=== PATIENT | female | born 1970 | race Caucasian/White ===

== ENCOUNTER 2018-07-08 00:20 | Outpatient (CLI) | payer BC, SELFPAY ==
--- NOTE | 2018-07-08 09:15 | DI.REPORT_ITS ---
SYMPTOM/DIAGNOSIS: SCREENING, ANNUAL PHYSICAL, Z00.00 MAMMOGRAMS: Mammograms were interpreted according to the usual protocol including computer analysis with CAD system, tomosynthesis and C view imaging. Comparison is made with prior examinations. Breast density, Category B. No masses or microcalcifications are seen. There is nothing to suggest malignancy. IMPRESSION: Negative mammogram. Routine screening is recommended. Category 1B. MQSA ASSESSMENT OF FINDINGS: Negative. Category 1. Patient will receive a letter notifying them of these results. BI-RADS category B. There are scattered areas of fibroglandular density.
== END 2018-07-08 00:21 ==
PROVIDERS: PCP Nurse Practitioner Family; Visit Provider Nurse Practitioner Family
DX: Z00.00 Encounter for general adult medical examination without abnormal findings (principal); Z12.31 Encounter for screening mammogram for malignant neoplasm of breast
CPT/HCPCS: 77063; 77067

== ENCOUNTER 2018-09-30 08:46 | Outpatient (RCR) | payer SELFPAY ==
--- NOTE | 2018-09-30 08:50 | COCO.CNN ---
Primary Reason for Visit Mental Health (Help with getting her daughter to school) Referral to Care Coordination Referral to Care Coordination: No Referral to Services: No Care Plan - Plan of Care Assessment/Background: I did a home visit with the family to talk about ways to get Elodia's daughter to school ontime. We spent about and hour talking about ways she can get to school. She is getting there most days but is usally late. 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 I will grab her after I drop off at the school. [facility] Self Management Plan Complete?: Yes
--- NOTE | 2018-09-30 08:59 | PDOC.CNN_ITS ---
Primary Reason for Visit Mental Health (Help with getting her daughter to school) Referral to Care Coordination Referral to Care Coordination: No Referral to Services: No Care Plan - Plan of Care Assessment/Background: I did a home visit with the family to talk about ways to get Elodia's daughter to school ontime. We spent about and hour talking about ways she can get to school. She is getting there most days but is usally late. 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 I will grab her after I drop off at the school. [facility]PE Self Management Plan Complete?: Yes
== END 2018-10-28 23:59 | disposition home or self-care (01) ==
LOC: COCO 08:46
PROVIDERS: PCP Nurse Practitioner Family; Visit Provider Nurse Practitioner Family
DX: R69 Illness, unspecified (principal)

== ENCOUNTER 2019-09-20 00:26 | Outpatient (CLI) | payer BC, SELFPAY ==
--- NOTE | 2019-09-20 08:37 | DI.MAMMO_ITS ---
EXAM: MAMMO SCREENING CLINICAL HISTORY: SCREENING, Z12.39. TECHNIQUE: Mammograms were interpreted according to the usual protocol including computer analysis w Sarta CAD system, tomosynthesis and C-view imaging. FINDINGS: The breast tissue is of moderate radiodensity. There is no evidence of a mass. There are no suspicio us calcifications and there has been no significant interval change when compared with prior images. IMPRESSION: Category 1 examination, annual screening mammography is recommended. Breast density category B. BI-RADS Cat 1 - Negative. Breast Density - Category B - Scattered areas of fibroglandular density.
== END 2019-09-20 00:46 ==
PROVIDERS: PCP Nurse Practitioner Family; Visit Provider Nurse Practitioner Family
DX: Z12.31 Encounter for screening mammogram for malignant neoplasm of breast (principal)
CPT/HCPCS: 77063; 77067

== ENCOUNTER 2021-06-10 03:59 | Outpatient (CLI) | payer BC, SELFPAY ==
[2021-06-10 09:45] LABS: Abs Immature Grans 0.02 10^3/uL (0.0-0.06); Absolute Basophil Count 0.04 10^3/uL (0.0-0.2); Absolute Eosinophil Count 0.06 10^3/uL (0.0-0.7); Absolute Lymphocyte Count 1.02 10^3/uL (1.2-3.4); Absolute Monocyte Count 0.25 10^3/uL (0.1-0.8); Absolute Neutrophil Count 3.21 10^3/uL (1.2-6.7); Basophils % 0.9; Eosinophils % 1.3; HGB 12.2 g/dL (11.2-15.7); Immature Grans % 0.4; Lymphocytes % 22.2; MCV 90.9 fL (80-95); MPV 9.3 fL (8.0-11.0); Monocytes % 5.4; Neutrophils % 69.8; Nucleated RBC 0 %; Platelet Count 238 10^3/uL (130-400); RBC 4.07 10^6/uL (3.93-5.22); RDW 13.2 % (11.7-14.6); RDW-SD 43.3 fL
[2021-06-10 10:11] LABS: Ferritin 22 ng/mL (8-252)
[2021-06-11 19:53] LABS: Iron 79 ug/dL (50-170); Total Iron Binding Capacity 361 ug/dL (250-450)
== END 2021-06-10 04:00 | disposition home or self-care (01) ==
LOC: LBO 03:59
PROVIDERS: PCP Nurse Practitioner Family; Visit Provider Internal Medicine Hematology
DX: D50.9 Iron deficiency anemia, unspecified (principal)
CPT/HCPCS: 36415; 82728; 83540; 83550; 85025

== ENCOUNTER 2021-11-17 17:23 | Outpatient (REF) | payer BC, SELFPAY ==
[2021-11-17 20:14] LABS: Abs Immature Grans 0.01 10^3/uL (0.0-0.06); Absolute Basophil Count 0.05 10^3/uL (0.0-0.2); Absolute Eosinophil Count 0.13 10^3/uL (0.0-0.7); Absolute Lymphocyte Count 1.45 10^3/uL (1.2-3.4); Absolute Monocyte Count 0.46 10^3/uL (0.1-0.8); Absolute Neutrophil Count 4.72 10^3/uL (1.2-6.7); Basophils % 0.7; Eosinophils % 1.9; HCT 41.3 % (36.0-46.0); HGB 12.6 g/dL (11.2-15.7); Immature Grans % 0.1; Lymphocytes % 21.3; MCH 25.5 pg (27.0-33.0); MCHC 30.5 % (32.0-36.0); MCV 83.6 fL (80-95); MPV 10.5 fL (8.0-11.0); Monocytes % 6.7; Neutrophils % 69.3; Nucleated RBC 0 %; Platelet Count 363 10^3/uL (130-400); RBC 4.94 10^6/uL (3.93-5.22); RDW-SD 57.5 fL; WBC 6.82 10^3/uL (4.4-10.8)
[2021-11-17 20:44] LABS: Ferritin 17 ng/mL (8-252)
== END 2021-11-17 17:24 | disposition home or self-care (01) ==
LOC: LBN 17:23
PROVIDERS: PCP Nurse Practitioner Family; Visit Provider Family Medicine
DX: D64.9 Anemia, unspecified (principal)
CPT/HCPCS: 82728; 85025

== ENCOUNTER 2021-11-18 07:46 | Emergency (ER) | payer BC, SELFPAY ==
[2021-11-18 07:50] VITALS: BP 144/70; PULSE 75; RESP 18; TEMP 36.2; O2SAT 100
--- NOTE | 2021-11-18 08:00 | RT.EKG_ITS ---
APPROVED REPORT Exam: Resting ECG Reason for Exam: syncope Patient Location: E HR:69 bpm ECG Measurements Heart Rate 69 AXIS OK 131 P 9 QRSd 89 QRS -1 QT 377 T 19 QTc 405 Conclusion Sinus rhythm...normal P axis, V-rate 60- 99
--- NOTE | 2021-11-18 08:05 | ED.GENADUL_ITS ---
Discharge Plan Disposition Patient Disposition: HOME Condition: Stable Discharge Details Clinical Impression: Vaginal bleeding Primary Care Provider: None,None ED Provider: Dre Bowen Home Meds and New Rx's Prescriptions: New ondansetron HCl [Zofran] 4 mg tablet 4 mg PO Q8H PRNQty: 10 RF: 0 Continued acetaminophen [Mapap Extra Strength] 500 MG tablet 1 tab PO PRN PRNRF: 0 venlafaxine 75 mg capsule,extended release 24hr PO DAILY RF: 0 desogestrel-ethinyl estradiol [Isibloom] 0.15-0.03 mg tablet 1 tab PO PRN PRNRF: 0 ferrous sulfate [FeroSul] 325 mg (65 mg iron) tablet 325 mg PO DAILY RF: 0 Lupron Depot (3 month) 11.25 mg Syringe Kit 11.25 mg IM [id number] RF: 0 Discharge Instructions Instructions: Abnormal (Dysfunctional) Uterine Bleeding (ED) Additional Instructions: Your laboratory values here in the ER are reassuring. I personally spoke with on-call MOTION STUDY ANALYST at [facility] who is aware of your urgent care visit yesterday and your ER visit today as well as your laboratory values. They were also able to review the hematology note. At this time they have no additional recommendations today. They would like you to move forward with the plan set forth yesterday of the increased contraceptive 3 times a day until the bleeding stopped, then 2 times a day, then 1 time a day. You are currently scheduled to see them on December 08 but they should be reaching out to you to at least check in and potentially squeeze you in sooner if the schedule allows. Please watch for new or worsening symptoms and return to the ER for any concerns. Medical Decision Making 51-year-old female presents to the ER for acute on chronic intermittent, heavy vaginal bleeding. Seen at the urgent care yesterday, MOTION STUDY ANALYST consulted, and increased her oral contraceptive therapy. Patient states upon waking this morning symptoms seem to be worse, she does feel generalized weakness like she could pass out but did not pass out. Denies any chest pain or shortness of breath that sensation has resolved completely but given the instructions given to her yesterday she came to the ER for further evaluation. Clinically she appears well, nontoxic, hemodynamically stable, abdomen soft, nontender, observe ambulating steadily to the restroom. Plan is to obtain routine laboratory values to assess her H&H, give IV fluid, and obtain coags. Laboratory values are reassuring, normal H&H. No obvious emergent process. PT 9.7 INR 1.0 electrolytes unremarkable. Urine reveals moderate blood 5-10 red cells, no signs of infection. I placed a consult to MOTION STUDY ANALYST at [facility], able to speak with on-call provider, Dr. Mancilla. We discussed her presentation and work-up today as well as she was able to review the consultation yesterday. She was able to speak with the on- call physician yesterday and review the hematology recommendations. At this time she feels as though the patient can be safely discharged and does not recommend any additional change in the medications. She recommends continuing the oral contraceptive therapy changes that were recommended yesterday. She states the patient has an appointment on December 08 but will have the MOTION STUDY ANALYST office reach out to her to check in as well as see if they can make the appointment any sooner. Lastly, she did state that the increased hormonal therapy may cause nausea and recommend a prescription for Zofran. I discussed my conversation with the MOTION STUDY ANALYST oncology consultant with the patient, she is comfortable discharge and has no additional questions or concerns. Prescription for Zofran given. Strict discharge and return precautions provided This documentation was generated using [email or web address] dictation system, please disregard any oddities of phrase or misspellings. Medical Records Medical records reviewed: Yes I reviewed the patient's medical records. Lab Data Lab results reviewed: Yes I reviewed the patient's lab results. Labs: Laboratory Tests Range/Units 11/18/21 11/18/21 11/18/21 08:20 08:37 08:37 WBC (4.4-10.8) 10^3/uL 7.16 RBC (3.93-5.22) 10^6/uL 4.60 Hgb (11.2-15.7) g/dL 11.8 Hct (36.0-46.0) % 37.7 MCV (80-95) fL 82.0 MCH (27.0-33.0) pg 25.7 L MCHC (32.0-36.0) % 31.3 L RDW (11.7-14.6) % 18.3 H Plt Count (130-400) 10^3/uL 331 MPV (8.0-11.0) fL 9.6 Immature Gran % 0.1 Neutrophils % 78.1 Lymphocytes % 13.8 Monocytes % 6.0 Eosinophils % 1.0 Basophils % 1.0 Nucleated RBC % % 0 Absolute Neutrophils (1.2-6.7) 10^3/uL 5.59 Absolute Lymphocytes (1.2-3.4) 10^3/uL 0.99 L Absolute Monocytes (0.1-0.8) 10^3/uL 0.43 Absolute Eosinophils (0.0-0.7) 10^3/uL 0.07 Absolute Basophils (0.0-0.2) 10^3/uL 0.07 PT (9.3-11.0) sec INR (0.9-1.1) Sodium (136-145) mmol/L 136 Potassium (3.5-5.1) mmol/L 4.1 Chloride (98-107) mmol/L 102 Carbon Dioxide (21.0-32.0) mmol/L 27.6 Anion Gap (3-11) mmol/L 6.4 BUN (7-18) mg/dL 16 Creatinine (0.55-1.02) mg/dL 0.9 Estimated GFR/1.73 m2 (mL/min/1.73m2) >= 60.00 Glucose (74-106) mg/dL 87 Calcium (8.5-10.1) mg/dL 8.3 L Total Bilirubin (0.2-1.0) mg/dL 0.4 AST (15-37) U/L 19 ALT (14-59) U/L 22 Alkaline Phosphatase (46-116) U/L 77 Troponin I (<or=60) ng/L < 50 Total Protein (6.4-8.2) g/dL 6.7 Albumin (3.4-5.0) g/dL 3.3 L Urine Color (Yellow) Yellow Urine Clarity (Clear) Clear Urine pH (5-8) 7.0 Ur Specific [place] (1.005-1.025) 1.015 Urine Protein (Negative) mg/dL Negative Urine Ketones (Negative) mg/dL Negative Urine Blood (Negative) Moderate H Urine Nitrite (Negative) Negative Urine Bilirubin (Negative) Negative Urine Urobilinogen (Up TO 0.2) EU/dL 0.2 Ur Leukocyte Esterase (Negative) Negative Urine RBC (0-2) HPF 5-10 H Urine WBC (0-5) HPF 0-2 Ur Epithelial Cells (Negative) HPF Few Urine Crystals (Negative) HPF Negative Urine Bacteria (Negative) HPF Rare Urine Casts (Negative) LPF Negative Urine Mucus (Negative) Moderate Ur Culture Indicated? No Urine Glucose (Negative) mg/dL Negative Range/Units 11/18/21 11/18/21 08:37 11:14 WBC (4.4-10.8) 10^3/uL RBC (3.93-5.22) 10^6/uL Hgb (11.2-15.7) g/dL Hct (36.0-46.0) % MCV (80-95) fL MCH (27.0-33.0) pg MCHC (32.0-36.0) % RDW (11.7-14.6) % Plt Count (130-400) 10^3/uL MPV (8.0-11.0) fL Immature Gran % Neutrophils % Lymphocytes % Monocytes % Eosinophils % Basophils % Nucleated RBC % % Absolute Neutrophils (1.2-6.7) 10^3/uL Absolute Lymphocytes (1.2-3.4) 10^3/uL Absolute Monocytes (0.1-0.8) 10^3/uL Absolute Eosinophils (0.0-0.7) 10^3/uL Absolute Basophils (0.0-0.2) 10^3/uL PT (9.3-11.0) sec 9.7 INR (0.9-1.1) 1.0 Sodium (136-145) mmol/L Potassium (3.5-5.1) mmol/L Chloride (98-107) mmol/L Carbon Dioxide (21.0-32.0) mmol/L Anion Gap (3-11) mmol/L BUN (7-18) mg/dL Creatinine (0.55-1.02) mg/dL Estimated GFR/1.73 m2 (mL/min/1.73m2) Glucose (74-106) mg/dL Calcium (8.5-10.1) mg/dL Total Bilirubin (0.2-1.0) mg/dL AST (15-37) U/L ALT (14-59) U/L Alkaline Phosphatase (46-116) U/L Troponin I (<or=60) ng/L Cancelled Total Protein (6.4-8.2) g/dL Albumin (3.4-5.0) g/dL Urine Color (Yellow) Urine Clarity (Clear) Urine pH (5-8) Ur Specific [place] (1.005-1.025) Urine Protein (Negative) mg/dL Urine Ketones (Negative) mg/dL Urine Blood (Negative) Urine Nitrite (Negative) Urine Bilirubin (Negative) Urine Urobilinogen (Up TO 0.2) EU/dL Ur Leukocyte Esterase (Negative) Urine RBC (0-2) HPF Urine WBC (0-5) HPF Ur Epithelial Cells (Negative) HPF Urine Crystals (Negative) HPF Urine Bacteria (Negative) HPF Urine Casts (Negative) LPF Urine Mucus (Negative) Ur Culture Indicated? Urine Glucose (Negative) mg/dL ECG Data Attestation: I personally reviewed and interpreted this ECG (s) as follows: Interpretation: Please see official report by Dr. Garrido. Sinus rhythm, ventricular rate of 69. No STEMI. HPI General Mode of arrival: ambulatory . Date/Time Provider Initiated Documentation: 11/18/21 08:02 . Limitations to Documentation: no limitations . Information obtained by: patient . HPI Narrative: This is a 51-year-old female, past medical history of von Willebrand's, long history of irregular intermittent and heavy vaginal bleeding, currently going through menopause, reporting heavy vaginal bleeding this morning which seems to already be improving, at 530 this morning felt slightly sweaty like she could pass out but did not pass out. Patient states that she is following with both a director of parks and recreation and MOTION STUDY ANALYST at [facility], she is currently receiving injections and in the process of weaning down her oral hormone therapy. Patient went to the urgent care yesterday, hemoglobin was 9.9, they contacted her MOTION STUDY ANALYST team and they recommended increasing oral hormone therapy for the next several days. She was told at that time if symptoms were to change or worsen to seek additional medical care. Patient denies weakness, fever, abdominal pain, nausea vomiting, chest pain, shortness of breath, vaginal discharge, abnormal bruising. She did take the increased oral contraceptive over the past 24 hours. Patient states that upon waking this morning the vaginal bleeding was much more impressive than it is currently. Related Data Home Medications Medication Instructions Recorded Confirmed acetaminophen [Mapap Extra 1 tab PO PRN PRN 12/19/14 11/18/21 Strength] Lupron Depot (3 month) 11.25 mg IM [id number] 11/18/21 11/18/21 desogestrel-ethinyl estradiol 1 tab PO PRN PRN 11/18/21 11/18/21 [Isibloom] ferrous sulfate [FeroSul] 325 mg PO DAILY 11/18/21 11/18/21 ondansetron HCl [Zofran] 4 mg PO Q8H PRN #10 tab 11/18/21 venlafaxine mg PO DAILY 11/18/21 Previous Rx's Medication Instructions Recorded ondansetron HCl [Zofran] 4 mg PO Q8H PRN #10 tab 11/18/21 Allergies Allergy/AdvReac Type Severity Reaction Status Date / Time codeine Allergy Mild Skin Rash Unverified 11/18/21 07:57 surgical tape Allergy Mild Hives Uncoded 11/18/21 07:57 General Stated Complaint: MOTION STUDY ANALYST JESSICA: 3 Review of Systems Constitutional Constitutional: Denies fatigue, Denies fever(s) and Denies weakness Cardiovascular Cardiovascular: Denies chest pain and Denies dyspnea Respiratory Respiratory: Denies dyspnea Gastrointestinal Gastrointestinal: Denies abdominal pain, Denies nausea and Denies vomiting Genitourinary Genitourinary: Reports abnormal vaginal bleeding, Denies dysuria, Denies pelvic pain and Denies vaginal discharge Musculoskeletal Musculoskeletal: Denies back pain Integumentary/Breasts Skin/Breast: Denies rash Neurologic Neurologic: Denies weakness Endocrine Endocrine: Denies fatigue PFSH All Active Problems (Updated 11/18/21 @ 10:07 by DIVYA Marquez) Vaginal bleeding (Acute) Social History Smoking/Tobacco Use Status: Never Smoking risk assessment performed?: Yes Alcohol Intake: never Drug use: Never Do you feel safe at home: Yes Do you feel safe in your relationship?: Yes Exam Const General: cooperative, healthy appearing, comfortable and no acute distress Orientation: alert, awake and oriented x3 HENMT Head: normal to inspection, normocephalic and atraumatic Face and sinus: normal facial exam Mouth: moist mucous membranes Eyes General: appearance normal, both eyes and all related structures Conjunctivae: conjunctivae normal Neck Neck: normal visual inspection, trachea midline and supple Resp Effort & Inspection: normal respiratory effort and able to speak in complete sentences Auscultation: clear to auscultation bilaterally Cardio Rate: regular rate Rhythm: regular rhythm GI Palpation: soft, not firm, no guarding, no pulsatile masses and nontender Auscultation: normal bowel sounds General: deferred Back/Spine/Pelvis Back: No back tenderness Skin General skin exam: no rashes or lesions noted Neuro General: patient alert, patient awake, patient oriented x3, moves all extremities and no focal motor deficits Cognition: normal cognition Speech: speech normal Gait: normal gait Sensory Exam: no sensory deficits noted Extrem General: normal to inspection and full ROM Psych Appearance: grossly normal Mental Status: mental status grossly normal Course Vital Signs Vital signs: Vital Signs Temperature 36.2 C L 11/18/21 07:50 Pulse 75 11/18/21 07:50 Respiratory Rate 18 11/18/21 07:50 Blood Pressure 144/70 H 11/18/21 07:50 Pulse Oximetry 100 11/18/21 07:50 Temperature 36.2 C L 11/18/21 07:50 Temperature Source Temporal Artery Scan 11/18/21 07:50 Pulse 75 11/18/21 07:50 Respiratory Rate 18 11/18/21 07:50 Blood Pressure 144/70 H 11/18/21 07:50 Blood Pressure Position Sitting 11/18/21 07:50 Pulse Oximetry 100 11/18/21 07:50 Oxygen Delivery Method Room Air 11/18/21 07:50 Oxygen Flow Rate 0 11/18/21 07:50 Pain Level 2 11/18/21 08:03
[2021-11-18 08:32] LABS: Bilirubin Negative (Negative); Blood Moderate (Negative); Clarity Clear (Clear); Glucose Negative (Negative); Ketones Negative (Negative); Leukocyte Esterase Negative (Negative); Nitrite Negative (Negative); Specific Gravity 1.015 (1.005-1.025); Urobilinogen 0.2 EU/dL (Up TO 0.2)
[2021-11-18] MEDS: Normal Saline 1,000 ML 1000 ML IV (08:40)
[2021-11-18 08:46] LABS: Abs Immature Grans 0.01 10^3/uL (0.0-0.06); Absolute Basophil Count 0.07 10^3/uL (0.0-0.2); Absolute Eosinophil Count 0.07 10^3/uL (0.0-0.7); Absolute Lymphocyte Count 0.99 10^3/uL (1.2-3.4); Absolute Monocyte Count 0.43 10^3/uL (0.1-0.8); Absolute Neutrophil Count 5.59 10^3/uL (1.2-6.7); HCT 37.7 % (36.0-46.0); HGB 11.8 g/dL (11.2-15.7); Immature Grans % 0.1; Lymphocytes % 13.8; MCH 25.7 pg (27.0-33.0); MCHC 31.3 % (32.0-36.0); MPV 9.6 fL (8.0-11.0); Neutrophils % 78.1; Nucleated RBC 0 %; Platelet Count 331 10^3/uL (130-400); RDW 18.3 % (11.7-14.6); RDW-SD 54.6 fL; WBC 7.16 10^3/uL (4.4-10.8)
[2021-11-18 08:47] LABS: Bacteria Rare HPF (Negative); C & S Indicated? No; Casts Negative LPF (Negative); Crystals Negative HPF (Negative); Epithelial Cells Few HPF (Negative); Mucus Moderate (Negative); WBC 0-2 HPF (0-5)
[2021-11-18 09:02] LABS: ALT 22 U/L (14-59); AST 19 U/L (15-37); Albumin 3.3 g/dL (3.4-5.0); Alkaline Phosphatase 77 U/L (46-116); Anion Gap 6.4 mmol/L (3-11); BUN 16 mg/dL (7-18); Bilirubin, Total 0.4 mg/dL (0.2-1.0); CO2 27.6 mmol/L (21.0-32.0); CREATININE 0.9 mg/dL (0.55-1.02); Calcium 8.3 mg/dL (8.5-10.1); Chloride 102 mmol/L (98-107); Glucose 87 mg/dL (74-106); Potassium 4.1 mmol/L (3.5-5.1); Sodium 136 mmol/L (136-145); Total Protein 6.7 g/dL (6.4-8.2); Troponin I < 50 ng/L (<or=60)
[2021-11-18 09:11] LABS: Prothrombin Time 9.7 sec (9.3-11.0)
[2021-11-18 09:42] VITALS: BP 129/62; PULSE 69; TEMP 36.7; O2SAT 100
[2021-11-18 10:15] VITALS: BP 129/62; PULSE 69; RESP 18; TEMP 36.7; O2SAT 100
== END 2021-11-18 10:16 | disposition home or self-care (01) ==
PROVIDERS: Emergency Provider Physician Assistant
DX: N93.8 Other specified abnormal uterine and vaginal bleeding (principal); R53.1 Weakness; R11.0 Nausea
CPT/HCPCS: 36415; 80053; 81025; 93005; 96360; 99284; 81003; 81015; 84484; 85025; 85610; 93010

== ENCOUNTER → 2022-05-18 01:35 | Outpatient (CLI) | payer BC, SELFPAY ==
--- NOTE | 2022-05-18 | DI.MAMMO_ITS ---
Exam(s) MAMMO SCREENING EXAM: MAMMO SCREENING CLINICAL HISTORY: SCREENING, Z12.39 TECHNIQUE: Bilateral full field digital CC and MLO mammographic images were obtained with 3D tomosyn thesis and utilizing computer aided detection (CAD). COMPARISON: Available for comparison. FINDINGS: Masses/Architectural Distortion: There is a new well circumscribed but partially obscured nodule in t he outer retroareolar region of the left breast seen on the craniocaudad view. Microcalcifications: No suspicious pleomorphic-type are seen. Skin Thickening/Nipple Retraction: None. IMPRESSION: 1. New well-circumscribed nodule in the outer retroareolar region of the left breast on the CC view. 2. This area should be further evaluated with a spot compression view. Ultrasound may be indicated a t that time. BI-RADS Category 0 - Assessment Incomplete: Need additional imaging evaluation Breast Density - Category B - Scattered areas of fibroglandular density Breast density category C or D implies that the patient has dense breast tissue. Dense breast tissue is very common and is not abnormal but dense breast tissue can make it harder to find cancer on a ma mmogram. Also, dense breast tissue may increase their breast cancer risk. This information about the result of the mammogram report was provided to the patient to raise their awareness. Use this report when you speak with the patient about their risks for breast cancer, which includes their family hist ory. At that time, you may recommend for more screening tests (Ultrasound or MRI) as they might be us eful based on their risk. A negative radiographic report should not delay biopsy if a dominant or clinically suspicious mass is present. Up to ten percent of cancers are not identified on mammography. A negative report may reinforce clinical impression. Adenosis and dense breasts may obscure an underlying neoplasm. False positive reports average 6 to 10%. Patient will receive a letter notifying them of these results.
== END ==
PROVIDERS: PCP Nurse Practitioner Family; Visit Provider Nurse Practitioner Family
DX: Z12.31 Encounter for screening mammogram for malignant neoplasm of breast (principal); R92.8 Other abnormal and inconclusive findings on diagnostic imaging of breast
CPT/HCPCS: 77063; 77067

== ENCOUNTER → 2022-05-22 00:21 | Outpatient (CLI) | payer BC, SELFPAY ==
--- NOTE | 2022-05-22 10:49 | DI.MAMMO_ITS ---
Exam(s) MG MAMMO SCREEN CALL BACK UNI US BREAST LT LIMITED EXAM: MG MAMMO SCREEN CALL BACK UNI and U/S breast LT limited CLINICAL HISTORY: F/U ABNL MAMMO, WELL-CIRCUMSCRIBED NODULE LT BREAST RETROAREOLAR. TECHNIQUE: Craniocaudal and mediolateral oblique Full Field Digital Mammography views of the left br east with Computer Aided Diagnosis followed by Tomosynthesis and left breast ultrasound. COMPARISON: Comparison with prior examinations. FINDINGS: Mammography/Tomosynthesis: Masses/Architectural Distortion: There is a well-circumscribed 7 mm ovoid density lateral to the nipp le in the retroareolar region on the CC view. Microcalcifictions: No suspicious pleomorphic-type are seen. Skin Thickening/Nipple Retraction: None. Limited left breast US: Echotexture: Normal appearance of the glandular tissue. Shadowing: No suspicious foci. Cyst: There is a simple cyst measuring 7 x 4 x 8 mm at the 3 o'clock position of the left breast 1 cm from the nipple. This corresponds to the mammographic abnormality. Solid lesions: None seen. Ductal dilation: None. IMPRESSION: 1. No evidence of malignancy is noted. 2. Unless there is more urgent need, follow-up screening mammography is recommended, as per [place] [employer] guidelines. 3. The findings were discussed with the patient on the date of the examination. BI-RADS Category 2 - Benign Findings Breast Density - Category B - Scattered areas of fibroglandular density Breast density Category C or D implies that the patient has dense breast tissue. Dense breast tissue can make it harder to find cancer on a mammogram. Dense breast tissue is also associated with an incr eased risk of breast cancer. This information about the result of the mammogram report was provided to the patient to raise their awareness. Use this report when you speak with the patient about their risks for breast cancer, which includes their family history. At that time, you may recommend additional screening tests (Ultrasoun d or MRI) as these tests may add significant information. A negative radiographic report should not delay biopsy if a dominant or clinically suspicious mass is present. Up to ten percent of cancers are not identified on mammography. A negative report may reinforce clinical impression. Adenosis and dense breasts may obscure an underlying neoplasm. False positive reports average 6 to 10%. Patient will receive a letter notifying them of these results.
== END ==
PROVIDERS: Visit Provider Nurse Practitioner Family
DX: Z12.31 Encounter for screening mammogram for malignant neoplasm of breast (principal); R92.8 Other abnormal and inconclusive findings on diagnostic imaging of breast; N60.02 Solitary cyst of left breast
CPT/HCPCS: 76642; 77063; 77067

== ENCOUNTER 2022-05-25 15:03 | Outpatient (REF) | payer BC, SELFPAY ==
[2022-05-25 16:51] LABS: Anion Gap 8.6 mmol/L (3-11); BUN 11 mg/dL (7-18); CO2 26.4 mmol/L (21.0-32.0); CREATININE 0.8 mg/dL (0.55-1.02); Calcium 8.1 mg/dL (8.5-10.1); Calculated LDL 160 mg/dL (<100); Chloride 102 mmol/L (98-107); Cholesterol 232 mg/dL (<200); Glucose 99 mg/dL (74-106); HDL Cholesterol 48 mg/dL (40-60); Potassium 3.6 mmol/L (3.5-5.1); Sodium 137 mmol/L (136-145); Triglyceride 123 mg/dL (<150)
== END 2022-05-25 15:04 | disposition home or self-care (01) ==
LOC: NCHCN 15:03
PROVIDERS: Visit Provider Nurse Practitioner Family
DX: Z00.00 Encounter for general adult medical examination without abnormal findings (principal); Z13.220 Encounter for screening for lipoid disorders
CPT/HCPCS: 80048; 80061

== ENCOUNTER 2022-05-30 09:37 | Emergency (ER) | payer BC, SELFPAY ==
[2022-05-30 09:47] VITALS: BP 146/91; PULSE 87; RESP 18; TEMP 36.3; O2SAT 98
--- NOTE | 2022-05-30 10:25 | ED.GENADUL_ITS ---
Discharge Plan Disposition Patient Disposition: HOME Condition: Stable Discharge Details Clinical Impression: Menorrhagia due to blood coagulation disorder Primary Care Provider: None,None ED Provider: Louis Bass Home Meds and New Rx's Prescriptions: New norethindrone acetate 5 mg tablet See Rx Instructions .ROUTE .COMPLEX Qty: 49 0RF Rx Instructions: 5 mg orally TID x 1 week, 5mg BID x 1 week, 5mg QD x 1 week. If breakthrough bleeding occurs please go to previous dosing and call DIRECTOR OF ELEMENTARY EDUCATION No Action acetaminophen [Mapap Extra Strength] 500 MG tablet 1 tab PO PRN PRN venlafaxine 75 mg capsule,extended release 24hr 150 mg PO DAILY Label Comments: TAKE ONE CAPSULE BY MOUTH EVERY DAY desogestrel-ethinyl estradiol [Isibloom] 0.15-0.03 mg tablet 1 tab PO PRN PRN ferrous sulfate [FeroSul] 325 mg (65 mg iron) tablet 325 mg PO DAILY Label Comments: TAKE 1 TABLET BY MOUTH EVERY OTHER DAY Lupron Depot (3 month) 11.25 mg Syringe Kit 11.25 mg IM [id number] ondansetron HCl [Zofran] 4 mg tablet 4 mg PO Q8H PRNQty: 10 0RF Discharge Instructions Instructions: Menorrhagia (ED) Additional Instructions: Please take medication as prescribed and follow-up with [facility] DIRECTOR OF ELEMENTARY EDUCATION office. If you have any significant bleeding, hemorrhaging, passing out, or other concerning findings feel free to return to the emergency department immediately for reassessment. It will take typically 24 to 48 hours for the new medication to start slowing her bleeding down Referrals: [facility] [Outside] Discharge Data Discharge Date/Time-TO BE ENTERED AT DEPARTURE: 05/30/22 12:00 Medical Decision Making Patient presenting to the emergency department for chief complaint of heavy menstrual bleeding. She states long ongoing history of this secondary to von Willebrand's syndrome. She was recently put on IM injection and tapered off of oral hormone. She stopped her taper 3 days ago and bleeding started almost immediately and has continued. Patient does state some slight lightheadedness and malaise otherwise denies all other symptoms. Patient deferred DIRECTOR OF ELEMENTARY EDUCATION exam but physical exam is otherwise unremarkable, no tachycardia, no obvious bruising to the skin, stable vital signs. We will check labs and touch base with [facility] DIRECTOR OF ELEMENTARY EDUCATION office given that this is where she is managed. Labs are stable with no acute worrisome anemia or other findings of concern. Called and spoke with Dr. Fredy Wall at [facility] who recommended restarting hormone therapy and following up with their office. Orders were placed for this and patient states clear understanding of plan of care. After discussion of diagnosis and plan of care patient has no further needs, questions, or concerns and states clear understanding to return to the emergency department for any worsening symptoms. This documentation was generated using Radialpointation system, please disregard any oddities of phrase or misspellings. Lab Data Lab results reviewed: Yes I reviewed the patient's lab results. HPI General Mode of arrival: ambulatory . Date/Time Provider Initiated Documentation: 05/30/22 09:45 . Limitations to Documentation: no limitations . Information obtained by: patient and RN notes reviewed . History of Present Illness 52 year old F presents to the emergency department with the chief comp laint of Heavy menstrual bleeding, described as similar to prior episodes, Quality is described as other, Patient started experiencing this day(s) (3) and it has been constant. No relieving factors improve symptom(s), Medication worsens symptoms (stoping hormones) . Patient did receive the following treatments prior to arrival, none Related Data Home Medications Medication Instructions Recorded Confirmed acetaminophen 500 mg tablet (Mapap 1 tab PO PRN PRN 12/19/14 05/30/22 Extra Strength) desogestrel 0.15 mg-ethinyl 1 tab PO PRN PRN 11/18/21 11/18/21 estradiol 0.03 mg tablet (Isibloom) ferrous sulfate 325 mg (65 mg 325 mg PO DAILY 11/18/21 05/30/22 iron) tablet (FeroSul) leuprolide (3 month) 11.25 mg (3 11.25 mg IM [id number] 11/18/21 05/30/22 month) intramuscular syringe kit (Lupron Depot) ondansetron HCl 4 mg tablet 4 mg PO Q8H PRN #10 tabs 11/18/21 (Zofran) venlafaxine 75 mg capsule,extended 150 mg PO DAILY 11/18/21 release 24 hr norethindrone acetate 5 mg tablet See Rx Instructions .Route 05/30/22 .COMPLEX #49 tabs Previous Rx's Medication Instructions Recorded ondansetron HCl 4 mg tablet 4 mg PO Q8H PRN #10 tabs 11/18/21 (Zofran) norethindrone acetate 5 mg tablet See Rx Instructions .Route 05/30/22 .COMPLEX #49 tabs Allergies Allergy/AdvReac Type Severity Reaction Status Date / Time codeine Allergy Mild Skin Rash Unverified 05/30/22 09:50 surgical tape Allergy Mild Hives Uncoded 05/30/22 09:50 General Stated Complaint: 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: 3 Review of Systems Constitutional Constitutional: Reports lethargy and Reports malaise Cardiovascular Cardiovascular: Denies chest pain, Denies syncope, Reports lightheadedness and Denies dyspnea Respiratory Respiratory: Denies dyspnea Gastrointestinal Gastrointestinal: Denies abdominal pain, Denies hematochezia, Denies diarrhea and Denies hematemesis Genitourinary Genitourinary: Reports as per HPI, Reports abnormal menses and Reports abnormal vaginal bleeding Integumentary/Breasts Skin/Breast: Denies unusual bruising Neurologic Neurologic: Denies syncope Hematologic/Lymphatic Hematologic/Lymphatic: Denies easy bruising PFSH All Active Problems (Updated 05/30/22 @ 11:45 by Lousi Bass NP) Menorrhagia due to blood coagulation disorder (Acute) Von Willebrands disease (Acute) Social History Smoking/Tobacco Use Status: Never Smoking risk assessment performed?: Yes Alcohol Intake: never Drug use: Never Substance use type: does not use Do you feel safe at home: Yes Do you feel safe in your relationship?: Yes Exam Const General: cooperative, no acute distress and not ill appearing Orientation: alert, awake and oriented x3 Resp Effort & Inspection: normal respiratory effort, able to speak in complete sentences and no respiratory distress Auscultation: clear to auscultation bilaterally Cardio Rate: regular rate Rhythm: regular rhythm Heart Sounds: S1 normal and S2 normal General: deferred Skin General skin exam: no rashes or lesions noted Neuro General: patient alert, patient awake, patient oriented x3, moves all extremities and no focal motor deficits Sensory Exam: no sensory deficits noted Course Vital Signs Vital signs: Vital Signs Temperature 36.3 C L 05/30/22 09:47 Pulse 87 05/30/22 09:47 Respiratory Rate 18 05/30/22 09:47 Blood Pressure 146/91 H 05/30/22 09:47 Pulse Oximetry 98 05/30/22 09:47 Temperature 36.3 C L 05/30/22 09:47 Temperature Source Temporal Artery Scan 05/30/22 09:47 Pulse 87 05/30/22 09:47 Respiratory Rate 18 05/30/22 09:47 Respiratory Effort Non-Labored 05/30/22 09:53 Blood Pressure 146/91 H 05/30/22 09:47 Blood Pressure Position Sitting 05/30/22 09:47 Pulse Oximetry 98 05/30/22 09:47 Oxygen Delivery Method Room Air 05/30/22 09:47 Oxygen Flow Rate 0 05/30/22 09:47 Pain Level 0 05/30/22 10:15
[2022-05-30 10:32] LABS: Abs Immature Grans 0.01 10^3/uL (0.0-0.06); Absolute Basophil Count 0.04 10^3/uL (0.0-0.2); Absolute Eosinophil Count 0.07 10^3/uL (0.0-0.7); Absolute Lymphocyte Count 0.98 10^3/uL (1.2-3.4); Absolute Monocyte Count 0.32 10^3/uL (0.1-0.8); Absolute Neutrophil Count 4.27 10^3/uL (1.2-6.7); Basophils % 0.7; Eosinophils % 1.2; HCT 38.3 % (36.0-46.0); HGB 12.9 g/dL (11.2-15.7); Immature Grans % 0.2; Lymphocytes % 17.2; MCH 29.9 pg (27.0-33.0); MCHC 33.7 % (32.0-36.0); MCV 89 fL (80-95); MPV 9.9 fL (8.0-11.0); Monocytes % 5.6; Neutrophils % 75.1; Platelet Count 306 10^3/uL (130-400); RBC 4.31 10^6/uL (3.93-5.22); RDW 13.4 % (11.7-14.6); RDW-SD 43.4 fL; WBC 5.69 10^3/uL (4.4-10.8)
[2022-05-30 10:46] LABS: INR 0.9 (0.9-1.1); PTT Activated 26.8 sec (21.0-27.5); Prothrombin Time 9.5 sec (9.3-11.0)
[2022-05-30 10:48] LABS: ALT 43 U/L (14-59); AST 26 U/L (15-37); Albumin 3.4 g/dL (3.4-5.0); Alkaline Phosphatase 96 U/L (46-116); Anion Gap 8.8 mmol/L (3-11); BUN 15 mg/dL (7-18); Bilirubin, Total 0.6 mg/dL (0.2-1.0); CO2 25.2 mmol/L (21.0-32.0); Calcium 8.2 mg/dL (8.5-10.1); Chloride 102 mmol/L (98-107); Estimated GFR 58.22 (mL/min/1.73m2); Glucose 105 mg/dL (74-106); Potassium 3.6 mmol/L (3.5-5.1); Sodium 136 mmol/L (136-145)
== END 2022-05-30 12:00 | disposition home or self-care (01) ==
PROVIDERS: Emergency Provider Nurse Practitioner Family
DX: N92.0 Excessive and frequent menstruation with regular cycle (principal); D68.0 Von Willebrand disease
CPT/HCPCS: 80053; 99283; 85025; 85610; 85730; 99284

== ENCOUNTER 2023-01-27 01:09 | Outpatient (CLI) | payer BC, SELFPAY ==
--- NOTE | 2023-01-27 09:15 | DI.RAD_ITS ---
Exam(s) XR KNEE RT 3V AP,LAT,ANTONIO EXAM: XR KNEE RT 3V AP,LAT,ANTONIO CLINICAL HISTORY: RT KNEE PAIN M25.561. TECHNIQUE: 2D digital imaging was performed of the right knee. Three views obtained. AP, lateral an d PA tunnel views were obtained. COMPARISON: No exams were available for comparison FINDINGS: BONES: No acute fracture is present. No bony destructive lesion is seen. JOINTS: The knee is normally aligned. There is a small joint effusion. There is mild narrowing and s purring in the medial femoral tibial joint. Mild spurring is seen at the posterior patella. SOFT TISSUE: Normal. IMPRESSION: Mild degenerative changes of the right knee. DATA REPOSITORY: RADIATION DOSE DELIVERED:
== END 2023-01-27 01:29 ==
PROVIDERS: PCP Nurse Practitioner Family; Visit Provider Nurse Practitioner Family
DX: M25.561 Pain in right knee (principal); M17.11 Unilateral primary osteoarthritis, right knee; M25.461 Effusion, right knee
CPT/HCPCS: 73562

== ENCOUNTER 2023-03-08 13:45 | Outpatient (REF) | payer BC, SELFPAY ==
[2023-03-08 18:44] LABS: Abs Immature Grans 0.02 10^3/uL (0.0-0.06); Absolute Basophil Count 0.06 10^3/uL (0.0-0.2); Absolute Eosinophil Count 0.09 10^3/uL (0.0-0.7); Absolute Lymphocyte Count 1.69 10^3/uL (1.2-3.4); Absolute Monocyte Count 0.46 10^3/uL (0.1-0.8); Absolute Neutrophil Count 5.27 10^3/uL (1.2-6.7); Basophils % 0.8; Eosinophils % 1.2; HCT 41.3 % (36.0-46.0); HGB 13.7 g/dL (11.2-15.7); Immature Grans % 0.3; Lymphocytes % 22.3; MCH 30.7 pg (27.0-33.0); MCHC 33.2 % (32.0-36.0); MCV 93 fL (80-95); MPV 10.3 fL (8.0-11.0); Monocytes % 6.1; Neutrophils % 69.3; Platelet Count 360 10^3/uL (130-400); RBC 4.46 10^6/uL (3.93-5.22); RDW 13.1 % (11.7-14.6); RDW-SD 43.8 fL; WBC 7.59 10^3/uL (4.4-10.8)
[2023-03-08 18:59] LABS: Iron 66 ug/dL (50-170); Total Iron Binding Capacity 311 ug/dL (250-450); Transferrin Sat 21 % (15-50)
[2023-03-08 19:08] LABS: Ferritin 207 ng/mL (8-252)
== END 2023-03-08 13:46 | disposition home or self-care (01) ==
LOC: NCHCN 13:45
PROVIDERS: PCP Nurse Practitioner Family; Visit Provider Nurse Practitioner Family
DX: D64.9 Anemia, unspecified (principal)
CPT/HCPCS: 82728; 83540; 83550; 85025

== ENCOUNTER 2023-04-18 00:51 | Outpatient (RCR) | payer BC, SELFPAY ==
[2023-04-17] MEDS: Normal Saline Flush 10 ML SYR IVP (10:54)
[2023-04-18] MEDS: Normal Saline Flush 10 ML SYR IVP (11:06)
== END 2023-04-28 23:59 | disposition home or self-care (01) ==
LOC: INF 00:51
PROVIDERS: PCP Nurse Practitioner Family; Visit Provider Internal Medicine
DX: D68.09 Other von Willebrand disease (principal)
CPT/HCPCS: 96374; J7187

== ENCOUNTER → 2023-08-09 00:46 | Outpatient (CLI) | payer BC, SELFPAY ==
--- NOTE | 2023-08-09 | DI.RAD_ITS ---
Exam(s) XR HAND RT COMPLETE EXAM: XR HAND RT COMPLETE CLINICAL HISTORY: RT HAND PAIN, M79.641. TECHNIQUE: 2D digital imaging was performed. Three views. COMPARISON: No exams were available for comparison FINDINGS: BONES: No acute fracture is present. No bony destructive lesion is seen. JOINTS: No dislocation present. No significant degenerative changes SOFT TISSUE: Normal. IMPRESSION: Unremarkable radiographs of the right hand. DATA REPOSITORY: RADIATION DOSE DELIVERED:
== END ==
PROVIDERS: PCP Nurse Practitioner Family; Visit Provider Nurse Practitioner Family
DX: M79.641 Pain in right hand (principal)
CPT/HCPCS: 73130

== ENCOUNTER 2023-09-07 19:28 | Outpatient (REF) | payer BC, SELFPAY ==
[2023-09-07 19:00] LABS: ALT 36 U/L (14-59); AST 23 U/L (15-37); Albumin 3.6 g/dL (3.4-5.0); Alkaline Phosphatase 90 U/L (46-116); Anion Gap 10.9 mmol/L (3-11); BUN 14 mg/dL (7-18); Bilirubin, Total 0.6 mg/dL (0.2-1.0); CO2 23.1 mmol/L (21.0-32.0); CREATININE 0.8 mg/dL (0.55-1.02); Calcium 8.9 mg/dL (8.5-10.1); Calculated LDL 143 mg/dL (<100); Chloride 102 mmol/L (98-107); Cholesterol 201 mg/dL (<200); Estimated GFR 88.05 (mL/min/1.73m2); Glucose 90 mg/dL (74-106); HDL Cholesterol 40 mg/dL (40-60); Potassium 3.9 mmol/L (3.5-5.1); Sodium 136 mmol/L (136-145); Total Protein 7.4 g/dL (6.4-8.2); Triglyceride 90 mg/dL (<150)
== END 2023-09-07 19:29 | disposition home or self-care (01) ==
LOC: NCHCN 19:28
PROVIDERS: PCP Nurse Practitioner Family; Visit Provider Nurse Practitioner Family
DX: I10 Essential (primary) hypertension (principal); Z13.220 Encounter for screening for lipoid disorders
CPT/HCPCS: 80053; 80061

== ENCOUNTER → 2023-11-10 02:00 | Outpatient (CLI) | payer BC, SELFPAY ==
--- NOTE | 2023-11-10 15:42 | DI.MAMMO_ITS ---
Exam(s) MAMMO SCREENING EXAM: MAMMO SCREENING CLINICAL HISTORY: SCREENING,Z12.39 TECHNIQUE: Mammograms were interpreted according to the usual protocol including computer analysis w [employer] CAD system, tomosynthesis and C-view imaging. COMPARISON: 2014 through 2021 FINDINGS: The breasts are composed of scattered fibroglandular densities, Breast Density category B. No suspicious masses or suspicious microcalcifications are seen. No skin thickening or abnormal axillary lymph nodes are seen. There has been no significant change from prior exams. IMPRESSION: BI-RADS Category 1, Negative mammogram Yearly screening mammography is recommended. Breast Density - Category B, scattered fibroglandular densities. A negative radiographic report should not delay biopsy if a dominant or clinically suspicious mass is present. Up to ten percent of cancers are not identified on mammography. A negative report may reinforce clinical impression. Adenosis and dense breasts may obscure an underlying neoplasm. False positive reports average 6 to 10%. Patient will receive a letter notifying them of these results.
== END ==
PROVIDERS: PCP Nurse Practitioner Family; Visit Provider Nurse Practitioner Family
DX: Z12.31 Encounter for screening mammogram for malignant neoplasm of breast (principal)
CPT/HCPCS: 77063; 77067

== ENCOUNTER 2024-08-10 15:44 | Outpatient (REF) | payer BC, SELFPAY ==
--- OUTSIDE RECORDS SUMMARY | 2024-08-10 15:55 | XMS_ITS | Encounter Summary ---
Author Organization [facility] [place] [address] Care Team Providers Care Horse Rancher Name Role Phone Clayton Johnson JOHN Primary Care Provider [phone] Encounter Details Date Type Department Care Team (Latest Contact Info) Description 08/25/2023 2:45 PM EDT - 08/25/2023 11:59 PM EDT Hospital Encounter Hematology [place] [phone] Von Willebrand disease; Iron deficiency anemia, unspecified iron deficiency anemia type Discharge Disposition: Home Social History Tobacco Use Types Packs/Day Years Used Date Smoking Tobacco: Never Smokeless Tobacco: Never Alcohol Use Standard Drinks/Week Comments Not Currently 0 (1 standard drink = 0.6 oz pur e alcohol) [facility] Inpatient Questions Answer Date Recorded Does Anyone Try to Keep You From Having Contact with Others or Doing Things Outside Your Home? no 04/16/2023 Feels Threatened by Someone no 03/29 Feels Unsafe at Home or Work/School no 04/16/2023 Physical Signs of Abuse Present no 04/16/2023 Sex and Gender Information Value Date Recorded Sex Assigned at Not on file Gender Identity Not on file Sexual Orientation Not on file documented as of this encounter Medications at Time of Discharge Medication Sig Dispensed Refills Start Date End Date multivitamin with minerals (One-A-Day) Tablet Take 1 tablet by mouth daily. venlafaxine XR (Effexor-XR) 75 mg Capsule, Sust. Release 24 hr 150 mg. 09/05/2021 acetaminophen (TYLENOL) 500 mg Tablet Take 1,000 mg by mouth every 6 hours as needed for Pain. pseudoephedrine (SUDAFED) 30 mg Tablet Take 30 mg by mouth every 4 hours as needed for Congestion. rizatriptan (MAXALT) 10 mg Tablet Take 10 mg by mouth as needed. PRN for Migranes 01/17/2015 norethindrone (Aygestin) 5 mg tabletIndications:Abnor mal uterine bleeding (AUB) Take 1 tablet by mouth 3 times daily. 90 tablet 3 04/27/2023 09/21/2023 calcium carbonate 648 mg calcium Tablet Take 650 mg by mouth 3 times daily (with meals). 01/15/2024 documented as of this encounter Plan of Treatment Upcoming Encounters Date Type Department Care Team (Late st Contact Info) Description 10/20/2024 9:00 AM EST Office Visit Hematology [place] [address] Lacy Jameson MD [facility] [address] HEMATOLOGY [place] [address] Layla Jo RN documented as of this encounter Procedures Procedure Name Priority Date/Time Associated Diagnosis Comments HEMOGRAM Routine 08/25/2023 2:50 PM EDT Von Willebrand disease Iron deficiency anemia, unspecified iron deficiency anemia type DIFFERENTIAL, AUTOMATED Routine 08/25/2023 2:50 PM EDT Von Willebrand disease Iron deficiency anemia, unspecified iron deficiency anemia type IRON AND TIBC Routine 08/25/2023 2:50 PM EDT Von Willebrand disease Iron deficiency anemia, unspecified iron deficiency anemia type CBC (WITH DIFF) Routine 08/25/2023 2:50 PM EDT Von Willebrand disease Iron deficiency anemia, unspecified iron deficiency anemia type FERRITIN Routine 08/25/2023 2:50 PM EDT Von Willebrand disease Iron deficiency anemia, unspecified iron deficiency anemia type documented in this encounter Results * Differential, Automated (08/25/2023 2:50 PM EDT) Neutrophil % 71.6 % [facility] Neutrophil Absolute 5.33 1.70 - 6.10 x10(3)/[facility] Lymph % 21.2 % [facility] Lymphocytes Abs 1.6 0.9 - 3.2 x10(3)/[facility] Monocyte % 4.2 % [facility] Monocyte Abs 0.3 0.3 - 0.9 x10(3)/[facility] Eos % 2.0 % [facility] Eosinophils Abs 0.2 0.0 - 0.4 x10(3)/[facility] Basophil % 0.7 % [facility] Baso Absolute 0.0 0.0 - 0.1 x10(3)/[facility] Immature Gran % 0.30 % [facility] Comment: Immature granulocytes(IG's)percentage and absolute count will include metamyelocytes, myelocytes, and promyelocytes. Blood smears from CBCs yielding IG's will be scanned manually for concordance. If this scan disagrees with the automated IG or if promyelocytes are noted, a manual differential will be performed. Immature Gran Absolute 0.02 0.00 - 0.04 x10(3)/[facility] Blood 08/25/2023 2:50 PM EDT 08/25/2023 2:59 PM EDT Narrative Resulting Agency Comment Spec In Lab Lacy Jameson MD HEMATOLOGY ORDERAB LES [facility] [place] [address] * Hemogram (08/25/2023 2:50 PM EDT) White Blood Cell 7.4 4.0 - 9.5 x10(3)/[facility] Red Blood Cell 4.72 4.00 - 5.21 x10(6)/[facility] Hemoglobin 14.2 11.7 - 15.5 g/dL [facility] Hematocrit 41.7 35.7 - 45.8 % [facility] Mean Cell Volume 88.3 82.6 - 94.4 fL [facility] Mean Cell Hemoglobin 30.1 27.1 - 32.0 pg [facility] Mean Cell Hemoglobin Concentration 34.1 31.7 - 35.0 g/dL [facility] Platelet 296 145 - 357 x10(3)/mcL [facility] RDW Standard Deviation 44.2 37.0 - 46.0 fL [facility] RDW coefficient of variation 13.6 11.5 - 14.1 % [facility] Mean Platelet Volume 9.8 7.6 - 12.9 fL [facility] NRBC% auto 0.0 % [facility] NRBC Absolute 0.000 0.000 - 0.000 x10(3)/[facility] Blood 08/25/2023 2:50 PM EDT 08/25/2023 2:59 PM EDT Narrative Resulting Agency Comment Spec In Lab Lacy Jameson MD HEMATOLOGY ORDERAB LES Performing Organization Address City/[facility]/ZIP Co de Phone Number [facility] [place] [address] * Ferritin (08/25/2023 2:50 PM EDT) Ferritin 50 30 - 400 ng/mL [facility] Comment: Pediatric reference ranges not verified at [facility], interpret with caution. Reference ranges for females greater than 50 years of age approach values for men, i.e., 30-400 ng/mL. Blood 08/25/2023 2:50 PM EDT 08/25/2023 2:59 PM EDT Narrative Resulting Agency Comment Spec In Lab Lacy Jameson MD CHEMISTRY ORDERABL ES Performing Organization Address City/[facility]/ZIP Co de Phone Number [facility] [place] [address] * Iron and TIBC (08/25/2023 2:50 PM EDT) Iron 63 30 - 150 mcg/dL [facility] TIBC 309 250 - 450 mcg/dL [facility] Iron Saturation 20 20 - 50 % [facility] Blood 08/25/2023 2:50 PM EDT 08/25/2023 2:59 PM EDT Narrative Resulting Agency Comment Spec In Lab Lacy Jameson MD CHEMISTRY ORDERABL ES [facility] [place] [address] documented in this encounter Visit Diagnoses Diagnosis Von Willebrand disease Von Willebrand's disease Iron deficiency anemia, unspecified iron deficiency anemia type documented in this encounter Care Teams Horse Rancher Relationship Specialty Start Date End Date Clayton Johnson DNP [address] [place] [id number] PCP - General Family Medicine 04/16/23 01/13/24 documented as of this encounter
--- OUTSIDE RECORDS SUMMARY | 2024-08-10 15:55 | XMS_ITS | Encounter Summary ---
Author Organization [facility] [place] [address] Care Team Providers Care Edge Setter Name Role Phone Clayton Johnson JOHN Primary Care Provider Encounter Details Date Type Department Care Team (Latest Contact Info) Description 04/07/2023 11:04 AM EDT - 04/07/2023 11:59 PM EDT Hospital [place] [phone] Discharge Disposition: Home Social History Tobacco Use Types Packs/Day Years Used Date Smoking Tobacco: Never Smokeless Tobacco: Never Alcohol Use Standard Drinks/Week Comments No 0 (1 standard drink = 0.6 oz pur e alcohol) Sex and Gender Information Value Date Recorded [...] for Migranes 01/17/2015 norethindrone (Aygestin) 5 mg Tablet Take 1 tablet by mouth 2 times daily. 60 tablet 5 11/05/2022 04/27/2023 calcium carbonate 648 mg calcium Tablet Take 650 mg by mouth 3 times daily (with meals). 01/15/2024 documented as of this encounter Plan of Treatment Upcoming Encounters Date Type Department Care Team (Late st Contact Info) Description 10/20/2024 9:00 AM EST Office Visit Hematology [place] [address] Lacy Jameson MD [facility] [address] [place] [address] Layla Jo, RN documented as of this encounter Visit Diagnoses Not on filedocumented in this encounter Care Teams Edge Setter Relationship Specialty Start Date End Date Clayton Johnson DNP PCP - General Family Medicine 07/07/19 04/15/23 documented as of this encounter
--- OUTSIDE RECORDS SUMMARY | 2024-08-10 15:55 | XMS_ITS | Encounter Summary ---
Author Organization [facility] Address [facility] [place] [address] Care Team Providers Care Senior Linux Administrator Name Role Phone Clayton Johnson JOHN Primary Care Provider Reason for Visit * Reason Onset Date Comments Medication Refill 04/27/2023 Encounter Details Date Type Department Care Team (Late st Contact Info) Description 04/27/2023 Refill Obstetrics [place] [address] Michael Wall MD [facility] DR OBSTETRICS [place] [address] Abnormal uterine bleeding (AUB) Social History Tobacco Use Types Packs/Day Years Used Date Smoking Tobacco: Never Smokeless Tobacco: Never Alcohol Use Standard Drinks/Week Comments Not Currently 0 (1 standard drink = 0.6 oz pur e alcohol) [facility] Inpatient Questions Answer Date Recorded Does Anyone [...] on file documented as of this encounter Plan of Treatment Upcoming Encounters Date Type Department Care Team (Late st Contact Info) Description 10/20/2024 9:00 AM EST Office Visit Hematology [place] [address] Lacy Jameson MD [facility] [address] [place] [address] Layla Jo RN documented as of this encounter Visit Diagnoses Diagnosis Abnormal uterine bleeding (AUB) documented in this encounter Care Teams Senior Linux Administrator Relationship Specialty Start Date End Date Clayton Johnson DNP [address] [place] [id number] PCP - General Family Medicine 04/16/23 01/13/24 documented as of this encounter
--- OUTSIDE RECORDS SUMMARY | 2024-08-10 15:55 | XMS_ITS | Encounter Summary ---
Author Organization [facility] [place] [address] Care Team Providers Care Caustic Room Attendant Name Role Phone Clayton Johnson DNP Primary Care Provider Encounter Details Date Type Department Care Team (Latest Contact Info) Description 04/16/2023 9:46 AM EDT - 04/16/2023 11:26 AM EDT Hospital Encounter [place] [phone] Von Willebrand disease Discharge Disposition: Home Social History Tobacco Use Types Packs/Day Years Used Date Smoking Tobacco: Never Smokeless Tobacco: Never Alcohol Use Standard Drinks/Week Comments Not Currently 0 (1 standard drink = 0.6 oz pur e alcohol) [facility] Inpatient Questions Answer Date Recorded Does Anyone [...] on file documented as of this encounter Last Filed Vital Signs Vital Sign Reading Time Taken Comments Blood Pressure 153/80 04/16/2023 10:23 AM EDT Pulse 66 04/16/2023 10:20 AM EDT Temperature 36.5 ??C (97.7 ??F) 04/16/2023 1 0:20 AM EDT Respiratory Rate 18 04/16/2023 10:2 0 AM EDT Oxygen Saturation 98% 04/16/2023 10: 20 AM EDT Inhaled Oxygen Concentration - - Weight 106.5 kg (234 lb 12.8 oz) 2022 10:20 AM EDT Height 158.3 cm (5' 2.32) 04/16/2023 1 0:20 AM EDT Body Mass Index 42.5 04/16/2023 10:20 AM EDT documented in this encounter Medications at Time of Discharge [...] meals). 01/15/2024 documented as of this encounter Progress Notes * Jillian Christensen RN - 04/16/2023 10:09 AM EDT Patient Name: Elodia Lin Patient Age: 52 y.o. Birthdate: 1970 Admit date: 04/16/2023 Attending Physician: No att. providers found Elodia Lin, 52 y.o. female with diagnosis of 1. Von Willebrand disease is here for infusion of Humate P IVP 2943 units (see MAR) given through PIV in left arm from 1055 to 1110. S: Pt. offers no complaints at this time. Reviewed plan of care for infusion visit, patient verbalized understanding of plan as outlined. O: Orders independently verified for correct drug name, route and dosage per patient's height, weight and BSA by Jillian Christensen, KRUNAL and onsite pharmacist. Medications administered per protocol. SeeMAR for medication administration. REACTIONS (DESCRIPTION, TIME, INTERVENTION AND EFFECTIVENESS) None; PIV remained in place for planned procedure. A: Pt. Tolerated treatment with out issue. Elodia Lin confirms that all questions and issues have been addressed. P: Return to clinic as scheduled. documented in this encounter Plan of Treatment Upcoming Encounters Date Type Department Care Team (Late st Contact Info) Description 10/20/2024 9:00 AM EST Office Visit [place] [address] Lacy Jameson MD [facility] [address] [place] [address] Layla Jo RN documented as of this encounter Procedures Procedure Name Priority Date/Time Associated Diagnosis Comments PREPARE COAGULATION FACTORS (HEMOPHILIA) Routine 04/16/2023 10:00 AM EDT documented in this encounter Results * Prepare Coagulation Factors (Hemophilia) (04/16/2023 10:00 AM EDT) Dispensed? Yes [facility] Blood 04/16/2023 10:0 0 AM EDT 04/16/2023 9:59 AM EDT Narrative Resulting Agency Comment Spec In Lab Lacy Jameson MD BLOOD BANK PRODUCT ORDERABLES [facility] [place] [address] documented in this encounter Visit Diagnoses Diagnosis Von Willebrand disease Von Willebrand's disease documented in this encounter Care Teams Caustic Room Attendant Relationship Specialty Start Date End Date Clayton Johnson DNP [address] [place] [id number] PCP - General Family Medicine 04/16/23 01/13/24 documented as of this encounter
--- OUTSIDE RECORDS SUMMARY | 2024-08-10 15:55 | XMS_ITS | Encounter Summary ---
Author Organization [facility]ly [facility] Address [facility] [place] [address] Care Team Providers Care Molder Name Role Phone Clayton Johnson DNP Primary Care Provider Encounter Details Date Type Department Care Team (Latest Contact Info) Description 01/13/2024 Travel Social History Tobacco Use Types Packs/Day Years Used Date Smoking Tobacco: Never Smokeless Tobacco: Never Alcohol Use Standard Drinks/Week Comments Not Currently 0 (1 standard drink = 0.6 oz pur e alcohol) IPV Inpatient Questions Answer Date Recorded Does Anyone [...] EST Office Visit [place] [phone] Lacy Jameson MD [facility] DR HEMATOLOGY [place] [address] Layla Jo RN documented as of this encounter Visit Diagnoses Not on filedocumented in this encounter Care Teams Molder Relationship Specialty Start Date End Date Clayton Johnson DNP [address] [place] [id number] PCP - General Family Medicine 04/16/23 01/13/24 documented as of this encounter
--- OUTSIDE RECORDS SUMMARY | 2024-08-10 15:55 | XMS_ITS | Encounter Summary ---
Author Organization Formerly [facility] Address [facility] [place] [address] Care Team Providers Care Manager Of Finance Name Role Phone Clayton Johnson JOHN Primary Care Provider Encounter Details Date Type Department Care Team (Late st Contact Info) Description 04/18/2023 Telephone Obstetrics [place] [phone] Michell Masters MD [facility] DR OBSTETRICS [place] [address] Social History Tobacco Use Types Packs/Day Years Used Date Smoking Tobacco: Never Smokeless Tobacco: Never Alcohol Use Standard Drinks/Week Comments Not Currently 0 (1 standard drink = 0.6 oz pur e alcohol) [facility] Inpatient Questions Answer Date Recorded Does Anyone [...] on file documented as of this encounter Miscellaneous Notes * Telephone Encounter - Michell Masters MD - 04/18/2023 10:31 AM EDT Obgyn Phone Note PODD#2 s/p unsuccessful attempt at endometrial ablation due to decision to send pathology and awaitpermanent result prior to ablation. Left voicemail to see how doing postop Michell Masters MD documented in this encounter Plan of Treatment Upcoming Encounters Date Type Department Care Team (Late st Contact Info) Description 10/20/2024 9:00 AM EST Office Visit Hematology [place] [address] Lacy Jameson MD [facility] DR HEMATOLOGY [place] [address] Layla Jo, RN documented as of this encounter Visit Diagnoses Not on filedocumented in this encounter Care Teams Manager Of Finance Relationship Specialty Start Date End Date Clayton Johnson DNP [address] [place] [address] PCP - General Family Medicine 04/16/23 01/13/24 documented as of this encounter
--- OUTSIDE RECORDS SUMMARY | 2024-08-10 15:55 | XMS_ITS | Encounter Summary ---
Author Organization [facility] [place] [address] Care Team Providers Care Steel Box Toe Inserter Name Role Phone Clayton Johnson JOHN Primary Care Provider Encounter Details Date Type Department Care Team (Late st Contact Info) Description 04/23/2023 Telephone Obstetrics [place] [address] Patricia Carranza RN Social History Tobacco Use Types Packs/Day Years Used Date Smoking Tobacco: Never Smokeless Tobacco: Never Alcohol Use Standard Drinks/Week Comments Not Currently 0 (1 standard drink = 0.6 oz pur e alcohol) [facility] Inpatient Questions Answer Date Recorded [...] encounter Miscellaneous Notes * Telephone Encounter - Patricia Carranza RN - 04/23/2023 3:21 PM EDT Return TC to Elodia Lin 52 y.o. regarding increased bleeding. Elodia is POD#7 following unsuccessful endometrial ablation. Elodia reports that she typically experiences nightly bleeding and cramping similar to that of a period. She reports that last night the bleeding didn't stop as it normally does, and has increased gradually throughout the day. Elodia is now saturating a maxi pad every hour and has been for approximately two hours. Cramping ceased last night. Elodia doesn't feel dizzy at this time. Elodia was advised to be seen in the emergency room d/t the severe bleeding she is experiencing on POD#7. She has been to the emergency room many times before relating to bleeding and would like to avoid this, if possible. She wonders if increasing her dose of norethindrone would aid in stopping the bleeding. Spoke with Dr. Yu who suggests increasing the norethindone to three times daily until the bleeding stops and then decreasing to twice daily until her follow up. If symptoms persist, she should be seen in the emergency room. Elodia agrees with this plan and will call with any problems. Bleeding and pain precautions provided. * Telephone Encounter - Patricia Carranza RN - 04/23/2023 3:21 PM EDT ----- Message from Elodia Lin sent at 04/23/2023 3:13 PM EDT ----- Regarding: bleeding Contact: Nonajosselyn, I have called the nurse's line twice. I have started bleeding more heavily as the day has progressed. Hoping to get an answer on what to do before the long weekend. Thank you, Elodia [phone] documented in this encounter Plan of Treatment Upcoming Encounters Date Type Department Care Team (Late st Contact Info) Description 10/20/2024 9:00 AM EST Office Visit Hematology [place] [address] Lacy Jameson MD [facility] DR HEMATOLOGY [place] [address] Layla Jo, RN documented as of this encounter Visit Diagnoses Not on filedocumented in this encounter Care Teams Steel Box Toe Inserter Relationship Specialty Start Date End Date Clayton Johnson DNP [address] [place] [id number] PCP - General Family Medicine 04/16/23 01/13/24 documented as of this encounter
--- OUTSIDE RECORDS SUMMARY | 2024-08-10 15:55 | XMS_ITS | Encounter Summary ---
Author Organization [facility] Address [facility] [place] [address] Care Team Providers Care Care Services Manager Name Role Phone Clayton Johnson DNP Primary Care Provider [phone] Encounter Details Date Type Department Care Team (Latest Contact Info) Description 08/25/2023 Travel Social History Tobacco Use Types Packs/Day [...] EST Office Visit [place] [phone] Lacy Jameson MD [facility] [address] [place] [address] Layla Jo RN documented as of this encounter Visit Diagnoses Not on filedocumented in this encounter Care Teams Care Services Manager Relationship Specialty Start Date End Date Clayton Johnson DNP [address] [place] [id number] PCP - General Family Medicine 04/16/23 01/13/24 documented as of this encounter
--- OUTSIDE RECORDS SUMMARY | 2024-08-10 15:55 | XMS_ITS | Encounter Summary ---
Author Organization [facility] Address [facility] [place] [address] Care Team Providers Care Welding Machine Tender Name Role Phone Clayton Johnson JOHN Primary Care Provider Encounter Details Date Type Department Care Team (Latest Contact Info) Description 07/30/2023 11:00 AM EDT TH Visit (TeleHealth) [place] [address] Lacy Jameson MD [facility] [address] [place] [address] Layla Jo RN Von Willebrand disease; Iron deficiency anemia, unspecified iron deficiency anemia type Social History Tobacco Use Types Packs/Day Years Used Date Smoking Tobacco: Never Smokeless Tobacco: Never Alcohol Use Standard Drinks/Week Comments Not Currently 0 (1 standard drink = 0.6 oz pur e alcohol) [facility] Inpatient Questions Answer Date Recorded [...] on file documented as of this encounter Progress Notes * Lacy Jameson MD - 07/30/2023 11:00 AM EDT Images from the original note were not included. [facility] [place] [address] HEMOSTASIS VIDEO TELEHEALTH FOLLOW UP DATE OF VISIT 07/30/2023 Patient Elodia Lin 1970 This patient verbally consents to this video telehealth format and understands that this visit may be billed, similar to a clinic office visit. INTERVAL HISTORY Elodia Lin is a 53 y.o. female with Von Willebrand Disease, type 2A, with a generally mild bleeding phenotype who is seen for annual follow up. I last saw her in . At that time a major problem was heavy, abnormal uterine bleeding, resulting in iron deficiency anemia. Since then she has undergone a number of hormonal interventions that have finally resulted in slowing of bleeding but notresolving it. An endometrial ablation was attempted on 04-16-2023 but was aborted due to technical issues with theuterus. Biopsies were negative for malignancy. Though she continues to follow with Dr. Masters in data center engineer, she has referred her to LEANNA ([place]) for consideration of a uterine artery embolization to try to control the bleeding. A hysterectomy, which is Elodia's preference, has been deemed too high risk at this time in light of her previous C-sections and current BMI. She is not a candidate for a Mirena IUD due to her uterine anatomy (bicornate). She didn't toleratetranexamic acid. She's had iron deficiency due to uterine blood loss and hasn't tolerated oral iron, so we've given her infusions of IV Feraheme to good effect, the last of which was earlier this year prior to the attempt at uterine ablation. She takes a multivitamin with iron sporadically. Her last CBC in was normal She has some weight gain and mood changes that she attributes to the Aygestin but lightheadedness, shortness of breath, chest pain, headaches and no oropharyngeal, bleeding. She has one or two doses of Humate P at home, 2092 units, with an expiry date of . She's happy with Humate P as her coagulation factor concentrate and with as the supplier. She will need a hemostasis plan for the uterine artery embolization should that come to pass. Otherwise she has no procedures planned. Elodia had an unusual injury to her hand in May in which she was picking up a small box and twisted in a funny way, resulting in pain and swelling without obvious bleeding or bruising. She iced it butover the months still has pain and has developed a hard lump in the region. She's undergoing further evaluation with her primary care physician and will keep us posted. PAST MEDICAL HISTORY 1) Type 2 von Willebrand Disease (previous testing consistent with type 2A) Baseline lab values 07/07/2012: VWF:Ag 47% VWF:Act 28% F8A 73% PFA-100 Col/Epi >264 s Col/ADP >231s VWF Ag, multimeric - absence of large to intermediate weight multimers 2) Anxiety 3) Iron deficiency anemia with pregnancies and recently due to abnormal uterine bleeding Rx IV iron 4) Abnormal uterine bleeding OPERATIVE PROCEDURES 1) Tonsillectomy - at age 10 2) Turner teeth extractions - 1986 3) Ankle surgery - 4) Wrist surgery - 5) section x 3 - 2000, 2004, 2012 6) Tubal ligation, 2012 OBSTETRIC HISTORY MEDICATIONS Current Outpatient Medications on File Prior to Visit Medication Sig Dispense Refill norethindrone (Aygestin) 5 mg tablet Take 1 tablet by mouth 3 times daily. 90 tablet 3 multivitamin with minerals (One-A-Day) Tablet Take 1 tablet by mouth daily. calcium carbonate 648 mg calcium Tablet Take 650 mg by mouth 3 times daily (with meals). venlafaxine XR (Effexor-XR) 75 mg Capsule, Sust. Release 24 hr 150 mg. acetaminophen (TYLENOL) 500 mg Tablet Take 1,000 mg by mouth every 6 hours as needed for Pain. pseudoephedrine (SUDAFED) 30 mg Tablet Take 30 mg by mouth every 4 hours as needed for Congestion. rizatriptan (MAXALT) 10 mg Tablet Take 10 mg by mouth as needed. PRN for Migranes No current facility-administered medications on file prior to visit. ADVERSE DRUG REACTIONS Allergies Allergen Reactions Aygestin [Norethindrone Acetate] Other (See Comments) Hair loss, mood changes, hot flashes Adhesive Bandage Rash Blistering rash with tegederm Q-Cmpglr-I-Cysteine [Acetylcysteine (Bulk)] Other (See Comments) Heavy menstrual bleeding requiring hospitalization Codeine Percocet is ok Durapore Cloth Surgical Tape [Adhesive Tape] Hives FAMILY HISTORY Mother - tested negative for vWD; but hx of easy bruising Father - cancerous polyps at 68; no bleeding Son - tested negative for vWD, Younger daughter negative for VWD; Older daughter untested No other family members with bleeding problems or known to have vWD 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 Nonsmoker REVIEW OF SYSTEMS Fevers/chills/sweats No Recent infections No Unexplained weight loss No Headache/lightheadedness/syncope No Sinus pain/pressure No Oral sores/lesions/bleeding No Sore throat/dysphagia No Nosebleeds No Cough/SOB/chest pain/heart racing No Nausea/vomiting/dyspepsia No Abdominal pain No Diarrhea/constipation No Urinary pain, burning, incontinence No Hematuria No Vaginal discharge/bleeding Heavy and irregular menstrual bleeding Skin rashes/ulcers No Back/joint pain/swelling No Leg swelling/pain/redness No Bruising/petechiae/bleeding/melena No Sensory/motor No Polydipsia/polyuria/heat/cold intol No Lumps/bumps/swollen glands No Other No PHYSICAL EXAMINATION Video visit; limited physical exam possible GENERAL: Well-appearing, articulate white female in good spirits. Located at home. LABORATORY STUDIES IMPRESSION Elodia Lin is a 53 y.o. woman with type 2A von Willebrand disease with a good understanding of her bleeding disorder and its management. Her major hematologic issue presently is periodic iron deficiency due to ongoing abnormal uterine bleeding for which she occasionally requires IV iron infusions. Though she has no active VWD issues requiring immediate attention presently she will continue torequire VWF concentrate infusions in the event of injury or trauma, heavy menstrual bleeding and prior to invasive procedures. She is happy with Humate P as her coagulation factor concentrate and with [facility] as the supplier. OUMOU Jo, RN, MSN and I reviewed some basic educational material about VWD with Elodia, reiterated the importance of regular follow-up at the hemophilia center and reminded her of our emergency contact information and indications for calling. We also reviewed with her of the importance of contacting us in advance of any planned invasive procedures so that we may formulate a hemostasis plan and reminded her to notify us quickly in the event of significant bleeding. Overall she's very diligent about keeping us informed. We have reviewed the coagulation factor concentrate and vendor choice information with Elodia, and she as elected to continue with Humate P as her coagulation factor concentrate product and with [facility] as the vendor. We'll send her a Vendor Choice form to complete and return. We reviewed the indications for Humate P infusion and will ensure that she continues to have a fresh supply. At present she has one or two doses at 2 units that expires in May 2025 and that is sufficient for immediate use in case of emergency. We can resupply quickly should she need additional doses. We'll check her CBC and iron studies on 08-25 when she's here for her consultation with Dr. Hutchinson. Should she be iron deficient, we'll arrange for IV iron infusions in [facility]. Will touch base with Dr. Hutchinson about the proposed procedure as she will need Humate P beforehand. Reassured her that if hysterectomy is the ultimate solution for her, we can readily support with Humate P. Elodia had the opportunity to ask questions and indicated that all her questions were answered to hersatisfaction. We'll continue to see her at least annually at the [facility] and in the interim as necessary. Lacy Jameson MD Production Specialist, [facility] documented in this encounter Plan of Treatment Upcoming Encounters Date Type Department Care Team (Late st Contact Info) Description 10/20/2024 9:00 AM EST Office Visit [place] [address] Lacy Jameson MD [facility] [address] [place] [address] Layla Jo RN documented as of this encounter Results * Ferritin (08/25/2023 2:50 PM EDT) [facility] Ferritin 50 30 - 400 ng/mL [facility] Comment: Pediatric reference ranges not verified at [facility], interpret with caution. Reference ranges for females greater than 50 years of age approach values for men, i.e., 30-400 ng/mL. Blood 08/25/2023 2:50 PM EDT 08/25/2023 2:59 PM EDT Narrative Resulting Agency Comment Spec In Lab Lacy Jameson MD CHEMISTRY ORDERABL ES Performing Organization Address City/[facility]/ZIP Co de Phone Number [facility] [place] [address] * Iron and TIBC (08/25/2023 2:50 PM EDT) Iron 63 30 - 150 mcg/dL [facility] TIBC 309 250 - 450 mcg/dL [facility] Iron Saturation 20 20 - 50 % [facility] Blood 08/25/2023 2:50 PM EDT 08/25/2023 2:59 PM EDT Narrative Resulting Agency Comment Spec In Lab Lacy Jameson MD CHEMISTRY ORDERABL ES Performing Organization Address City/[facility]/ZIP Co de Phone Number [facility] [place] [address] documented in this encounter Visit Diagnoses Diagnosis Von Willebrand disease Von Willebrand's disease Iron deficiency anemia, unspecified iron deficiency anemia type documented in this encounter Care Teams Welding Machine Tender Relationship Specialty Start Date End Date Clayton Johnson DNP [address] [place] [id number] PCP - General Family Medicine 04/16/23 01/13/24 documented as of this encounter
--- OUTSIDE RECORDS SUMMARY | 2024-08-10 15:55 | XMS_ITS | Encounter Summary ---
Author Organization [facility] [place] [address] Care Team Providers Care Advertising Columnist Name Role Phone Clayton Johnson JOHN Primary Care Provider Encounter Details Date Type Department Care Team (Late st Contact Info) Description 08/28/2023 Telephone Hematology [place] [phone] Layla Jo, RN Social History Tobacco Use Types Packs/Day Years Used Date Smoking Tobacco: Never Smokeless Tobacco: Never Alcohol Use Standard Drinks/Week Comments Not Currently 0 (1 standard drink = 0.6 oz pur e alcohol) [facility] Inpatient Questions Answer Date Recorded Does Anyone [...] encounter Miscellaneous Notes * Telephone Encounter - Layla Jo RN - 08/28/2023 10:13 AM EDT TC to patient. VM left relaying normal lab results for CBC and iron studies. No iron infusions indicated at this time. Layla Jo RN MSN ===View-only below this line=== ----- Message ----- From: Lacy Jameson MD Sent: 08/27/2023 3:42 PM EDT To: Layla Jo RN Normal CBC and normal iron. No need for iron infusion at this time /dlo documented in this encounter Plan of Treatment Upcoming Encounters Date Type Department Care Team (Late st Contact Info) Description 10/20/2024 9:00 AM EST Office Visit Hematology [place] [address] Lacy Jameson MD [facility] DR [place] [address] Layla Jo RN documented as of this encounter Visit Diagnoses Not on filedocumented in this encounter Care Teams Advertising Columnist Relationship Specialty Start Date End Date Clayton Johnson DNP [address] [place] [address] PCP - General Family Medicine 04/16/23 01/13/24 documented as of this encounter
--- OUTSIDE RECORDS SUMMARY | 2024-08-10 15:55 | XMS_ITS | Encounter Summary ---
Author Organization [facility] Address [facility] [place] [address] Care Team Providers Care Jewel Waxer Name Role Phone Clayton Johnson DNP Primary Care Provider Encounter Details Date Type Department Care Team (Late Contact Info) Description 05/27/2023 Telephone Obstetrics [place] [address] Jasmine Lang Social History Tobacco Use Types Packs/Day Years Used Date Smoking Tobacco: Never Smokeless Tobacco: Never Alcohol Use Standard Drinks/Week Comments Not Currently 0 (1 standard drink = 0.6 oz pur e alcohol) [facility] Inpatient Questions Answer Date Recorded Does [...] Encounters Date Type Department Care Team (Late Contact Info) Description 10/20/2024 9:00 AM EST Office Visit [place]ematology [place] [phone] Lacy Jameson MD [facility] DR HEMATOLOGY [place] [address] Layla Jo RN documented as of this encounter Visit Diagnoses Not on filedocumented in this encounter Care Teams Jewel Waxer Relationship Specialty Start Date End Date Clayton Johnson DNP [address] [place] [phone] PCP - General Family Medicine 04/16/23 01/13/24 documented as of this encounter
--- OUTSIDE RECORDS SUMMARY | 2024-08-10 15:55 | XMS_ITS | Encounter Summary ---
Author Organization [facility] Address [facility] [place] [address] Care Team Providers Care Boarding Machine Operator Name Role Phone Clayton Johnson DNP Primary Care Provider Encounter Details Date Type Department Care Team (Late Contact Info) Description 04/16/2023 Interpretation Only Radiology [address] [place] [address] [place] [phone] Unknown None Social History Tobacco Use Types Packs/Day Years [...] EST Office Visit Hematology [place] [address] Lacy Jameson MD [facility] DR HEMATOLOGY [place] [address] Layla Jo RN documented as of this encounter Procedures Procedure Name Priority Date/Time Associated Diagnosis Comments DH OR ENDOSCOPY Routine 04/16/2023 documented in this encounter Results * DH OR Endoscopy (04/16/2023) Anatomical Region Laterality Modality Other 04/16/2023 Narrative 04/16/2023 12:00 AM EDT Photographs - Images Procedure Note Unknown - 04/16/2023 Photographs - Images Unknown EA IMAGES documented in this encounter Visit Diagnoses Not on filedocumented in this encounter Care Teams Boarding Machine Operator Relationship Specialty Start Date End Date Clayton Johnson DNP [address] [place] [phone] PCP - General Family Medicine 04/16/23 01/13/24 documented as of this encounter
--- OUTSIDE RECORDS SUMMARY | 2024-08-10 15:55 | XMS_ITS | Encounter Summary ---
Author Organization [facility] [place] [address] Care Team Providers Care C D Reactor Operator Name Role Phone Lo Yang APRN Primary Care Provider [phone] Encounter Details Date Type Department Care Team (Late Contact Info) Description 07/25/2024 Telephone Obstetrics [place] [address] Lucila Bills Social History Tobacco Use Types Packs/Day Years Used Date Smoking Tobacco: Never Smokeless Tobacco: Never Alcohol Use Standard Drinks/Week Comments Not Currently 0 (1 standard drink = 0.6 oz pur e alcohol) [facility] Inpatient Questions Answer Date Recorded Does [...] EST Office Visit Hematology [place] [phone] Lacy Jameson MD [facility] DR HEMATOLOGY [place] [address] Layla Jo RN documented as of this encounter Visit Diagnoses Not on filedocumented in this encounter Care Teams C D Reactor Operator Relationship Specialty Start Date End Date Lo Yang, MITUL [address] [place] [address] PCP - General Family Medicine 01/14/24 documented as of this encounter
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
--- OUTSIDE RECORDS SUMMARY | 2024-08-10 15:55 | XMS_ITS | Encounter Summary ---
Author Organization [facility] Address [facility] [place] [address] Care Team Providers Care Improvement Coordinator Name Role Phone Clayton Johnson JOHN Primary Care Provider Encounter Details Date Type Department Care Team (Late Contact Info) Description 05/06/2023 External Results Hematology [place] [address] Lacy Jameson MD [facility] [address] [place] [address] Social History Tobacco Use Types Packs/Day Years Used Date Smoking Tobacco: Never Smokeless Tobacco: Never Alcohol Use Standard Drinks/Week Comments Not Currently 0 (1 standard drink = 0.6 oz pur e alcohol) [facility] Inpatient Questions Answer Date Recorded Does Anyone [...] EST Office Visit Hematology [place] [address] Lacy Jameson MD [facility] [address] [place] [address] Layla Jo, RN documented as of this encounter Procedures Procedure Name Priority Date/Time Associated Diagnosis Comments INFUSION SCAN Routine 04/07/2023 4:21 PM EDT documented in this encounter Results * Scan Doc: Infusion (04/07/2023 4:21 PM EDT) Lacy Jameson MD MEDIA MGR SCAN EXT ORDR/RSLT documented in this encounter Visit Diagnoses Not on filedocumented in this encounter Care Teams Improvement Coordinator Relationship Specialty Start Date End Date Clayton Johnson DNP [address] [place] [id number] PCP - General Family Medicine 04/16/23 01/13/24 documented as of this encounter
--- OUTSIDE RECORDS SUMMARY | 2024-08-10 15:55 | XMS_ITS | Encounter Summary ---
Author Organization [facility] Address [facility] [place] [address] Care Team Providers Care Bottling Supervisor Name Role Phone Clayton Johnson DNP Primary Care Provider Encounter Details Date Type Department Care Team (Latest Contact Info) Description 05/28/2023 Travel Social History Tobacco Use Types Packs/Day [...] EST Office Visit Hematology [place] [phone] Lacy Jameson MD [facility] DR [place] [address] Layla Jo RN documented as of this encounter Visit Diagnoses Not on filedocumented in this encounter Care Teams Bottling Supervisor Relationship Specialty Start Date End Date Clayton Johnson DNP [address] [place] [address] PCP - General Family Medicine 04/16/23 01/13/24 documented as of this encounter
--- OUTSIDE RECORDS SUMMARY | 2024-08-10 15:55 | XMS_ITS | Encounter Summary ---
Author Organization [facility] Address [facility] [place] [address] Care Team Providers Care Adhesive Sprayer Name Role Phone Clayton Johnson JOHN Primary Care Provider Encounter Details Date Type Department Care Team (Latest Contact Info) Description 04/16/2023 4:18 PM EDT - 04/16/2023 11:59 PM EDT [place] [phone] Lacy Jameson MD [facility] [address] [place] [address] Discharge Disposition: Home Social History Tobacco Use [...] EST Office Visit Hematology [place] [address] Lacy Jameson MD [facility] [address] [place] [address] Layla Jo, RN documented as of this encounter Visit Diagnoses Not on filedocumented in this encounter Care Teams Adhesive Sprayer Relationship Specialty Start Date End Date Clayton Johnson DNP [address] [place] [address] PCP - General Family Medicine 04/16/23 01/13/24 documented as of this encounter
--- OUTSIDE RECORDS SUMMARY | 2024-08-10 15:55 | XMS_ITS | Encounter Summary ---
Author Organization [facility] Address [facility] [place] [address] Care Team Providers Care Behavioral Intervention Specialist Name Role Phone Clayton Johnson JOHN Primary Care Provider Reason for Visit * Auth/Cert (Routine) Specialty Diagnoses / Procedures Referred By Patsy hernandez Referred To Contact Diagnoses Abnormal uterine and vaginal bleeding, unspecified AUB, uterine septum Procedures PRO HYSTEROSCOPY, W/ENDO BX HYSTEROSCOPY, SURG W/ENDOMETRIAL SAMPLING, POLYPECTOMY (WRVU 4.17) Michell Masters MD [facility] DR OBSTETRICS [place] [address] [facility] Referral ID Status Reason Start Date Expiration Date Visits Re quested Visits Authorized [id number] 1 1 Encounter Details Date Type Department Care Team (Late st Contact Info) Description 04/16/2023 1:48 PM EDT Anesthesia Event Outpatient [place] [address] Lucio Roland MD [facility] [place] [address] Vale Handy MD [facility] [place] [address] Anesthesia Record Procedure Summary Procedure Name Responsible Anesthesiologist Anesthesia Start Time Anesthesia Stop Time HYSTEROSCOPY, DIAGNOSTIC (WRVU 2.65) (Uterus) Lucio Roland MD 04/16/23 1348 04/16/23 1506 Events Date Time Event Comment 04/16/2023 1348 AN Verify 1348 Start 1348 An Start Data 1351 1354 An Induction 1355 An Intubation 1358 Anesthesia Ready 1500 Extubation/LMA Out 1501 an stop data 1504 Recovery or ICU Handoff Janay ent care was transferred to the destination unit staff after review of the patient's medical history, current anesthetic/surgical status and plan, according to the Provider Handoff Checklist. 1506 Stop Meds Name Total Midazolam 2 mg fentaNYL 50 mcg IV Lidocaine 50 mg Propofol 470 mg Ondansetron 4 mg Dexamethasone 8 mg Propofol INF 575.59 mg Lactated Ringers 500 mL * Agents Name O2 Air N2O Sevoflurane (et) * Blood No blood administrations on file. Lines, Drains, and Airways Type Details Placement Removal (RETIRED [facility]) Incision 04/26/13; 1350 04/26/13 1350 by Kusum Galvez, KRUNAL Incision 04/16/23; 1412; vagina 04/16/23 1412 by Erin Parish, RN (RETIRED) Peripheral IV Line - Single Lumen 04/16/23; 1011; median cubital vein (antecubital fossa), left; usxe-tkf-rnxssu catheter system; 22 gauge, 1 in length; dae walker RN; intradermal injection, tolerated well, appears comfortable; 0; no longer indicated, catheter/device intact, removed per policy/procedure; 04/16/23; 1551 04/16/23 1011 by Hannah Walker RN 04/16/23 1551 by Rey Blanco RN Supraglottic Mask Ventilation: No t Attempted (0); LMA Type: iGel; LMA Size: 3; Inserted by: Newton BERRY; Removal Date: 04/16/23; Removal Time: 1500 04/16/23 1355 by Radha Glez MD 04/16/23 1500 by Radha Glez MD documented in this encounter Social History Tobacco Use Types Packs/Day Years [...] on file documented as of this encounter OR Notes * Anesthesia Postprocedure Evaluation - Lucio Roland MD - 04/16/2023 4:26 PM EDT Department of Anesthesiology Post-procedure Note Patient: Elodia Lin Procedure Summary Date: 04/16/23 Room / Location: [facility] OR [address] [place] [address] Anesthesia Start: 1348 Anesthesia Stop: 1506 Procedure: HYSTEROSCOPY, DIAGNOSTIC (WRVU 2.65) (Uterus) Diagnosis: Abnormal uterine bleeding (AUB) (AUB, uterine septum) Surgeons: Michell Masters MD Responsible Provider: Lucio Roland MD Anesthesia Type: general ASA Status: 3 All Anesthesia Providers: Anesthesiologist: Lucio Roland MD Homicide Squad Captain: Radha Glez MD Vitals Value Taken Time BP 125/79 04/16/23 1545 Temp 36 ??C (96.8 ??F) 04/16/23 1504 Pulse 68 04/16/23 1548 Resp 16 04/16/23 1545 SpO2 100 % 04/16/23 1548 Pain Level 0 04/16/23 1545 Vitals shown include unvalidated device data. Patient Location: PACU/[facility] Level of Consciousness: Awake and Alert Pain Management: Pain Being Addressed PONV: None Cardiovascular Status: At Baseline Respiratory Status: At Baseline Postoperative Fluid Status: Intravascular EUvolemia Possible Anesthetic Complications: NONE apparent at time of evaluation Final Primary Anesthesia Type: General (The anesthetic type performed was the same as planned.) Comments: * Anesthesia Preprocedure Evaluation - Lucio Roland MD - 04/15/2023 9:17 PM EDT Pre-Anesthesia Evaluation for: Elodia Lin a 52 y.o. female. Procedure(s): HYSTEROSCOPY, SURG W/ENDOMETRIAL SAMPLING, POLYPECTOMY (WRVU 4.17) Patient Active Problem List Diagnosis Date Noted ??? Endometriosis 10/14/2021 ??? Anemia, iron deficiency 02/11/2021 ??? Abnormal uterine bleeding (AUB) 01/24/2021 ??? Pain in left shoulder 06/07/2015 ??? Generalized anxiety disorder 04/21/2013 ??? Dysthymic disorder 04/21/2013 ??? Tubal ligation status 01/23/2013 ??? Uterine septum 09/20/2012 ??? Obesity (BMI 35.0-39.9 without comorbidity) 09/08/2012 ??? History of recurrent UTI (urinary tract infection) 09/08/2012 ??? Von Willebrand disease 07/07/2012 Past Medical History: Diagnosis Date ??? Abnormal [...] x2 ??? DILATION AND CURETTAGE OF UTERUS 2001 after SAB ??? ORTHOPEDIC SURGERY 1993, 1996 scar tissue on wrists and ankle ??? PRO DELIVERY ONLY 04/26/2013 @ DELIVERY performed by Clint Orlando MD at [facility] ??? PRO COLONOSCOPY, BIOPSY N/A 03/11/2015 COLONOSCOPY FLEXIBLE, WITH BX performed by Alida Mahmood MD at [facility] ENDOSCOPY ??? PRO COLONOSCOPY, DIAGNOSTIC N/A 03/17/2021 COLONOSCOPY, DIAGNOSTIC performed by Sherrill Miner MD at [facility] ENDOSCOPY ??? PRO COLONOSCOPY, REMV LESN, SNARE N/A 03/11/2015 COLONOSCOPY, POLYPECTOMY, REMOVAL LESION BY SNARE performed by Alida Mahmood MD at [facility] ENDOSCOPY ??? PRO LIGATE FALLOPIAN TUBE, 04/26/2013 @FALLOPIAN TUBE(S), TRANSECTION OR LIGATION, ABD APPROACH, POST- performed by Clint Orlando MD at [facility] Social History Tobacco Use ??? Smoking status: Never ??? Smokeless tobacco: Never Substance Use Topics ??? Alcohol use: No Social History Substance and Sexual Activity Drug Use No Allergies Allergen Reactions ??? Aygestin [Norethindrone Acetate] Other (See Comments) Hair loss, mood changes, hot flashes ??? Adhesive Bandage Rash Blistering rash with tegederm ??? V-Mmkocy-J-Cysteine [Acetylcysteine (Bulk)] Other (See Comments) Heavy menstrual bleeding requiring hospitalization ??? Codeine Percocet is ok ??? Durapore Cloth Surgical Tape [Adhesive Tape] Hives Medications: MAR and/or home medications have been reviewed. Physical Exam: Preprocedure Vitals Current as of 04/15/23 2117 No BP, pulse, respiration, SpO2, or temperature recorded. Height: Not recorded Weight: Not recorded BMI: Not recorded IBW: Not recorded Airway Assessment: Mallampati: II TM distance: >3 FB Neck ROM: full Cardiovascular Assessment: Rhythm: regular Rate: normal Pulmonary Assessment: breath sounds clear to auscultation Dental Assessment: Misc Assessment: Last Filed Perioperative Cognitive Screening None Anesthesia Plan: ASA 3 general, with a(n) intravenous induction 52F nonsmoker with AUB and uterine septum presenting for hysteroscopy with sampling and polypectomy. PMH: vWD (type 2a), morbid obesity (BMI 44), HPV. Prior C-sections under spinal anesthesia; no airway records. No recent coag labs or factor assays. Plan: GA with supraglottic airway, peripheral IV access Region - Other Informed Consent: Anesthetic plan and risks discussed with patient. Plan discussed with resident and attending. Anesthesia Screening documented in this encounter Plan of Treatment Upcoming Encounters Date Type Department Care Team (Late st Contact Info) Description 10/20/2024 9:00 AM EST Office Visit H[place]ology [place] [address] Lacy Jameson MD [facility] DR [place] [address] Layla Jo RN documented as of this encounter Visit Diagnoses Not on filedocumented in this encounter Administered Medications Inactive Administered Medications - up to 3 most recent administrations Medication Order MAR Action Action Date Dose Rate Site dexAMETHasone (Decadron) injection Intravenous, PRN, Starting on Wed04/16/23 at 1357, Until Wed04/16/23 at 1514, Anesthesia Intra-op, Routine Given 04/16/2023 1:57 PM EDT 8 mg fentaNYL (pf) (50 mcg/mL) multi-dose injection Intravenous, PRN, Starting on Wed04/16/23 at 1408, Until Wed04/16/23 at 1514, Anesthesia Intra-op, Routine Given 04/16/2023 2:08 PM EDT 50 mcg lactated ringers infusion Intravenous, CONTINUOUS PRN, Starting on Wed04/16/23 at 1344, Until Wed04/16/23 at 1514, Anesthesia Intra-op New Bag 04/16/2023 1:44 PM EDT lidocaine (pf) (Xylocaine) (20 mg/mL) 2% injection syringe Intravenous, PRN, Starting on Wed04/16/23 at 1354, Until Wed04/16/23 at 1514, Anesthesia Intra-op, Routine Given 04/16/2023 1:54 PM EDT 50 mg midazolam (pf) (Versed) (1 mg/mL) multi-dose injection Intravenous, PRN, Starting on Wed04/16/23 at 1354, Until Wed04/16/23 at 1514, Anesthesia Intra-op, Routine Given 04/16/2023 1:49 PM EDT 2 mg ondansetron (pf) (Zofran) (2 mg/mL) injection Intravenous, PRN, Starting on Wed04/16/23 at 1414, Until Wed04/16/23 at 1514, Anesthesia Intra-op, Routine Given 04/16/2023 2:14 PM EDT 4 mg propofoL (Diprivan) (10 mg/mL) infusion Intravenous, CONTINUOUS PRN, Starting on Wed04/16/23 at 1354, Until Wed04/16/23 at 1514, Anesthesia Intra-op, Routine Rate/Dose Change 04/16/2023 2:08 PM EDT 150 mcg/kg/min 95.49 mL/hr Rate/Dose Change 04/16/2023 2:03 PM EDT 125 mcg/kg/min 79. 575 mL/hr New Bag 04/16/2023 1:54 PM EDT 100 mcg/kg/min 63.66 mL/ hr propofoL (Diprivan) 10 mg/mL bolus injection (Anesthesia) Intravenous, PRN, Starting on Wed04/16/23 at 1354, Until Wed04/16/23 at 1514, Anesthesia Intra-op Given 04/16/2023 2:55 PM EDT 50 mg Given 04/16/2023 2:51 PM EDT 40 mg Given 04/16/2023 2:13 PM EDT 30 mg documented in this encounter Care Teams Behavioral Intervention Specialist Relationship Specialty Start Date End Date Clayton Johnson DNP [address] [place] [address] PCP - General Family Medicine 04/16/23 01/13/24 documented as of this encounter
--- OUTSIDE RECORDS SUMMARY | 2024-08-10 15:55 | XMS_ITS | Encounter Summary ---
Author Organization [facility] Address [facility] [place] [address] Care Team Providers Care Middleware Systems Architect Name Role Phone Lo Yang APRN Primary Care Provider [phone] Reason for Visit * Reason Comments Follow-up AUB Encounter Details Date Type Department Care Team (Late st Contact Info) Description 01/14/2024 9:40 AM EST Office Visit Obstetrics [place] [address] Michell Masters MD [facility] DR OBSTETRICS [place] [address] Abnormal uterine bleeding (AUB) Social History Tobacco [...] 01/14/2024 9:56 AM ES T Respiratory Rate - - Oxygen Saturation 100% 01/14/2024 9:56 AM EST Inhaled Oxygen Concentration - - Weight - - Height - - Body Mass Index - - documented in this encounter Progress Notes * Michell Masters MD - 01/14/2024 9:40 AM EST Obgyn Clinic Visit: Established Patient Chief Complaint Patient presents with Follow-up AUB Subjective: Elodia Lin is a 53 y.o. premenopausal woman with septate uterus, 3 prior cesareans, VWDz, BMI 43 presenting for f/u AUB. F See prior notes for details especially my last note. 04/16/2023 had hysteroscopy, D&C Were going to do rollerball ablation at the time, but had copious tissue in uterine lining so did D&C and did not ablate Tissue path was neg for hyperplasia or malignancy Has remained on Aygestin 5 mg BID On this has only periodic bleeding occl light for a couple hours Has not had heavy bleeding Recent CBC wnl No recent TVUS However, does not tolerate the Aygestin well Feels bloated on it and wonders if it contributes to mood changes Had UAE consult with IR Has considered hysterectomy but has 3 prior C/S, VWDz and had significant tenaculum bleeding at thetime of hysteroscopy, D&C (Hematology feels confident they can get her through a hysterectomy from a bleeding standpoint). Would get preprocedural Humate-P Elodia hopes to come up with a plan to decrease the Aygestin Picking up her 18 yo daughter at for school break. Inquires about daughters menses, takes continuous pills every every month period, when gets period gets bad anxiety (on top of baseline). On anxiety meds. We reviewed she could just take continuously without placebos and potentially increase SSRI during those times. She has a f/u with her PCP. Problem list updated in [facility]. Medical histories reviewed, updated in [facility]. Medications and allergies reviewed and updated in [facility]. Review of Systems: Per HPI Objective: BP 135/81 Pulse 70 Temp 36.8 ??C (98.3 ??F) SpO2 100% There is no height or weight on file to calculate BMI. Constitutional: Pleasant and conversant, appears well Offered exam, declines as not bleeding today. Has been <1 year since hysteroscopy. Will considerat follow up. Labs: Lab Results Component Value Date WBC 7.4 08/25/2023 RBC 4.72 08/25/2023 HGB 14.2 08/25/2023 HCT 41.7 08/25/2023 MCV 88.3 08/25/2023 MCH 30.1 08/25/2023 MCHC 34.1 08/25/2023 PLATELET 296 08/25/2023 RDWCV 13.6 08/25/2023 Imaging: No new Assessment/Plan: Elodia Lin is a 53 y.o. premenopausal woman with septate uterus, 3 prior cesareans, VWDz, BMI 43 presenting for f/u AUB. S/p UAE consult. Trying to hold off on hysterectomy given risk factors. No bleeding at this time and only is occl on Aygestin 5 mg But does not tolerate the medication well and would like to wean off Discussed trying a taper by going down on PM to 2.5 mg for 2 weeks, then AM as well at 2.5 for two weeks, then just AM 2.5 mg, then stopping. If has more bleeding, recommend interval TVUS and would have low threshold for interval sampling with interval hysteroscopy, D&C. We discussed that it was reassuring last year's path was normal, but we would want to reconsider after a year. Elodia stated understanding. She would consider the UAE at that point. Would need preprocedural discussion with Marco A Enriquez as had prior to hysteroscopy. Pelvic exam next visit Can inquire about health maintenance at follow up (mammograms, colonoscopy). Today's visit focused on AUB and med management. Have discussed HTN in past and continue to discuss / PCP management recommended. Bleeding precautions reviewed If Elodia calls or messages, reach out to Dr. Masters if available Check out note / Follow up plan: 4-6 month f/u with Dr. Masters 1. Abnormal uterine bleeding (AUB) Michell Masters MD documented in this encounter Plan of Treatment Upcoming Encounters Date Type Department Care Team (Late st Contact Info) Description 10/20/2024 9:00 AM EST Office Visit Hematology [place] [address] Lacy Jameson MD [facility] DR [place] [address] Layla Jo RN documented as of this encounter Visit Diagnoses Diagnosis Abnormal uterine bleeding (AUB) documented in this encounter Care Teams Middleware Systems Architect Relationship Specialty Start Date End Date Lo Yang, MITUL [facility] TORRIE [place] [address] PCP - General Family Medicine 01/14/24 documented as of this encounter
--- OUTSIDE RECORDS SUMMARY | 2024-08-10 15:55 | XMS_ITS | Encounter Summary ---
Author Organization [facility] Address [facility] [place] [address] Care Team Providers Care Windows Administrator Name Role Phone Clayton Johnson DNP Primary Care Provider Encounter Details Date Type Department Care Team (Late Contact Info) Description 01/13/2024 Telephone Obstetrics [place] [address] Jasmine Lang Social History Tobacco Use Types Packs/Day Years Used Date Smoking Tobacco: Never Smokeless Tobacco: Never Alcohol Use Standard Drinks/Week Comments Not Currently 0 (1 standard drink = 0.6 oz pur e alcohol) [facility] Inpatient Questions Answer Date Recorded Does Anyone [...] EST Office Visit Hematology [place] [phone] Lacy Jameson MD [facility] DR [place] [address] Layla Jo RN documented as of this encounter Visit Diagnoses Not on filedocumented in this encounter Care Teams Windows Administrator Relationship Specialty Start Date End Date Clayton Johnson DNP [address] [place] [address] PCP - General Family Medicine 04/16/23 01/13/24 documented as of this encounter
--- OUTSIDE RECORDS SUMMARY | 2024-08-10 15:55 | XMS_ITS | Encounter Summary ---
Author Organization [facility] [place] [address] Care Team Providers Care Visual Merchandising Associate Name Role Phone Clayton Johnson JOHN Primary Care Provider Encounter Details Date Type Department Care Team (Late st Contact Info) Description 06/04/2023 Telephone [place] [phone] Amanda Aleman Social History Tobacco Use Types Packs/Day Years [...] encounter Miscellaneous Notes * Telephone Encounter - Amanda Baer - 06/04/2023 1:21 PM EDT Called patient to schedule consultation to discuss if UAE is an option. Left VM. documented in this encounter Plan of Treatment Upcoming Encounters Date Type Department Care Team (Late st Contact Info) Description 10/20/2024 9:00 AM EST Office Visit Hematology [place] [address] Lacy Jameson MD [facility] DR HEMATOLOGY [place] [address] Layla Jo RN documented as of this encounter Visit Diagnoses Not on filedocumented in this encounter Care Teams Visual Merchandising Associate Relationship Specialty Start Date End Date Clayton Johnson DNP [address] [place] [id number] PCP - General Family Medicine 04/16/23 01/13/24 documented as of this encounter
--- OUTSIDE RECORDS SUMMARY | 2024-08-10 15:55 | XMS_ITS | Encounter Summary ---
Author Organization [facility] Address [facility] [place] [address] Care Team Providers Care Sidewalk Inspector Name Role Phone Clayton Johnson JOHN Primary Care Provider Encounter Details Date Type Department Care Team (Late st Contact Info) Description 04/27/2023 Telephone Obstetrics [place] [phone] Michell Masters MD [facility] DR OBSTETRICS [place] [address] Social History Tobacco Use Types Packs/Day Years Used Date Smoking Tobacco: Never Smokeless Tobacco: Never Alcohol Use Standard Drinks/Week Comments Not Currently 0 (1 standard drink = 0.6 oz pur e alcohol) [facility] Inpatient Questions Answer Date Recorded Does [...] Telephone Encounter - Michell Masters MD - 04/27/2023 7:50 PM EDT Obgyn Note Called Elodia to check in on her bleeding s/p hysteroscopy, D&C Hx significant for AUB to anemia in setting of VWDz 3 prior C/S Septate uterus Even with preprocedural humate P cervix was very oozing requiring stitch Reviewed final path (see below) Reviewed bleeding: Having to change pad every 3-4 days, some parts of the day are heavier, some parts have no bleeding Not soaking through pads since going up to size 3 (pads only) Aygestin TID 5 mg at this point Has not had a CBC since prior to surgery Aware that we recommend one if bleeding continues Can go up to Aygestin QID (sent in Rx to [facility]) Of note, already trialed Depo Lupron in 2021 (had heavy bleeding and hot flashes) I will discuss case with Dr. Jameson Bleeding precautions reviewed with Elodia Final pathology: Fragments of benign endometrium with marked progestin effect admixed with blood clot, mucus, and cervical mucosa, no evidence of hyperplasia or endometritis Michell Masters MD documented in this encounter Plan of Treatment Upcoming Encounters Date Type Department Care Team (Late st Contact Info) Description 10/20/2024 9:00 AM EST Office Visit H[place]ology [place] [address] Lacy Jameson MD [facility] DR HEMATOLOGY [place] [address] Layla Jo RN documented as of this encounter Visit Diagnoses Not on filedocumented in this encounter Care Teams Sidewalk Inspector Relationship Specialty Start Date End Date Clayton Johnson DNP [address] [place] [id number] PCP - General Family Medicine 04/16/23 01/13/24 documented as of this encounter
--- OUTSIDE RECORDS SUMMARY | 2024-08-10 15:55 | XMS_ITS | Encounter Summary ---
Author Organization [facility] Address [facility] [place] [address] Care Team Providers Care Car Sweeper Name Role Phone Lo Yang APRN Primary Care Provider [phone] Encounter Details Date Type Department Care Team (Late st Contact Info) Description 07/02/2024 Orders Only [place]etric[place] [address] Michell Masters MD [facility] DR OBSTETRICS [place] [address] Abnormal uterine bleeding (AUB) Social History Tobacco Use Types Packs/Day Years Used Date Smoking Tobacco: Never Smokeless Tobacco: Never Alcohol Use Standard Drinks/Week Comments Not Currently 0 (1 standard drink = 0.6 oz pur e alcohol) [facility] Inpatient Questions Answer Date Recorded Does [...] as of this encounter Progress Notes * Michell Masters MD - 07/02/2024 4:40 PM EDT Obgyn Note Has had return of ? PMB / perimenopausal bleeding s/p cessation of Aygestin. Reviewed with Licensing Engineer attending, back on Aygestin. Will schedule TVUS and discussion, likely hysteroscopy, D&C. See prior notes for details Michell Masters MD documented in this encounter Plan of Treatment Upcoming Encounters Date Type Department Care Team (Late st Contact Info) Description 10/20/2024 9:00 AM EST Office Visit [place] [address] Lacy Jameson MD [facility] DR [place] [address] Layla Jo, RN Scheduled Orders Name Type Priority Associated Diagnoses Orde r Schedule US Transvaginal Non OB Imaging Routine Abnormal uterine bleeding (AUB) Expected: 07/02/2024 (Approximate), Expires: 07/02/2025 documented as of this encounter Visit Diagnoses Diagnosis Abnormal uterine bleeding (AUB) documented in this encounter Care Teams Car Sweeper Relationship Specialty Start Date End Date Lo Yang APRN [place] [address] PCP - General Family Medicine 01/14/24 documented as of this encounter
--- OUTSIDE RECORDS SUMMARY | 2024-08-10 15:55 | XMS_ITS | Encounter Summary ---
Author Organization [facility] Address [facility] [place] [address] Care Team Providers Care Ranch Manager Name Role Phone Clayton Johnson JOHN Primary Care Provider Reason for Visit * Reason Comments Medication Refill Encounter Details Date Type Department Care Team (Late st Contact Info) Description 09/20/2023 Refill Obstetrics [place] [address] Michell Masters MD [facility] DR OBSTETRICS AND [place] [address] Abnormal uterine bleeding (AUB) Social History Tobacco Use Types Packs/Day Years Used Date Smoking Tobacco: Never Smokeless Tobacco: Never Alcohol Use Standard Drinks/Week Comments Not Currently 0 (1 standard drink = 0.6 oz pur e alcohol) [facility] Inpatient Questions Answer Date Recorded Does [...] EST Office Visit [place]ematology [place] [address] Lacy Jameson MD [facility] DR HEMATOLOGY [place] [address] Layla Jo RN documented as of this encounter Visit Diagnoses Diagnosis Abnormal uterine bleeding (AUB) documented in this encounter Care Teams Ranch Manager Relationship Specialty Start Date End Date Clayton Johnson DNP [address] [place] [id number] PCP - General Family Medicine 04/16/23 01/13/24 documented as of this encounter
--- OUTSIDE RECORDS SUMMARY | 2024-08-10 15:55 | XMS_ITS | Encounter Summary ---
Author Organization [facility] Address [facility] [place] [address] Care Team Providers Care Tail Sawyer Name Role Phone Clayton Johnson JOHN Primary Care Provider Encounter Details Date Type Department Care Team (Late st Contact Info) Description 08/27/2023 Notes Only Hematology [place] [address] Lacy Jameson MD [facility] DR HEMATOLOGY [place] [address] Social History Tobacco Use Types Packs/Day Years Used Date Smoking Tobacco: Never Smokeless Tobacco: Never Alcohol Use Standard Drinks/Week Comments Not Currently 0 (1 standard drink = 0.6 oz pur e alcohol) [facility] Inpatient Questions Answer Date Recorded Does Anyone [...] Progress Notes * Lacy Jameson MD - 08/27/2023 3:37 PM EDT Images from the original note were not included. [facility] [place] [address] 08/27/2023 HEMOPHILIA SERVICE Elodia has a history of iron deficiency anemia due to menstrual blood loss. She has received two courses of IV iron (Feraheme) in January 2022 and July 2022. Follow up lab studies yesterday show the following: Latest Reference Range & Units 08/25/23 14:50 WBC 4.0 - 9.5 x10(3)/mcL 7.4 RBC 4.00 - 5.21 x10(6)/mcL 4.72 Hemoglobin 11.7 - 15.5 g/dL 14.2 Hematocrit 35.7 - 45.8 % 41.7 MCV 82.6 - 94.4 fL 88.3 MCH 27.1 - 32.0 pg 30.1 MCHC 31.7 - 35.0 g/dL 34.1 RDWSD 37.0 - 46.0 fL 44.2 RDWCV 11.5 - 14.1 % 13.6 Platelets 145 - 357 x10(3)/mcL 296 MPV 7.6 - 12.9 fL 9.8 nRBC % Auto % 0.0 nRBC Abs Auto 0.000 - 0.000 x10(3)/mcL 0.000 Neutr Abs (ANC) 1.70 - 6.10 x10(3)/mcL 5.33 Neutrophils % % 71.6 Immature Gran % % 0.30 Lymphocytes % % 21.2 Monocytes % % 4.2 Eosinophils % % 2.0 Basophils % % 0.7 Lulu Gran Abs 0.00 - 0.04 x10(3)/mcL 0.02 Lymphocytes Abs 0.9 - 3.2 x10(3)/mcL 1.6 Monocyte Abs 0.3 - 0.9 x10(3)/mcL 0.3 Eosinophils Abs 0.0 - 0.4 x10(3)/mcL 0.2 Basophils Abs 0.0 - 0.1 x10(3)/mcL 0.0 Iron 30 - 150 mcg/dL 63 TIBC 250 - 450 mcg/dL 309 Iron Saturation 20 - 50 % 20 Ferritin 30 - 400 ng/mL 50 Impression: No anemia and adequate iron stores. Plan: No indication for iron infusions at this time. Lacy Jameson MD Audio Visual Technician, [facility] documented in this encounter Plan of Treatment Upcoming Encounters Date Type Department Care Team (Late st Contact Info) Description 10/20/2024 9:00 AM EST Office Visit Hematology [place] [address] Lacy Jameson MD [facility] DR HEMATOLOGY [place] [address] Layla Jo, RN documented as of this encounter Visit Diagnoses Not on filedocumented in this encounter Care Teams Tail Sawyer Relationship Specialty Start Date End Date Clayton Johnson DNP [address] [place] [id number] PCP - General Family Medicine 04/16/23 01/13/24 documented as of this encounter
--- OUTSIDE RECORDS SUMMARY | 2024-08-10 15:55 | XMS_ITS | Encounter Summary ---
Author Organization [facility] [place] [address] Care Team Providers Care Hotel Yardperson Name Role Phone Lo Yang APRN Primary Care Provider [phone] Encounter Details Date Type Department Care Team (Late st Contact Info) Description 06/29/2024 Telephone Obstetrics [place] [address] Patricia Carranza RN Social History Tobacco Use Types Packs/Day Years Used Date Smoking Tobacco: Never Smokeless Tobacco: Never Alcohol Use Standard Drinks/Week Comments Not Currently 0 (1 standard drink = 0.6 oz pur e alcohol) [facility] Inpatient Questions Answer Date Recorded [...] Telephone Encounter - Patricia Carranza RN - 06/29/2024 3:07 PM EDT RTC to Elodia Lin 54 y.o. relating to bleeding concerns. Elodia reports tapering off of aygestin at the beginning of April. She is now having bleeding. The bleeding started this morning and has gradually increased. Currently, she is saturating an overnight pad in less than two hours. She is feeling a bit lightheaded, but thinks this may be related to being outside in the heat. Elodia denies pain. Previously, Elodia was taking one 5mg tablet of aygestin three times daily and gradually decreased. Reviewed with program evaluator attending, plan to restart aygestin TID to help control bleeding. Pain and bleeding precautions provided, Elodia provides teach back. Message sent to Dr. Masters and scheduling for follow-up plan. documented in this encounter Plan of Treatment Upcoming Encounters Date Type Department Care Team (Late st Contact Info) Description 10/20/2024 9:00 AM EST Office Visit Hematology [place] [address] Lacy Jameson MD [facility] DR [place] [address] Layla Jo RN documented as of this encounter Visit Diagnoses Not on filedocumented in this encounter Care Teams Hotel Yardperson Relationship Specialty Start Date End Date Lo Yang APRN [place] [address] PCP - General Family Medicine 01/14/24 documented as of this encounter
--- OUTSIDE RECORDS SUMMARY | 2024-08-10 15:55 | XMS_ITS | Encounter Summary ---
Author Organization [facility] Address [facility] [place] [address] Care Team Providers Care Forensic Specialist Name Role Phone Clayton Johnson JOHN Primary Care Provider [phone] Reason for Visit * Consultation (Routine) - Closed Specialty Diagnoses / Procedures Referred By Patsy hernandez Referred To Contact Interventional Radiology Diagnoses Abnormal uterine bleeding (AUB) Septate uterus Von Willebrand disease History of delivery Michell Masters MD [facility] [address] OBSTETRICS [place] [address] [facility] [address] [place] [address] Referral ID Status Reason Start Date Expiration Date V isits Requested Visits Authorized [id number] Closed Specialty Service Requested 05/28/2023 05/27/2024 1 1 Encounter Details Date Type Department Care Team (Late st Contact Info) Description 08/25/2023 2:00 PM EDT Office Visit [place] [address] Carmelo Hutchinson MD [facility] [place] [address] Abnormal uterine bleeding (AUB) Social History Tobacco [...] Sign Reading Time Taken Comments Blood Pressure 143/85 08/25/2023 1:57 PM EDT Pulse 79 08/25/2023 1:57 PM EDT Temperature - - Respiratory Rate - - Oxygen Saturation - - Inhaled Oxygen Concentration - - Weight 104.3 kg (230 lb) 08/25/2023 1:57 PM EDT Height 157.5 cm (5' 2) 08/25/2023 1:57 PM EDT Body Mass Index 42.07 08/25/2023 1:57 PM EDT documented in this encounter Progress Notes * Carmelo Hutchinson MD - 08/25/2023 2:00 PM EDT Interventional Radiology Clinic Note Elodia Lin [id number] [facility] [address] : 1970 Age: 53 y.o. 08/25/2023 Chief Complaint: Abnormal uterine bleeding History of Present Illness: Ms. Lin (bruise wall) is a [address] Masters for discussion of uterine artery embolization for abnormal uterine bleeding. From Dr. Masters note of 05/28/23 53 y.o. premenopausal woman with septate uterus, 3 prior cesareans, VWDz, BMI 43 presenting for f/u AUB. Long discussion regarding options for management of AUB Reviewed most recent labs from February with normal H/H and iron studies, will have low threshold to repeat Has trialed Depo Lupron with negative effect, bleeding was heavier Aygestin is hard for her to tolerate given associated mood / life symptoms Offered support for this difficult to treat bleeding Options include continued oral progestins, referral to IR for consult, possible attempt at rollerball ablation, hysterectomy Not an ideal hysterectomy candidate given VWDz, septate uterus, elevated BMI, and, most importantly, 3 prior cesareans Reviewed the risk of bladder injury and adhesions with the 3 prior cesareans I have spoken in curbside with Elodia Kaur's Registered Respiratory Therapist, who feels she can get Elodia through a procedure without the VWDz being a 'high risk' factor Elodia did receive a Humate-P infusion prior to her recent hysterosocpy, D&C; we appreciate the Hematology consultation I have concerns about an endometrial ablation given the difficulty getting all areas with the rollerball and inability to do the Novasure Furthermore, I worry about the future inability to fully sample and possibility of clouding a diagnosis of endometrial cancer given risk factors Elodia stated understanding She opts to have the IR consult. Will need to inquire about preprocedural Humate P if procedure is an option / offered Ms. Lin has been taking Aygestin but believes it is causing hair loss and mood changes as well as possibly raising her blood pressure. If she stops the Aygestin however she begins bleeding heavily. Past medical/surgical history: x3 Right wrist surgery 1996 Patient Active Problem List Diagnosis Code Von Willebrand disease D68.00 Obesity (BMI 35.0-39.9 without comorbidity) E66.9 History of recurrent UTI (urinary tract infection) Z87.440 Uterine septum Q51.9 Tubal ligation status Z98.51 Generalized anxiety disorder F41.1 Dysthymic disorder F34.1 Pain in left shoulder M25.512 Abnormal uterine bleeding (AUB) N93.9 Anemia, iron deficiency D50.9 Endometriosis N80.9 Smoking history: None Current Outpatient Medications on File Prior to [...] facility-administered medications on file prior to visit. Allergies Allergen Reactions Aygestin [Norethindrone Acetate] Other (See Comments) Hair loss, mood changes, hot flashes Adhesive Bandage Rash Blistering rash with tegederm [id number]-[id number] [Acetylcysteine (Bulk)] Other (See Comments) Heavy menstrual bleeding requiring hospitalization Codeine Percocet is ok Durapore Cloth Surgical Tape [Adhesive Tape] Hives Imaging Studies: Ultrasound 02/07/2021 1. Septate uterus 2. Fluid in the a scar. 3. fluid in the cervical canal and multiple nabothian cysts. 4. RIGHT ovary is normal. 5. There is a dominant follicle in the LEFT ovary with maximum dimension of 2.4cm. 6. The RIGHT ovary could not be seen transvaginally and was visualized transabdominally. Assessment/discussion: 53-year-old with abnormal uterine bleeding, not felt to be a good candidate for hysterectomy in light of three prior C-sections, von Willebrand's disease, and elevated BMI. 2020 ultrasound did not show fibroids. I went over uterine artery embolization with Ms. Lin. I pointed out that uterine artery embolization is not universally successful, success rate in the low 90???s for bleeding related symptoms. I also quoted her a rate of premature menopause of between 5-10% post embolization and discussed the risk of non target embolization. We went over the potential for infection post procedure with rateof around 2%. I explained post embolization syndrome, which can mimic infection, but is expected inthe days immediately post procedure. I noted that we cover patients during that time with antibiotics rather than trying to differentiate. I explained that I do no not obtain imaging post procedure unless it would help her make a decision. I described the procedure, the typical overnight admission and the likely discharge the following day. I did note that we have had patients who have been admitted for a longer period of time and I advised her that she would probably want to plan for at least a week off from work/usual activities. In addition to enlisting help from Dr. Jameson I would likely use a groin access (right common femoral artery) rather than wrist (radial artery) access as we have closure devices to assist in hemostasis with groin access. Plan: Ms. Lin will consider and call if she elects to have uterine artery embolization. Contact Dr. Jameson regarding hemostasis plan for procedure. documented in this encounter Plan of Treatment Upcoming Encounters Date Type Department Care Team (Late st Contact Info) Description 10/20/2024 9:00 AM EST Office Visit Hematology [place] [address] Lacy Jameson MD [facility] DR [place] [address] Layla Jo, RN Scheduled Referrals Name Type Priority Associated Diagnoses Order Schedule Referral to Interventional Radiology (Primary Care Use Only) Outpatient Referral Routine Abnormal uterine bleeding (AUB) Septate uterus Von Willebrand disease History of delivery Ordered: 05/28/2023 documented as of this encounter Visit Diagnoses Diagnosis Abnormal uterine bleeding (AUB) documented in this encounter Care Teams Forensic Specialist Relationship Specialty Start Date End Date Clayton Johnson DNP [address] [place] [address] PCP - General Family Medicine 04/16/23 01/13/24 documented as of this encounter
--- OUTSIDE RECORDS SUMMARY | 2024-08-10 15:55 | XMS_ITS | Encounter Summary ---
Author Organization [facility] Address [facility] [place] [address] Care Team Providers Care Stars Coordinator Name Role Phone Clayton Johnson DNP Primary Care Provider [phone] Encounter Details Date Type Department Care Team (Latest Contact Info) Description 04/15/2023 Travel Social History Tobacco Use Types Packs/Day [...] EST Office Visit Hematology [place] [address] Lacy Jameson MD [facility] [place] [address] Layla Jo RN documented as of this encounter Visit Diagnoses Not on filedocumented in this encounter Care Teams Stars Coordinator Relationship Specialty Start Date End Date Clayton Johnson DNP PCP - General Family Medicine 07/07/19 04/15/23 documented as of this encounter
--- OUTSIDE RECORDS SUMMARY | 2024-08-10 15:55 | XMS_ITS | Encounter Summary ---
Author Organization [facility] [place] [address] Care Team Providers Care Livestock Handler Name Role Phone Clayton Johnson JOHN Primary Care Provider Reason for Visit * Auth/Cert (Routine) Specialty Diagnoses / Procedures Referred By Patsy hernandez Referred To Contact Diagnoses Abnormal uterine and vaginal bleeding, unspecified AUB, uterine septum Procedures PRO HYSTEROSCOPY, W/ENDO BX HYSTEROSCOPY, SURG W/ENDOMETRIAL SAMPLING, POLYPECTOMY (WRVU 4.17) Michell Masters MD [facility] [place] [address] [facility] Referral ID Status Reason Start Date Expiration Date Visits Re quested Visits Authorized [id number] 1 1 Encounter Details Date Type Department Care Team (Late st Contact Info) Description 04/16/2023 1:51 PM EDT - 04/16/2023 2:59 PM EDT Surgery [place] [id number] Michell Masters MD [facility] [place] [address] HYSTEROSCOPY, DIAGNOSTIC (WRVU 2.65) Social History Tobacco Use Types Packs/Day Years [...] Sign Reading Time Taken Comments Blood Pressure 140/88 04/16/2023 12:42 PM EDT Pulse 65 04/16/2023 12:42 PM EDT Temperature 36.7 ??C (98.1 ??F) 04/16/2023 12:42 PM E DT Respiratory Rate 16 04/16/2023 12:42 PM EDT Oxygen Saturation 100% 04/16/2023 12:42 PM EDT Inhaled Oxygen Concentration - - [...] closest emergency room or call the hospital bulk materials handling plant operator at [phone] and ask for physician contact center rep covering for your physician. Questions or problems after 5pm or on a weekend: Call the [facility] bulk materials handling plant operator at and ask for the physician contact center rep covering for your doctor. * Patient Instructions* Adelia Aleman MD - 04/16/2023 1:49 PM EDT PATIENT DISCHARGE INSTRUCTIONS [facility] Obstetrics and Gynecology [phone] (after hours or weekends [phone] ask for the FILM LABORATORY TECHNICIAN provider contact center rep) *Dr. Masters will call you with your [...] DELIVERY performed by Clint Orlando MD at [facility] ??? PRO COLONOSCOPY, BIOPSY N/A 03/11/2015 COLONOSCOPY FLEXIBLE, WITH BX performed by Alida Mahmood MD at [facility] ??? PRO COLONOSCOPY, DIAGNOSTIC N/A 03/17/2021 COLONOSCOPY, DIAGNOSTIC performed by Sherrill Miner MD at [facility] ??? PRO COLONOSCOPY, REMV LESN, SNARE N/A 03/11/2015 COLONOSCOPY, POLYPECTOMY, REMOVAL LESION BY SNARE performed by Alida Mahmood MD at [facility] ??? PRO LIGATE FALLOPIAN TUBE, 04/26/2013 @FALLOPIAN TUBE(S), TRANSECTION OR LIGATION, ABD APPROACH, POST- performed by Clint Orlando MD at [facility] OB History 4 Para 3 [...] Bandage Rash Blistering rash with tegederm ??? F-[id number]-Cysteine [Acetylcysteine (Bulk)] Other (See Comments) Heavy menstrual [...] Not on file Occupational History ??? 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 Smoking status: Never ??? [...] seen and discussed with Dr. Masters, attending oak tanner. Adelia Aleman MD PGY4 04/16/2023 Associated attestation [...] Masters MD - 04/16/2023 2:12 PM EDT [facility] Operative Note Patient Name: Elodia Lin : [id number] MR#: [id number] Case Date: 04/16/2023 Surgeon: Surgeon(s) and Role: * Mihcell Masters MD - Primary Preoperative diagnosis: AUB, [...] in the dorsal supine lithotomy position in [facility] in a neurologically neutral position. Exam [...] The cervix was sequentially dilated to 17 Mongolian with Hope dilators. The 0 degree operative [...] EST Office Visit Hematology [place] [address] Lacy Jameson MD [facility] DR [place] [address] Layla Jo RN documented as of this encounter Procedures Procedure Name Priority Date/Time Associated Diagnosis Comments HYSTEROSCOPY, DIAGNOSTIC Routine 04/16/2023 2:49 PM EDT Abnormal uterine bleeding (AUB) SURGICAL PATHOLOGY REPORT Routine 04/16/2023 2:29 PM EDT SPECIMEN TO PATHOLOGY STAT 04/16/2023 2:29 PM EDT Hysteroscopy, Dx, Sep Proc ([id number]) 04/16/2023 1:47 PM EDT Abnormal uterine bleeding (AUB) POCT URINE Routine 04/16/2023 12:40 PM EDT LAB SCAN 04/16/2023 12:00 AM EDT documented in this encounter Results * Surgical Pathology Report (04/16/2023 2:29 PM EDT) Final Diagnosis [id number] ? Location: [facility] The signing pathologist has [...] Higgins Verified: ??04/27/2023 16:24 ??Pathologist Performed at: ??-[facility] Dept. of Pathology, [place] [address] Hack Driver: Anjelica Nieto MD, FCAP, ??CLIA Certificate: [id number] SPECIMEN(S) SUBMITTED A - Endometrial curettings ?? for frozen section CLINICAL INFORMATION AUB, uterine septum SPECIMEN PROCESSING A - Labeled/Fixative: Endometrial curettings, fresh for frozen section. Quantity/Size: Multiple, 6.0 x 6.0 x 0.5 cm. Tissue Description: Tissue fragments, mucus, and blood clot. The following tissue is submitted for frozen section: Dust Box Worker tissue, as AFS1 - AFS3. Entirely submitted [...] DO Verified: ??04/16/2023 15:19 ??Pathologist Performed at: ??-[facility] Dept. of Pathology, [place] [address] Hack Driver: Anjelica Nieto MD, FCAP, ??CLIA Certificate: [id number] This intraoperative consultation should be interpreted as a preliminary diagnosis pending review of the entire specimen and special studies, if any. A final Surgical Pathology report will follow this preliminary Frozen Section report(s). 04/27/2023 4:24 PM EDT [facility] ENDOMETRIAL STRUCTURE / Unknown 04/16/2023 2:29 PM EDT 04/16/2023 2:29 PM EDT Michell Masters MD PATHOLOGY/CYTOLOGY O [facility] [address] [place] [address] * Specimen to Pathology (04/16/2023 2:29 PM EDT) AP Specimen 04/16/2023 2:29 PM EDT 04/16/2023 2:29 PM EDT Narrative [facility] - 04/16/2023 2:29 PM EDT Specimen requisition ordered. ??Separate Pathology report to follow Michell Masters MD PATHOLOGY/CYTOLOGY O [facility] [place] [address] * POCT urine (04/16/2023 12:40 PM EDT) [...] (AUB) Uterine septum Other anomalies of uterus Abnormal uterine bleeding (AUB) documented in this encounter Administered Medications Inactive Administered Medications - up to 3 most recent administrations Medication Order MAR Action Action Date Dose Rate Site ferric subsulfate (ASTRINGYN) solution ONCE PRN, Starting on Wed04/16/23 at 1435, Until Wed04/16/23 at 1618, Intra-Operative (Intra-Procedure) Given 04/16/2023 2:35 PM EDT 1 mL 19- Surgical Site lactated ringers infusion 1,000 mL, at [...] MD) documented in this encounter Care Teams Livestock Handler Relationship Specialty Start Date End Date Clayton Johnson DNP [address] [place] [address] [place] [address] PCP - General Family Medicine 04/16/23 01/13/24 documented as of this encounter
--- OUTSIDE RECORDS SUMMARY | 2024-08-10 15:55 | XMS_ITS | Encounter Summary ---
Author Organization [facility] [place] [address] Care Team Providers Care Licensed Mass Real Estate Appraiser Name Role Phone Clayton Johnson JOHN Primary Care Provider Reason for Referral * Consultation (Routine) - Closed Specialty Diagnoses / Procedures Referred By Patsy hernandez Referred To Contact Interventional Radiology Diagnoses Abnormal uterine bleeding (AUB) Septate uterus Von Willebrand disease History of delivery Michell Masters MD [facility] [address] OBST[place]ICS [place] [address] [facility] Interv [place] [address] [place] [address] Referral ID Status Reason Start Date Expiration Date V isits Requested Visits Authorized [id number] Closed Specialty Service Requested 05/28/2023 05/27/2024 1 1 Reason for Visit * Reason Comments Follow-up Post op Encounter Details Date Type Department Care Team (Late st Contact Info) Description 05/28/2023 10:00 AM EDT Office Visit Obstetrics [place] [address] Michell Masters MD [facility] OBST[place] [address] Abnormal uterine bleeding (AUB); Septate uterus; Von Willebrand disease; History of delivery Social History Tobacco Use Types Packs/Day Years [...] Reading Time Taken Comments Blood Pressure 143/85 05/28/2023 10:15 AM EDT Pulse 75 05/28/2023 10:15 AM EDT Temperature 36.3 ??C (97.3 ??F) 05/28/2023 1 0:15 AM EDT Respiratory Rate 18 05/28/2023 10:1 5 AM EDT Oxygen Saturation 100% 05/28/2023 10: 15 AM EDT Inhaled Oxygen Concentration - - Weight 107.1 kg (236 lb 1.6 oz) 023 10:15 AM EDT Height - - Body Mass Index 43.18 04/16/2023 12:29 PM EDT documented in this encounter Progress Notes * Michell Masters MD - 05/28/2023 10:00 AM EDT Obgyn Clinic Visit: Established Patient Chief Complaint Patient presents with Follow-up Post op Subjective: Elodia Lin is a 53 y.o. premenopausal woman with septate uterus, 3 prior cesareans, VWDz, BMI 43 presenting for f/u AUB. See my prior telephone note and op note for details H/o ablation attempt aborted due to fluffy tissue, need to verify no malignancy in final path Final path without EIN or malignancy Continues to have AUB Continued on norethindrone acetate Since the hysteroscopy Did 3 x 5 mg Aygestin for a while, and slowed down quite a bit Then went down to two a day and the bleeding stopped for two days Then returned, almost daily bleeding, but not flooding or heavy right now In past she was able to have a few months bleed free on the Aygestin 5 mg BID However, she has SE's from the Aygestin Does not know if it is contributing to her weight gain, labile mood, hair loss, breast tenderness, bloated, and with some mood lability Wonders if some weight gain When she had been on 1 tablet daily in past she felt better Bleeding refractory to trial of Depo Lupron in past Not a candidate for LGN IUD due to septate uterus Not ideal hyst 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 Medical histories reviewed, updated in EDH. Medications and allergies reviewed and updated in EDH. Review of Systems: Per HPI Objective: BP 143/85 Pulse 75 Temp 36.3 ??C (97.3 ??F) Resp 18 Wt 107.1 kg (236 lb 1.6 oz) SpO2 100% BMI 43.18 kg/m?? Body mass index is 43.18 kg/m??. Constitutional: Pleasant and conversant, appears well Labs: 03/09/2023 OSH labs Checked iron studies and H/H I reviewed on patient's phone / portal. Hgb 13, iron studies wnl Imaging: No new Assessment/Plan: Elodia Lin is [...] cesareans I have spoken in curbside with Dr. Jameson, Elodia's Casino Gaming Worker, who feels she can get Elodia through [...] if procedure is an option / offered For her elevated BP, she wonders if it is Aygestin related She states she maintains a healthy diet and active lifestyle I encouraged she consider treatment in further discussion with her PCP if persistently elevated even if related to the Aygestin since we are dependent on some menstrual management at this time Reviewed HTN should be treated to prevent CV disease Bleeding precautions reviewed If Elodia calls, reach out to Dr. Masters if available Check out note / Follow up plan: F/u telehealth or in person Dr. Masters 40 min in 4 months 1. Abnormal uterine bleeding (AUB) Referral to Interventional Radiology (Primary Care Use Only) 2. Septate uterus Referral to Interventional Radiology (Primary Care Use Only) 3. Von Willebrand disease Referral to Interventional Radiology (Primary Care Use Only) 4. History of delivery Referral to Interventional Radiology (Primary Care Use Only) Michell Masters MD documented in this encounter Plan of Treatment Upcoming Encounters Date Type Department Care Team (Late st Contact Info) Description 10/20/2024 9:00 AM EST Office Visit Hematology [place] [address] Lacy Jameson MD [facility] [place] [address] Layla Jo, RN Scheduled Referrals Name Type Priority Associated Diagnoses Order Schedule Referral to Interventional Radiology (Primary Care Use Only) Outpatient Referral Routine Abnormal uterine bleeding (AUB) Septate uterus Von Willebrand disease History of delivery Ordered: 05/28/2023 documented as of this encounter Visit Diagnoses Diagnosis Abnormal uterine bleeding (AUB) Septate uterus Von Willebrand disease Von Willebrand's disease History of delivery Other postprocedural status documented in this encounter Care Teams Licensed Mass Real Estate Appraiser Relationship Specialty Start Date End Date Clayton Johnson DNP [address] [facility] [place] [address] PCP - General Family Medicine 04/16/23 01/13/24 documented as of this encounter
--- OUTSIDE RECORDS SUMMARY | 2024-08-10 15:55 | XMS_ITS | Encounter Summary ---
Author Organization [place] [address] Care Team Providers Care Hospital Personnel Director Name Role Phone Clayton Johnson JOHN Primary Care Provider Encounter Details Date Type Department Care Team (Late st Contact Info) Description 08/06/2023 Telephone Hematology [place] [phone] Layla Jo, RN Social History Tobacco Use Types Packs/Day Years Used Date Smoking Tobacco: Never Smokeless Tobacco: Never Alcohol Use Standard Drinks/Week Comments Not Currently 0 (1 standard drink = 0.6 oz pur e alcohol) [facility] Inpatient Questions Answer Date Recorded Does [...] Telephone Encounter - Layla Jo RN - 08/06/2023 10:29 AM EDT Returned TC to patient, a 53 y.o. female with Von Willebrand Disease, type 2A. VM left advising herto go to her PCP or local ED for further evaluation of a reported broken blood vessel noted in her eye. Subconjunctival hemorrhages can look alarming bu do not typically require hematology intervention. Requested she return call with update. Will review with Dr. Jameson and relay any further recommendations. Layla Jo RN MSN ===View-only below this line=== ----- Message ----- From: Lacy Jameson MD Sent: 08/06/2023 10:11 AM EDT To: Layla Jo RN Subject: FW: Bleeding in eye Call her please ----- Message ----- From: Kelsie Arias RN Sent: 08/06/2023 10:06 AM EDT To: Lacy Jameson MD Subject: FW: Bleeding in eye ----- Message ----- From: Elodia Lin Sent: 08/05/2023 8:11 PM EDT To: [facility] Hem Onc Hematology Team Nurse Subject: Bleeding in eye Hello! I have a broken blood vessel?? A few minutes ago a blood clot came out of my rear duct!! Like not abig one but still. I will call the eye doc tomorrow but do you think I need clotting factor? Thanks! Elodia documented in this encounter Plan of Treatment Upcoming Encounters Date Type Department Care Team (Late st Contact Info) Description 10/20/2024 9:00 AM EST Office Visit Hematology [place] [address] Lacy Jameson MD [facility] DR HEMATOLOGY [place] [address] Layla Jo RN documented as of this encounter Visit Diagnoses Not on filedocumented in this encounter Care Teams Hospital Personnel Director Relationship Specialty Start Date End Date Clayton Johnson DNP [address] [place] [address] PCP - General Family Medicine 04/16/23 01/13/24 documented as of this encounter
--- OUTSIDE RECORDS SUMMARY | 2024-08-10 15:56 | XMS_ITS | Encounter Summary ---
Author Organization [facility] Address [facility] [place] [address] Care Team Providers Care Sewing Inspector Name Role Phone Clayton Johnson JOHN Primary Care Provider Encounter Details Date Type Department Care Team (Late st Contact Info) Description 11/17/2021 Telephone Hematology [place] [address] Dalia Sexton MD [facility] DR HEMATOLOGY/[place] [address] Social History Tobacco Use Types Packs/Day Years [...] encounter Miscellaneous Notes * Telephone Encounter - Dalia Sexton MD - 11/17/2021 1:06 PM EST Reason for call: Ongoing heavy bleeding Caller: Tick Sewer Sylvia Yu HPI:Elodia Lin is a 51 y.o. with diagnosis of 51 years old female with hx of VWD type2A and septate uterus who has been having vaginal bleeding which are more intense in the afternoon. She stopped control pills 6 days ago and started depo lupron. She is an urgent care due to vaginal bleeding, and her Hb dropped from 12.7 per CBC to 9.9 by POCT today. She is not presyncopal and is hemodynamically stable. Her bleeding is slow reported per MD. Of note, she has been treated in the past with Humate P ~2,000 units. She did not tolerate TXA in the past either. Assessment/Recommendations: #VWD type2A with chronic vaginal bleeding Tick Sewer was contacted and recommended a trial outpatient SKY taper to stop her bleeding. Recommend restarting her combined control pills three times daily until bleeding stops, then decreased to twice daily x2 days, and then once daily until follow-up with gynecology. If this is unsuccessful overthe next 6-8 hours, then she should present to the ED for further management and serum CBC. According to GENERAL UTILITY MAINTENANCE REPAIRER note, she may be a candidate for uterine artery embolization vs. endometrial ablation withrollerball if needed. Team will continue to monitor his CBC. This patient was discussed with Dr. Love. Dalia Glaser M.D. Hematology/Oncology Fellow [facility] Pager # [phone] 11/17/21, 1:06 PM Hemophilia Attending Physician I have reviewed this patient's care with Dr. Glaser and concur with the recommendations and plan as outlined in her note above. Our team will call to follow-up on her. Given that she is hemodynamic stable, I don't think that there is an urgent need of Humate P at this current time. Lisa Love MD [facility] documented in this encounter Plan of Treatment Upcoming Encounters Date Type Department Care Team (Late st Contact Info) Description 10/20/2024 9:00 AM EST Office Visit Hematology [place] [address] Lacy Jameson MD [facility] HEMATOLOGY [place] [address] Layla Jo RN documented as of this encounter Visit Diagnoses Not on filedocumented in this encounter Care Teams Sewing Inspector Relationship Specialty Start Date End Date Clayton Johnson DNP PCP - General Family Medicine 07/07/19 04/15/23 documented as of this encounter
--- OUTSIDE RECORDS SUMMARY | 2024-08-10 15:56 | XMS_ITS | Encounter Summary ---
Author Organization [facility] Address [facility] [place] [address] Care Team Providers Care Black Topper Name Role Phone Clayton Johnson JOHN Primary Care Provider Encounter Details Date Type Department Care Team (Late st Contact Info) Description 11/17/2021 Notes Only Obstetrics [place] [address] Sylvia Yu MD [facility] DR OBSTETRICS [place] [address] Social History Tobacco Use Types Packs/Day Years Used Date Smoking Tobacco: Never Smokeless Tobacco: Never Alcohol Use Standard Drinks/Week Comments No 0 (1 standard drink = 0.6 oz pur e alcohol) Sex and Gender Information Value Date Recorded Sex Assigned at Not on file Gender Identity Not on file Sexual Orientation Not on file documented as of this encounter Progress Notes * Sylvia Yu MD - 11/17/2021 12:23 PM EST Telephone Note Transfer Center call from Dr. Wilson at urgent care for this patient. Elodia Lin is a 51 y.o. female with Von Willebrand Disease and septate uterus who started on depo lupron on 10/31 for control of AUB-C. She tapered off her SKY 6 days ago. Has bad side effects from aygestin in the past per records. Didnot tolerate TXA in the past either. Hgb 9.9 by POCT at urgent care, had been 12.7 on 10/31 by serum CBC. No presyncopal symptoms per MD report. Per report, her bleeding is not heavy right now while sitting in urgent care but tends to increase in the afternoon/evening. BTL for contraception - still recommend urine test to ensure it's negative. Per urgent care MD, patient is hemodynamically stable with slowed bleeding at this time. She had a significant hgb drop based on POCT. However, we can trial outpatient SKY taper to stop her bleeding.If this is unsuccessful over the next 6-8 hours, then she should present to the ED for further management and serum CBC. Recommend restarting her combined control pills three times daily until bleeding stops, then decreased to twice daily x2 days, and then once daily until follow-up with gynecology. If bleeding continues to be heavy (saturating 1 pad/hr x 2 hours), she should call Manufacturing Engineer clinic and will be referred to emergency department. She should also go to ED for any pre-syncopal symptoms. She may be a candidate for uterine artery embolization vs. Endometrial ablation with rollerball if needed. Additionally, with her VW disease she could require Von Willebrand factor concentrate or treatment with DDAVP. I did not recommend TXA at this time given restarting the SKY at a higher dose which already has a thrombotic risk. Dr. Wilson to relay these recommendations to the patient. I will have my clinic follow-up with patient for an appointment and to check on bleeding. I also reached out to the heme onc to follow-up with the patient and see if the patient needs to come to [facility] for Humate P treatment at this time. Sylvia Yu MD documented in this encounter Plan of Treatment Upcoming Encounters Date Type Department Care Team (Late st Contact Info) Description 10/20/2024 9:00 AM EST Office Visit [place]ology [place] [address] Lacy Jameson MD [facility] DR [place] [address] Layla Jo, RN documented as of this encounter Visit Diagnoses Not on filedocumented in this encounter Care Teams Black Topper Relationship Specialty Start Date End Date Clayton Johnson DNP PCP - General Family Medicine 07/07/19 04/15/23 documented as of this encounter
--- OUTSIDE RECORDS SUMMARY | 2024-08-10 15:56 | XMS_ITS | Encounter Summary ---
Author Organization [facility] Address [facility] [place] [address] Care Team Providers Care Workshop Manager Name Role Phone Clayton Johnson DNP Primary Care Provider Encounter Details Date Type Department Care Team (Late st Contact Info) Description 05/15/2022 Telephone Obstetrics [place] [address] Isabelle Young Social History Tobacco Use Types Packs/Day Years [...] EST Office Visit [place]ematology [place] [address] Lacy Jameson MD [facility] DR HEMATOLOGY [place] [address] Layla Jo RN documented as of this encounter Visit Diagnoses Not on filedocumented in this encounter Care Teams Workshop Manager Relationship Specialty Start Date End Date Clayton Johnson DNP PCP - General Family Medicine 07/07/19 04/15/23 documented as of this encounter
--- OUTSIDE RECORDS SUMMARY | 2024-08-10 15:56 | XMS_ITS | Encounter Summary ---
Author Organization [facility] Address [facility] [place] [address] Care Team Providers Care Multimedia Services Coordinator Name Role Phone Clayton Johnson JOHN Primary Care Provider Encounter Details Date Type Department Care Team (Late st Contact Info) Description 07/03/2022 Notes Only Hematology [place] [address] Lacy Jameson MD [facility] [place] [address] Social History Tobacco Use Types Packs/Day Years [...] Progress Notes * Lacy Jameson MD - 07/03/2022 11:08 AM EDT Images from the original note were not included. [facility] [place] [address] 07/03/2022 HEMOPHILIA SERVICE Elodia has a history of iron deficiency anemia due to menstrual blood loss. She was treated with two doses of IV iron (Feraheme) in January. She is scheduled for an endometrial ablation in July. Marihas not responded well to oral iron supplements and is taking a multivitamin with iron. Follow up lab studies this week show the following: Latest Reference Range & Units 06/29/22 16:19 WBC 4.0 - 9.5 x10(3)/mcL 7.4 RBC 4.00 - 5.21 x10(6)/mcL 4.49 Hemoglobin 11.7 - 15.5 g/dL 13.7 Hematocrit 35.7 - 45.8 % 40.9 MCV 82.6 - 94.4 fL 91.1 MCH 27.1 - 32.0 pg 30.5 MCHC 31.7 - 35.0 g/dL 33.5 RDWSD 37.0 - 46.0 fL 42.5 RDWCV 11.5 - 14.1 % 12.9 Platelets 145 - 357 x10(3)/mcL 340 Latest Reference Range & Units 06/29/22 16:19 Iron 30 - 150 mcg/dL 62 TIBC 250 - 450 mcg/dL 378 Iron Saturation 20 - 50 % 16 (L) Ferritin 30 - 400 ng/mL 19 (L) Impression: No kaiser anemia but declining iron stores since previous iron infusion. Plan: Will plan another course of IV iron (feraheme, 500-750 mg x 2) prior to ablation. Will try to arrange for infusion again in [facility], closer to her home, which worked out well for her last time.Otherwise will plan for [facility] infusion. Lacy Jameson MD Nurse Clinical, [facility] documented in this encounter Plan of Treatment Upcoming Encounters Date Type Department Care Team (Late st Contact Info) Description 10/20/2024 9:00 AM EST Office Visit Hematology [place] [address] Lacy Jameson MD [facility] H[place]ATOLOGY [place] [address] Layla Jo RN documented as of this encounter Visit Diagnoses Not on filedocumented in this encounter Care Teams Multimedia Services Coordinator Relationship Specialty Start Date End Date Clayton Johnson DNP PCP - General Family Medicine 07/07/19 04/15/23 documented as of this encounter
--- OUTSIDE RECORDS SUMMARY | 2024-08-10 15:56 | XMS_ITS | Encounter Summary ---
Author Organization [facility] Address [facility] [place] [address] Care Team Providers Care Towel Folder Name Role Phone Clayton Johnson DNP Primary Care Provider [phone] Encounter Details Date Type Department Care Team (Late st Contact Info) Description 02/11/2022 Telephone Obstetrics [place] [address] Bekah Berger Social History Tobacco Use Types Packs/Day Years [...] EST Office Visit Hematology [place] [address] Lacy Jameson MD [facility] [address] [place] [address] Layla Jo RN documented as of this encounter Visit Diagnoses Not on filedocumented in this encounter Care Teams Towel Folder Relationship Specialty Start Date End Date Clayton Johnson DNP PCP - General Family Medicine 07/07/19 04/15/23 documented as of this encounter
--- OUTSIDE RECORDS SUMMARY | 2024-08-10 15:56 | XMS_ITS | Encounter Summary ---
Author Organization [facility] [place] [address] Care Team Providers Care Mimeographer Name Role Phone Clayton Johnson JOHN Primary Care Provider [phone] Encounter Details Date Type Department Care Team (Late st Contact Info) Description 11/19/2021 Telephone Hematology [place] [address] Layla Jo, RN Social History Tobacco Use [...] Miscellaneous Notes * Telephone Encounter - Layla Jo, RN - 11/19/2021 12:32 PM EST Elodia Lin is a 51 y.o. female with Von Willebrand Disease, type 2A with recurrent menorrhagia.Patient stated she was changing a super tampon every 1- 1.5 hours the last few days but has taperedto summer camp counselor staining yesterday afternoon through today. Followed by SUPPORT ANALYST. See Dr. Mancilla note (11/18/21). PEr SUPPORT ANALYST orders, currently on SKY (Apri) TID until VB stops, then will taper. H/H reported stable @ 11.8/37 yesterday. Elodia stated she has a dose of Humate P, 1946 units, on hand, to take to her local medical center, [facility] ED, if VB increases significantly. Will continue to monitor and advised to call SUPPORT ANALYST and hemophilia office with bleeding concerns. Layla Jo RN MSN Hemophilia Attending Physician I have reviewed this patient's care with Layla Jo RN, MSN and concur with the recommendations and plan as outlined in her note above. Will have a dose of Humate P administered if intractable bleeding but for now agree with attempt at hormonal regulation. Instructed NOT to use tranexamic acid concurrently with SKY. Lacy Jameson MD Manager Commodities, [facility] documented in this encounter Plan of Treatment Upcoming Encounters Date Type Department Care Team (Late st Contact Info) Description 10/20/2024 9:00 AM EST Office Visit [place]ematology [place] [address] Lacy Jameson MD [facility] DR [place]ATOLOG[place] [address] Layla Jo RN documented as of this encounter Visit Diagnoses Not on filedocumented in this encounter Care Teams Mimeographer Relationship Specialty Start Date End Date Clayton Johnson DNP PCP - General Family Medicine 07/07/19 04/15/23 documented as of this encounter
--- OUTSIDE RECORDS SUMMARY | 2024-08-10 15:56 | XMS_ITS | Encounter Summary ---
Author Organization [facility] Address [facility] [place] [address] Care Team Providers Care Retail Advisor Name Role Phone Clayton Johnson JOHN Primary Care Provider Encounter Details Date Type Department Care Team (Late st Contact Info) Description 02/12/2022 Notes Only Hematology [place] [address] Lacy Jameson MD [facility] DR [place]ATOLOG[place] [address] Social History Tobacco Use Types Packs/Day Years [...] Progress Notes * Lacy Jameson MD - 02/12/2022 4:39 PM EDT Images from the original note were not included. [facility] [place] [address] 02/12/2022 HEMOPHILIA SERVICE Elodia has a history of iron deficiency anemia due to menstrual blood loss. She was treated with two doses of IV iron a year ago. She recently started lupron injections for menses regulation but was late with her last dose and had an especially heavy breakthrough bleed. She did not respond well to oral iron supplements and is taking a multivitamin with iron. Follow up lab studies today show the following: Latest Reference Range & Units 02/12/22 14:58 WBC 4.0 - 9.5 x10(3)/mcL 7.5 RBC 4.00 - 5.21 x10(6)/mcL 4.40 Hemoglobin 11.7 - 15.5 g/dL 12.0 Hematocrit 35.7 - 45.8 % 36.5 MCV 82.6 - 94.4 fL 83.0 MCH 27.1 - 32.0 pg 27.3 MCHC 31.7 - 35.0 g/dL 32.9 RDWSD 37.0 - 46.0 fL 43.8 RDWCV 11.5 - 14.1 % 14.5 (H) Platelets 145 - 357 x10(3)/mcL 357 Latest Reference Range & Units 02/12/22 14:58 Iron 30 - 150 mcg/dL 20 (L) TIBC 250 - 450 mcg/dL 456 (H) Iron Saturation 20 - 50 % 4 (L) Ferritin 30 - 400 ng/mL 7 (L) [1] Impression: No kaiser anemia yet but declining H/H since and iron deficient. Plan: Will plan another course of IV iron (feraheme, 500-750 mg x 2). [place], if that would be more convenient for her. Otherwise will plan for [facility] infusion. Lacy Jameson MD [employer]ner, [facility] documented in this encounter Plan of Treatment Upcoming Encounters Date Type Department Care Team (Late st Contact Info) Description 10/20/2024 9:00 AM EST Office Visit Hematology [place] [address] Lacy Jameson MD [facility] DR HEMATOLOGY [place] [address] Layla Jo, RN documented as of this encounter Visit Diagnoses Not on filedocumented in this encounter Care Teams Retail Advisor Relationship Specialty Start Date End Date Clayton Johnson DNP PCP - General Family Medicine 07/07/19 04/15/23 documented as of this encounter
--- OUTSIDE RECORDS SUMMARY | 2024-08-10 15:56 | XMS_ITS | Encounter Summary ---
Author Organization [facility] Address [facility] [place] [address] Care Team Providers Care Jive Developer Name Role Phone Clayton Johnson DNP Primary Care Provider Encounter Details Date Type Department Care Team (Late st Contact Info) Description 03/16/2023 2:20 PM EDT Office Visit Dermatology at [facility] [address] [place] [address] Julia Joseph MD [facility] [place] [address] Seborrheic keratoses; Multiple nevi; Lentigines; Dorman angioma; Excoriation (skin-picking) disorder Social History Tobacco Use Types Packs/Day Years Used Date Smoking Tobacco: Never Smokeless Tobacco: Never Alcohol Use Standard Drinks/Week Comments No 0 (1 standard drink = 0.6 oz pur e alcohol) Sex and Gender Information Value Date Recorded Sex Assigned at Not on file Gender Identity Not on file Sexual Orientation Not on file documented as of this encounter Progress Notes * Julia Joseph MD - 03/16/2023 2:20 PM EDT Images from the original note were not included. DEPARTMENT OF DERMATOLOGY Medical Dermatology [facility] Provider: Julia Joseph MD Patient's preferred name Elodia Preferred contact method for results [x]Phone []myD-H []Letter Detailed phone message OK? Yes Are there any other people with whom we may discuss your care? 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 Patient is new and self- referred to the clinic for a full skin exam. Patient reports multiple spots she would like evaluated today. Patient reports she does tend to pick at her skin when under stress and states most of the areas of concern have been picked at. Medications: Reviewed in eD-H Allergies: Reviewed in eD-H Skin Examination: Full skin examination: Patient asked to undress to their comfort level. Verbalized that the provider???s preference is that the patient remove all clothing and that the provider will not examine areas patient elects to keep covered. Patient elects to keep bra and underwear on and have the following examined: scalp, hair, head, face, ears, neck, chest, axillae, abdomen, back, buttocks, and upper and lower extremities. Bra-covered area, genitalia, and buttocks were not examined. Assessment/Plan #. Seborrheic Keratoses - Stuck on, waxy papules on the trunk and extremities. - Discussed benign nature of lesions and provided reassurance. No treatment necessary at this time. #. Benign Nevi - Scattered medium brown, evenly pigmented macules and papules on the trunk and extremities with reassuring pigment pattern on dermoscopy. - Discussed benign nature of lesions and provided reassurance. Will continue to monitor. #. Lentigines - Scattered light-brown, evenly pigmented, well-demarcated macules on sun-exposed areas of the trunk and extremities. - No worrisome pigmented lesions. Discussed benign nature of lesions and provided reassurance. Willcontinue to monitor. #. Dorman Angiomas - Multiple bright red, well-demarcated papules on the trunk and extremities. - Discussed benign nature of lesions and provided reassurance. No treatment necessary at this time. #. Excoriation Disorder - Multiple dome shaped papules with central ersion add mis with hypopigmented macules on the face, trunk and extremities. - pt reports picking due to anxiety - Start Rx NAC 600mg twice daily - Recommended applying vaseline to spots and covering with bandaid to prevent from picking Other: ??? N/A RTC: 3 months for excoriation d/o follow up. []Note routed to dental secretary [x]Recall placed in scheduling system []Appointment scheduled at checkout Scribe attestation: KALA Lester has performed the documentation for this encounter in the presence of and acting as a scribe for Julia Joseph MD. I performed the above scribed service and agree with the accuracy of the documentation in this encounter. Reviewed and signed by: Julia Joseph MD Dermatology [facility] staff whiskey proof reader: Rubi Arreola MD Dermatology [facility] * Rubi Arreola MD - 03/16/2023 2:20 PM EDT I directly supervised Dr. Joseph during this office visit. Dr. Joseph presented the history andphysical exam to me. I, then, saw and examined this patient with Dr. Joseph. We reviewed the history and pertinent details and I confirmed the physical findings. I agree with the details of the history and physical exam as documented in Dr. Joseph's note. Rubi Arreola MD Staff Physician documented in this encounter Plan of Treatment Upcoming Encounters Date Type Department Care Team (Late st Contact Info) Description 10/20/2024 9:00 AM EST Office Visit Hematology [place] [address] Lacy Jameson MD [facility] DR HEMATOLOGY [place] [address] Layla Jo RN documented as of this encounter Visit Diagnoses Diagnosis Seborrheic keratoses Multiple nevi Benign neoplasm of skin, site unspecified Lentigines Other dyschromia Dorman angioma Nevus, non-neoplastic Excoriation (skin-picking) disorder documented in this encounter Care Teams Jive Developer Relationship Specialty Start Date End Date Clayton Johnson DNP PCP - General Family Medicine 07/07/19 04/15/23 documented as of this encounter
--- OUTSIDE RECORDS SUMMARY | 2024-08-10 15:56 | XMS_ITS | Encounter Summary ---
Author Organization [facility] Address [facility] [place] [address] Care Team Providers Care Carpet Inspector Name Role Phone Clayton Johnson JOHN Primary Care Provider Encounter Details Date Type Department Care Team (Late st Contact Info) Description 01/28/2022 Orders Only Hematology [place] [address] Lacy Jameson MD [facility] [address] [place] [address] Other iron deficiency anemia Social History Tobacco Use Types Packs/Day Years [...] EST Office Visit Hematology [place] [address] Lacy Jameson MD [facility] [address] [place] [address] Layla Jo RN documented as of this encounter Results * (ABNORMAL) Ferritin (02/12/2022 2:58 PM EDT) Ferritin 7(L) 30 - 400 ng/mL [facility] Comment: Pediatric reference ranges not verified at [facility], interpret with caution. Reference ranges for females greater than 50 years of age approach values for men, i.e., 30-400 ng/mL. Blood 02/12/2022 2:58 PM EDT 02/12/2022 3:40 PM EDT Narrative Resulting Agency Comment Spec In Lab Lacy Jameson MD CHEMISTRY ORDERABL ES Performing Organization Address City/[facility]/ZIP Co de Phone Number [facility] [place] [address] * (ABNORMAL) Iron and TIBC (02/12/2022 2:58 PM EDT) Iron 20(L) 30 - 150 mcg/dL [facility] TIBC 456(H) 250 - 450 mcg/dL [facility] Iron Saturation 4(L) 20 - 50 % [facility] Blood 02/12/2022 2:58 PM EDT 02/12/2022 3:40 PM EDT Narrative Resulting Agency Comment Spec In Lab Lacy Jameson MD CHEMISTRY ORDERABL ES Performing Organization Address City/[facility]/ZIP Co de Phone Number [facility] [place] [address] documented in this encounter Visit Diagnoses Diagnosis Other iron deficiency anemia documented in this encounter Care Teams Carpet Inspector Relationship Specialty Start Date End Date Clayton Johnson DNP PCP - General Family Medicine 07/07/19 04/15/23 documented as of this encounter
--- OUTSIDE RECORDS SUMMARY | 2024-08-10 15:56 | XMS_ITS | Encounter Summary ---
Author Organization [facility] [place] [address] Care Team Providers Care Instrumentation Technician Name Role Phone Clayton Johnson JOHN Primary Care Provider Encounter Details Date Type Department Care Team (Late st Contact Info) Description 06/29/2022 Telephone Hematology [place] [address] Layla Jo, RN Social History [...] Telephone Encounter - Layla Jo RN - 06/29/2022 12:56 PM EDT Dx: von Willebrand deficiency, Type IIA Factor 8 ?79% Von Willebrand factor antigen ??50% Von Willebrand factor activity ??<19% Multimers: absence of large to intermediate weight multimers ?? Wt.??112??Kgs. (05/13/2022) 52 y.o.??patient with Von Willebrand Disease, type 2A, who history of iron deficiency anemia due tomenstrual blood loss. She is pending a uterine ablation this afternoon per Dr. Masters. It is recommended she receive a single dose of Humate P,~ 2000 units, prior to PODIATRIC MEDICINE DOCTOR procedure. Patient received a message this morning that the procedure was scheduled for today. TC to PODIATRIC MEDICINE DOCTOR office who clarified today's visit is for a clinic michelle't with Dr. Masters to discuss procedure in July. TC to patient who stated she just received this message as well. Layla Jo RN MSN From: Sharon Munoz < > Sent: Wednesday, June 29, 2022 08:31 To: Layla Jo [email or web address] Subject: L Draganal 70 Elodia???s surgery that was scheduled for Jul just got moved up to Today @ 4:30 and she needs to getinfused? Please give her a call @ [phone]. You will need to call the infusion nurse to get a same day infusion. Thanks, Sharon ?? 06/29/22 1:03 PM Rohit Clifton, Apologies, I was just looking at your schedule for today. I'm not seeing that your uterine ablationis today. I'm seeing that you have an appointment with Dr. Masters at 4:40, which looks like a time to discuss some of these questions for your upcoming ablation scheduled for 08/18. For the appointment today, yes please to go 5L. ?? Radha Enamorado RN documented in this encounter Plan of Treatment Upcoming Encounters Date Type Department Care Team (Late st Contact Info) Description 10/20/2024 9:00 AM EST Office Visit Hematology [place] [address] Lacy Jameson MD [facility] [place] [address] Layla Jo RN documented as of this encounter Visit Diagnoses Not on filedocumented in this encounter Care Teams Instrumentation Technician Relationship Specialty Start Date End Date Clayton Johnson DNP PCP - General Family Medicine 07/07/19 04/15/23 documented as of this encounter
--- OUTSIDE RECORDS SUMMARY | 2024-08-10 15:56 | XMS_ITS | Encounter Summary ---
Author Organization [facility] Address [facility] [address] [place] [address] Care Team Providers Care Business Initiatives Manager Name Role Phone Clayton Johnson JOHN Primary Care Provider Reason for Visit * Reason Comments Vaginal Bleeding Encounter Details Date Type Department Care Team (Late st Contact Info) Description 06/29/2022 4:40 PM EDT Office Visit Obstetrics [place] [address] Michell Masters MD [facility] [address] OBSTETRICS [place] [address] Abnormal uterine bleeding (AUB); Perimenopausal; Von Willebrand disease; Septate uterus Social History Tobacco Use Types Packs/Day Years [...] Progress Notes * Michell Masters MD - 06/29/2022 4:40 PM EDT Obgyn Clinic Visit: Established Patient ?? Chief Complaint Patient presents with ??? Follow-up ? AUB, VWDz ?? Patient Active Problem List ?? Diagnosis ??? Endometriosis ? Not bx proven. Has ongoing dysmenorrhea, failed IUD due to uterine septum and pelvic pain. ? Anemia, iron deficiency ??? Abnormal uterine bleeding (AUB) ??? Pain in left shoulder ??? Generalized anxiety disorder ??? Dysthymic disorder ??? Tubal ligation status ? I explained that tubal ligation is permanent, [...] desires a tubal ligation.Tubal ligation has a 1/200-1/300 failure rate, depending on the person's age, with younger women more likelyto experience failure. Papers signed on 01/23. ? Uterine septum ? 02/12/2021 see US 02/07/21. Not candidate for IUD, ablation etc. ? Obesity (BMI 35.0-39.9 without comorbidity) ??? History of recurrent UTI (urinary tract infection) ? 09/22/2012 UCx 10-50,000 gram positive juan carlos, mixed. ? Von Willebrand disease ? Call Heme Onc (Dr. Jameson) when patient [...] Humate P needs to be infused and theywill do infusion. If patient comes in prior to scheduled c/section date please draw factor levels and send stat. (see note from Dr. Jameson.) ?? Please try and obtain cord blood if possible for factor levels. 1-2 blood top tubes. (info scanned into system) ? Subjective: Elodia Lin is a 52 y.o. premenopausal woman with h/o 3 prior cesareans, VWDz, BMI 44 and AUB presenting for discussion of treatment options for AUB. See Dr. Zuñiga's prior notes for details. Elodia states she used to have 'normal periods', monthly like clockwork Then a couple vera ago, started to get periods that were heavier and closer together Subsequently, January of 2021, developed anemia At some point, Elodia states, the bleeding started and did not stop She believes this was sometime around summer She had an iron transfusion around 01/2022 and one prior to that ?? Has septate uterus H/o 3 prior cesareans BMI 44 Trialed a Mirena in past before knew about septate uterus, was painful Now continued on Aygestin 5 mg BID x ! One month and 'hates it', makes her 'feel stupid', brain fog Currently having no bleeding x 2 days Normal CBC below today, iron studies remain slightly abnormal States she will get infusion of Humate-P at time of procedure as considering ablation [place] [facility] [place] Has 'all the' menopausal sxs Hot flashes, night sweaters ?? Last pap 2020 NILM, neg HR HPV Last endo sampling 05/2021 neg for hyperplasia, malignancy; proliferative endometrium ?? Lab Results Component Value Date ?? WBC 7.4 06/29/2022 ?? RBC 4.49 06/29/2022 ?? HGB 13.7 06/29/2022 ?? HCT 40.9 06/29/2022 ?? MCV 91.1 06/29/2022 ?? MCH 30.5 06/29/2022 ?? MCHC 33.5 06/29/2022 ?? PLATELET 340 06/29/2022 ?? RDWCV 12.9 06/29/2022 ?? Medical history reviewed. Medications and allergies reviewed with pt. ?? Review of Systems: ?? Denies shortness of breath, chest pain ?? Denies headache, visio nchanges ?? Denies nausea, vomiting, unintentional weight loss/gain ?? Denies fevers, chills ?? Denies lightheadedness, dizziness ?? Objective:BP 139/84 Pulse 73 Temp 36.6 ??C (97.8 ??F) Ht 157.5 cm (5' 2) Wt 110.9 kg (244 lb 9.6 oz) SpO2 100% BMI 44.74 kg/m?? Body mass index is 44.74 kg/m??. Constitutional: Pleasant and conversant, appears well, presents alone Counseling dominated visit ?? Labs: UPT today in Clinic: None Lab Results Component Value Date ?? WBC 7.4 06/29/2022 ?? RBC 4.49 06/29/2022 ?? HGB 13.7 06/29/2022 ?? HCT 40.9 06/29/2022 ?? MCV 91.1 06/29/2022 ?? MCH 30.5 06/29/2022 ?? MCHC 33.5 06/29/2022 ?? PLATELET 340 06/29/2022 ?? RDWCV 12.9 06/29/2022 ? Latest Reference Range & Units 06/29/22 16:19 Iron 30 - 150 mcg/dL 62 TIBC 250 - 450 mcg/dL 378 Iron Saturation 20 - 50 % 16 (L) Ferritin 30 - 400 ng/mL 19 (L) (L): Data is abnormally low ?? Lab Results Component Value Date ?? TSH 1.98 01/24/2021 ?? Imaging: Last US in [facility] 02/07/2022, septate uterus Normal ovaries ?? Assessment/Plan: F/u AUB to anemia in setting of VWDz and other surgical RF's as outlined in HPI. Has had AUB x 2 years in setting of previoulsy normal periods. Followed by Hematology for KARELY as wellas VWDz. Considering uterine ablation although complicated by septate uterus. I personally reviewedthe US images and report. AUB likely secondary to perimenopausal hormonal change. Less likely but could include hyperplasia, malignancy, polyp. ?? Average age of menopause is 51 yo, but unclear when Elodia will have menopause and stop bleeding Bleeding was refractory to Depo Lupron, 3 shots x 3 months Could consider US guided IUD but relative contraindication is septum and likely will not stay in place and likely will not fit given US images, declines Has tried TXA in past, declines again ?? Currently with continued low iron studies and normal CBC Aygestin 5 mg BID with no bleeding x 2 days Could increase to 3 times daily until surgery However, does not like the way Aygestin makes her feel and eventually would like to come off ?? Plans hysteroscopy with roller ball ablation Resample uterine lining at time of ablation Likely less than 1/3 chance of amenorrhea though close to menopause potentially Reviewed the septum is a relative contraindication but given her surgical risk factors, it is lowerrisk than hysterectomy Per patient, Hematology recs Humate P at time of procedure We recommend Hematology consult to verify and outline this plan ?? Safe to do the 3 times per day On 2 now and no bleeding for ?? 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 1. Von Willebrand disease ?? 2. Abnormal uterine bleeding (AUB) ?? 3. History of delivery ?? 4. Adult BMI 40.0-44.9 kg/sq m ?? Michell Masters MD ?? documented in this encounter Plan of Treatment Upcoming Encounters Date Type Department Care Team (Late st Contact Info) Description 10/20/2024 9:00 AM EST Office Visit Hematology [place] [address] Lacy Jameson MD [facility] [address] HEMATOLOGY [place] [address] Layla Jo RN documented as of this encounter Visit Diagnoses Diagnosis Abnormal uterine bleeding (AUB) Perimenopausal Symptomatic menopausal or female climacteric states Von Willebrand disease Von Willebrand's disease Septate uterus documented in this encounter Care Teams Business Initiatives Manager Relationship Specialty Start Date End Date Clayton Johnson DNP PCP - General Family Medicine 07/07/19 04/15/23 documented as of this encounter
--- OUTSIDE RECORDS SUMMARY | 2024-08-10 15:56 | XMS_ITS | Encounter Summary ---
Author Organization [facility] Address [facility] [place] [address] Care Team Providers Care Home Stager Name Role Phone Clayton Johnson DNP Primary Care Provider [phone] Encounter Details Date Type Department Care Team (Late st Contact Info) Description 04/07/2023 Orders Only [place] [phone] Layla Jo, RN Social History Tobacco Use Types Packs/Day Years Used Date Smoking Tobacco: Never Smokeless Tobacco: Never Alcohol Use Standard Drinks/Week Comments No 0 (1 standard drink = 0.6 oz pur e alcohol) [facility] Inpatient Questions Answer Date Recorded Does [...] EST Office Visit [place]ology [place] [phone] Lacy Jameson MD [facility] DR [place]EMATOLOGY [place] [address] Layla Jo RN documented as of this encounter Visit Diagnoses Not on filedocumented in this encounter Care Teams Home Stager Relationship Specialty Start Date End Date Clayton Johnson DNP [address] [place] [address] PCP - General Family Medicine 04/16/23 01/13/24 documented as of this encounter
--- OUTSIDE RECORDS SUMMARY | 2024-08-10 15:56 | XMS_ITS | Encounter Summary ---
Author Organization [facility] [place] [address] Care Team Providers Care Meter And Service Line Inspector Name Role Phone Clayton Johnson DNP Primary Care Provider Encounter Details Date Type Department Care Team (Latest Contact Info) Description 03/16/2023 Travel Social History Tobacco Use Types Packs/Day [...] EST Office Visit [place] [address] Lacy Jameson MD [facility] [address] [place] [address] Layla Jo RN documented as of this encounter Visit Diagnoses Not on filedocumented in this encounter Care Teams Meter And Service Line Inspector Relationship Specialty Start Date End Date Clayton Johnson DNP PCP - General Family Medicine 07/07/19 04/15/23 documented as of this encounter
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
--- OUTSIDE RECORDS SUMMARY | 2024-08-10 15:56 | XMS_ITS | Encounter Summary ---
Author Organization [facility] Address [facility] [place] [address] Care Team Providers Care Tile Mason Name Role Phone Clayton Johnson JOHN Primary Care Provider Encounter Details Date Type Department Care Team (Late st Contact Info) Description 02/13/2022 Orders Only Hematology [place] [phone] Galen Mcnair MD [facility] [address] [place] [address] Iron deficiency anemia, unspecified iron deficiency anemia type (Primary Dx) Social History Tobacco Use Types Packs/Day Years [...] EST Office Visit Hematology [place] [phone] Lacy Jameson MD [facility] [address] [place] [address] Jo, Layla A, RN documented as of this encounter Visit Diagnoses Diagnosis Iron deficiency anemia, unspecified iron deficiency anemia type- Primary documented in this encounter Care Teams Tile Mason Relationship Specialty Start Date End Date Clayton Johnson DNP PCP - General Family Medicine 07/07/19 04/15/23 documented as of this encounter
--- OUTSIDE RECORDS SUMMARY | 2024-08-10 15:56 | XMS_ITS | Encounter Summary ---
[place] [address] Care Team Providers Care Animated Cartoons Painter Name Role Phone Clayton Johnson JOHN Primary Care Provider Encounter Details Date Type Department Care Team (Late st Contact Info) Description 06/22/2022 Telephone Obstetrics [place] [phone] Jc Schaefer LPN Social History Tobacco Use Types Packs/Day Years [...] encounter Miscellaneous Notes * Telephone Encounter - Jc Schaefer LPN - 06/23/2022 10:29 AM EDT Images from the original note were not included. Phone call to patient advising of response from MD Gigi as copied below. Plan to follow up on 06/25/2022 with chart review for response from MD Guerrero. Patient currently on aygestin twice daily which is controlling her symptoms for now. She will consider dropping to once a day as recommended by MD Gigi while awaiting word from MD Guerrero. June 23, 2022 Sylvia Yu MD to Me ??? Michell Masters MD ?? 9:53 AM Forwarding to the provider doing her procedure since it sounds non-urgent. This patient saw Dr. Chaves preop so we could also wait for her to return. Would advise the patient to stay on aygestin oncedaily until procedure but let's see what Dr. Masters prefers. * Telephone Encounter - Jc Schaefer LPN - 06/22/2022 5:11 PM EDT Patient calls with c/o heavy vaginal bleeding over the weekend where she was changing a pad every hour for four hours. She did not seek urgent care at that time. She is currently not experiencing any vaginal bleeding at this time and cannot say when she last changed her pad. Emergency precautions reviewed; Heavy Bleeding, SOB, Chest pain Dizziness, N/V All reasons to seek immediate evaluation in ER. Pt expresses understanding and is in agreement with plan. Yesterday she started taking aygestin 5mg two tabs daily. She is scheduled for ablation in July. She would like some guidance on how to manage bleeding in the meantime. She is also wondering if it is necessary to have a hematology consult as well regarding her bleeding. Note forwarded to senior underwriting assistant oncall for review and advice on plan going forward. * Telephone Encounter - Jc Schaefer LPN - 06/22/2022 5:10 PM EDT ----- Message from Radha Humphrey RN sent at 06/22/2022 4:41 PM EDT ----- Regarding: FW: bleeding ----- Message ----- From: Radha Humphrey RN Sent: 06/22/2022 4:38 PM EDT To: [facility] [address] Oiling Truck Driver Nurse Subject: bleeding Dr. Zuñiga's patient calling reporting continued vaginal bleeding with increased Norethindrone and is wondering what she should do next. [phone]. documented in this encounter Plan of Treatment Upcoming Encounters Date Type Department Care Team (Late st Contact Info) Description 10/20/2024 9:00 AM EST Office Visit Hematology [place] [address] Lacy Jameson MD [facility] DR HEMATOLOGY [place] [address] Layla Jo, RN documented as of this encounter Visit Diagnoses Not on filedocumented in this encounter Care Teams Animated Cartoons Painter Relationship Specialty Start Date End Date Clayton Johnson DNP PCP - General Family Medicine 07/07/19 04/15/23 documented as of this encounter
--- OUTSIDE RECORDS SUMMARY | 2024-08-10 15:56 | XMS_ITS | Encounter Summary ---
Author Organization [facility] [place] [address] Care Team Providers Care Roll Trucker Name Role Phone Clayton Johnson JOHN Primary Care Provider Encounter Details Date Type Department Care Team (Late st Contact Info) Description 04/07/2023 Orders Only Hematology [place] [phone] Lacy Jameson MD [facility] [address] [place] [address] Social History Tobacco Use Types Packs/Day Years [...] EST Office Visit Hematology [place] [phone] Lacy Jameson MD [facility] [place] [address] Layla Jo RN documented as of this encounter Procedures Procedure Name Priority Date/Time Associated Diagnosis Comments PREPARE COAGULATION FACTORS (HEMOPHILIA) Routine 04/07/2023 1:35 PM EDT documented in this encounter Results * Prepare Coagulation Factors (Hemophilia) (04/07/2023 1:35 PM EDT) Dispensed? Yes [facility] Blood No Charge / Unknown 04/07/2023 1:35 PM EDT 04/07/2023 1:35 PM EDT Narrative Resulting Agency Comment Spec In Lab Lacy Jameson MD BLOOD BANK PRODUCT ORDERABLES Performing Organization Address City/State/[facility] Co de Phone Number [facility] [place] [address] documented in this encounter Visit Diagnoses Not on filedocumented in this encounter Care Teams Roll Trucker Relationship Specialty Start Date End Date Clayton Johnson DNP PCP - General Family Medicine 07/07/19 04/15/23 documented as of this encounter
--- OUTSIDE RECORDS SUMMARY | 2024-08-10 15:56 | XMS_ITS | Encounter Summary ---
Author Organization [facility] Address [facility] [address] [place] [address] Care Team Providers Care Accounting Professional Name Role Phone Clayton Johnson DNP Primary Care Provider Encounter Details Date Type Department Care Team (Late st Contact Info) Description 05/30/2022 Telephone Obstetrics [place] [phone] Michael Wall MD [facility] DR OBSTETRICS [place] [address] Social History Tobacco Use Types Packs/Day Years [...] encounter Miscellaneous Notes * Telephone Encounter - Michael Wall MD - 05/30/2022 11:40 AM EDT Weekend call from [facility] ED- Elodia presented with increased bleeding after discontinuing norethindrone. Hemodynamically stable, hgb=12.9 Recommended repeating Aygestin taper 5 mg TID x7d, then BID x7d, then daily, can go up to previous dose prn for breakthrough bleeding. Message to [employer] Office Instructor RN to call after holiday weekend and FYI to Dr. Zuñiga documented in this encounter Plan of Treatment Upcoming Encounters Date Type Department Care Team (Late st Contact Info) Description 10/20/2024 9:00 AM EST Office Visit Hematology [place] [address] Lacy Jameson MD [facility] DR [place] [address] Layla Jo RN documented as of this encounter Visit Diagnoses Not on filedocumented in this encounter Care Teams Accounting Professional Relationship Specialty Start Date End Date Clayton Johnson DNP PCP - General Family Medicine 07/07/19 04/15/23 documented as of this encounter
--- OUTSIDE RECORDS SUMMARY | 2024-08-10 15:56 | XMS_ITS | Encounter Summary ---
[place] [address] Care Team Providers Care Warranty Coordinator Name Role Phone Clayton Johnson JOHN Primary Care Provider [phone] Encounter Details Date Type Department Care Team (Late Contact Info) Description 06/29/2022 Telephone Obstetrics [place] [address] Radha Humphrey RN Social History Tobacco Use Types Packs/Day [...] encounter Miscellaneous Notes * Telephone Encounter - Radha Humphrey RN - 06/29/2022 10:03 AM EDTSummary: uterine ablation TC to Elodia Lin regarding questions she had about uterine ablation procedure 06/29. RN left message for callback. documented in this encounter Plan of Treatment Upcoming Encounters Date Type Department Care Team (Late Contact Info) Description 10/20/2024 9:00 AM EST Office Visit Hematology [place] [address] Lacy Jameson MD [facility] [place] [address] Layla Jo RN documented as of this encounter Visit Diagnoses Not on filedocumented in this encounter Care Teams Warranty Coordinator Relationship Specialty Start Date End Date Clayton Johnson DNP PCP - General Family Medicine 07/07/19 04/15/23 documented as of this encounter
--- OUTSIDE RECORDS SUMMARY | 2024-08-10 15:56 | XMS_ITS | Encounter Summary ---
Author Organization [facility] [place] [address] Care Team Providers Care Upholstery Mechanic Name Role Phone Clayton Johnson DNP Primary Care Provider Encounter Details Date Type Department Care Team (Latest Contact Info) Description 02/12/2022 2:51 PM EDT - 02/12/2022 11:59 PM EDT Hospital Encounter [place]ology [place] [phone] Other iron deficiency anemia Discharge Disposition: Home Social History Tobacco Use [...] Sig Dispensed Refills Start Date End Date venlafaxine XR (Effexor-XR) 75 mg Capsule, Sust. Release 24 hr 150 mg. 09/05/2021 acetaminophen (TYLENOL) 500 mg Tablet Take 1,000 mg by mouth every 6 hours as needed for Pain. pseudoephedrine (SUDAFED) 30 mg Tablet Take 30 mg by mouth every 4 hours as needed for Congestion. rizatriptan (MAXALT) 10 mg Tablet Take 10 mg by mouth as needed. PRN for Migranes 01/17/2015 ferrous sulfate (FeroSuL) 325 mg (65 mg iron) Tablet TAKE 1 TABLET BY MOUTH EVERY OTHER DAY 90 tablet 3 02/11/2022 09/14/2022 calcium carbonate 648 mg calcium Tablet Take 650 mg by mouth 3 times daily (with meals). 01/15/2024 desogestreL-ethinyl estradioL (Apri) 0.15-0.03 mg Tablet Take 1 tablet by mouth 3 times daily. 1 tablet 3 times daily until bleeding stops, then twice per day for three days and then once daily. Skip placebo weeks and take continuously. 84 tablet 4 11/25/2021 05/13/2022 leuprolide (Lupron Depot, 3 month,) 11.25 mg Syringe Kit Inject 1 kit into the muscle Q 3 Months for 4 doses. 1 kit 3 10/14/2021 07/12/2022 Acetylcysteine 600 mg Capsule TAKE 2 CAPSULES BY MOUTH IN THE MORNING AND AN ADDITIONAL 1 2 CAPSULES IN THE AFTERNOON NEEDED FOR MOOD 05/22/2021 03/16/2023 documented as of this encounter Plan of Treatment Upcoming Encounters Date Type Department Care Team (Late st Contact Info) Description 10/20/2024 9:00 AM EST Office Visit [place]ology [place] [address] Lacy Jameson MD [facility] DR HEMATOLOGY [place] [address] Layla Jo RN documented as of this encounter Procedures Procedure Name Priority Date/Time Associated Diagnosis Comments HEMOGRAM Routine 02/12/2022 2:58 PM EDT Other iron deficiency anemia DIFFERENTIAL, AUTOMATED Routine 02/12/2022 2:58 PM EDT Other iron deficiency anemia HC IRON BINDING CAPACITY Routine 02/12/2022 2:58 PM EDT Other iron deficiency anemia HC CBC,PLT & AUTO DIFF Routine 02/12/2022 2:58 PM EDT Other iron deficiency anemia HC FERRITIN, SERUM Routine 02/12/2022 2: 58 PM EDT Other iron deficiency anemia documented in this encounter Results * Differential, Automated (02/12/2022 2:58 PM EDT) Pathologist [facility] Neutrophil % 69.2 % [facility] Neutrophil Absolute 5.19 1.70 - 6.10 x10(3)/[facility] Lymph % 21.2 % [facility] Lymphocytes Abs 1.6 0.9 - 3.2 x10(3)/[facility] Monocyte % 6.5 % [facility] Monocyte Abs 0.5 0.3 - 0.9 x10(3)/[facility] Eos % 2.1 % [facility] Eosinophils Abs 0.2 0.0 - 0.4 x10(3)/[facility] Basophil % 0.7 % [facility] Baso Absolute 0.0 0.0 - 0.1 x10(3)/[facility] Immature Gran % 0.30 % [facility] Comment: Immature granulocytes(IG's)percentage and absolute count will include metamyelocytes, myelocytes, and promyelocytes. Blood smears from CBCs yielding IG's will be scanned manually for concordance. If this scan disagrees with the automated IG or if promyelocytes are noted, a manual differential will be performed. Immature Gran Absolute 0.02 0.00 - 0.04 x10(3)/[facility] Blood 02/12/2022 2:58 PM EDT 02/12/2022 3:40 PM EDT Narrative Resulting Agency Comment Spec In Lab Lacy Jameson MD HEMATOLOGY ORDERAB LES [facility] [place] [address] * (ABNORMAL) Hemogram (02/12/2022 2:58 PM EDT) Pathologist [facility] White Blood Cell 7.5 4.0 - 9.5 x10(3)/[facility] Red Blood Cell 4.40 4.00 - 5.21 x10(6)/mc L [facility] Hemoglobin 12.0 11.7 - 15.5 g/dL [facility] Hematocrit 36.5 35.7 - 45.8 % [facility] Mean Cell Volume 83.0 82.6 - 94.4 fL [facility] Mean Cell Hemoglobin 27.3 27.1 - 32.0 pg [facility] Mean Cell Hemoglobin Concentration 32.9 31.7 - 35.0 g/dL [facility] Platelet 357 145 - 357 x10(3)/mc L [facility] RDW Standard Deviation 43.8 37.0 - 46.0 fL [facility] RDW coefficient of variation 14.5(H) 11.5 - 14.1 % [facility] Mean Platelet Volume 10.6 7.6 - 12.9 fL [facility] NRBC% auto 0.0 % [facility] NRBC Absolute 0.000 0.000 - 0.000 x10(3)/mc L [facility] Blood 02/12/2022 2:58 PM EDT 02/12/2022 3:40 PM EDT Narrative Resulting Agency Comment Spec In Lab Lacy Jameson MD HEMATOLOGY ORDERAB LES Performing Organization Address City/State/[facility] Co de Phone Number [facility] [place] [address] * (ABNORMAL) Ferritin (02/12/2022 2:58 PM EDT) [facility] Signature Ferritin 7(L) 30 - 400 ng/mL [facility] Comment: Pediatric reference ranges not verified at [facility], interpret with caution. Reference ranges for females greater than 50 years of age approach values for men, i.e., 30-400 ng/mL. Blood 02/12/2022 2:58 PM EDT 02/12/2022 3:40 PM EDT Narrative Resulting Agency Comment Spec In Lab Lacy Jameson MD CHEMISTRY ORDERABL ES Performing Organization Address City/[facility]/ZIP Co de Phone Number [facility] [place] [address] * (ABNORMAL) Iron and TIBC (02/12/2022 2:58 PM EDT) Iron 20(L) 30 - 150 mcg/dL [facility] TIBC 456(H) 250 - 450 mcg/dL [facility] Iron Saturation 4(L) 20 - 50 % [facility] Blood 02/12/2022 2:58 PM EDT 02/12/2022 3:40 PM EDT Narrative Resulting Agency Comment Spec In Lab Lacy Jameson MD CHEMISTRY ORDERABL ES Performing Organization Address City/[facility]/ZIP Co de Phone Number [facility] [place] [address] documented in this encounter Visit Diagnoses Diagnosis Other iron deficiency anemia documented in this encounter Care Teams Upholstery Mechanic Relationship Specialty Start Date End Date Clayton Johnson DNP PCP - General Family Medicine 07/07/19 04/15/23 documented as of this encounter
--- OUTSIDE RECORDS SUMMARY | 2024-08-10 15:56 | XMS_ITS | Encounter Summary ---
Author Organization [place] [address] Care Team Providers Care Noc Technician Name Role Phone Clayton Johnson DNP Primary Care Provider Encounter Details Date Type Department Care Team (Late st Contact Info) Description 06/29/2022 Telephone Obstetrics [place] [address] Radha Humphrey RN Social History [...] Encounter - Radha Humphrey RN - 06/29/2022 1:35 PM EDTSummary: uterine ablation TC to Elodia Lin regarding upcoming appointment. Pt was under the impression she was having a uterine ablation today. After reviewing with scheduling we determined she had a follow up with Dr. Masters today at 4:40pm to review her ablation for 08/18. Pt encouraged to come in for appointment today. Pt verbalized understanding and agreed to plan. documented in this encounter Plan of Treatment Upcoming Encounters Date Type Department Care Team (Late st Contact Info) Description 10/20/2024 9:00 AM EST Office Visit Hematology [place] [address] Lacy Jameson MD [facility] DR HEMATOLOGY [place] [address] Layla Jo RN documented as of this encounter Visit Diagnoses Not on filedocumented in this encounter Care Teams Noc Technician Relationship Specialty Start Date End Date Clayton Johnson DNP PCP - General Family Medicine 07/07/19 04/15/23 documented as of this encounter
--- OUTSIDE RECORDS SUMMARY | 2024-08-10 15:56 | XMS_ITS | Encounter Summary ---
Author Organization [facility] Address [facility] [place] [address] Care Team Providers Care Can Conveyor Feeder Name Role Phone Clayton Johnson JOHN Primary Care Provider [phone] Reason for Visit * Reason Comments IV Medication Feraheme * Treatment/Therapy Plan Authorization (Routine) - Closed Specialty Diagnoses / Procedures Referred By Contac t Referred To Contact Hematology and Oncology Diagnoses Iron deficiency anemia, unspecified iron deficiency anemia type Procedures TC FERUMOXYTOL, NON-ESRD, 1 MG, INJECTION [id number] Galen Grover MD [facility] DR [place] [address] [facility] Hem Onc Office [address] [place] [phone] Referral ID Status Reason Start Date Expiration Date Visits Re quested Visits Authorized [id number] Closed 02/13/2022 08/23/2022 99 99 Encounter Details Date Type Department Care Team (Late st Contact Info) Description 02/26/2022 8:30 AM EDT Infusion Hematology Oncology at [address] [phone] Iron deficiency anemia, unspecified iron deficiency anemia type; Endometriosis Social History Tobacco Use Types Packs/Day Years [...] Sign Reading Time Taken Comments Blood Pressure 121/67 02/26/2022 9:54 AM EDT Pulse 74 02/26/2022 9:54 AM EDT Temperature 36.4 ??C (97.5 ??F) 02/26/2022 9:54 AM ED T Respiratory Rate 16 02/26/2022 9:54 AM EDT Oxygen Saturation 100% 02/26/2022 9:54 AM EDT Inhaled Oxygen Concentration - - Weight - - Height - - Body Mass Index - - documented in this encounter Progress Notes * Malini Kolb RN - 02/26/2022 8:30 AM EDT INFUSION THERAPY ADMINISTRATION NOTES DIAGNOSIS: Iron Deficiency REASON FOR VISIT: Mario Clifton offers no complaints, she states her last infusion went well. OBJECTIVE LAB DATA: WNL Pre administration: Chemotherapy orders independently verified for drug name, route, and dosage per patient's height, weight and BSA by Malini Kolb RN and onsite pharmacist. REACTIONS (DESCRIPTION, TIME, INTERVENTION AND EFFECTIVENESS) none ASSESSMENT Elodia Lin was awake, alert and tolerated treatment well. Patient remained in clinic for 30 min post infusion to monitor for reactions. PLAN Return to clinic per plan. documented in this encounter Plan of Treatment Upcoming Encounters Date Type Department Care Team (Late st Contact Info) Description 10/20/2024 9:00 AM EST Office Visit Hematology [place] [address] Lacy Jameson MD [facility] DR [place] [address] Layla Jo RN documented as of this encounter Visit Diagnoses Diagnosis Iron deficiency anemia, unspecified iron deficiency anemia type Endometriosis Endometriosis, site unspecified documented in this encounter Administered Medications Inactive Administered Medications - up to 3 most recent administrations Medication Order MAR Action Action Date Dose Rate Site ferumoxytoL (Feraheme) 510 mg in sodium chloride 0.9% 117 mL infusion 510 mg, Intravenous, ONCE, 1 dose, On Sarah 02/26/22 at 0930, Administer over 15 Minutes, - Do not administer as an undiluted injection. Administer each 510 mg dose diluted as a slow IV infusion over at least 15-30 minutes. - Administer while patient is in a reclined or semi-reclined position. - Obtain vital signs pre-infusion and post-infusion. - Observe patient for 30 minutes post-infusion for possible hypersensitivity reaction., FerumoxytoL may alter MRI imaging. Reference ekg technician's recommendations for details. Acknowledged, This agent is restricted to outpatient use. Is this drug being given as an outpatient? Yes New Bag 02/26/2022 9:05 AM EDT 510 mg 468 mL/hr documented in this encounter Care Teams Can Conveyor Feeder Relationship Specialty Start Date End Date Clayton Johnson DNP PCP - General Family Medicine 07/07/19 04/15/23 documented as of this encounter
--- OUTSIDE RECORDS SUMMARY | 2024-08-10 15:56 | XMS_ITS | Encounter Summary ---
Author Organization [facility] Address [facility] [place] [address] Care Team Providers Care Security System Technician Name Role Phone Clayton Johnson DNP Primary Care Provider Encounter Details Date Type Department Care Team (Late st Contact Info) Description 11/18/2021 Notes Only Obstetrics [place] [address] Lo Mancilla MD [facility] DR OBSTETRICS [place] [address] Social History Tobacco Use Types Packs/Day Years Used Date Smoking Tobacco: Never Smokeless Tobacco: Never Alcohol Use Standard Drinks/Week Comments No 0 (1 standard drink = 0.6 oz pur e alcohol) Sex and Gender Information Value Date Recorded Sex Assigned at Not on file Gender Identity Not on file Sexual Orientation Not on file documented as of this encounter Progress Notes * Lo Mancilla MD - 11/18/2021 9:56 AM EST Call taken though transfer center from [facility] in [facility] ED, regarding this pt who re-presented there today d/t VB. Pt With AUB and VWD, under care of OBGYN and Hematology, per notes previously trialed/failed aygestin and TXA, received Lupron 1st dose on Oct 31, tapered off SKY 7 d ago and presented to urgent care yesteday with heavy VB. (Please see Dr Yu's 11/17 note.) Was re-started on SKY, plan for TID until bleeding stops then taper. Dr Castrejon spoke with hematology whodid not have further recommendations at that time. Per [facility], pt did take 3 doses of SKY yesterday; reports gush of heavy VB at 5:30 AM today with intermittently heavy bleeding today. His eval included normal VS and normal Hb/Hct 11.8/37, overall well appearing with a non-concerning level of VB while in care of the [facility] ED. He called to close the loop and check in to see whether GYNrecommended any changes to the plan. Relayed rec to continue current plan for OCP taper; add anti-emetic prn. Will also message primary treating Head Of History team (Marv Mckeon/Lou) and her woodworking bench carpenter and coverage (Marv Harris/Ivan) for close follow-up. Lo Mancilla MD documented in this encounter Plan of Treatment Upcoming Encounters Date Type Department Care Team (Late st Contact Info) Description 10/20/2024 9:00 AM EST Office Visit Hematology [place] [address] Lacy Jameson MD [facility] DR HEMATOLOGY AND [place] [address] Layla Jo RN documented as of this encounter Visit Diagnoses Not on filedocumented in this encounter Care Teams Security System Technician Relationship Specialty Start Date End Date Clayton Johnson DNP PCP - General Family Medicine 07/07/19 04/15/23 documented as of this encounter
--- OUTSIDE RECORDS SUMMARY | 2024-08-10 15:56 | XMS_ITS | Encounter Summary ---
Author Organization [facility] Address [facility] [place] [address] Care Team Providers Care Filler Sifter Helper Name Role Phone Clayton Johnson JOHN Primary Care Provider Encounter Details Date Type Department Care Team (Late st Contact Info) Description 03/26/2023 Orders Only Dermatology at [facility] [address] [place] [address] Julia Joseph MD [facility] [address] [place] [address] Social History Tobacco Use Types Packs/Day Years [...] EST Office Visit Hematology [place] [address] Lacy Jameson MD [facility] [place] [address] Layla Jo RN documented as of this encounter Visit Diagnoses Not on filedocumented in this encounter Care Teams Filler Sifter Helper Relationship Specialty Start Date End Date Clayton Johnson DNP PCP - General Family Medicine 07/07/19 04/15/23 documented as of this encounter
--- OUTSIDE RECORDS SUMMARY | 2024-08-10 15:56 | XMS_ITS | Encounter Summary ---
Author Organization [facility] Address [facility] [place] [address] Care Team Providers Care Clinical Office Technician Name Role Phone Clayton Johnson DNP Primary Care Provider Encounter Details Date Type Department Care Team (Late st Contact Info) Description 08/31/2022 Telephone Obstetrics [place] [address] Hortensia Wallace Social History Tobacco Use Types Packs/Day Years [...] EST Office Visit Hematology [place] [address] Lacy Jameson MD [facility] DR HEMATOLOGY [place] [address] Layla Jo RN documented as of this encounter Visit Diagnoses Not on filedocumented in this encounter Care Teams Clinical Office Technician Relationship Specialty Start Date End Date Clayton Johnson DNP PCP - General Family Medicine 07/07/19 04/15/23 documented as of this encounter
--- OUTSIDE RECORDS SUMMARY | 2024-08-10 15:56 | XMS_ITS | Encounter Summary ---
Author Organization [facility] Address [facility] [place] [address] Care Team Providers Care Chip Applying Machine Tender Name Role Phone Clayton Johnson JOHN Primary Care Provider Reason for Visit * Reason Comments Follow-up Encounter Details Date Type Department Care Team (Late st Contact Info) Description 05/13/2022 11:00 AM EDT Office Visit Obstetrics [place] [address] Carla Zuñiga MD [facility] OBSTETRICS [place] [address] Hot flashes; Abnormal uterine bleeding Social History Tobacco Use Types Packs/Day Years [...] Sign Reading Time Taken Comments Blood Pressure 139/83 05/13/2022 10:56 AM EDT Pulse 62 05/13/2022 10:56 AM EDT Temperature - - Respiratory Rate 16 05/13/2022 10:5 6 AM EDT Oxygen Saturation 100% 05/13/2022 10: 56 AM EDT Inhaled Oxygen Concentration - - Weight 111.3 kg (245 lb 6.4 oz) 022 10:56 AM EDT Height 157.5 cm (5' 2) 05/13/2022 10:5 6 AM EDT Body Mass Index 44.88 05/13/2022 10:56 AM EDT documented in this encounter Progress Notes * Carla Zuñiga MD - 05/13/2022 11:00 AM EDT HYDRAULIC ROCKBREAKER OPERATOR Follow Up Visit Reason for Visit: Elodia is a 52 y.o. premenopausal female??with a history of type 2A vWD??and septate uterus??who presents??for follow up regarding intractable??abnormal uterine bleeding. History of Present Illness: Her last Lupron injection was 02/12/2022. Since our last visit at that time, is having cramps every 3 days, still has episodes of medium bleeding. Significant stress has effected her bleeding. Still taking COCs and she hates it. Still has full on hotflashes from Lupron. Has had 2 iron infusions, doesn't make her feel great. She would like to move forward with rollerball ablation. Gynecologic History: LMP: No LMP recorded. Patient has had an injection. Patient is taking Lupron and is also on COCs Pregnancies: LTCS x3 HYDRAULIC ROCKBREAKER OPERATOR diagnoses: AUB HYDRAULIC ROCKBREAKER OPERATOR surgeries: LTCS x3 Last pap 12/2020. Results NILM, neg HPV Patient Active Problem List Diagnosis Date Noted [...] Surgical History: Procedure Laterality Date ??? SECTION 2001,2004 x2 ??? DILATION AND CURETTAGE OF UTERUS 2000 after SAB ??? ORTHOPEDIC SURGERY 1993, 1996 scar tissue on wrists and ankle ??? PRO DELIVERY ONLY 04/26/2013 @ DELIVERY performed by Clint Orlando MD at [facility] ??? PRO COLONOSCOPY, BIOPSY N/A 03/11/2015 COLONOSCOPY FLEXIBLE, WITH BX performed by Alida Mahmood MD at [facility] END[facility]COPY ??? PRO COLONOSCOPY, DIAGNOSTIC N/A 03/17/2021 COLONOSCOPY, DIAGNOSTIC performed by Sherrill Miner MD at [facility] ENDOSCOPY ??? PRO COLONOSCOPY, REMV LESN, SNARE N/A 03/11/2015 COLONOSCOPY, POLYPECTOMY, REMOVAL LESION BY SNARE performed by Alida Mahmood MD at [facility] END[facility]COPY ??? PRO LIGATE FALLOPIAN TUBE, 04/26/2013 @FALLOPIAN TUBE(S), TRANSECTION OR LIGATION, ABD APPROACH, POST- performed by Clint Orlando MD at [facility] Family History Problem Relation Age of [...] Outpatient Medications Medication Sig Dispense Refill ??? multivitamin with minerals (One-A-Day) Tablet Take 1 tablet by mouth daily. ??? calcium carbonate 648 mg calcium Tablet Take 650 mg by mouth 3 times daily (with meals). ??? venlafaxine XR (Effexor-XR) 75 mg Capsule, Sust. Release 24 hr 150 mg. ??? Acetylcysteine 600 mg Capsule TAKE 2 CAPSULES BY MOUTH IN THE MORNING AND AN ADDITIONAL 1 2 CAPSULES IN THE AFTERNOON NEEDED FOR MOOD ??? acetaminophen (TYLENOL) 500 mg Tablet Take 1,000 mg by mouth every 6 hours as needed for Pain. ??? pseudoephedrine (SUDAFED) 30 mg Tablet Take 30 mg by mouth every 4 hours as needed for Congestion. ??? rizatriptan (MAXALT) 10 mg Tablet Take 10 mg by mouth as needed. PRN for Migranes ??? gabapentin (Neurontin) 100 mg Capsule Take 1 capsule by mouth nightly for 7 days, THEN 2 capsules nightly for 7 days, THEN 3 capsules nightly for 30 days. 111 capsule 0 ??? prochlorperazine (Compazine) 10 mg Tablet Take 1 tablet by mouth every 6 hours as needed for Nausea. (Patient not taking: No sig reported) 10 tablet 0 ??? ferrous sulfate (FeroSuL) 325 mg (65 mg iron) Tablet TAKE 1 TABLET BY MOUTH EVERY OTHER DAY (Patient not taking: No sig reported) 90 tablet 3 ??? leuprolide (Lupron Depot, 3 month,) 11.25 mg Syringe Kit Inject 1 kit into the muscle Q 3 Months for 4 doses. 1 kit 3 Current Facility-Administered Medications Medication Dose Route Frequency Provider Last Rate Last Admin ??? leuprolide (Lupron Depot) injection 11.25 mg 11.25 mg Intramuscular Q 3 Months Carla Zuñiga MD 11.25 mg at 05/13/22 1142 Allergies Allergen Reactions ??? Aygestin [Norethindrone Acetate] Other (See Comments) Hair loss, mood changes, hot flashes ??? Adhesive Bandage Rash Blistering rash with tegederm ??? Codeine Percocet is ok ??? Durapore Cloth Surgical Tape [Adhesive Tape] Hives ROS: Otherwise negative except as specified in HPI. Physical Exam Vitals: 05/13/22 1056 BP: 139/83 BP Location (NBP): Right arm Patient Position: Sitting BP Cuff Sizes: Large Adult (32-43 cm) Pulse: 62 Resp: 16 SpO2: 100% Weight: 111.3 kg (245 lb 6.4 oz) Height: 157.5 cm (5' 2) General: NAD, comfortable, pleasant Lungs: Unlabored breathing Neuro: grossly intact Pelvic: Deferred Labs Hgb 12.0 (01/2022) Imaging 01/2022: UTERUS: ------- Uterus: Visualized Position: Anteverted Size (cm) L: 7.5 W: 5.4 H: 4.2 Description: Septate uterus ?? ENDOMETRIUM: Endometrium: Normal appearance Thickness(mm): 7.0 ?? Comment: 3D rendering with interpretation was performed to evaluate the endometrium ?? ------- CERVIX: ------- Small amount of fluid seen within the cervical canal Multiple nabothian cysts seen ?? CUL-DE-SAC: No fluid is visualized. ?? RIGHT OVARY: Status: Visualized Size (cm) L: 2.3 W: 2.0 H: 1.5 Vol (ml): 3.6 Morphology: Normal appearance ?? Comment: Transabdominal visualization ?? LEFT OVARY: Status: Visualized Size (cm) L: 3.0 W: 2.7 H: 1.9 Vol (ml): 8.1 Morphology: Normal appearance Type: Dominant follicle Size (cm) L: 2.4 W: 2.3 H: 1.8 Vol (ml): 5.2 ?? IMPRESSION ?? 1. Septate uterus 2. Fluid in the a scar. 3. fluid in the cervical canal and multiple nabothian cysts. 4. RIGHT ovary is normal. 5. There is a dominant follicle in the LEFT ovary with maximum dimension of 2.4 cm. 6. The RIGHT ovary could not be seen transvaginally and was visualized transabdominally. Assessment/Plan: Elodia is a 52 y.o. premenopausal female??with a history of type 2A vWD??andseptate uterus??who presents??for follow up regarding intractable??abnormal uterine bleeding. # AUB - Will plan to move forward with rollerball ablation - Due for Lupron today - Will discontinue COCs today and see what bleeding does given continued irregularity despite Lupron use - Usually takes factor the day of colonoscopy, will consider doing similarly for minor HYDRAULIC ROCKBREAKER OPERATOR procedure - Will touch base with heme onc regarding use of factor prior to surgery - Updated Hgb today # Hotflashes - Reviewed options for hotflashes not controlled with COCs - Will trial Gabapentin qhs 1. Hot flashes gabapentin (Neurontin) 100 mg Capsule 2. Abnormal uterine bleeding SURGICAL CASE REQUEST: HYSTEROSCOPY, SURG W/ENDOMETRIAL SAMPLING, POLYPECTOMY (WRVU 4.74), ENDOMETRIAL ABLATION, W/O GUIDANCE (WRVU 3.6) Carla Zuñiga MD 05/13/2022 11:21 AM * Lucila Cabrera LPN - 05/13/2022 11:00 AM EDT Lupron Depot 11.25 mg given IM in right buttock as ordered by Dr. Zuñiga. Pt tolerated injection well. documented in this encounter Plan of Treatment Upcoming Encounters Date Type Department Care Team (Late st Contact Info) Description 10/20/2024 9:00 AM EST Office Visit Hematology [place] [address] Lacy Jameson MD [facility] HEMATOLOGY [place] [address] Layla Jo RN documented as of this encounter Visit Diagnoses Diagnosis Hot flashes Symptomatic menopausal or female climacteric states Abnormal uterine bleeding Unspecified disorder of menstruation and other abnormal bleeding from female genital tract documented in this encounter Administered Medications Inactive Administered Medications - up to 3 most recent administrations Medication Order MAR Action Action Date Dose Rate Site leuprolide (Lupron Depot) injection 11.25 mg 11.25 mg, Intramuscular, EVERY 3 MONTHS, 3 doses, First dose on Sarah 02/12/22 at 1515, Last dose on Wed08/11/22 at 1515, Routine, This agent is restricted to outpatient use. Is this drug being given as an outpatient? Yes Given 05/13/2022 11:42 AM EDT 11.25 mg Right Gluteal Given 02/12/2022 2:48 PM EDT 11.25 mg Ri ght Gluteal documented in this encounter Care Teams Chip Applying Machine Tender Relationship Specialty Start Date End Date Clayton Johnson DNP PCP - General Family Medicine 07/07/19 04/15/23 documented as of this encounter
--- OUTSIDE RECORDS SUMMARY | 2024-08-10 15:56 | XMS_ITS | Encounter Summary ---
Author Organization [place] [address] Care Team Providers Care Gang Punch Operator Name Role Phone Clayton Johnson JOHN Primary Care Provider [phone] Encounter Details Date Type Department Care Team (Late st Contact Info) Description 03/02/2023 Telephone Obstetrics [place] [phone] Tosha Strauss, RN Social History Tobacco Use Types Packs/Day [...] encounter Miscellaneous Notes * Telephone Encounter - Tosha Strauss, RN - 03/02/2023 11:53 AM EDT Received VM from Elodia Lin 52 y.o. to alert the office of heavy vaginal bleeding. Patient reports she is going through a tampon every hour to hour and a half and I am wondering if I have to go back on the norethindrone. Patient states she is at work and may not be able to answer. TC to Elodia Lin to discuss symptoms further. Patient reports her bleeding began this morning and she is changing a tampon every 1-1.5 hours. Denies lightheaded and dizziness. Denies abnormal vaginal bleeding since December/prior to d/cing norethindrone 5mg daily. Denies risk of d/t tubal ligation. Discussed patient with NPOC who recommended Aygestin taper. NPOC rec'd norethindrone 5mg 4x/day until bleeding stops, norethindrone 5mg TID x1 week, BID x1 week, and then daily. NPOC advised for patient to return to dose that adequately stopped bleeding if bleeding re-emerges after decreasing dosage. NPOC recommended appointment with MD for follow up. Patient in agreement with noreth indrone taper, but requests Dr. Masters specifically for f/u due to her request for roller ball ablation. Will f/u with Dr. Masters. Addendum: LVM for patient alerting her that Dr. Masters ordered roller ablation. Requested patient call back if she feels she needs appointment prior to procedure, or if she is okay to move forward with it. documented in this encounter Plan of Treatment Upcoming Encounters Date Type Department Care Team (Late st Contact Info) Description 10/20/2024 9:00 AM EST Office Visit Hematology [place] [address] Lacy Jameson MD [facility] [address] HEMATOLOGY [place] [address] Layla Jo RN documented as of this encounter Visit Diagnoses Not on filedocumented in this encounter Care Teams Gang Punch Operator Relationship Specialty Start Date End Date Clayton Johnson DNP PCP - General Family Medicine 07/07/19 04/15/23 documented as of this encounter
--- OUTSIDE RECORDS SUMMARY | 2024-08-10 15:56 | XMS_ITS | Encounter Summary ---
[place] [address] Care Team Providers Care Analytics Director Name Role Phone Clayton Johnson DNP Primary Care Provider Encounter Details Date Type Department Care Team (Late Contact Info) Description 02/12/2022 Telephone [place]ology [place] [address] Layla Jo, RN Social History [...] Telephone Encounter - Layla Jo RN - 02/12/2022 5:53 PM EDT TC to patient regarding today's low ferritin level and Dr. Marley's recommendation for another course of iron infusions. Patient in agreement to receiving the infusions locally at [facility]. Will review with Dr. Jameson and follow up with patient. Latest Reference Range & Units 02/12/22 14:58 Iron 30 - 150 mcg/dL 20 (L) TIBC 250 - 450 mcg/dL 456 (H) Iron Saturation 20 - 50 % 4 (L) Ferritin 30 - 400 ng/mL 7 (L) [1] . Layla Jo RN MSN ===View-only below this line=== ----- Message ----- From: Lacy Jameson MD Sent: 02/12/2022 4:57 PM EDT To: Layla Jo, RN Needs IV iron again. I am looking into giving infusion [place], closer to [place] and more convenient. Can you let her know and find out if she wants to do in [place] or would rather come here? Thanks. /dlo documented in this encounter Plan of Treatment Upcoming Encounters Date Type Department Care Team (Late st Contact Info) Description 10/20/2024 9:00 AM EST Office Visit [place] [address] Lacy Jameson MD [facility] DR HEMATOLOGY [place] [address] Layla Jo, RN documented as of this encounter Visit Diagnoses Not on filedocumented in this encounter Care Teams Analytics Director Relationship Specialty Start Date End Date Clayton Johnson DNP PCP - General Family Medicine 07/07/19 04/15/23 documented as of this encounter
--- OUTSIDE RECORDS SUMMARY | 2024-08-10 15:56 | XMS_ITS | Encounter Summary ---
Author Organization [facility] Address [facility] [place] [address] Care Team Providers Care Olericulture Teacher Name Role Phone Clayton Johnson JOHN Primary Care Provider Reason for Visit * Reason Comments Medication Refill Encounter Details Date Type Department Care Team (Late Contact Info) Description 11/02/2022 Refill Obstetrics [place] [phone] Michael Wall MD [facility] DR OBSTET[place]ICS [place] [address] Social History Tobacco Use Types Packs/Day Years [...] Office Visit Hematology [place] [phone] Lacy Jameson MD [facility] [address] [place] [address] Jo, Layla A, RN documented as of this encounter Visit Diagnoses Not on filedocumented in this encounter Care Teams Olericulture Teacher Relationship Specialty Start Date End Date Clayton Johnson DNP PCP - General Family Medicine 07/07/19 04/15/23 documented as of this encounter
--- OUTSIDE RECORDS SUMMARY | 2024-08-10 15:56 | XMS_ITS | Encounter Summary ---
Author Organization [facility] Address [facility] [place] [address] Care Team Providers Care Foundation Digger Name Role Phone Clayton Johnson JOHN Primary Care Provider [phone] Reason for Visit * Reason Comments IV Medication Feraheme * Treatment/Therapy Plan Authorization (Routine) - Closed Specialty Diagnoses / Procedures Referred By Contac t Referred To Contact Hematology and Oncology Diagnoses Iron deficiency anemia, unspecified iron deficiency anemia type Procedures TC FERUMOXYTOL, NON-ESRD, 1 MG, INJECTION [id number] Galen Grover MD [facility] [address] [place] [address] [facility] Hem Onc Office [address] [place] [phone] Referral ID Status Reason Start Date Expiration Date Visits Re quested Visits Authorized [id number] Closed 02/13/2022 08/23/2022 99 99 Encounter Details Date Type Department Care Team (Late st Contact Info) Description 02/19/2022 8:30 AM EDT Infusion Hematology Oncology at [address] [phone] Iron deficiency anemia, unspecified iron [...] Sign Reading Time Taken Comments Blood Pressure 141/84 02/19/2022 8:31 AM EDT Pulse 81 02/19/2022 8:31 AM EDT Temperature 36.1 ??C (96.9 ??F) 02/19/2022 8:31 AM ED T Respiratory Rate 16 02/19/2022 8:31 AM EDT Oxygen Saturation 100% 02/19/2022 8:31 AM EDT Inhaled Oxygen Concentration - - Weight 107.8 kg (237 lb 9.6 oz) 02/19/2022 8:31 AM EDT Height 158.3 cm (5' 2.32) 02/19/2022 8:31 AM ED T Body Mass Index 43.01 02/19/2022 8:31 AM EDT documented in this encounter Progress Notes * Sara Peacock RN - 02/19/2022 8:30 AM EDT INFUSION THERAPY ADMINISTRATION NOTES DIAGNOSIS: Iron Deficiency REASON FOR VISIT: Feraheme CORAZON [place] offers no complaints other than side effects after Lupron shot: hot flashes and Headache. OBJECTIVE LAB DATA: WNL Pre administration: Chemotherapy orders independently verified for drug name, route, and dosage per patient's height, weight and BSA by SARA PEACOCK, RN and onsite pharmacist. REACTIONS (DESCRIPTION, TIME, INTERVENTION AND EFFECTIVENESS) none ASSESSMENT Elodia Lin was awake, alert and tolerated treatment well. Patient remained in clinic for 30 min post infusion to monitor for reactions. PLAN Return to clinic next week for dose 2 of 2 documented in this encounter Plan of Treatment Upcoming Encounters Date Type Department Care Team (Late st Contact Info) Description 10/20/2024 9:00 AM EST Office Visit [place]ematology [place] [address] Lacy Jameson MD [facility] [address] [place] [address] Layla Jo RN documented as of this [...] mg, Intravenous, ONCE, 1 dose, On Sarah 02/19/22 at 0915, Administer over 15 Minutes, - Do not administer as an undiluted injection. Administer each 510 mg dose diluted as a slow IV infusion over at least 15-30 minutes. - Administer while patient is in a reclined or semi-reclined position. - Obtain vital signs pre-infusion and post-infusion. - Observe patient for 30 minutes post-infusion for possible hypersensitivity reaction., FerumoxytoL may alter MRI imaging. Reference perinatal nurse's recommendations for details. Acknowledged, This agent is restricted to outpatient use. Is this drug being given as an outpatient? Yes New Bag 02/19/2022 9:29 AM EDT 510 mg 468 mL/hr documented in this encounter Care Teams Foundation Digger Relationship Specialty Start Date End Date Clayton Johnson DNP PCP - General Family Medicine 07/07/19 04/15/23 documented as of this encounter
--- OUTSIDE RECORDS SUMMARY | 2024-08-10 15:56 | XMS_ITS | Encounter Summary ---
Author Organization [facility] Address [facility] [place] [address] Care Team Providers Care Director International Name Role Phone Clayton Johnson JOHN Primary Care Provider Encounter Details Date Type Department Care Team (Latest Contact Info) Description 01/30/2022 12:00 PM EST TH Visit (TeleHealth) Hematology [place] [address] Lacy Jameson MD [facility] [address] [place] [address] Layla Jo, RN Iron deficiency anemia due to chronic blood loss; Von Willebrand disease Social History Tobacco Use Types Packs/Day Years [...] Progress Notes * Lacy Jameson MD - 01/30/2022 12:00 PM EST Images from the original note were not included. [facility] [place] [address] HEMOSTASIS VIDEO TELEHEALTH FOLLOW UP DATE OF VISIT 01/30/2022 Patient Elodia Lin 1970 This patient verbally consents to this video telehealth format and understands that this visit may be billed, similar to a clinic office visit. INTERVAL HISTORY Elodia Lin is a 51 y.o. female [...] have finally resulted in slowing of bleeding from near constant bleeding to one mini-period weekly, during which she uses only one or two pads or liners. In the interim she had two episodes of bleeding that were severe enough to bring her to the ER (May 2021, Oct 2021) where she was treated with Humate P, in addition to hormone therapy. We tried tranexamic acid but it didn't reduce her blood flow (she thinks she might have taken it too late with each cycle) and it upset her stomach. She didn't respond particularly well to oral iron, so we gave her two infusion of IV Feraheme to good effect. She takes a multivitamin with iron sporadically. She is not a candidate for a Mirena IUD due to her uterine anatomy (bicornate). Her last CBC in was normal but with low iron stores. She was instructed to take daily iron supplements, but stopped as she cannot tolerate these due to GI side effects. She had a screening colonoscopy in February after a dose of Humate P (3973 units) and did well withoutbleeding. No abnormalities were identified. She reports being super tired but has no lightheadedness, shortness of breath, chest pain, headaches and no oropharyngeal, bleeding. She has one dose of Humate P at home, 1946 units, with an expiry date of . She's happy with Humate P as her coagulation factor concentrate and with as the supplier. She has no upcoming procedures for which a hemostasis plan will be needed. She has a DETACHER appointment at on 02-16. ?? PAST MEDICAL HISTORY 1) Type 2 von [...] Rx IV iron 4) Abnormal uterine bleeding ?? OPERATIVE PROCEDURES 1) Tonsillectomy - at age 10 2) [place] teeth extractions - 1986 3) Ankle surgery - 4) Wrist surgery - 5) section x 3 - 2000, 2004, 2012 6) Tubal ligation, 2012 ?? OBSTETRIC HISTORY MEDICATIONS Current Outpatient Medications on File Prior to Visit Medication Sig Dispense Refill ??? calcium carbonate [...] visit. ADVERSE DRUG REACTIONS Allergies Allergen Reactions ??? Aygestin [Norethindrone Acetate] [...] bleeding problems or known to have vWD ?? 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 Located in office at schoolinflamed joints. LABORATORY STUDIES Latest Reference Range & Units 10/31/21 10:51 WBC 4.0 - 9.5 x10(3)/mcL 8.4 RBC 4.00 - 5.21 x10(6)/mcL 5.08 Hemoglobin 11.7 - 15.5 g/dL 12.7 Hematocrit 35.7 - 45.8 % 40.0 MCV 82.6 - 94.4 fL 78.7 (L) MCH 27.1 - 32.0 pg 25.0 (L) MCHC 31.7 - 35.0 g/dL 31.8 RDWSD 37.0 - 46.0 fL 50.2 (H) RDWCV 11.5 - 14.1 % 17.3 (H) Platelets 145 - 357 x10(3)/mcL 386 (H) Latest Reference Range & Units 10/31/21 10:51 Iron 30 - 150 mcg/dL 36 TIBC 250 - 450 mcg/dL 467 (H) Iron Saturation 20 - 50 % 8 (L) Ferritin 30 - 400 ng/mL 8 (L) [1] IMPRESSION Elodia Lin is a 51 y.o. woman with type 2A von Willebrand disease with a good understanding of her bleeding disorder and its management. Her major hematologic issue presently is iron deficiency due to heavy menstrual bleeding. Her bleeding is currently under good control with the combination ofLupron injections and an oral SKY; however, her inability to tolerate oral iron may mean that she has been unable to replenish storage iron after the the most recent episodes of heavy bleeding and may require repeat IV infusions. Though she has no active VWD issues requiring immediate attention presently she will continue to require VWF concentrate infusions in the event of injury or trauma, heavy menstrual bleeding and prior to invasive procedures. She is happy with Humate P as her coagulationfactor concentrate and with [facility] as the supplier. OUMOU Jo RN, MSN and I reviewed some basic [...] her coagulation factor concentrate product and with [facility] as the vendor. We'll send her a Vendor Choice form to complete and return. We reviewed the indications for Humate P infusion and will ensure that she continues to have a fresh supply. At present she has one dose at 1946 units that expires in January 2023 and that is sufficient for immediate use in caseof emergency. We can resupply quickly should she need additional doses. We'll check her CBC and iron studies on 02-16 when she's here for her DETACHER appointment. Should she beiron deficient, we'll arrange for IV iron infusions. In the meantime I've recommended that she takeher multivitamin with iron regularly as the amount of iron in the pill may be sufficient to maintain iron stores now that her bleeding has slowed. Elodia had the opportunity to ask questions and indicated that all her questions were answered to hersatisfaction. We'll continue to see her at least annually at the [facility] and in the interim as necessary. Lacy Jameson MD Administration Manager, [facility] I provided care to this patient today via the video telehealth format. The total time associated with this visit including preparation, chart review, documentation and care coordination was 25 minutes. documented in this encounter Plan of Treatment Upcoming Encounters Date Type Department Care Team (Late st Contact Info) Description 10/20/2024 9:00 AM EST Office Visit Hematology [place] [address] Lacy Jameson MD [facility] DR [place] [address] Layla Jo RN documented as of this encounter Visit Diagnoses Diagnosis Iron deficiency anemia due to chronic blood loss Iron deficiency anemia secondary to blood loss (chronic) Von Willebrand disease Von Willebrand's disease documented in this encounter Care Teams Director International Relationship Specialty Start Date End Date Clayton Johnson DNP PCP - General Family Medicine 07/07/19 04/15/23 documented as of this encounter
--- OUTSIDE RECORDS SUMMARY | 2024-08-10 15:56 | XMS_ITS | Encounter Summary ---
Author Organization [facility] [place] [address] Care Team Providers Care Bonded Strand Operator Name Role Phone Clayton Johnson JOHN Primary Care Provider Encounter Details Date Type Department Care Team (Late st Contact Info) Description 03/05/2023 Telephone Obstetrics [place] [address] Jannteh Pearce RN Social History Tobacco Use Types Packs/Day [...] encounter Miscellaneous Notes * Telephone Encounter - Janneth Pearce RN - 03/05/2023 9:29 AM EDT RTC to Elodia Shah Riley 52 y.o. to discuss bleeding and scheduling surgical procedure. No answer, left VM and myD-H message sent. * Telephone Encounter - Janneth Pearce RN - 03/05/2023 9:28 AM EDT ----- Message from Tosha Strauss RN sent at 03/05/2023 9:17 AM EDT ----- Patient would like to check in with nursing about her bleeding and schedule roller ball ablation surg with Guerrero. Call back # . documented in this encounter Plan of Treatment Upcoming Encounters Date Type Department Care Team (Late st Contact Info) Description 10/20/2024 9:00 AM EST Office Visit Hematology [place] [address] Lacy Jameson MD [facility] [address] [place] [address] Layla Jo RN documented as of this encounter Visit Diagnoses Not on filedocumented in this encounter Care Teams Bonded Strand Operator Relationship Specialty Start Date End Date Clayton Johnson DNP PCP - General Family Medicine 07/07/19 04/15/23 documented as of this encounter
--- OUTSIDE RECORDS SUMMARY | 2024-08-10 15:56 | XMS_ITS | Encounter Summary ---
Author Organization [place] [id number] Care Team Providers Care Cosmetology Instructor Name Role Phone Clayton Johnson JOHN Primary Care Provider Encounter Details Date Type Department Care Team (Late Contact Info) Description 11/18/2021 Telephone Obstetrics [place] [phone] Ida Carr RN Social History Tobacco Use Types Packs/Day [...] encounter Miscellaneous Notes * Telephone Encounter - Ida Carr RN - 11/18/2021 9:33 AM ESTSummary: DIVYA requesting Consult Received call from ,Dre STOKES from [facility] requesting a consult on Elodia. I paged WILDLIFE REMOVAL SPECIALIST attending , Lo Mancilla and she said he would have to go through the Transfer [facility] channel. I called the PA back and gave him the direct Transfer number, . documented in this encounter Plan of Treatment Upcoming Encounters Date Type Department Care Team (Late st Contact Info) Description 10/20/2024 9:00 AM EST Office Visit Hematology [place] [address] Lacy Jameson MD [facility] [address] [place] [address] Layla Jo RN documented as of this encounter Visit Diagnoses Not on filedocumented in this encounter Care Teams Cosmetology Instructor Relationship Specialty Start Date End Date Clayton Johnson DNP PCP - General Family Medicine 07/07/19 04/15/23 documented as of this encounter
--- OUTSIDE RECORDS SUMMARY | 2024-08-10 15:56 | XMS_ITS | Encounter Summary ---
Author Organization [facility] Address [facility] [place] [address] Care Team Providers Care Plant Reliability Engineer Name Role Phone Clayton Johnson JOHN Primary Care Provider Encounter Details Date Type Department Care Team (Late Contact Info) Description 02/25/2022 Orders Only Hematology [place] [phone] Lacy Jameson MD [facility] [address] HEMATOLOGY [place] [address] Iron deficiency anemia due to chronic blood loss Social History Tobacco Use Types Packs/Day Years [...] Visit Hematology [place] [phone] Lacy Jameson MD [facility] DR HEMATOLOGY [place] [address] Layla Jo RN documented as of this encounter Results * Ferritin (05/13/2022 12:17 PM EDT) Ferritin 113 30 - 400 ng/mL [facility] Comment: Pediatric reference ranges not verified at [facility], interpret with caution. Reference ranges for females greater than 50 years of age approach values for men, i.e., 30-400 ng/mL. Blood 05/13/2022 12:1 7 PM EDT 05/13/2022 12:31 PM EDT Narrative Resulting Agency Comment Spec In Lab Lacy Jameson MD CHEMISTRY ORDERABL ES Performing Organization Address City/[facility]/ZIP Co de Phone Number [facility] [place] [address] * Iron and TIBC (05/13/2022 12:17 PM EDT) Iron 90 30 - 150 mcg/dL [facility] TIBC 332 250 - 450 mcg/dL [facility] Iron Saturation 27 20 - 50 % [facility] Blood 05/13/2022 12:1 7 PM EDT 05/13/2022 12:31 PM EDT Narrative Resulting Agency Comment Spec In Lab Lacy Jameson MD CHEMISTRY ORDERABL ES Performing Organization Address City/[facility]/ZIP Co de Phone Number [facility] [place] [address] documented in this encounter Visit Diagnoses Diagnosis Iron deficiency anemia due to chronic blood loss Iron deficiency anemia secondary to blood loss (chronic) documented in this encounter Care Teams Plant Reliability Engineer Relationship Specialty Start Date End Date Clayton Johnson DNP PCP - General Family Medicine 07/07/19 04/15/23 documented as of this encounter
--- OUTSIDE RECORDS SUMMARY | 2024-08-10 15:56 | XMS_ITS | Encounter Summary ---
Author Organization [facility] Address [facility] [place] [address] Care Team Providers Care Rand Cementer Name Role Phone Clayton Johnson JOHN Primary Care Provider Encounter Details Date Type Department Care Team (Late st Contact Info) Description 05/13/2022 Notes Only Hematology [place] [address] Lacy Jameson MD [facility] [address] [place] [address] Social History Tobacco Use Types Packs/Day Years [...] Progress Notes * Lacy Jameson MD - 05/13/2022 1:49 PM EDT Images from the original note were not included. [facility] [place] [address] 05/13/2022 HEMOPHILIA SERVICE Elodia has a history of iron deficiency anemia due to menstrual blood loss. She was treated with two doses of IV iron in January. She is currently receiving lupron injections for menses regulation. Follow up lab studies today show the following: Latest Reference Range & Units 05/13/22 12:17 WBC 4.0 - 9.5 x10(3)/mcL 7.0 RBC 4.00 - 5.21 x10(6)/mcL 4.62 Hemoglobin 11.7 - 15.5 g/dL 14.1 Hematocrit 35.7 - 45.8 % 41.5 MCV 82.6 - 94.4 fL 89.8 MCH 27.1 - 32.0 pg 30.5 MCHC 31.7 - 35.0 g/dL 34.0 RDWSD 37.0 - 46.0 fL 47.4 (H) RDWCV 11.5 - 14.1 % 14.5 (H) Platelets 145 - 357 x10(3)/mcL 315 Latest Reference Range & Units 05/13/22 12:17 Iron 30 - 150 mcg/dL 90 TIBC 250 - 450 mcg/dL 332 Iron Saturation 20 - 50 % 27 Ferritin 30 - 400 ng/mL 113 [1] Impression: Anemia resolved with robust hemoglobin/hematocrit Iron stores replete. Plan: No further iron infusions presently. Follow up CBC/iron studies in 6 months with additional IV ironto be administered PRN. Lacy Jameson MD Director It Project, [facility] documented in this encounter Plan of Treatment Upcoming Encounters Date Type Department Care Team (Late st Contact Info) Description 10/20/2024 9:00 AM EST Office Visit Hematology [place] [address] Lacy Jameson MD [facility] DR HEMATOLOGY [place] [address] Layla Jo RN documented as of this encounter Results * (ABNORMAL) Ferritin (06/29/2022 4:19 PM EDT) [facility] Signature Ferritin 19(L) 30 - 400 ng/mL [facility] Comment: Pediatric reference ranges not verified at [facility] [place], interpret with caution. Reference ranges for females greater than 50 years of age approach values for men, i.e., 30-400 ng/mL. Blood 06/29/2022 4:19 PM EDT 06/29/2022 4:25 PM EDT Narrative Resulting Agency Comment Spec In Lab Lacy Jameson MD CHEMISTRY ORDERABL ES Performing Organization Address City/[facility]/ZIP Co de Phone Number [facility] [place] [address] * (ABNORMAL) Iron and TIBC (06/29/2022 4:19 PM EDT) Iron 62 30 - 150 mcg/dL [facility] TIBC 378 250 - 450 mcg/dL [facility] Iron Saturation 16(L) 20 - 50 % [facility] Blood 06/29/2022 4:19 PM EDT 06/29/2022 4:25 PM EDT Narrative Resulting Agency Comment Spec In Lab Lacy Jameson MD CHEMISTRY ORDERABL ES Performing Organization Address City/[facility] Co de Phone Number [facility] [place] [address] documented in this encounter Visit Diagnoses Diagnosis Iron deficiency anemia, unspecified iron deficiency anemia type documented in this encounter Care Teams Rand Cementer Relationship Specialty Start Date End Date Clayton Johnson DNP PCP - General Family Medicine 07/07/19 04/15/23 documented as of this encounter
--- OUTSIDE RECORDS SUMMARY | 2024-08-10 15:56 | XMS_ITS | Encounter Summary ---
Author Organization [facility] [place] [address] [place] [address] Care Team Providers Care Director Of Midwifery/Staff Midwife Name Role Phone Clayton Johnson JOHN Primary Care Provider Encounter Details Date Type Department Care Team (Latest Contact Info) Description 06/29/2022 4:10 PM EDT Laboratory Appointment Lab [address], [place] [phone] Iron deficiency anemia, unspecified iron deficiency anemia [...] EST Office Visit Hematology [place] [phone] Lacy Jameson MD [facility] [address] HEMATOLOGY [place] [address] Layla Jo RN documented as of this encounter Procedures Procedure Name Priority Date/Time Associated Diagnosis Comments HEMOGRAM Routine 06/29/2022 4:19 PM EDT Iron deficiency anemia, unspecified iron deficiency anemia type DIFFERENTIAL, AUTOMATED Routine 06/29/2022 4:19 PM EDT Iron deficiency anemia, unspecified iron deficiency anemia type HC IRON BINDING CAPACITY Routine 06/29/2022 4:19 PM EDT Iron deficiency anemia, unspecified iron deficiency anemia type HC CBC,PLT & AUTO DIFF Routine 06/29/2022 4:19 PM EDT Iron deficiency anemia, unspecified iron deficiency anemia type HC VENIPUNCTURE Routine 06/29/2022 4:19 PM EDT Iron deficiency anemia, unspecified iron deficiency anemia type documented in this encounter Results * Differential, Automated (06/29/2022 4:19 PM EDT) Neutrophil % 68.9 % [facility] Neutrophil Absolute 5.11 1.70 - 6.10 x10(3)/[facility] Lymph % 20.6 % [facility] Lymphocytes Abs 1.5 0.9 - 3.2 x10(3)/[facility] Monocyte % 7.5 % [facility] Monocyte Abs 0.6 0.3 - 0.9 x10(3)/[facility] Eos % 1.9 % [facility] Eosinophils Abs 0.1 0.0 - 0.4 x10(3)/[facility] Basophil % 0.8 % [facility] Baso Absolute 0.1 0.0 - 0.1 x10(3)/[facility] Immature Gran % 0.30 % [facility] Comment: Immature granulocytes(IG's)percentage and absolute count will include metamyelocytes, myelocytes, and promyelocytes. Blood smears from CBCs yielding IG's will be scanned manually for concordance. If this scan disagrees with the automated IG or if promyelocytes are noted, a manual differential will be performed. Immature Gran Absolute 0.02 0.00 - 0.04 x10(3)/[facility] Blood 06/29/2022 4:19 PM EDT 06/29/2022 4:25 PM EDT Narrative Resulting Agency Comment Spec In Lab Lacy Jameson MD HEMATOLOGY ORDERAB LES [facility] [place] [address] * Hemogram (06/29/2022 4:19 PM EDT) White Blood Cell 7.4 4.0 - 9.5 x10(3)/[facility] Red Blood Cell 4.49 4.00 - 5.21 x10(6)/[facility] Hemoglobin 13.7 11.7 - 15.5 g/dL [facility] Hematocrit 40.9 35.7 - 45.8 % [facility] Mean Cell Volume 91.1 82.6 - 94.4 fL [facility] Mean Cell Hemoglobin 30.5 27.1 - 32.0 pg [facility] Mean Cell Hemoglobin Concentration 33.5 31.7 - 35.0 g/dL [facility] Platelet 340 145 - 357 x10(3)/[facility] RDW Standard Deviation 42.5 37.0 - 46.0 [facility] RDW coefficient of variation 12.9 11.5 - 14.1 % [facility] Mean Platelet Volume 10.3 7.6 - 12.9 [facility] NRBC% auto 0.0 % [facility] NRBC Absolute 0.000 0.000 - 0.000 x10(3)/[facility] Blood 06/29/2022 4:19 PM EDT 06/29/2022 4:25 PM EDT Narrative Resulting Agency Comment Spec In Lab Lacy Jameson MD HEMATOLOGY ORDERAB LES Performing Organization Address City/[facility] Co de Phone Number [facility] [place] [address] * (ABNORMAL) Iron and TIBC (06/29/2022 4:19 PM EDT) Iron 62 30 - 150 mcg/dL [facility] TIBC 378 250 - 450 mcg/dL [facility] Iron Saturation 16(L) 20 - 50 % [facility] Blood 06/29/2022 4:19 PM EDT 06/29/2022 4:25 PM EDT Narrative Resulting Agency Comment Spec In Lab Lacy Jameson MD CHEMISTRY ORDERABL ES Performing Organization Address [facility] Co de Phone Number [facility] [place] [address] * (ABNORMAL) Ferritin (06/29/2022 4:19 PM EDT) Ferritin 19(L) 30 - 400 ng/mL [facility] Comment: Pediatric reference ranges not verified at [facility], interpret with caution. Reference ranges for females greater than 50 years of age approach values for men, i.e., 30-400 ng/mL. Blood 06/29/2022 4:19 PM EDT 06/29/2022 4:25 PM EDT Narrative Resulting Agency Comment Spec In Lab Lacy Jameson MD CHEMISTRY ORDERABL ES Performing Organization Address [facility] Co de Phone Number [facility] [place] [address] documented in this encounter Visit Diagnoses Diagnosis Iron deficiency anemia, unspecified iron deficiency anemia type documented in this encounter Care Teams Director Of Midwifery/Staff Midwife Relationship Specialty Start Date End Date Clayton Johnson DNP PCP - General Family Medicine 07/07/19 04/15/23 documented as of this encounter
--- OUTSIDE RECORDS SUMMARY | 2024-08-10 15:56 | XMS_ITS | Encounter Summary ---
Author Organization [facility] Address [facility] [place] [address] Care Team Providers Care Equipment Operator/Laborer Name Role Phone Clayton Johnson JOHN Primary Care Provider +1- [phone] Reason for Visit * Reason Comments IV Medication Feraheme * Treatment/Therapy Plan Authorization (Routine) - Closed Specialty Diagnoses / Procedures Referred By Contac t Referred To Contact Hematology and Oncology Diagnoses Iron deficiency anemia, unspecified iron deficiency anemia type Procedures TC FERUMOXYTOL, NON-ESRD, 1 MG, INJECTION Q0138 Galen Grover MD [facility] [address] HEMATOLOGY [place] [address] [facility] Hem Onc Office [address] [place] [phone] Referral ID Status Reason Start Date Expiration Date Visits Re quested Visits Authorized [id number] Closed 02/13/2022 08/23/2022 99 99 Encounter Details Date Type Department Care Team (Late st Contact Info) Description 07/31/2022 3:00 PM EDT Infusion Hematology Oncology at [address] [phone] Iron deficiency anemia, unspecified iron [...] Sign Reading Time Taken Comments Blood Pressure 146/82 07/31/2022 3:12 PM EDT Pulse 80 07/31/2022 3:12 PM EDT Temperature 36.1 ??C (97 ??F) 07/31/2022 3:12 PM EDT Respiratory Rate 18 07/31/2022 3:12 PM EDT Oxygen Saturation 100% 07/31/2022 3:12 PM EDT Inhaled Oxygen Concentration - - Weight 111.1 kg (245 lb) 07/31/2022 3:12 PM EDT Height 158.3 cm (5' 2.32) 07/31/2022 3:12 PM ED T Body Mass Index 44.35 07/31/2022 3:12 PM EDT documented in this encounter Progress Notes * Keily Chan RN - 07/31/2022 3:00 PM EDT INFUSION THERAPY ADMINISTRATION NOTES DIAGNOSIS: Iron Deficiency REASON FOR VISIT: Mario Clifton offers no complaints, she states her last infusion went well. OBJECTIVE LAB DATA: WNL Pre administration: Chemotherapy orders independently verified for drug name, route, and dosage per patient's height, weight and BSA by Keily Cooley RN and onsite pharmacist. REACTIONS (DESCRIPTION, TIME, INTERVENTION AND EFFECTIVENESS) none ASSESSMENT Elodia Lin was awake, alert and tolerated treatment well. PLAN Return to clinic per plan. documented in this encounter Plan of Treatment Upcoming Encounters Date Type Department Care Team (Late st Contact Info) Description 10/20/2024 9:00 AM EST Office Visit Hematology [place] [address] Lacy Jameson MD [facility] DR HEMATOLOGY [place] [address] Jo, Layla A, RN documented as of this encounter Visit Diagnoses Diagnosis Iron deficiency anemia, unspecified iron deficiency anemia type documented in this encounter Administered Medications Inactive Administered Medications - up to 3 most recent administrations Medication Order MAR Action Action Date Dose Rate Site ferumoxytoL (Feraheme) 510 mg in sodium chloride 0.9% 117 mL infusion 510 mg, Intravenous, ONCE, 1 dose, On Wed07/31/22 at 1515, Administer over 15 Minutes, Do not administer as an undiluted injection. Administer each 510 mg dose diluted as a slow IV infusion over at least 15 minutes. When administering a 1,020 mg dose, infuse over at least 30 minutes. Administer while patient is in a reclined or semi-reclined position. Obtain vital signs pre-infusion and post-infusion. Observe patient for 30 minutes post-infusion for possible hypersensitivity reaction. , FerumoxytoL may alter MRI imaging. Reference health insurance agent's recommendations for details. Acknowledged, This agent is restricted to outpatient use. Is this drug being given as an outpatient? Yes New Bag 07/31/2022 3:35 PM EDT 510 mg 468 mL/hr documented in this encounter Care Teams Equipment Operator/Laborer Relationship Specialty Start Date End Date Clayton Johnson DNP PCP - General Family Medicine 07/07/19 04/15/23 documented as of this encounter
--- OUTSIDE RECORDS SUMMARY | 2024-08-10 15:56 | XMS_ITS | Encounter Summary ---
Author Organization [facility] Address [facility] [place] [address] Care Team Providers Care Configuration Manager Name Role Phone Clayton Johnson JOHN Primary Care Provider [phone]- [phone] Encounter Details Date Type Department Care Team (Latest Contact Info) Description 09/14/2022 12:00 PM EDT TH Visit (TeleHealth) Obstetrics [place] [address] Michell Masters MD [facility] DR OBSTETRICS [place] [address] Abnormal uterine bleeding (AUB); Perimenopausal; Von Willebrand [...] as of this encounter Progress Notes * Laine Lennon MA - 09/14/2022 12:00 PM EDT x____ Patient not reached- message left ____Patient reached and the following information was reviewed/obtained per protocol. ___Confirmed patient name and date of ___Confirmed tele med appt (Virtual visit) is downloaded and functioning ___Confirmed location of patient- TeleVisit is taking place in [place]__ [place]__ If not on [facility], working on signing up for my Confirmed has completed any pre-visit questionnaires If has not received required previsit questionnaires, send via [facility] ___Reviewed medications, allergies, pharmacy, pain/depression, education ___Documented height/weight/LMP Other information or concerns: Laine Lennon MA * Michell Masters MD - 09/14/2022 12:00 PM EDT Obgyn Telehealth Visit: Established Patient ?? Chief Complaint Patient presents with ??? Follow-up ? AUB, VWDz ?? Patient Active Problem List Diagnosis Code ??? [...] Anemia, iron deficiency D50.9 ??? Endometriosis N80.9 Subjective: Elodia Lin is a 52 y.o. premenopausal woman with h/o 3 prior cesareans, VWDz, uterine anomaly, BMI 44 and AUB presenting for discussion of treatment options for AUB. See Dr. Zuñiga's prior notes for details; as well as my prior note. Elodia had to cancel planned hysteroscopy, D&C rollerball given yelena's active medical condition. Specifically, her fiance has been in and out of hospital with intestinal issues, had surgery this past Wednesday. He is still in the hospital recovering (had midline vertical incision). Elodia states she is continued on the Aygestin 5 mg BID and is not bleeding now When she tried to taper down to the 5 mg once daily she had brownish discharge, no faina bleeding But went back up to the twice daily to make it stop Had previously expressed desire to cut down given how it made her feel (see my note) Now not sure if she has any adverse symptoms as lots going on in her life anyway ... taking care offiance, children, new job, etc. Would be willing to continue on the Aygestin 5 mg BID for now and consider tapering off in future whether that be a month or a few months No recent FSH Last TSH wnl from 2020 At last visit said: ?? Has 'all the' menopausal sxs Hot flashes, night sweaters ?? Last pap 2020 NILM, neg HR HPV Last endo sampling 05/2021 neg for hyperplasia, malignancy; proliferative endometrium ?? Medical history reviewed. Medications and allergies reviewed with pt. ?? Review of Systems: ?? Denies shortness of breath, chest pain ?? Denies headache, visio nchanges ?? Denies nausea, vomiting, unintentional weight loss/gain ?? Denies fevers, chills ?? Denies lightheadedness, dizziness ?? Objective: Telehealth, counseling dominated visit only Labs: Lab Results Component Value Date ?? TSH 1.98 01/24/2021 ?? Imaging: Last US in [facility] 02/07/2022, septate uterus Normal ovaries ?? Assessment/Plan: I provided care to the patient today via telehealth. The patient voiced an understanding of the reason and intent of the visit. The patient provided verbal consent to bill their insurance for the visit. Patient physically in [place] at time of this visit. F/u AUB to anemia in setting of VWDz and other surgical RF's as outlined in HPI. Continued no Aygestin 5 mg BID and having no bleeding. Did have rollerball ablation scheduled but opts to cancel for now. May stay on Aygestin for a number of months, and try to animal caretaker to one table daily. If continued AUB, consider repeat interval TVUS, hysteroscopy, D&C and rollerball Of note, not candidate for ablation given has uterine septum 1. Abnormal uterine bleeding (AUB) 2. Perimenopausal 3. Von Willebrand disease 4. Septate uterus Checkout Note: PRN. ? Michell Masters MD ?? documented in this encounter Plan of Treatment Upcoming Encounters Date Type Department Care Team (Late st Contact Info) Description 10/20/2024 9:00 AM EST Office Visit Hematology [place] [address] Lacy Jameson MD [facility] DR HEMATOLOGY [place] [address] Layla Jo RN documented as of this encounter Visit Diagnoses Diagnosis Abnormal uterine bleeding (AUB) Perimenopausal Symptomatic menopausal or female climacteric states Von Willebrand disease Von Willebrand's disease Septate uterus documented in this encounter Care Teams Configuration Manager Relationship Specialty Start Date End Date Clayton Johnson DNP PCP - General Family Medicine 07/07/19 04/15/23 documented as of this encounter
--- OUTSIDE RECORDS SUMMARY | 2024-08-10 15:56 | XMS_ITS | Encounter Summary ---
Author Organization [facility] Address [facility] [place] [address] Care Team Providers Care Billet Worker Name Role Phone Clayton Johnson DNP Primary Care Provider Encounter Details Date Type Department Care Team (Late Contact Info) Description 07/15/2022 Orders Only [place]ology [place] [phone] Galen Mcnair MD [facility] [address] [place] [address] Social History Tobacco Use Types Packs/Day Years [...] EST Office Visit [place]ematology [place] [phone] Lacy Jameson MD [facility] [address] [place] [address] Layla Jo RN documented as of this encounter Visit Diagnoses Not on filedocumented in this encounter Care Teams Billet Worker Relationship Specialty Start Date End Date Clayton Johnson DNP PCP - General Family Medicine 07/07/19 04/15/23 documented as of this encounter
--- OUTSIDE RECORDS SUMMARY | 2024-08-10 15:56 | XMS_ITS | Encounter Summary ---
Author Organization [facility] Address [facility] [place] [address] Care Team Providers Care Integration Solution Architect Name Role Phone Clayton Johnson DNP Primary Care Provider Encounter Details Date Type Department Care Team (Late Contact Info) Description 03/02/2023 Orders Only Obstetrics [place] [phone] Michell Masters MD [facility] DR OBSTETRICS [place] [address] Abnormal uterine bleeding (AUB) Social History Tobacco [...] EST Office Visit [place]ematology [place] [phone] Lacy Jameson MD [facility] DR HEMATOLOGY [place] [address] Jo, Layla A, RN documented as of this encounter Visit Diagnoses Diagnosis Abnormal uterine bleeding (AUB) documented in this encounter Care Teams Integration Solution Architect Relationship Specialty Start Date End Date Clayton Johnson DNP PCP - General Family Medicine 07/07/19 04/15/23 documented as of this encounter
--- OUTSIDE RECORDS SUMMARY | 2024-08-10 15:56 | XMS_ITS | Encounter Summary ---
Author Organization [facility] [place] [address] Care Team Providers Care Clerical And Administrative Workers Name Role Phone Clayton Johnson JOHN Primary Care Provider Encounter Details Date Type Department Care Team (Late st Contact Info) Description 05/18/2022 Telephone Obstetrics [place] [phone] Ida Carr RN Social History Tobacco Use [...] Telephone Encounter - Ida Carr RN - 05/18/2022 1:26 PM EDTSummary: Heavy Bleeding Patient returned my call. Elodia Lin is a 52 y.o. female. Patient reports heavy bleeding of a saturated maxi pad every 45 min. Since last night. Patent stated she is on the Depo Lupron and has stopped her control for 3 days per Amngela Zara plan. Patient advised to go to the ER with Heavy bleeding of saturating a maxi pad per hour. She states she is slightly dizzy and does have a support person with her. She does not want to go to the ER. I direct messaged Carla Edler APRN and knowing the patient has Agestin on hand, Provider advised You can have her do the Aygestin taper 20mg (4 tabs for 3 days) and then slowly decrease by one tab every few days Emergency precautions given per Hernandez, Heavy Bleeding, SOB, Chest pain Dizziness, N/V All reasons to seek immediate evaluation in ER. Patient verbalized understanding. Plan to forward to Carla Zuñiga for further guidance. Patient would like a phone call from Practitioner. documented in this encounter Plan of Treatment Upcoming Encounters Date Type Department Care Team (Late st Contact Info) Description 10/20/2024 9:00 AM EST Office Visit Hematology [place] [address] Lacy Jameson MD [facility] DR HEMATOLOGY [place] [address] Layla Jo, RN documented as of this encounter Visit Diagnoses Not on filedocumented in this encounter Care Teams Clerical And Administrative Workers Relationship Specialty Start Date End Date Clayton Johnson DNP PCP - General Family Medicine 07/07/19 04/15/23 documented as of this encounter
--- OUTSIDE RECORDS SUMMARY | 2024-08-10 15:56 | XMS_ITS | Encounter Summary ---
Author Organization [facility] [place] [address] Care Team Providers Care Mattress And Boxsprings Supervisor Name Role Phone Clayton Johnson JOHN Primary Care Provider Encounter Details Date Type Department Care Team (Latest Contact Info) Description 05/13/2022 12:04 PM EDT - 05/13/2022 11:59 PM EDT Hospital Encounter Hematology [place] [phone] Iron deficiency anemia due to chronic blood loss Discharge Disposition: Home Social History Tobacco Use [...] mouth as needed. PRN for Migranes 01/17/2015 gabapentin (Neurontin) 100 mg CapsuleIndications:Ho t flashes Take 1 capsule by mouth nightly for 7 days, THEN 2 capsules nightly for 7 days, THEN 3 capsules nightly for 30 days. 111 capsule 05/13/2022 06/26/2022 prochlorperazine (Compazine) 10 mg TabletIndications:Acu te intractable tension-type headache Take 1 tablet by mouth every 6 hours as needed for Nausea. 10 tablet 02/19/2022 09/14/2022 ferrous sulfate (FeroSuL) 325 mg (65 mg iron) Tablet TAKE 1 TABLET BY MOUTH EVERY OTHER DAY 90 tablet 3 02/11/2022 09/14/2022 calcium carbonate 648 mg calcium Tablet Take 650 mg by mouth 3 times daily (with meals). 01/15/2024 leuprolide (Lupron Depot, 3 month,) 11.25 mg [...] EST Office Visit Hematology [place] [address] Lacy Jameson MD [facility] DR [place]ATOLOG[place] [address] Layla Jo RN documented as of this encounter Procedures Procedure Name Priority Date/Time Associated Diagnosis Comments HEMOGRAM Routine 05/13/2022 12:17 PM EDT Iron deficiency anemia due to chronic blood loss DIFFERENTIAL, AUTOMATED Routine 05/13/2022 12:17 PM EDT Iron deficiency anemia due to chronic blood loss HC IRON BINDING CAPACITY Routine 05/13/2022 12:17 PM EDT Iron deficiency anemia due to chronic blood loss HC CBC,PLT & AUTO DIFF Routine 05/13/2022 12:17 PM EDT Iron deficiency anemia due to chronic blood loss HC FERRITIN, SERUM Routine 05/13/2022 12 :17 PM EDT Iron deficiency anemia due to chronic blood loss documented in this encounter Results * Differential, Automated (05/13/2022 12:17 PM EDT) Neutrophil % 74.2 % [facility] Neutrophil Absolute 5.21 1.70 - 6.10 x10(3)/[facility] Lymph % 17.9 % [facility] Lymphocytes Abs 1.3 0.9 - 3.2 x10(3)/[facility] Monocyte % 5.4 % [facility] Monocyte Abs 0.4 0.3 - 0.9 x10(3)/[facility] Eos % 1.6 % [facility] Eosinophils Abs 0.1 0.0 - 0.4 x10(3)/[facility] Basophil % 0.6 % [facility] Baso Absolute 0.0 0.0 - 0.1 x10(3)/[facility] Immature Gran % 0.30 % [facility] Comment: Immature granulocytes(IG's)percentage and absolute count will include metamyelocytes, myelocytes, and promyelocytes. Blood smears from CBCs yielding IG's will be scanned manually for concordance. If this scan disagrees with the automated IG or if promyelocytes are noted, a manual differential will be performed. Immature Gran Absolute 0.02 0.00 - 0.04 x10(3)/[facility] Blood 05/13/2022 12:1 7 PM EDT 05/13/2022 12:31 PM EDT Narrative Resulting Agency Comment Spec In Lab Lacy Jameson MD HEMATOLOGY ORDERAB LES [facility] [place] [address] * (ABNORMAL) Hemogram (05/13/2022 12:17 PM EDT) [facility] White Blood Cell 7.0 4.0 - 9.5 x10(3)/ L [facility] Red Blood Cell 4.62 4.00 - 5.21 x10(6)/[facility] Hemoglobin 14.1 11.7 - 15.5 g/dL [facility] Hematocrit 41.5 35.7 - 45.8 % [facility] Mean Cell Volume 89.8 82.6 - 94.4 fL [facility] Mean Cell Hemoglobin 30.5 27.1 - 32.0 pg [facility] Mean Cell Hemoglobin Concentration 34.0 31.7 - 35.0 g/dL [facility] Platelet 315 145 - 357 x10(3)/[facility] RDW Standard Deviation 47.4(H) 37.0 - 46.0 fL [facility] RDW coefficient of variation 14.5(H) 11.5 - 14.1 % [facility] Mean Platelet Volume 10.2 7.6 - 12.9 fL [facility] NRBC% auto 0.0 % [facility] NRBC Absolute 0.000 0.000 - 0.000 x10(3)/[facility] Blood 05/13/2022 12:1 7 PM EDT 05/13/2022 12:31 PM EDT Narrative Resulting Agency Comment Spec In Lab Lacy Jameson MD HEMATOLOGY ORDERAB LES [facility] [place] [address] * Iron and TIBC (05/13/2022 12:17 PM EDT) [facility] Iron 90 30 - 150 mcg/dL [facility] TIBC 332 250 - 450 mcg/dL [facility] Iron Saturation 27 20 - 50 % [facility] Blood 05/13/2022 12:1 7 PM EDT 05/13/2022 12:31 PM EDT Narrative Resulting Agency Comment Spec In Lab Lacy Jameson MD CHEMISTRY ORDERABL ES Performing Organization Address [facility] Co de Phone Number [facility] [place] [address] * Ferritin (05/13/2022 12:17 PM EDT) Ferritin 113 30 - 400 ng/mL [facility] Comment: Pediatric reference ranges not verified at [facility], interpret with caution. Reference ranges for females greater than 50 years of age approach values for men, i.e., 30-400 ng/mL. Blood 05/13/2022 12:1 7 PM EDT 05/13/2022 12:31 PM EDT Narrative Resulting Agency Comment Spec In Lab Lacy Jameson MD CHEMISTRY ORDERABL ES Performing Organization Address [facility] Co de Phone Number [facility] [place] [address] documented in this encounter Visit Diagnoses Diagnosis Iron deficiency anemia due to chronic blood loss Iron deficiency anemia secondary to blood loss (chronic) documented in this encounter Care Teams Mattress And Boxsprings Supervisor Relationship Specialty Start Date End Date Clayton Johnson DNP PCP - General Family Medicine 07/07/19 04/15/23 documented as of this encounter
--- OUTSIDE RECORDS SUMMARY | 2024-08-10 15:56 | XMS_ITS | Encounter Summary ---
Author Organization [facility] Address [facility] [place] [address] Care Team Providers Care Continuous Mining Machine Lode Miner Name Role Phone Clayton Johnson JOHN Primary Care Provider +1- [phone] Reason for Visit * Reason Comments IV Medication Feraheme * Treatment/Therapy Plan Authorization (Routine) - Closed Specialty Diagnoses / Procedures Referred By Contac t Referred To Contact Hematology and Oncology Diagnoses Iron deficiency anemia, unspecified iron deficiency anemia type Procedures TC FERUMOXYTOL, NON-ESRD, 1 MG, INJECTION Q0138 Galen Grover MD [facility] [place] [address] [facility] Hem Onc Office [address] [place] [phone] Referral ID Status Reason Start Date Expiration Date Visits Re quested Visits Authorized [id number] Closed 02/13/2022 08/23/2022 99 99 Encounter Details Date Type Department Care Team (Late st Contact Info) Description 07/24/2022 3:00 PM EDT Infusion Hematology Oncology at [address] [phone] Iron deficiency anemia, unspecified iron [...] Sign Reading Time Taken Comments Blood Pressure 150/79 07/24/2022 3:06 PM EDT Pulse 69 07/24/2022 3:06 PM EDT Temperature 36.2 ??C (97.2 ??F) 07/24/2022 3:06 PM ED T Respiratory Rate 16 07/24/2022 3:06 PM EDT Oxygen Saturation 100% 07/24/2022 3:06 PM EDT Inhaled Oxygen Concentration - - Weight 109.8 kg (242 lb) 07/24/2022 3:06 PM EDT Height 158.3 cm (5' 2.32) 07/24/2022 3:06 PM ED T Body Mass Index 43.81 07/24/2022 3:06 PM EDT documented in this encounter Progress Notes * Keily Chan RN - 07/24/2022 3:00 PM EDT INFUSION THERAPY ADMINISTRATION NOTES [...] EST Office Visit Hematology [place] [address] Lacy Jameson MD [facility] [place] [address] Layla Jo RN documented as of this encounter Visit Diagnoses Diagnosis Iron deficiency anemia, unspecified iron deficiency anemia type documented in this encounter Administered Medications Inactive Administered Medications - up to 3 most recent administrations Medication Order MAR Action Action Date Dose Rate Site ferumoxytoL (Feraheme) 510 mg in sodium chloride 0.9% 117 mL infusion 510 mg, Intravenous, ONCE, 1 dose, On Wed07/24/22 at 1530, Administer over 15 Minutes, Do not administer [...] , FerumoxytoL may alter MRI imaging. Reference biomedical repair technician's recommendations for details. Acknowledged, This agent is restricted to outpatient use. Is this drug being given as an outpatient? Yes New Bag 07/24/2022 3:32 PM EDT 510 mg 468 mL/hr documented in this encounter Care Teams Continuous Mining Machine Lode Miner Relationship Specialty Start Date End Date Clayton Johnson DNP PCP - General Family Medicine 07/07/19 04/15/23 documented as of this encounter
--- OUTSIDE RECORDS SUMMARY | 2024-08-10 15:56 | XMS_ITS | Encounter Summary ---
Author Organization Formerly [facility] [place] [address] Care Team Providers Care Bullet Assembly Press Operator Name Role Phone Clayton Johnson JOHN Primary Care Provider Encounter Details Date Type Department Care Team (Late st Contact Info) Description 05/13/2022 Telephone H[place]ology [place] [address] Layla Jo, RN Social History [...] Telephone Encounter - Layla Jo RN - 05/13/2022 2:12 PM EDT TC to patient. VM left regarding normal lab results, CBC an iron studies and Dr. Jameson's recommendations written below. Advised to call back to review in detail and answer any questions. Latest Reference Range & Units 05/13/22 12:17 Hemoglobin 11.7 - 15.5 g/dL 14.1 Hematocrit 35.7 - 45.8 % 41.5 Latest Reference Range & Units 05/13/22 12:17 Iron 30 - 150 mcg/dL 90 TIBC 250 - 450 mcg/dL 332 Iron Saturation 20 - 50 % 27 Ferritin 30 - 400 ng/mL 113 [1] [1] Pediatric reference ranges not verified at [facility], interpret with caution. Reference ranges for females greater than 50 years of age approach values for men, i.e., 30-400 ng/mL. Impression: Anemia resolved with robust hemoglobin/hematocrit Iron stores replete. ?? Plan: No further iron infusions presently. Follow up CBC/iron studies in 6 months with additional IV ironto be administered PRN. ?? Layla Jo RN MSN ===View-only below this line=== ----- Message ----- From: Lacy Jameson MD Sent: 05/13/2022 1:56 PM EDT To: Layla Jo RN Normal CBC and iron. Can you please let her know the good news? Thanks. /dlo documented in this encounter Plan of Treatment Upcoming Encounters Date Type Department Care Team (Late st Contact Info) Description 10/20/2024 9:00 AM EST Office Visit Hematology [place] [address] Lacy Jameson MD [facility] [address] [place] [address] Layla Jo RN documented as of this encounter Visit Diagnoses Not on filedocumented in this encounter Care Teams Bullet Assembly Press Operator Relationship Specialty Start Date End Date Clayton Johnson DNP PCP - General Family Medicine 07/07/19 04/15/23 documented as of this encounter
--- OUTSIDE RECORDS SUMMARY | 2024-08-10 15:56 | XMS_ITS | Encounter Summary ---
Author Organization [facility] Address [facility] [place] [address] Care Team Providers Care Driller'S Assistant Name Role Phone Clayton Johnson JOHN Primary Care Provider [phone] Reason for Visit * Reason Comments Medication Refill Encounter Details Date Type Department Care Team (Late st Contact Info) Description 02/09/2022 Refill Hematology [place] [phone] Lacy Jameson MD [facility] [address] HEMATOLOGY [place] [address] Social History Tobacco Use Types Packs/Day Years [...] EST Office Visit [place]ematology [place] [phone] Lacy Jameson MD [facility] DR HEMATOLOGY [place] [address] Layla Jo, RN documented as of this encounter Visit Diagnoses Not on filedocumented in this encounter Care Teams Driller'S Assistant Relationship Specialty Start Date End Date Clayton Johnson DNP PCP - General Family Medicine 07/07/19 04/15/23 documented as of this encounter
--- OUTSIDE RECORDS SUMMARY | 2024-08-10 15:56 | XMS_ITS | Encounter Summary ---
Author Organization [facility] [place] [address] Care Team Providers Care Home Support Worker Name Role Phone Clayton Johnson JOHN Primary Care Provider [phone] Encounter Details Date Type Department Care Team (Late st Contact Info) Description 11/25/2021 Orders Only Obstetrics [place] [phone] Erica Mckeon MD [facility] [address] OBSTETRICS & [place] [address] Social History Tobacco Use Types Packs/Day Years [...] EST Office Visit Hematology [place] [phone] Lacy Jameson MD [facility] [address] [place] [address] Layla Jo RN documented as of this encounter Visit Diagnoses Not on filedocumented in this encounter Care Teams Home Support Worker Relationship Specialty Start Date End Date Clayton Johnson DNP PCP - General Family Medicine 07/07/19 04/15/23 documented as of this encounter
--- OUTSIDE RECORDS SUMMARY | 2024-08-10 15:56 | XMS_ITS | Encounter Summary ---
Author Organization [facility] [place] [address] Care Team Providers Care Section Housekeeper Name Role Phone Clayton Johnson DNP Primary Care Provider Encounter Details Date Type Department Care Team (Late st Contact Info) Description 06/17/2022 Telephone Hematology [place] [address] Layla Jo, RN Social History [...] Telephone Encounter - Layla Jo RN - 06/17/2022 11:31 AM EDT TC with 52 y.o. patient with Von Willebrand Disease, type 2A, who stated that she's had menorrhagiauntil recently. She was prescribed Aygestin early May by SHIPPING COORDINATOR and noted significant reduction in menstrual flow over the past few weeks. Plans to talk with her PCP to order CBC and iron studies locally and have iron infusions administered as needed. She would like this done prior to the ablation on08/18/[address] Michell Masters here at . Will review hematology plan for ablation with Dr. Ornstein and follow up with patient. ===View-only below this line=== ----- Message ----- From: Lacy Jameson MD Sent: 06/17/2022 10:28 AM EDT To: Layla Jo RN Subject: FW: Ablation and iron Please touch base. Thanks. /dlo ----- Message ----- From: Venessa Davidson RN Sent: 06/17/2022 9:47 AM EDT To: Lacy Jameson MD Subject: FW: Ablation and iron ----- Message ----- From: Elodia Lin Sent: 06/17/2022 8:49 AM EDT To: [facility] Hem Onc Nurse Subject: Ablation and iron Good morning. I'm working with Obgyn to schedule an ablation. Currently it's aug 18 but hoping to have it sooner. I'm assuming I'll need factor for it. Also, I would like my iron levels checked soon. I've had a lot of bleeding the past month. Thoughtson that? Thanks. Elodia documented in this encounter Plan of Treatment Upcoming Encounters Date Type Department Care Team (Late st Contact Info) Description 10/20/2024 9:00 AM EST Office Visit Hematology [place] [address] Lacy Jameson MD [facility] DR HEMATOLOGY [place] [address] Layla Jo, RN documented as of this encounter Visit Diagnoses Not on filedocumented in this encounter Care Teams Section Housekeeper Relationship Specialty Start Date End Date Clayton Johnson DNP PCP - General Family Medicine 07/07/19 04/15/23 documented as of this encounter
--- OUTSIDE RECORDS SUMMARY | 2024-08-10 15:56 | XMS_ITS | Encounter Summary ---
Author Organization [facility] Address [facility] [place] [address] Care Team Providers Care Heavy Media Operator Name Role Phone Clayton Johnson JOHN Primary Care Provider Encounter Details Date Type Department Care Team (Late st Contact Info) Description 07/14/2022 Orders Only [place] [phone] Galen Mcnair MD [facility] [address] HEMATOLOGY [place] [address] Iron deficiency anemia, unspecified iron deficiency anemia [...] EST Office Visit [place] [phone] Lacy Jameson MD [facility] DR [place]ATOLOG[place] [address] Jo, Layla A, RN documented as of this encounter Visit Diagnoses Diagnosis Iron deficiency anemia, unspecified iron deficiency anemia type- Primary documented in this encounter Care Teams Heavy Media Operator Relationship Specialty Start Date End Date Clayton Johnson DNP PCP - General Family Medicine 07/07/19 04/15/23 documented as of this encounter
--- OUTSIDE RECORDS SUMMARY | 2024-08-10 15:56 | XMS_ITS | Encounter Summary ---
Author Organization [facility] [place] [address] Care Team Providers Care Cruise Director Name Role Phone Clayton Johnson JOHN Primary Care Provider Encounter Details Date Type Department Care Team (Late st Contact Info) Description 02/05/2022 Telephone Obstetrics [place] [address] Sapna Cano, RN Social History Tobacco Use Types Packs/Day [...] encounter Miscellaneous Notes * Telephone Encounter - Sapna Cano RN - 02/05/2022 9:32 AM EST Spoke to patient, history vWD, AUB, First dose Lupron received 10/31/21, still taking COCP continuously. Woke 2 nights ago with heavy vaginal bleeding, saturating and overnight pad in a few hours, bled this heavily for less than 24 hours, Had very minimal, if any bleeding yesterday and woke up this morning with some bleeding but it is very light. Was due for second dose of Lupron on 01/30 but rescheduled this to 02/16 in order to have injection and visit with Dr. Zuñiga on the same day. Discussed with Dr Zuñiga who felt breakthrough bleeding likely due to Lupron being late, offered patient appointment 02/06 for lupron Injection. See Genability(02/05) for further detail. ----- Message ----- From: Jasmine Lang Sent: 02/05/2022 8:57 AM EST To: [facility] Certified Alcohol Drug Counselor Triage Nurse Subject: Heavy Bleeding Caller's name: Elodia Lin Call back #: [phone] Patient's provider/team: Dr Zuñiga Reason for call: Heavy Bleeding documented in this encounter Plan of Treatment Upcoming Encounters Date Type Department Care Team (Late st Contact Info) Description 10/20/2024 9:00 AM EST Office Visit Hematology [place] [address] Lacy Jameson MD [facility] [address] [place] [address] Layla Jo, RN documented as of this encounter Visit Diagnoses Not on filedocumented in this encounter Care Teams Cruise Director Relationship Specialty Start Date End Date Clayton Johnson DNP PCP - General Family Medicine 07/07/19 04/15/23 documented as of this encounter
--- OUTSIDE RECORDS SUMMARY | 2024-08-10 15:56 | XMS_ITS | Encounter Summary ---
[place] [address] Care Team Providers Care Passementerie Worker Name Role Phone Clayton Johnson JOHN Primary Care Provider Reason for Visit * Reason Onset Date Comments Follow-up 06/02/2022 Encounter Details Date Type Department Care Team (Late st Contact Info) Description 06/02/2022 Telephone Obstetrics [place] [address] Radha Buck RN Follow-up Social History Tobacco Use Types Packs/Day Years [...] Miscellaneous Notes * Telephone Encounter - Radha Buck, RN - 06/02/2022 2:14 PM EDT Pt had called over weekend with increase vaginal bleeding. Please see prior note. Left message for pt to call clinic and also message was sent to pt portal. documented in this encounter Plan of Treatment Upcoming Encounters Date Type Department Care Team (Late st Contact Info) Description 10/20/2024 9:00 AM EST Office Visit Hematology [place] [address] Lacy Jameson MD [facility] [address] HEMATOLOGY [place] [address] Layla Jo RN documented as of this encounter Visit Diagnoses Not on filedocumented in this encounter Care Teams Passementerie Worker Relationship Specialty Start Date End Date Clayton Johnson DNP PCP - General Family Medicine 07/07/19 04/15/23 documented as of this encounter
--- OUTSIDE RECORDS SUMMARY | 2024-08-10 15:56 | XMS_ITS | Encounter Summary ---
[place] [address] Care Team Providers Care Fruit And Vegetable Parer Name Role Phone Clayton Johnson JOHN Primary Care Provider Encounter Details Date Type Department Care Team (Late st Contact Info) Description 04/01/2023 Notes Only [place] [phone] Layla Jo, RN Social History Tobacco Use [...] as of this encounter Progress Notes * Layla Jo RN - 04/01/2023 3:40 PM EDT [facility] [place] [address] Elodia Lin : 1970 WT 111 Kgs (07/2022) Hematology Recommendations Elodia Lin is 52 y.o. female with Von Willebrand Disease, type 2A, with a history of iron deficiency anemia due to menstrual blood loss. She is pending a uterine ablation per Dr. Michell Masters on April 16 at outpatient surgical center [facility] Dr. Jameson recommends patient receive an infusion ofHumate P to enhance hemostasis prior to the ablation and for 2 days post procedure [facility] infusion center. Contact: KRUNAL Loaiza, . [facility] pharmacy to secure two doses of Humate P beforehand, for infusions on April 17 and April 18 (Wednesday and Wednesday). No prior authorization required by BC/BS [facility] for Humate P infusions. April 16, 2023 Day of BI LEAD Procedure 09:45 Patient to arrive at [facility] infusion center for Humate P infusion. 10:00 Assigned staff to obtain Humate P, 2943 units (3 vials of 981 units/vial) from blood bank. 10:15 Assigned RN to reconstitute and administer Humate P, IV Push over 2 minutes. Flush line with 10 mLs normal saline post infusion. Please discharge patient from [facility] clinic with peripheral IV in place for follow up infusions. 10:45 Patient to arrive at [facility] 12:15 Est OR start per Dr. Masters orders. Post procedure: Patient to be discharged from [facility] with working IV in place for follow up infusions over the weekend at [facility]. WednesdayApril 17 at 11AM, patient to arrive at [facility] infusion clinic for a follow up Humate P infusion, ~ 2000 units, IV Push over 1-2 minutes. Flush line with 10-20 mLs normal saline. Humate P will be reconstituted by pharmacist at [facility] and assigned RN to administer Humate P. Patient to be discharged from [facility] with peripheral IV in place for follow up infusion April 18. April 18 at 11AM, patient to arrive at [facility] infusion clinic for a follow up Humate P infusion, ~ 2000 units, IV Push over 1-2 minutes. Flush line with 10-20 mLs normal saline. Humate P will be reconstituted by pharmacist at [facility] and assigned RN to administer Humate P. RN to remove IV once infusion completed. If questions or problems are encountered with reconstitution or administration of Humate P, please call the hemophilia nurse group leader semiconductor testing for guidance. MD Layla Brian RN MSN [facility] Clinical Nurse Specialist Hemophilia and Thrombosis Hemophilia and Thrombosis Hemophilia Attending Physician I have reviewed this patient's care with Layla Jo, RN, MSN and concur with the recommendations and plan as outlined in her note above. As [facility] staff have informed us, they will not routinely infuse the patient's own Humate P. Therefore, we will rely on [facility] to secure the appropriate product forinfusion as above. Lacy Jameson MD [facility], [facility] documented in this encounter Plan of Treatment Upcoming Encounters Date Type Department Care Team (Late st Contact Info) Description 10/20/2024 9:00 AM EST Office Visit [place]ology [place] [address] Lacy Jameson MD [facility] [address] HEMATOLOGY [place] [address] Layla Jo RN documented as of this encounter Visit Diagnoses Not on filedocumented in this encounter Care Teams Fruit And Vegetable Parer Relationship Specialty Start Date End Date Clayton Johnson DNP PCP - General Family Medicine 07/07/19 04/15/23 documented as of this encounter
--- OUTSIDE RECORDS SUMMARY | 2024-08-10 15:56 | XMS_ITS | Encounter Summary ---
Author Organization [facility] [place] [address] Care Team Providers Care Petroleum Inspector Supervisor Name Role Phone Clayton Johnson JOHN Primary Care Provider Reason for Visit * Reason Comments Follow-up Encounter Details Date Type Department Care Team (Late st Contact Info) Description 02/12/2022 2:00 PM EDT Office Visit Obstetrics [place] [address] Carla Zuñiga MD [facility] DR OBSTETRICS [place] [address] Abnormal uterine bleeding Social History Tobacco Use [...] Sign Reading Time Taken Comments Blood Pressure 128/72 02/12/2022 2:09 PM EDT Pulse 70 02/12/2022 2:09 PM EDT Temperature - - Respiratory Rate 16 02/12/2022 2:09 PM EDT Oxygen Saturation 100% 02/12/2022 2:09 PM EDT Inhaled Oxygen Concentration - - Weight 108.6 kg (239 lb 6.4 oz) 02/12/2022 2:09 PM EDT Height 157.5 cm (5' 2) 02/12/2022 2:09 PM EDT Body Mass Index 43.79 02/12/2022 2:09 PM EDT documented in this encounter Progress Notes * Carla Zuñiga MD - 02/12/2022 2:00 PM EDT OILING MACHINE OPERATOR Problem Visit Reason for Visit: Elodia is a 51 y.o. premenopausal female with a history of type 2A vWD and septate uterus who presents for follow up regarding intractable abnormal uterine bleeding. History of Present Illness: Patient received Lupron dose 10/31, had the heavier bleeding 2 weeks after and then has not had bleeding in . On 02/02/22 when she was 4 days past the 3 month latoya, she had heavy bleeding overnight, similar to prior episodes of heavy bleeding, and than heavy bleeding into Wednesday morning changing a pad every half hour. She bled through her pants on a flight to the [place] on that Wednesday. She wasn't able to make it in to the office for her second Lupron dose. She has had some significant stressors including bringing her daughter into a treatment program. 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 Hotflashes from Lupron have been bad but she is unsure if this could also be related to her anxiety. Similarly, she has had more headaches but this could be due to anxiety. Continues her SKY daily that she has been taking prior to initiating Lupron. Patient Active Problem List Diagnosis Date Noted [...] DELIVERY performed by Clint Orlando MD at [facility] ??? PRO COLONOSCOPY, BIOPSY N/A 03/11/2015 COLONOSCOPY FLEXIBLE, WITH BX performed by Alida Mahmood MD at [facility] END[facility] ??? PRO COLONOSCOPY, DIAGNOSTIC N/A 03/17/2021 COLONOSCOPY, DIAGNOSTIC performed by Sherrill Miner MD at [facility] END[facility]COPY ??? PRO COLONOSCOPY, REMV LESN, SNARE N/A 03/11/2015 COLONOSCOPY, POLYPECTOMY, REMOVAL LESION BY SNARE performed by Alida Mahmood MD at [facility] ENDOSCOPY ??? PRO LIGATE FALLOPIAN TUBE, 04/26/2013 @FALLOPIAN TUBE(S), TRANSECTION OR LIGATION, ABD APPROACH, POST- performed by Clint Orlando MD at [facility] Family History Problem Relation Age [...] 4 hours as needed for Congestion. ??? ferrous sulfate (FeroSuL) 325 mg (65 mg iron) Tablet TAKE 1 TABLET BY MOUTH EVERY OTHER DAY (Patient not taking: Reported on 02/12/2022) 90 tablet 3 ??? rizatriptan (MAXALT) 10 mg Tablet Take 10 mg by mouth as needed. PRN for Migranes Current Facility-Administered Medications Medication Dose Route Frequency Provider Last Rate Last Admin ??? leuprolide (Lupron Depot) injection 11.25 mg 11.25 mg Intramuscular Q 3 Months Carla Zuñiga MD 11.25 mg at 02/12/22 1448 Allergies Allergen Reactions ??? Aygestin [Norethindrone Acetate] Other (See Comments) Hair loss, mood changes, hot flashes ??? Adhesive Bandage Rash Blistering rash with tegederm ??? Codeine Percocet is ok ??? Durapore Cloth Surgical Tape [Adhesive Tape] Hives ROS: Otherwise negative except as specified in HPI. Physical Exam Vitals: 02/12/22 1409 BP: 128/72 BP Location (NBP): Right arm Patient Position: Sitting BP Cuff Sizes: Adult (25-34 cm) Pulse: 70 Resp: 16 SpO2: 100% Weight: 108.6 kg (239 lb 6.4 oz) Height: 157.5 cm (5' 2) General: NAD, comfortable, pleasant Lungs: Unlabored breathing Neuro: grossly intact Pelvic: Defer Assessment/Plan: Elodia is a 51 y.o. premenopausal female with a history of type 2A vWD and septate uterus who presents for follow up regarding intractable abnormal uterine bleeding. - Patient to receive Lupron injection today - Will plan for 3 month follow up - Will consider discontinuing COCs at next visit - Roller ball ablation still an option, patient reports she has discussed more extensive surgery with hysterectomy with animal biologist and that animal biologist would be amenable to optimizing her for surgery 1. Abnormal uterine bleeding leuprolide (Lupron Depot) injection 11.25 mg Carla Zuñiga MD 02/12/2022 2:40 PM * Lucila Cabrera LPN - 02/12/2022 2:00 PM EDT Lupron Depot 11.25 mg given IM in right buttock per order written by Dr. Zuñiga. Pt tolerated injection well. documented in this encounter Plan of Treatment Upcoming Encounters Date Type Department Care Team (Late st Contact Info) Description 10/20/2024 9:00 AM EST Office Visit Hematology [place] [address] Lacy Jameson MD [facility] DR HEMATOLOGY [place] [address] Layla Jo RN documented as of this [...] 3 MONTHS, 3 doses, First dose on Wed02/12/22 at 1515, Last dose on Wed08/11/22 at 1515, Routine, This agent is restricted to outpatient use. Is this drug being given as an outpatient? Yes Given 05/13/2022 11:42 AM EDT 11.25 mg Right Gluteal Given 02/12/2022 2:48 PM EDT 11.25 mg Ri ght Gluteal documented in this encounter Care Teams Petroleum Inspector Supervisor Relationship Specialty Start Date End Date Clayton Johnson DNP PCP - General Family Medicine 07/07/19 04/15/23 documented as of this encounter
--- OUTSIDE RECORDS SUMMARY | 2024-08-10 15:56 | XMS_ITS | Encounter Summary ---
[place] [address] Care Team Providers Care Muffler Mechanic Name Role Phone Clayton Johnson DNP Primary Care Provider Encounter Details Date Type Department Care Team (Late Contact Info) Description 03/18/2023 Telephone Hematology [place] [phone] Layla Jo, RN Social History Tobacco Use [...] Telephone Encounter - Layla Jo RN - 03/18/2023 9:51 AM EDT 03/24/23 TC to patient. VM left to return call to discuss hematology plan and review Humate P supply at home. Contact info provided. 03/23/23 TC to patient. VM left to return call to discuss hematology plan and review Humate P supply at homeand supplement additional Humate P as needed. Contact info provided to return call at her convenience. 03/18/23 TC to patient. Patient is scheduled for a uterine ablation on April 16, 2023 at 12:[address] Masters in the [facility]. Will need to schedule Elodia in the [facility] infusion center at 10AM(sylvia) for a Humate P infusion and labs prior to procedure and a day or two of infusions post procedure per Dr. Jameson orders. Requested patient return call to discuss plan and any questions she may have. Layla Jo RN MSN ===View-only below this line=== ----- Message ----- From: Lacy Jameson MD Sent: 03/17/2023 2:50 PM EDT To: Layla Jo RN Subject: FW: Uterine ablation FYRafael. Please touch base with her for the details. Will be good to get CBC and iron studies on that day also. Would expect to give a dose pre, maybe post and next 1-2 days. I shouldn't think she'd need to be admitted overnight if she can be discharged with IV in place and infusion plan Thanks /dlo ----- Message ----- From: Kelsie Arias RN Sent: 03/17/2023 2:37 PM EDT To: Lacy Jameson MD Subject: FW: Uterine ablation ----- Message ----- From: Elodia Lin Sent: 03/17/2023 11:53 AM EDT To: [facility] Hem Onc Hematology Team Nurse Subject: Uterine ablation Azra, I'm scheduled for an ablation with Dr. Masters on April 16. I need to arrange a humate-p infusion prior. Elodia Howard documented in this encounter Plan of Treatment Upcoming Encounters Date Type Department Care Team (Late st Contact Info) Description 10/20/2024 9:00 AM EST Office Visit Hematology [place] [address] Lacy Jameson MD [facility] H[place]ATOLOG[place] [address] Layla Jo RN documented as of this encounter Visit Diagnoses Not on filedocumented in this encounter Care Teams Muffler Mechanic Relationship Specialty Start Date End Date Clayton Johnson DNP PCP - General Family Medicine 07/07/19 04/15/23 documented as of this encounter
--- OUTSIDE RECORDS SUMMARY | 2024-08-10 15:57 | XMS_ITS | Encounter Summary ---
Author Organization Formerly [facility], Later [facility] [place] [address] Care Team Providers Care Insurance Sales Manager Name Role Phone Clayton Johnson JOHN Primary Care Provider Encounter Details Date Type Department Care Team (Latest Contact Info) Description 06/13/2021 11:15 AM EDT - 06/13/2021 11:59 PM EDT Hospital [place] [phone] Discharge Disposition: Home Social History Tobacco Use [...] Sig Dispensed Refills Start Date End Date acetaminophen (TYLENOL) 500 mg Tablet Take 1,000 mg by mouth every 6 hours as needed for Pain. pseudoephedrine (SUDAFED) 30 mg Tablet Take 30 mg by mouth every 4 hours as needed for Congestion. rizatriptan (MAXALT) 10 mg Tablet Take 10 mg by mouth as needed. PRN for Migranes 01/17/2015 Acetylcysteine 600 mg Capsule TAKE 2 CAPSULES BY MOUTH IN THE MORNING AND AN ADDITIONAL 1 2 CAPSULES IN THE AFTERNOON NEEDED FOR MOOD 05/22/2021 03/16/2023 Tranexamic Acid 650 mg Tablet Take 2 tabs 3 times daily for first 3 days of menstrual period. 54 tablet 1 01/24/2021 07/07/2021 ferrous sulfate 325 mg (65 mg iron) Tablet Take one tab by mouth every other day. 90 tablet 3 01/24/2021 02/11/2022 venlafaxine (EFFEXOR-XR) 150 mg Capsule, Sust. Release 24 hr Take 1 capsule by mouth daily. 30 capsule 0 02/26/2015 09/30/2021 documented as of this encounter Plan of Treatment Upcoming Encounters Date Type Department Care Team (Late st Contact Info) Description 10/20/2024 9:00 AM EST Office Visit Hematology [place] [address] Lacy Jameson MD [facility] DR HEMATOLOGY [place] [address] Layla Jo RN documented as of this encounter Visit Diagnoses Not on filedocumented in this encounter Care Teams Insurance Sales Manager Relationship Specialty Start Date End Date Clayton Johnson DNP PCP - General Family Medicine 07/07/19 04/15/23 documented as of this encounter
--- OUTSIDE RECORDS SUMMARY | 2024-08-10 15:57 | XMS_ITS | Encounter Summary ---
Author Organization Formerly [facility], [facility] Address [facility] [place] [address] Care Team Providers Care Pbx Wire Chief Name Role Phone Clayton Johnson DNP Primary Care Provider [phone] Encounter Details Date Type Department Care Team (Late st Contact Info) Description 03/17/2021 Notes [place] [address] Lacy Jameson MD [facility] [address] [place] [address] Social History Tobacco Use Types Packs/Day Years [...] Progress Notes * Lacy Jameson MD - 03/17/2021 2:54 PM EDT Images from the original note were not included. [facility] [place] [address] HEMOPHILIA SERVICE Elodia was treated with two doses of IV iron for iron deficiency anemia, likely due to heavy menstrual periods. Follow up lab studies today show the following: Results for ELODIA TOM ( ) as of 03/17/2021 14:54 Ref. Range 03/17/2021 12:43 WBC Latest Ref Range: 4.0 - 9.5 x10(3)/mcL 5.7 RBC Latest Ref Range: 4.00 - 5.21 x10(6)/mcL 5.28 (H) Hemoglobin Latest Ref Range: 11.7 - 15.5 gm/dL 13.0 Hematocrit Latest Ref Range: 35.7 - 45.8 % 42.1 MCV Latest Ref Range: 82.6 - 94.4 fL 79.7 (L) MCH Latest Ref Range: 27.1 - 32.0 pg 24.6 (L) MCHC Latest Ref Range: 31.7 - 35.0 gm/dL 30.9 (L) RDWSD Latest Ref Range: 37.0 - 46.0 fL Not Measured RDWCV Latest Ref Range: 11.5 - 14.1 % Not Measured Platelets Latest Ref Range: 145 - 357 x10(3)/mcL 290 Results for ELODIA TOM ( ) as of 03/17/2021 14:54 Ref. Range 03/17/2021 12:43 Iron Latest Ref Range: 30 - 150 mcg/dL 75 TIBC Latest Ref Range: 250 - 450 mcg/dL 264 Iron Saturation Latest Ref Range: 20 - 50 % 28 Ferritin Latest Ref Range: 15 - 150 ng/mL 148 Impression: Anemia is resolved, storage iron replete. Plan: Continue TXA for heavy menstrua periods. Recommend Mirena IUD Follow up CBC, iron studies 1 year. Lacy Jameson MD Senior Civil Engineer, [facility] documented in this encounter Plan of Treatment Upcoming Encounters Date Type Department Care Team (Late st Contact Info) Description 10/20/2024 9:00 AM EST Office Visit Hematology [place] [address] Lacy Jameson MD [facility] [address] [place] [address] Layla Jo, RN documented as of this encounter Visit Diagnoses Not on filedocumented in this encounter Care Teams Pbx Wire Chief Relationship Specialty Start Date End Date Clayton Johnson DNP PCP - General Family Medicine 07/07/19 04/15/23 documented as of this encounter
--- OUTSIDE RECORDS SUMMARY | 2024-08-10 15:57 | XMS_ITS | Encounter Summary ---
Author Organization [facility] Address [facility] [place] [address] Care Team Providers Care Lumber Scaler Name Role Phone Clayton Johnson DNP Primary Care Provider [phone] Encounter Details Date Type Department Care Team (Late Contact Info) Description 02/17/2021 [place] [phone] Lacy Jameson MD [facility] [address] [place] [address] Iron deficiency anemia due to chronic blood [...] EST Office Visit [place]ematology [place] [phone] Lacy Jameson MD [facility] DR [place] [address] Layla Jo RN documented as of this encounter Results * Ferritin (03/17/2021 12:43 PM EDT) Ferritin 148 15 - 150 ng/mL [facility] Comment: Pediatric reference ranges not verified at [facility], interpret with caution. Reference ranges for females greater than 50 years of age approach values for men, i.e., 30-400 ng/mL. Blood specimen (specimen) 03/17/2021 12:43 PM EDT 03/17/2021 1:04 PM EDT Narrative Resulting Agency Comment Spec In Lab Lacy Jameson MD CHEMISTRY ORDERABL ES Performing Organization Address City/[facility]/ZIP Co de Phone Number [facility] [place] [address] * Iron and TIBC (03/17/2021 12:43 PM EDT) Iron 75 30 - 150 mcg/dL [facility] TIBC 264 250 - 450 mcg/dL [facility] Iron Saturation 28 20 - 50 % [facility] Blood specimen (specimen) 03/17/2021 12:43 PM EDT 03/17/2021 1:04 PM EDT Narrative Resulting Agency Comment Spec In Lab Lacy Jameson MD CHEMISTRY ORDERABL ES Performing Organization Address City/[facility]/ZIP Co de Phone Number [facility] [place] [address] documented in this encounter Visit Diagnoses Diagnosis Iron deficiency anemia due to chronic blood loss Iron deficiency anemia secondary to blood loss (chronic) documented in this encounter Care Teams Lumber Scaler Relationship Specialty Start Date End Date Clayton Johnson DNP PCP - General Family Medicine 07/07/19 04/15/23 documented as of this encounter
--- OUTSIDE RECORDS SUMMARY | 2024-08-10 15:57 | XMS_ITS | Encounter Summary ---
Author Organization [facility] [place] [address] Care Team Providers Care Tire Technician Name Role Phone Clayton Johnson JOHN Primary Care Provider Encounter Details Date Type Department Care Team (Late st Contact Info) Description 10/14/2021 Telephone Obstetrics [place] [phone] Tosha Strauss RN Social History Tobacco Use Types Packs/Day [...] Miscellaneous Notes * Telephone Encounter - Tosha Strauss RN - 10/14/2021 2:12 PM EST Calling [facility] to discuss authorizing Lupron Depot medication under medical benefit as PA for pharmacy benefit denied (see note from 10/01/2021). outside dealer sales representative states that a [facility] Urgent Request Uniform Medical Prior Authorization Form be submitted for medical benefit. Form can be found at: https://www.123people.org/documents/hdosy-csndukfw-fdua Reference #[id number] for insurance call. documented in this encounter Plan of Treatment Upcoming Encounters Date Type Department Care Team (Late st Contact Info) Description 10/20/2024 9:00 AM EST Office Visit Hematology [place] [address] Lacy Jameson MD [facility] [address] [place] [address] Layla Jo RN documented as of this encounter Visit Diagnoses Not on filedocumented in this encounter Care Teams Tire Technician Relationship Specialty Start Date End Date Clayton Johnson DNP PCP - General Family Medicine 07/07/19 04/15/23 documented as of this encounter
--- OUTSIDE RECORDS SUMMARY | 2024-08-10 15:57 | XMS_ITS | Encounter Summary ---
Author Organization Formerly [facility] [place] [address] Care Team Providers Care Information Security Name Role Phone Clayton Johnson DNP Primary Care Provider [phone] Encounter Details Date Type Department Care Team (Late st Contact Info) Description 10/14/2021 Orders Only Obstetrics [place] [phone] Erica Mckeon MD [facility] DR OBSTETRICS & [place] [address] Social History Tobacco Use Types Packs/Day Years [...] EST Office Visit Hematology [place] [phone] Lacy Jameson MD [facility] [address] [place] [address] Layla Jo RN documented as of this encounter Visit Diagnoses Not on filedocumented in this encounter Care Teams Information Security Relationship Specialty Start Date End Date Clayton Johnson DNP PCP - General Family Medicine 07/07/19 04/15/23 documented as of this encounter
--- OUTSIDE RECORDS SUMMARY | 2024-08-10 15:57 | XMS_ITS | Encounter Summary ---
Author Organization [facility] [place] [address] Care Team Providers Care Premium Cancellation Clerk Name Role Phone Clayton Johnson JOHN Primary Care Provider Encounter Details Date Type Department Care Team (Late st Contact Info) Description 06/09/2021 Telephone Obstetrics [place] [address] Sapna Cano, RN Social History [...] Miscellaneous Notes * Telephone Encounter - Sapna Cano, RN - 06/09/2021 11:35 AM EDT Spoke to patient who reports bleeding x10 days, history of heavy periods, has Von Willebrand disease. Bleeding started earlier than period was expected, Started after she began taking NAC for anxiety, took x 5 day before realizing it isn't recommended for people with bleeding disorders. Flow has been mostly heavy but does slow down at times. Changing super plus tampon every couple of hour on average. Was supposed to start taking TXA prior to periods to help control bleeding, due to issues with insurance and finding a pharmacy that carried this medication she just started taking this today, isfeeling dizzy and lightheaded, has call out to lead scientist to order some lab work. Will have schedulers reach out to patient to schedule follow-up for heavy periods. ----- Message ----- From: Jasmine Lang Sent: 06/09/2021 10:03 AM EDT To: [facility] Demand Equipment Repairer Triage Nurse Subject: Irregular Bleeding Caller's name: Elodia Lin Call back #: [phone] Patient's provider/team: Felisha Reason for call: Irregular bleeding 10 days documented in this encounter Plan of Treatment Upcoming Encounters Date Type Department Care Team (Late st Contact Info) Description 10/20/2024 9:00 AM EST Office Visit Hematology [place] [address] Lacy Jameson MD [facility] [address] [place] [address] Layla Jo, RN documented as of this encounter Visit Diagnoses Not on filedocumented in this encounter Care Teams Premium Cancellation Clerk Relationship Specialty Start Date End Date Clayton Johnson DNP PCP - General Family Medicine 07/07/19 04/15/23 documented as of this encounter
--- OUTSIDE RECORDS SUMMARY | 2024-08-10 15:57 | XMS_ITS | Encounter Summary ---
[place] [address] Care Team Providers Care Architectural Project Captain Name Role Phone Clayton Johnson DNP Primary Care Provider Encounter Details Date Type Department Care Team (Late st Contact Info) Description 10/15/2021 Notes Only Obstetrics [place] [phone] Ginger Campbell, RN Social History Tobacco Use Types Packs/Day Years Used Date Smoking Tobacco: Never Smokeless Tobacco: Never Alcohol Use Standard Drinks/Week Comments No 0 (1 standard drink = 0.6 oz pur e alcohol) Sex and Gender Information Value Date Recorded Sex Assigned at Not on file Gender Identity Not on file Sexual Orientation Not on file documented as of this encounter Progress Notes * Ginger Coleman - 10/15/2021 4:21 PM EST Called patient's insurance company. Pharmacy benefit- $945.56 with a Lupron copay card, which saved her $250. (It is a speciality non-preferred, so the patient needs to pay 50%) Medical Benefit- submitted a prior auth medical benefit through [place] [employer] (needs to be administered in providers office), J code: J1950, Reference #[id number], should expect a response in 24 hrs (#[phone]). Patient currently has met her $3000 family plan deductible, this should be $0 outof pocket for the patient. Called [employer] to confirm this can be Buy and Bill, but they were unaware of the process. Will continue to follow-up with the Buy and Bill process with the pharmacy. documented in this encounter Plan of Treatment Upcoming Encounters Date Type Department Care Team (Late st Contact Info) Description 10/20/2024 9:00 AM EST Office Visit Hematology [place] [address] Lacy Jameson MD [facility] DR [place] [address] Layla Jo, RN documented as of this encounter Visit Diagnoses Not on filedocumented in this encounter Care Teams Architectural Project Captain Relationship Specialty Start Date End Date Clayton Johnson DNP PCP - General Family Medicine 07/07/19 04/15/23 documented as of this encounter
--- OUTSIDE RECORDS SUMMARY | 2024-08-10 15:57 | XMS_ITS | Encounter Summary ---
[place] [address] Care Team Providers Care Batch Tester Name Role Phone Clayton Johnson JOHN Primary Care Provider Encounter Details Date Type Department Care Team (Late st Contact Info) Description 07/21/2021 Telephone Obstetrics [place] [phone] Nikki Olivera, RN Social History Tobacco Use Types Packs/Day [...] encounter Miscellaneous Notes * Telephone Encounter - Nikki Olivera, RN - 07/21/2021 12:34 PM EDT Returned pts call, No answer asked her to call me back at [phone] * Telephone Encounter - Nikki Olivera, RN - 07/21/2021 12:33 PM EDT ----- Message from Marilin Connolly RN sent at 07/21/2021 11:49 AM EDT ----- Regarding: FW: Bleeding / Cramping ----- Message ----- From: Jasmine Lang Sent: 07/21/2021 10:33 AM EDT To: [facility] Wrapper Cashier Triage Nurse Subject: Bleeding / Cramping Caller's name: Elodia Lin Call back #: [phone] Patient's provider/team: Jeronimo Sevilla Reason for call: Bleeding and cramping documented in this encounter Plan of Treatment Upcoming Encounters Date Type Department Care Team (Late st Contact Info) Description 10/20/2024 9:00 AM EST Office Visit [place]ematology [place] [address] Lacy Jameson MD [facility] [address] [place] [address] Layla Jo RN documented as of this encounter Visit Diagnoses Not on filedocumented in this encounter Care Teams Batch Tester Relationship Specialty Start Date End Date Clayton Johnson DNP PCP - General Family Medicine 07/07/19 04/15/23 documented as of this encounter
--- OUTSIDE RECORDS SUMMARY | 2024-08-10 15:57 | XMS_ITS | Encounter Summary ---
Author Organization [facility] Address [facility] [place] [address] Care Team Providers Care Slot Operations Manager Name Role Phone Clayton Johnson JOHN Primary Care Provider [phone] Encounter Details Date Type Department Care Team (Late st Contact Info) Description 10/31/2021 [place] [address] Lacy Jameson MD [facility] DR [place] [address] Social History Tobacco Use Types Packs/Day Years [...] Progress Notes * Lacy Jameson MD - 10/31/2021 2:48 PM EST Images from the original note were not included. [facility] [place] [address] 10/31/2021 HEMOPHILIA SERVICE Elodia has a history of iron deficiency anemia due to menstrual blood loss. She was treated with two doses of IV iron earlier this year. She presents today to begin lupron injections for menses regulation. Follow up lab studies today show the following: Results for ELODIA LIN ( ) as of 10/31/2021 14:49 Ref. Range 10/31/2021 10:51 WBC Latest Ref Range: 4.0 - 9.5 x10(3)/mcL 8.4 RBC Latest Ref Range: 4.00 - 5.21 x10(6)/mcL 5.08 Hemoglobin Latest Ref Range: 11.7 - 15.5 g/dL 12.7 Hematocrit Latest Ref Range: 35.7 - 45.8 % 40.0 MCV Latest Ref Range: 82.6 - 94.4 fL 78.7 (L) MCH Latest Ref Range: 27.1 - 32.0 pg 25.0 (L) MCHC Latest Ref Range: 31.7 - 35.0 g/dL 31.8 RDWSD Latest Ref Range: 37.0 - 46.0 fL 50.2 (H) RDWCV Latest Ref Range: 11.5 - 14.1 % 17.3 (H) Platelets Latest Ref Range: 145 - 357 x10(3)/mcL 386 (H) MPV Latest Ref Range: 7.6 - 12.9 fL 10.1 nRBC % Auto Latest Units: % 0.0 nRBC Abs Auto Latest Ref Range: 0.000 - 0.000 x10(3)/mcL 0.000 Neutr Abs (ANC) Latest Ref Range: 1.70 - 6.10 x10(3)/mcL 6.17 (H) Neutrophils % Latest Units: % 74.0 Immature Gran % Latest Units: % 0.20 Lymphocytes % Latest Units: % 17.5 Monocytes % Latest Units: % 6.3 Eosinophils % Latest Units: % 1.2 Basophils % Latest Units: % 0.8 Lulu Gran Abs Latest Ref Range: 0.00 - 0.04 x10(3)/mcL 0.02 Lymphocytes Abs Latest Ref Range: 0.9 - 3.2 x10(3)/mcL 1.5 Monocyte Abs Latest Ref Range: 0.3 - 0.9 x10(3)/mcL 0.5 Eosinophils Abs Latest Ref Range: 0.0 - 0.4 x10(3)/mcL 0.1 Basophils Abs Latest Ref Range: 0.0 - 0.1 x10(3)/mcL 0.1 Iron Latest Ref Range: 30 - 150 mcg/dL 36 TIBC Latest Ref Range: 250 - 450 mcg/dL 467 (H) Iron Saturation Latest Ref Range: 20 - 50 % 8 (L) Ferritin Latest Ref Range: 30 - 400 ng/mL 8 (L) Impression: Robust H/H with no anemia, but storage iron is low. Plan: Restart once daily oral iron supplementation. Follow up CBC and iron studies in 3 months. Lacy Jameson MD Twisting Machine Operator, [facility] documented in this encounter Plan of Treatment Upcoming Encounters Date Type Department Care Team (Late st Contact Info) Description 10/20/2024 9:00 AM EST Office Visit Hematology [place] [address] Lacy Jameson MD [facility] [address] [place] [address] Layla Jo, RN documented as of this encounter Visit Diagnoses Not on filedocumented in this encounter Care Teams Slot Operations Manager Relationship Specialty Start Date End Date Clayton Johnson DNP PCP - General Family Medicine 07/07/19 04/15/23 documented as of this encounter
--- OUTSIDE RECORDS SUMMARY | 2024-08-10 15:57 | XMS_ITS | Encounter Summary ---
Author Organization [facility] [place] [address] Care Team Providers Care Production Corrugator Name Role Phone Clayton Johnson JOHN Primary Care Provider [phone] Reason for Visit * Reason Comments Vaginal Bleeding Encounter Details Date Type Department Care Team (Late st Contact Info) Description 06/15/2021 12:12 PM EDT - 06/15/2021 4:41 PM EDT [place] [address] Deisy Curtis MD [facility] [address] [place] [address] Rocio Gutierrez MD [facility] [place] [address] Vaginal bleeding Discharge Disposition: Home Social History Tobacco Use [...] Sign Reading Time Taken Comments Blood Pressure 114/73 06/15/2021 3:30 PM EDT Pulse 61 06/15/2021 3:30 PM EDT Temperature 36.2 ??C (97.2 ??F) 06/15/2021 12:08 PM E DT Respiratory Rate 13 06/15/2021 3:30 PM EDT Oxygen Saturation 98% 06/15/2021 3:30 PM EDT Inhaled Oxygen Concentration - - Weight 95.7 kg (211 lb) 06/15/2021 12:08 PM EDT Height 157.5 cm (5' 2) 06/15/2021 12:08 PM EDT Body Mass Index 38.59 06/15/2021 12:08 PM EDT documented in this encounter Discharge Instructions * Discharge Instructions* Michelle Saavedra MD - 06/15/2021 8:28 PM EDT You were seen in the ED for your vaginal bleeding. Our testing does not reveal an emergent cause. Your hemoglobin test is within a normal range and does not require transfusion. You should follow up with your BOBJ DEVELOPER, Cutting Supervisor. Take oral agestin 5 mg four times a day. You will then decrease your aygestin to three times per day on Wednesday this week for another 7 days and then decrease to twice daily for another 7 days and then once daily for the last 7 days. We will transition you to your birthcontrol pills for better bleeding control during this tapering process. Return to ED for worsening symptoms or concerns. * Attachments The following attachments cannot be sent through Care Everywhere. * AUB (Abnormal Uterine Bleeding) (Korean) documented in this encounter Medications at Time [...] mg Tablet Take 1 tablet by mouth 4 times daily. 90 tablet 06/15/2021 09/30/2021 norethindrone (Aygestin) 5 mg Tablet Take 1 tablet by mouth daily. 90 tablet 3 06/15/2021 12/14/2021 Acetylcysteine 600 mg Capsule TAKE 2 CAPSULES [...] 02/26/2015 09/30/2021 documented as of this encounter ED Notes * Rocio Gutierrez MD - 06/15/2021 4:41 PM EDT ED Attending Note Patient received in signout from Dr. Curtis, 51-year-old female with vaginal bleeding and von Willebrand's disease, evaluated by hematology and BOBJ DEVELOPER. Patient prescribed Aygestin by SOFTWARE TEST SPECIALIST, and antihemophilic factor VIII ordered as per hematology. Patient deemed appropriate for discharge by hematologyand SOFTWARE TEST SPECIALIST. Did this case involve critical care? No Rocio Gutierrez MD 06/15/21 2331 * Michelle Saavedra MD - 06/15/2021 3:56 PM EDT ED RESIDENT FOLLOW-UP NOTE: Time of transfer of care: 1500 Care transferred from: Roxienatasha Yang, MS IV Condition at time of transfer: stable Clinical Summary: 51 y.o. old female in the process of being evaluated for vaginal bleeding. Pleasesee Charlene Yang' notes for initial evaluation, assessment and plan. MDM: ED Course as of Jun 15 155 Sun Jun 15, 2021 1500 51F p/w 16d of vag bleeding. Worsened since endometrial biopsy on Wed. Hx of VWD. Followed by Heme, Tool Procurement Coordinator. Both aware she is here. Should get norethindrone, factor 8. Heme is following, dont need updates. Tool Procurement Coordinator will be down to see patient. Likely discharge home. HDS. Hb 11.9. -Follow Heme, Tool Procurement Coordinator recs Final impression: Vaginal bleeding 2/2 von Willebrand disease Patient was started on Aygestin taper per Tool Procurement Coordinator and given one dose of Humate P 2000U. Patient will receive outpatient follow-up with Heme and Tool Procurement Coordinator. Vitals HDS at discharge. Final disposition: Discharge home Return precautions were verbally discussed and written in discharge instructions. The patient and/or family expressed understanding that they could come back to the ED at any time and agreed to the follow-up plan. Michelle Saavedra MD Resident 06/15/21 0938 * Marnie Odonnell RN - 06/15/2021 3:37 PM EDT meds given, pt with no reaction to VIII, plan to monitor for 30 min, pt to be given cleaning products/tampon, meds to be called into [facility], pt updated to plan of care. * Marnie Odonnell RN - 06/15/2021 2:45 PM EDT OBGYN into see pt, pediatric oncologist vaginal exam performed, will cont to monitor. * Marnie Odonnell RN - 06/15/2021 2:41 PM EDT Verified with lab that all Coag panels being run prior to Humate infusion, will send for med from [facility] when ready. * Marnie Odonnell RN - 06/15/2021 2:39 PM EDT Jacinta from Hematology called, plan for Humate, her home phone if issues is [phone], make sureWWF VIII is pulled prior to administration, will coord with lab. * Marnie Odonnell RN - 06/15/2021 2:25 PM EDT New orders for med and new labs, to be consulted by OBGYN and Hem. * Marnie Odonnell RN - 06/15/2021 1:08 PM EDT Labs sent, MD updated, plan for pelvic, pt on gynie bed. * Marnie Odonnell RN - 06/15/2021 12:31 PM EDT Pt placed on monitors, extra large tampon removed after recent insertion, large amount of blood/clot, pt endorses dizziness, not tachycardic and BP WNL, pt alert and oriented, PWD, no palor or diaphoresis noted, call kellogg in reach, Dr Curtis aware, fundus tender to palpation (feels weird per pt), onpalpation small trickle noted from vagina, new pad in place, large IV placed, labs obtained, VBG sent, await lab orders. documented in this encounter Miscellaneous Notes * Consult Note - Julia Rizvi MD - 06/15/2021 4:41 PM EDT Gynecology Service - Consultation Note Date of Consultation: 06/15/2021 Consult Service: Gynecology Consult Service Responsible Attending: Dr. Rizvi Place of Service: Emergency Department Reason for Consult: We are seeing Elodia Lin at the request of Charlene Yang, MS- [address] Michelle Saavedra of the ED service for the evaluation of vaginal bleeding. I have reviewed the available records, interviewed, and examined the patient. History of Present Illness: Elodia Lin is a 51 y.o. female with PMHx significant for vWF type 2A, who presents withheavy vaginal bleeding. She reports that she had an EMB in the office on 06/13, after learning from her US of her septate uterus. She reports having a discussion to start COCPs to decrease her bleeding, but never received the medications at her pharmacy. She reports her bleeding increased, from filling a supermax tampon every 1.5 hours to every 30 minutes. She also noticed increased volume of clots. She had recently received Humate-P via Hematology on 06/13 and completed 3 days of TXA from 06/09-06/11, 1300 mg TID, and had also called her Cutting Supervisor when this bleeding volume increased. They roderick mmended calling her BOBJ DEVELOPER to decide on a medication regimen to address her heavy bleeding. Given her heavy bleeding, increase in volume, her fatigue, lightheadedness, and her own concern with the increase in volume in the setting of her vWF type 2A, we recommended that she come to the ED to be evaluated and to be assessed for potential infusion of Humate P versus a blood transfusion. She agreed andpresented today. She denies changes in appetite, fevers, abnormal vaginal discharge, chest pain, shortnss of breath, bloating, early satiety, emesis, nausea, change in bowel or bladder habits. Review of Systems: Negative to complete review except as per HPI Past OBGYN Hx: Patient is s/p BTL for contraception. Was on OCP for many years before of her son, then DMP. Back on OCPs after of daughter. Had Mirena IUD for a couple of months, taken out due to significant pain. ?? 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 Pap UTD 12/2020 NILM, HPV neg. STI: no BOBJ DEVELOPER surgeries: LTCS x3, D&C, BTL Sexually active: yes - has fianc??, taking a break from sexual intimacy, happy relationship, deniespostcoital bleeding. FHx cancer: Breast (PGM postmenopausal), colon (MGF) Past Medical and Surgical History: Past Medical History: Diagnosis Date ??? Abnormal [...] DELIVERY performed by Clint Orlando MD at [facility] ??? PRO COLONOSCOPY, BIOPSY N/A 03/11/2015 COLONOSCOPY FLEXIBLE, WITH BX performed by Alida Mahmood MD at [facility] ??? PRO COLONOSCOPY, DIAGNOSTIC N/A 03/17/2021 COLONOSCOPY, DIAGNOSTIC performed by Sherrill Miner MD at [facility] ??? PRO COLONOSCOPY, REMV LESN, SNARE N/A 03/11/2015 COLONOSCOPY, POLYPECTOMY, REMOVAL LESION BY SNARE performed by Alida Mahmood MD at [facility] ??? PRO LIGATE FALLOPIAN TUBE, 04/26/2013 @FALLOPIAN TUBE(S), TRANSECTION OR LIGATION, ABD APPROACH, POST- performed by Clint Orlando MD at [facility] Medications: No current facility-administered medications for this encounter. Current Outpatient Medications: ??? norethindrone-ethinyl estradiol-iron (MICROGESTIN FE1.5/30) 1.5 mg-30 mcg (21)/75 mg (7) Tablet, Take 1 tablet by mouth daily., Disp: 84 tablet, Rfl: 3 ??? norethindrone (Aygestin) 5 mg Tablet, Take 1 tablet by mouth 4 times daily., Disp: 90 tablet, Rfl: 0 ??? norethindrone (Aygestin) 5 mg Tablet, Take 1 tablet by mouth daily., Disp: 90 tablet, Rfl: 3 ??? Acetylcysteine 600 mg Capsule, TAKE 2 CAPSULES BY MOUTH IN THE MORNING AND AN ADDITIONAL 1 2 CAPSULES IN THE AFTERNOON NEEDED FOR MOOD, Disp: , Rfl: ??? Tranexamic Acid 650 mg Tablet, Take 2 tabs 3 times daily for first 3 days of menstrual period.,Disp: 54 tablet, Rfl: 1 ??? ferrous sulfate 325 mg (65 mg iron) Tablet, Take one tab by mouth every other day., Disp: 90 tablet, Rfl: 3 ??? acetaminophen (TYLENOL) 500 mg Tablet, Take 1,000 mg by mouth every 6 hours as needed for Pain., Disp: , Rfl: ??? pseudoephedrine (SUDAFED) 30 mg Tablet, Take 30 mg by mouth every 4 hours as needed for Congestion., Disp: , Rfl: ??? rizatriptan (MAXALT) 10 mg Tablet, Take 10 mg by mouth as needed. PRN for Migranes, Disp: , Rfl: ??? venlafaxine (EFFEXOR-XR) 150 mg Capsule, Sust. Release 24 hr, Take 1 capsule by mouth daily. (Patient taking differently: Take 75 mg by mouth daily.), Disp: 30 capsule, Rfl: 0 Prior To Admission Medications: (Not in a hospital admission) Allergies: Allergies Allergen Reactions ??? Adhesive Bandage Rash Blistering rash with tegederm ??? Codeine Percocet is ok ??? Durapore Cloth Surgical Tape [Adhesive Tape] Hives Family History: Family History Problem Relation Age of Onset ??? Cancer Maternal Grandmother 70 ??? Heart Disease Maternal Grandfather ??? Colorectal Cancer Maternal Grandfather ??? Breast Cancer Paternal Grandmother 70 ??? Cancer Paternal Grandfather ??? Ovarian Cancer Neg Hx Social History and Habits: Social History Socioeconomic History ??? Marital status: Spouse name: August Lin ??? Number of children: 2 ??? Years of education: 18 ??? Highest education level: Not on file Occupational History ??? 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 Smoking status: Never Smoker ??? Smokeless tobacco: Never Used Vaping Use ??? Vaping Use: Never used Substance and Sexual Activity ??? Alcohol use: No ??? Drug use: No ??? Sexual activity: Yes Partners: Male Other Topics Concern ??? Not on file Social History Narrative ??? Not on file Social Determinants of Health Financial Resource Strain: ??? Difficulty of Paying Living Expenses: Food Insecurity: ??? Worried About Running Out of Food in the Last Year: ??? Ran Out of Food in the Last Year: Transportation Needs: ??? Lack of Transportation (Medical): ??? Lack of Transportation (Non-Medical): Physical Activity: ??? Days of Exercise per Week: ??? Minutes of Exercise per Session: Occupation: Social History Social History Narrative ??? Not on file Physical Exam: Last set of vitals and range over past 24 hours: Last value Range last 24 hrs Temperature Temp: 36.2 ??C (97.2 ??F) Temp: [36.2 ??C (97.2 ??F)] Heart Rate Heart Rate: 61 Heart Rate: [58-67] Blood Pressure BP: 114/73 BP: (107-141)/(62-88) Respiratory Rate Resp: 13 Resp: [9-24] SpO2 SpO2: 98 % SpO2: [97 %-100 %] Gen: AAOx3, NAD, appears very well dressed and groomed, very pleasant Card: RRR, nl S1, S2 Resp: CTAB Abd: soft, NT, ND, no masses Pelvic exam: anteverted uterus, no adnexal masses palpated, no CMT elicited, normal sized, mobile uterus, dark blood in posterior vault, cervix appears closed. No active hemorrhage noted. Ext: warm, well-perfused Pertinent Labs and Imaging: Recent Labs 06/15/21 1306 WBC 7.5 RBC 4.04 HGB 11.9 HCT 36.5 MCV 90.3 MCH 29.5 MCHC 32.6 PLATELET 365* RDWCV 13.2 Assessment: Elodia Lin is a 51 y.o. Female with perimenopausal AUB, with 16d of heavy vaginal bleeding, in the setting of vWF type 2A after an EMB. No active hemorrhage noted, hemoglobin WNL, with normal VS.Given her hemodynamic stability, no immediate intervention recommended. Given one dose of Aygestin in the ER. Recommendations: ---Recommend curbsiding Heme if she is a candidate for Humate-P again. --recommended Aygestin taper, sent to [facility] --recommended follow up in clinic at the end of this week to assess bleeding, message sent to secretaries --precautions and reasons to call back reviewed D/W Dr. Rizvi, Attending School Director. Recommendations are above, please page if further consultation required. Shari Gilmore MD PGY-4 06/15/2021 Gynecology Service Pager #[phone] * Med Student Progress Note - Charlene Yang - 06/15/2021 2:01 PM EDT ED Resident Note HPI Elodia Lin is a 51 y.o. female w/ Hx of type 2A vWDz and irregular perimenopausal bleeding who presents to the ED with 16d of vaginal bleeding. Pt reports vaginal bleeding for the past 16 days that increased in volume after she had an endometrial biopsy on Wednesday (06/13/21). Since Wednesday she reports passing clots and saturating a supermax tampon every hour, increased from her prior rate of bleeding. She reports some lightheadedness even while lying supine. Endorses weird crampy feeling in suprapubic area, but denies that this is truly pain. She was recently seen in Tool Procurement Coordinator clinic and found to have a septate uterus and subsequently prescribed OCPs as she was not a candidate for IUD, however has not yet picked-up this prescription. She received an infusion of Humate-P last week and recently took 3d of TXA from 06/09-14, 1300 mg 3xdaily. Denies fever, chills, N/V/D, chest pain, cough, SOB, headache, abdominal pain, numbness or tinglingin extremities. Denies abnormal vaginal discharge or other concerns. Patient was seen under the supervision of an attending physician. Review of Systems: Pertinent positives and negatives are included in the history of present illness, otherwise >10 systems were reviewed and negative. PMH, PSH, Medications, Allergies and Social History were reviewed in the chart. Exam: Temp: [36.2 ??C (97.2 ??F)] Heart Rate: [58-65] Resp: [9-24] BP: (117-141)/(62-88) SpO2: [97 %-100 %] Heart Rate from SpO2: -- Physical Exam Exam conducted with a pediatric oncologist present. Constitutional: General: She is not in acute distress. Appearance: Normal appearance. HENT: Head: Normocephalic and atraumatic. Eyes: Extraocular Movements: Extraocular movements intact. Pupils: Pupils are equal, round, and reactive to light. Cardiovascular: Rate and Rhythm: Normal rate and regular rhythm. Pulmonary: Effort: No respiratory distress. Breath sounds: Normal breath sounds. Abdominal: General: Abdomen is flat. There is no distension. Palpations: Abdomen is soft. There is no mass. Tenderness: There is no guarding or rebound. Genitourinary: Exam position: Lithotomy position. Pubic Area: No rash. Labia: Right: No rash or tenderness. Left: No rash or tenderness. Vagina: Normal. Cervix: No cervical motion tenderness or discharge. Uterus: Tender. Comments: Mild fundal tenderness. Small volume pooling blood in vaginal vault, no clots. No visualized areas of active bleeding. Skin: General: Skin is warm and dry. Neurological: Mental Status: She is alert and oriented to person, place, and time. I have reviewed labs and imaging and they are significant for: Labs Reviewed HEPATIC FUNCTION PANEL - Abnormal; Notable for the following components: Result Value Alk Phos 119 (*) All other components within normal limits HEMOGRAM - Abnormal; Notable for the following components: Platelets 365 (*) All other components within normal limits REQUEST FOR BLOOD GAS DRAW CBC (WITH DIFF) BASIC METABOLIC PANEL (NON-FASTING) DIFFERENTIAL, AUTOMATED BLUE TUBE HOLD GOLD TUBE HOLD BLOOD GAS 2 VENOUS No orders to display Medications norethindrone (Aygestin) tablet 5 mg (has no administration in time range) Assessment and Plan: 51 y.o. female w/ t2A vWD presenting with lightheadedness and increased vaginal bleeding s/p endometrial biopsy. Since being in the ED pt has been hemodynamically stable with Hgb of 11.9 and otherwise reassuring CBC, BMP, LFTs. Pelvic exam demonstrated some pooling blood but no areas of brisk bleeding visualized. Gynecology has been following and recommended starting a course of Aygestin 5mg 4x daily. Pt received first dose Aygestin 5mg in the ED. Tool Procurement Coordinator to see pt. Heme updated on pt status and recommended labs: vWF activity and Ag level, and coags. Also plan to administer Humate-P (antihemophilic factor VIII). Pt signed out to oncoming team. Anticipate dispo home pending lab results, Technology Infusion Specialist and Heme recommendations. Return precautions were verbally discussed and written in discharge instructions. The patient and/or family expressed understanding that they could come back to the ED at any time and agreed to the follow-up plan. * ED Triage - Rita Mann RN - 06/15/2021 12:09 PM EDT Patient reports day 16 of vaginal bleeding. Called OB and was instructed to come to the ED. A&Ox4, resp even and non labored, skin p/w/d. NAD at this time. Reports 01/08 abdominal discomfort, denies dizziness. HPI (Adult) Stated Reason for Visit: vaginal bleeding History Obtained From: patient documented in this encounter Plan of Treatment Upcoming Encounters Date Type Department Care Team (Late st Contact Info) Description 10/20/2024 9:00 AM EST Office Visit Hematology [place] [address] Lacy Jameson MD [facility] [address] HEMATOLOGY [place] [address] Layla Jo RN documented as of this encounter Procedures Procedure Name Priority Date/Time Associated Diagnosis Comments PREPARE COAGULATION FACTORS (HEMOPHILIA) STAT 06/15/2021 3:00 PM EDT HEMOGRAM STAT 06/15/2021 1:06 PM EDT DIFFERENTIAL, AUTOMATED STAT 06/15/2021 1:06 PM EDT GOLD TUBE HOLD STAT 06/15/2021 1:06 PM EDT BLUE TUBE HOLD STAT 06/15/2021 1:06 PM EDT VON WILLEBRAND FACTOR ANTIGEN STAT 06/15/2021 1:06 PM EDT VON WILLEBRAND FACTOR ACTIVITY STAT 06/15/2021 1:06 PM EDT APTT STAT 06/15/2021 1:06 PM EDT THROMBIN TIME STAT 06/15/2021 1:06 PM EDT PROTHROMBIN TIME STAT 06/15/2021 1:06 PM EDT FIBRINOGEN STAT 06/15/2021 1:06 PM EDT HC CBC,PLT & AUTO DIFF STAT 06/15/2021 1:06 PM EDT HEPATIC FUNCTION PANEL STAT 06/15/2021 1:06 PM EDT BASIC METABOLIC PANEL STAT 06/15/2021 1:06 PM EDT EKG 12-LEAD STAT 06/15/2021 12:43 PM EDT BLOOD GAS VENOUS POC Routine 06/15/2021 12:32 PM EDT documented in this encounter Results * Prepare Coagulation Factors (Hemophilia) (06/15/2021 3:00 PM EDT) Pathologist [facility] Dispensed? Yes [facility] Blood 06/15/2021 3:00 PM EDT 06/15/2021 2:56 PM EDT Lisa Love MD BLOOD BANK PRODUCT O RDERABLES [facility] [place] [address] * Fibrinogen (06/15/2021 1:06 PM EDT) Fibrinogen 332 200 - 393 mg/dL [facility] Comment: A fibrinogen level >100 mg/dL is adequate for hemostasis in most patients without underlying bleeding disorders. Blood Venous Draw / Unknown 06/15/2021 1:06 PM EDT 06/15/2021 1:19 PM EDT Narrative Resulting Agency Comment Spec In Lab Deisy Curtis MD HEMATOLOGY ORDERABLE S [facility] [place] [address] * Von Willebrand Factor Antigen (06/15/2021 1:06 PM EDT) von Willebrand Factor Antigen 66 % [facility] Comment: The presence of Rheumatoid Factor may produce an overestimation of the test results. vWF Anti Interp ABO blood group has a significant influence on vWF:Ag levels in normal individuals. Type A, type B, and type AB have a range of 66 - 176%. [facility] Blood Venous Draw / Unknown 06/15/2021 1:06 PM EDT 06/15/2021 2:29 PM EDT Narrative Resulting Agency Comment Spec In Lab Deisy Curtis MD HEMATOLOGY ORDERABLE S Performing Organization Address [facility]/ZIP Co de Phone Number [facility] [place] [address] * Von Willebrand Factor Activity (06/15/2021 1:06 PM EDT) Von Willebrand Factor Assay 31 % activity [facility] vWF Act Interp ??ABO blood group has a significant influence on vWF:Act levels in normal individuals. Type A, type B and type AB have a range of 49 ? 163%. [facility] Blood Venous Draw / Unknown 06/15/2021 1:06 PM EDT 06/15/2021 2:29 PM EDT Narrative Resulting Agency Comment Spec In Lab Deisy Curtis MD HEMATOLOGY ORDERABLE S [facility] [place] [address] * Thrombin time (06/15/2021 1:06 PM EDT) Thrombin Time 15 10 - 17 sec [facility] Comment: Specimen drawn more than one hour prior to testing. Results may not be reliable for heparin monitoring. Result may be falsely low. A prolongation in the thrombin time (>20 seconds) may be indicative of hypofibrinogenemia or dysfibrinogenemia. The thrombin time will be prolonged, often markedly so, by the presence of heparin or direct thrombin inhibitors (argatroban, bivalirudin, dabigatran) in the specimen. Blood Venous Draw / Unknown 06/15/2021 1:06 PM EDT 06/15/2021 1:19 PM EDT Narrative Resulting Agency Comment Spec In Lab Deisy Curtis MD HEMATOLOGY ORDERABLE S Performing Organization Address [facility] de Phone Number [facility] [place] [address] * Prothrombin Time (06/15/2021 1:06 PM EDT) [facility] Prothrombin Time 10.7 9.4 - 12.5 sec [facility] International Normalization Ratio 0.9 [facility] Comment: An INR <2.0 indicates adequate procoagulant activity for hemostasis in most patients without underlying bleeding disorders, though the INR may not adequately reflect hemostatic capacity in patients with liver disease and synthetic impairment. The recommended target INR range for therapeutic anticoagulation is 2.0 ? 3.0 for most applications, though lower and higher ranges may be appropriate depending on clinical circumstances. Blood Venous Draw / Unknown 06/15/2021 1:06 PM EDT 06/15/2021 1:19 PM EDT Narrative Resulting Agency Comment Spec In Lab Deisy Curtis MD HEMATOLOGY ORDERABLE S Performing Organization Address [facility] Co de Phone Number [facility] [place] [address] * APTT (06/15/2021 1:06 PM EDT) Pathologist [facility] Partial Thromboplastin Time 36 25 - 37 sec [facility] Comment: The PTT is NOT appropriate for heparin monitoring. Use the Anti-Xa level for heparin monitoring (HEP UFH) or LMWH monitoring (HEP LMW). A PTT less than 37 seconds generally indicates adequate hemostasis. Blood Venous Draw / Unknown 06/15/2021 1:06 PM EDT 06/15/2021 1:19 PM EDT Narrative Resulting Agency Comment Spec In Lab Deisy Curtis MD HEMATOLOGY ORDERABLE S Performing Organization Address [facility]/ZIP Co de Phone Number [facility] [place] [address] * Gold Tube HOLD (06/15/2021 1:06 PM EDT) Gold Hold Sample in lab. [facility] Blood Venous Draw / Unknown 06/15/2021 1:06 PM EDT 06/15/2021 1:19 PM EDT Deisy Curtis MD CHEMISTRY ORDERABLES Performing Organization Address [facility] Co de Phone Number [facility] [place] [address] * Blue Tube HOLD (06/15/2021 1:06 PM EDT) Blue Hold Sample in lab. [facility] Blood Venous Draw / Unknown 06/15/2021 1:06 PM EDT 06/15/2021 1:19 PM EDT Deisy Curtis MD HEMATOLOGY ORDERABLE S Performing Organization Address [facility]/ZIP Co de Phone Number [facility] [place] [address] * Differential, Automated (06/15/2021 1:06 PM EDT) Neutrophil % 65.9 % [facility] Neutrophil Absolute 4.93 1.70 - 6.10 x10(3)/mcL [facility] Lymph % 24.2 % [facility] Lymphocytes Abs 1.8 0.9 - 3.2 x10(3)/[facility] Monocyte % 7.6 % [facility] Monocyte Abs 0.6 0.3 - 0.9 x10(3)/[facility] Eos % 1.2 % [facility] Eosinophils Abs 0.1 0.0 - 0.4 x10(3)/[facility] Basophil % 0.8 % [facility] Baso Absolute 0.1 0.0 - 0.1 x10(3)/[facility] Immature Gran % 0.30 % [facility] Comment: Immature granulocytes(IG's)percentage and absolute count will include metamyelocytes, myelocytes, and promyelocytes. Blood smears from CBCs yielding IG's will be scanned manually for concordance. If this scan disagrees with the automated IG or if promyelocytes are noted, a manual differential will be performed. Immature Gran Absolute 0.02 0.00 - 0.04 x10(3)/[facility] Blood 06/15/2021 1:06 PM EDT 06/15/2021 1:17 PM EDT Narrative Resulting Agency Comment Spec In Lab Deisy Curtis MD HEMATOLOGY ORDERABLE S [facility] [place] [address] * (ABNORMAL) Hemogram (06/15/2021 1:06 PM EDT) White Blood Cell 7.5 4.0 - 9.5 x10(3)/mc L [facility] Red Blood Cell 4.04 4.00 - 5.21 x10(6)/mc L [facility] Hemoglobin 11.9 11.7 - 15.5 gm/dL [facility] Hematocrit 36.5 35.7 - 45.8 % [facility] Mean Cell Volume 90.3 82.6 - 94.4 fL [facility] Mean Cell Hemoglobin 29.5 27.1 - 32.0 pg [facility] Mean Cell Hemoglobin Concentration 32.6 31.7 - 35.0 gm/dL [facility] Platelet 365(H) 145 - 357 x10(3)/mc L [facility] RDW Standard Deviation 43.3 37.0 - 46.0 fL [facility] RDW coefficient of variation 13.2 11.5 - 14.1 % [facility] Mean Platelet Volume 10.6 7.6 - 12.9 fL [facility] NRBC% auto 0.0 % [facility] NRBC Absolute 0.000 0.000 - 0.000 x10(3)/mc L [facility] Blood 06/15/2021 1:06 PM EDT 06/15/2021 1:17 PM EDT Narrative Resulting Agency Comment Spec In Lab Deisy Crutis MD HEMATOLOGY ORDERABLE S [facility] [place] [address] * (ABNORMAL) Hepatic Function Panel (06/15/2021 1:06 PM EDT) Protein, Total 7.4 6.1 - 8.0 gm/dL [facility] Albumin 4.7 3.2 - 5.2 gm/dL [facility] Aspartate Aminotransferase 22 0 - 30 unit/L [facility] Alanine Aminotransferase 18 0 - 30 unit/L [facility] Alkaline Phosphatase 119(H) 35 - 105 unit/L [facility] Bilirubin, Total 0.5 0.2 - 1.3 mg/dL [facility] Bilirubin, Direct 0.1 0.0 - 0.3 mg/dL [facility] Blood 06/15/2021 1:06 PM EDT 06/15/2021 1:17 PM EDT Narrative Resulting Agency Comment Spec In Lab Deisy Curtis MD CHEMISTRY ORDERABLES [facility] [place] [address] * Basic Metabolic Panel (non-fasting) (06/15/2021 1:06 PM EDT) Glucose 91 65 - 199 mg/dL [facility] Comment:Diabetes: >=200 mg/d L plus symptoms Blood Urea Nitrogen 9 8 - 18 mg/dL [facility] Creatinine 0.85 0.70 - 1.20 mg/dL [facility] Sodium 136 135 - 145 mmol/L [facility] Potassium 3.8 3.5 - 5.0 mmol/L [facility] Comment: Please note: ??Patients with WBC >100,000 may have falsely elevated Potassium levels. ??For accurate Potassium quantification in these patients send serum separator tube (gold top) for subsequent determinations. ??Contact the Clinical Chemistry Laboratory if there are any questions. Chloride 99 98 - 107 mmol/L [facility] Carbon Dioxide 25 22 - 31 mmol/L [facility] Anion Gap 12 5 - 15 mmol/L [facility] Calcium 8.8 8.5 - 10.5 mg/dL [facility] Est Glomerular Filtration Rate 79 >=60 mL/min/1. 73 m?? [facility] Comment: This patient? s estimated glomerular [...] In Lab Deisy Curtis MD CHEMISTRY ORDERABLES Performing Organization Address City/[facility] Co de Phone Number [facility] [place] [address] * EKG 12 Lead (06/15/2021 12:43 PM EDT) Ventricular rate 60 BPM MUSE SYSTEM Atrial Rate 60 BPM MUSE SYSTEM P-R Interval 136 ms MUSE SYSTEM QRS Duration 88 ms MUSE SYSTEM Q-T Interval 428 ms MUSE SYSTEM QTC Calculated (Bezet) 428 ms MUSE SYSTEM Calculated P Alexander 25 degrees MUSE SYSTEM Calculated R Alexander 6 degrees MUSE SYSTEM Calculated T Alexander 37 degrees MUSE SYSTEM INTERPRETATION Normal sinus rhythm Normal ECG No previous ECGs available Confirmed by MD Tricia, Conrad ([id number]) on 06/15/2021 10:40:00 PM MUSE SYSTEM 06/15/2021 12:4 3 PM EDT 06/15/2021 10:40 PM EDT Deisy Curtis MD ECG ORDERABLES Performing Organization Address [facility] Co de Phone Number MUSE SYSTEM * (ABNORMAL) BLOOD GAS 2 VENOUS (06/15/2021 12:32 PM EDT) pH, Venous 7.36 7.32 - 7.42 [facility] PCO2, Venous 52(H) 41 - 51 mmHg [facility] PO2, Venous 31 25 - 40 mmHg [facility] Bicarbonate, Venous 29.0 mmol/L [facility] Base Excess, Venous 3.6 mmol/L [facility] Hgb Blood Gas 12.8 11.7 - 15.5 gm/dL [facility] Oxyhemoglobin, Venous 56.3 % [facility] Carboxyhemoglob in, Venous 1.0 % [facility] Comment: Nonsmokers: 0.5-1.5% COHB Smokers: Variable, but usually less than 10% Toxic: 20-30% COHB Lethal: Greater than 60% COHB Methemoglobin, Venous 0.4 <=1.5 % [facility] Na Whole Blood 137 135 - 145 mmol/L [facility] K Whole Blood 4.0 3.5 - 5.0 mmol/L [facility] Comment: Please note: Patients with WBC >100,000 may have falsely elevated Potassium levels. Contact the Clinical Chemistry Laboratory if there are any questions. ICa Whole Blood 1.15 1.15 - 1.33 mmol/L [facility] Comment: Note: ??Total bilirubin higher than 20 mg/dL may lead to falsely low ionized calcium. CL Whole Blood 99 98 - 107 mmol/L [facility] Gluc Whole Bld 99 65 - 199 mg/dL [facility] Comment:Diabetes: >=200 mg/d L plus symptoms Lactate WB 1.6 0.5 - 2.2 mmol/L [facility] Blood Gas Source Venous [facility] Blood 06/15/2021 12:3 2 PM EDT 06/15/2021 12:32 PM EDT Deisy Curtis MD POINT OF CARE TEST O RDERABLES [facility] [place] [address] documented in this encounter Visit Diagnoses Diagnosis Vaginal bleeding Other specified noninflammatory disorder of vagina documented in this encounter Administered Medications Inactive Administered Medications - up to 3 most recent administrations Medication Order MAR Action Action Date Dose Rate Site antihemophilic factor VIII (HUMATE P) IV Kit 2,053 Units 2,053 Units, Intravenous, ONCE, 1 dose, On 06/15/21 at 1500, Humate P is reviewed and issued by the [facility]. 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 Draw into syringe and give IV push over 1 to minutes. If questions about reconstitution or administration page hemophilia nurse on [phone]. Given 06/15/2021 3:00 PM EDT 2,053 Units norethindrone (Aygestin) tablet 5 mg 5 mg, Oral, DAILY, First dose on 06/15/21 at 1430, Until Discontinued, Routine Given 06/15/2021 3:22 PM EDT 5 mg documented in this encounter Active and Recently Administered Medications Times are shown in EDT. Scheduled Medication Order 06/13/2021 06/14/2021 06/15/2021 antihemophilic factor VIII (HUMATE P) IV Kit 2,053 Units (COMPLETED) 2,053 Units, Intravenous, ONCE, 1 dose, On 06/15/21 at 1500, Humate P is reviewed and issued by the [facility]. carpenter labor supervisor at the [facility] (1 kit 2053 units Humate P), reconstitute per package instructions, give a few minute to fully dissolve. Draw into syringe and give IV push over 1 to minutes. If questions about reconstitution or administration page hemophilia nurse on [phone] (Given - Provid er: Marnie Odonnell RN) norethindrone (Aygestin) tablet 5 mg 5 mg, Oral, DAILY, First dose on 06/15/21 at 1430, Until Discontinued, Routine 1522 (Given - Provid er: Marnie Odonnell RN) documented in this encounter Care Teams Production Corrugator Relationship Specialty Start Date End Date Clayton Johnson DNP PCP - General Family Medicine 07/07/19 04/15/23 documented as of this encounter
--- OUTSIDE RECORDS SUMMARY | 2024-08-10 15:57 | XMS_ITS | Encounter Summary ---
Author Organization [facility] [place] [address] Care Team Providers Care Nutrition Services Aide Name Role Phone Clayton Johnson DNP Primary Care Provider Encounter Details Date Type Department Care Team (Latest Contact Info) Description 03/17/2021 12:17 PM EDT - 03/17/2021 12:46 PM EDT Hospital Encounter Hematology [place] [phone] Iron deficiency anemia due to chronic blood [...] mouth as needed. PRN for Migranes 01/17/2015 Tranexamic Acid 650 mg Tablet Take 2 [...] EST Office Visit Hematology [place] [address] Lacy Jameson MD [facility] [address] [place] [address] Layla Jo RN documented as of this encounter Procedures Procedure Name Priority Date/Time Associated Diagnosis Comments SCAN, PERIPHERAL BLOOD Routine 03/17/2021 12:43 PM EDT HEMOGRAM Routine 03/17/2021 12:43 PM EDT Iron deficiency anemia due to chronic blood loss DIFFERENTIAL, AUTOMATED Routine 03/17/2021 12:43 PM EDT Iron deficiency anemia due to chronic blood loss HC IRON BINDING CAPACITY Routine 03/17/2021 12:43 PM EDT Iron deficiency anemia due to chronic blood loss HC CBC,PLT & AUTO DIFF Routine 03/17/2021 12:43 PM EDT Iron deficiency anemia due to chronic blood loss HC VENIPUNCTURE Routine 03/17/2021 12:43 PM EDT Iron deficiency anemia due to chronic blood loss documented in this encounter Results * Scan, Peripheral Blood (03/17/2021 12:43 PM EDT) Plat estimate Normal [facility] RBC Morphology Abnormal [facility] Microcyte gtr than 10 /HPF [facility] Hypochromia Slight [facility] Ovalocytes 1-5 /HPF [facility] Blood specimen (specimen) 03/17/2021 12:43 PM EDT 03/17/2021 1:04 PM EDT Narrative Resulting Agency Comment Spec In Lab Lacy Jameson MD HEMATOLOGY ORDERAB LES [facility] [place] [address] * Differential, Automated (03/17/2021 12:43 PM EDT) Neutrophil % 67.2 % [facility] Neutrophil Absolute 3.85 1.70 - 6.10 x10(3)/[facility] Lymph % 23.7 % [facility] Lymphocytes Abs 1.4 0.9 - 3.2 x10(3)/[facility] Monocyte % 6.3 % [facility] Monocyte Abs 0.4 0.3 - 0.9 x10(3)/[facility] Eos % 1.7 % [facility] Eosinophils Abs 0.1 0.0 - 0.4 x10(3)/[facility] Basophil % 0.9 % [facility] Baso Absolute 0.0 0.0 - 0.1 x10(3)/[facility] Immature Gran % 0.20 % [facility] Comment: Immature granulocytes(IG's)percentage and absolute count will include metamyelocytes, myelocytes, and promyelocytes. Blood smears from CBCs yielding IG's will be scanned manually for concordance. If this scan disagrees with the automated IG or if promyelocytes are noted, a manual differential will be performed. Immature Gran Absolute 0.01 0.00 - 0.04 x10(3)/[facility] Blood specimen (specimen) 03/17/2021 12:43 PM EDT 03/17/2021 1:04 PM EDT Narrative Resulting Agency Comment Spec In Lab Lacy Jameson MD HEMATOLOGY ORDERAB LES [facility] [place] [address] * (ABNORMAL) Hemogram (03/17/2021 12:43 PM EDT) White Blood Cell 5.7 4.0 - 9.5 x10(3)/[facility] Red Blood Cell 5.28(H) 4.00 - 5.21 x10(6)/[facility] Comment:Dimorphic RBC popula tion. Hemoglobin 13.0 11.7 - 15.5 gm/dL [facility] Hematocrit 42.1 35.7 - 45.8 % [facility] Mean Cell Volume 79.7(L) 82.6 - 94.4 fL [facility] Mean Cell Hemoglobin 24.6(L) 27.1 - 32.0 pg [facility] Mean Cell Hemoglobin Concentration 30.9(L) 31.7 - 35.0 gm/dL [facility] Platelet 290 145 - 357 x10(3)/[facility] RDW Standard Deviation Not Measured 37.0 - 46.0 [facility] RDW coefficient of variation Not Measured 11.5 - 14.1 % [facility] Mean Platelet Volume 10.1 7.6 - 12.9 [facility] NRBC% auto 0.0 % [facility] NRBC Absolute 0.000 0.000 - 0.000 x10(3)/[facility] Blood specimen (specimen) 03/17/2021 12:43 PM EDT 03/17/2021 1:04 PM EDT Narrative Resulting Agency Comment Spec In Lab Lacy Jameson MD HEMATOLOGY ORDERAB LES Performing Organization Address City/[facility]/ZIP Co de Phone Number [facility] [place] [address] * Iron and TIBC (03/17/2021 12:43 PM EDT) Iron 75 30 - 150 mcg/dL [facility] TIBC 264 250 - 450 mcg/dL [facility] Iron Saturation 28 20 - 50 % [facility] Blood specimen (specimen) 03/17/2021 12:43 PM EDT 03/17/2021 1:04 PM EDT Narrative Resulting Agency Comment Spec In Lab Lacy Jameson MD CHEMISTRY ORDERABL ES [facility] [place] [address] * Ferritin (03/17/2021 12:43 PM EDT) Ferritin 148 15 - 150 ng/mL [facility] Comment: Pediatric reference ranges not verified [place] [facility] [place] interpret with caution. Reference ranges for females greater than 50 years of age approach values for men, i.e., 30-400 ng/mL. Blood specimen (specimen) 03/17/2021 12:43 PM EDT 03/17/2021 1:04 PM EDT Narrative Resulting Agency Comment Spec In Lab Lacy Jameson MD CHEMISTRY ORDERABL ES [facility] [place] [address] documented in this encounter Visit Diagnoses Diagnosis Iron deficiency anemia due to chronic blood loss Iron deficiency anemia secondary to blood loss (chronic) documented in this encounter Care Teams Nutrition Services Aide Relationship Specialty Start Date End Date Clayton Johnson DNP PCP - General Family Medicine 07/07/19 04/15/23 documented as of this encounter
--- OUTSIDE RECORDS SUMMARY | 2024-08-10 15:57 | XMS_ITS | Encounter Summary ---
Author Organization [facility] Address [facility] [place] [address] Care Team Providers Care Electrochemist Name Role Phone Clayton Johnson DNP Primary Care Provider Reason for Visit * Auth/Cert Specialty Diagnoses / Procedures Referred By Patsy hernandez Referred To Contact Diagnoses Follow up 5 YR F/U FROM 03/11/15 pt with YAZMIN SAHU. pt needs HUMATE-P IN SAME DAY PER COLO, [place] [phone] WILL HELP WITH RX Procedures PRO COLONOSCOPY, DIAGNOSTIC COLONOSCOPY, DIAGNOSTIC Referral ID Status Reason Start Date Expiration Date Visits Re quested Visits Authorized [id number] 1 1 Encounter Details Date Type Department Care Team (Late st Contact Info) Description 03/17/2021 1:45 PM EDT - 03/17/2021 2:45 PM EDT Surgery [place] [address] Sherrill Miner MD [facility] [place] [address] COLONOSCOPY, DIAGNOSTIC (WRVU 3.26) Social History Tobacco Use Types Packs/Day Years [...] Sign Reading Time Taken Comments Blood Pressure 122/76 03/17/2021 2:45 PM EDT Pulse 48 03/17/2021 2:45 PM EDT Temperature 36.7 ??C (98.1 ??F) 03/17/2021 1:25 PM ED T Respiratory Rate 15 03/17/2021 2:45 PM EDT Oxygen Saturation 100% 03/17/2021 2:45 PM EDT Inhaled Oxygen Concentration - - Weight 90.7 kg (200 lb) 03/17/2021 1:25 PM EDT Height 157.5 cm (5' 2) 03/17/2021 1:25 PM EDT Body Mass Index 36.58 03/17/2021 1:25 PM EDT documented in this encounter Discharge Instructions * Discharge Instructions* Ángel Go, RN - 03/17/2021 3:37 PM EDT Colonoscopy: What to Expect at Home Your Recovery Your doctor will talk to you about when you will need your next colonoscopy. Your doctor can help you decide how often you need to be checked. This will depend on the results of your test and your risk for colorectal cancer. After the test, you may be bloated or have gas pains. You may need to pass gas. If a biopsy was done or a polyp was removed, you may have streaks of blood in your stool (feces) for a few days. Problems such as heavy rectal bleeding may not occur until several weeks after the test. This isn't common. But it can happen after polyps are removed. This care sheet gives you a general idea about how long it will take for you to recover. But each person recovers at a different pace. Follow the steps below to get better as quickly as possible. How can you care for yourself at home? Activity Rest when you feel tired. ?? You can do your normal activities when it feels okay to do so. Diet ?? Follow your doctor's directions for eating. ?? Unless your doctor has told you not to, drink plenty of fluids. This helps to replace the fluidsthat were lost during the colon prep. ?? Do not drink alcohol. Medicines ?? Your doctor will tell you if and when you can restart your medicines. He or she will also give you instructions about taking any new medicines. ?? If you take blood thinners, such as warfarin (Coumadin), clopidogrel (Plavix), or aspirin, be sure to talk to your doctor. He or she will tell you if and when to start taking those medicines again. Make sure that you understand exactly what your doctor wants you to do. ?? If polyps were removed or a biopsy was done during the test, your doctor may tell you not to take aspirin or other anti-inflammatory medicines for a few days. These include ibuprofen (Advil, Motrin) and naproxen (Aleve). Other instructions ?? For your safety, do not drive or operate machinery until the medicine wears off and you can think clearly. Your doctor may tell you not to drive or operate machinery until the day after your test. ?? Do not sign legal documents or make major decisions until the medicine wears off and you can think clearly. The anesthesia can make it hard for you to fully understand what you are agreeing to. Additional Information for Sedation Patients For patients who received sedation: ?? You may have received medications before and/or during your procedure which effects your judgement and reaction time. ?? Do not drive, operate machinery, drink alcoholic beverages or make important decisions for 24 hours. ?? Be careful on stairs as you may be unsteady on your feet. ?? You may eat a regular diet as tolerated. ?? Do not smoke if you are alone. ?? IV site: Slight redness or tenderness is normal, you can use a warm compress if you would like. If tenderness and/or redness increase or if foul drainage occurs, please contact your Doctor. Please call [phone] before 8pm Mon-Fri with problems, questions or concerns. If you call after 8pm or on weekends, call the Hospital at [phone] and ask to speak to the Facility Examiner media relations coordinator and the drill press set up operator will contact that person for you. When should you call for help? Call [phone] anytime you think you may need emergency care. For example, call if: ?? You passed out (lost consciousness). ?? You pass maroon or bloody stools. ?? You have trouble breathing. Call your doctor now or seek immediate medical care if: ?? You have pain that does not get better after you take pain medicine. ?? You are sick to your stomach or cannot drink fluids. ?? You have new or worse belly pain. ?? You have blood in your stools. ?? You have a fever. ?? You cannot pass stools or gas. Watch closely for changes in your health, and be sure to contact your doctor if you have any problems. Where can you learn more? [facility] View your After Visit Summary and more online at [email or web address] If you would like to provide feedback about your hospital experience, please call the Office of Patient and Family Relations at . If you have received this After Visit Summary in error, please immediately return it in person to the department, or notify the [facility] Privacy Office by calling toll free at between the hours of 8AM and 5PM to arrange for our retrieval of the documents at no cost to you. Content Version: 12.2 ?? [phone] [employer]. Care instructions adapted under license by [facility]. If you have questions about a medical condition or this instruction, always ask your healthcare professional. [employer] disclaims any warranty or liability for your use of this information. documented in this encounter Medications at Time [...] 02/26/2015 09/30/2021 documented as of this encounter H&P Notes * Sherrill Miner MD - 03/17/2021 1:50 PM EDT Patient Name: Elodia Lin Patient Age: 50 y.o. Birthdate: 1970 Admit date: 03/17/2021 Attending Physician: Sherrill Miner MD Gastroenterology and Hepatology Pre-Procedure History and Physical Exam Procedure: Colonoscopy: Indication: screening; father with colon polyps grandfather with CRC Patient Active Problem List Diagnosis Code ??? Von Willebrand disease D68.0 ??? Obesity (BMI 35.0-39.9 without comorbidity) E66.9 ??? History of recurrent UTI (urinary tract infection) Z87.440 ??? Uterine septum Q51.9 ??? Tubal ligation status Z98.51 ??? Generalized anxiety disorder F41.1 ??? Dysthymic disorder F34.1 ??? Pain in left shoulder M25.512 ??? Abnormal uterine bleeding (AUB) N93.9 ??? Anemia, iron deficiency D50.9 EXAM: HEENT: Airway examined, oropharynx clear Mallampati Score: II (soft palate, uvula, fauces visible) LUNGS: Clear to auscultation HEART: Regular rate and rhythm, normal S1, S2 ABDOMEN: Normal bowel sounds, soft, non tender, non distended, A/P Proceed with the planned endoscopic procedure. ASA 2 - Patient with mild systemic disease with no functional limitations Sedation Plan: moderate (conscious sedation) Risks and benefits of the procedure explained to the patient. Consent signed. documented in this encounter Plan of Treatment Upcoming Encounters Date Type Department Care Team (Late st Contact Info) Description 10/20/2024 9:00 AM EST Office Visit Hematology [place] [address] Lacy Jameson MD [facility] DR HEMATOLOGY [place] [address] Dez Jo, RN documented as of this encounter Procedures Procedure Name Priority Date/Time Associated Diagnosis Comments Colonoscopy, Diagnostic (70116) 03/17/2021 2:13 PM EDT Colon cancer screening in patient at ??increased risk: Family history of ??colon polyps 5 YR F/U FROM 03/11/15 pt with YAZMIN SAHU. Dez Jo will come and do push infusion as her IV is placed COLONOSCOPY Routine 03/17/2021 1:53 PM EDT PREPARE COAGULATION FACTORS (HEMOPHILIA) Timed 03/17/2021 12:50 PM EDT LAB SCAN 03/17/2021 12:00 AM EDT documented in this encounter Results * COLONOSCOPY (03/17/2021 1:53 PM EDT) COLONOSCOPY [facility] Endoscopy Procedure Date: 03/17/2021 1:53 PM ? Patient Name: Elodia Lin ? Date of : 1970 ? Age: 50 ? Order #: [id number] ? Instrument Name: [id number] ? Procedure: ? Colonoscopy Indications: ? Colon cancer screening in patient at ? increased risk: Family history of ? 1st-degree relative with colon polyps ? (father, type unknown) and paternal ? grandfather with CRC (age 50?) - last ? colonoscopy with hyperplastic polyps Providers: ? Sherrill Miner MD, Amanda Palacios ? Bernard Yanes Referring : ?Clayton Dege Elizabeth Medicines: ? Midazolam 4 mg IV, [...] preparation was evaluated using ? the BBPS ([place] Bowel Preparation ? Scale) with scores of: [...] DNP GENERAL SURGICAL OR DERABLES PROVATION * Prepare Coagulation Factors (Hemophilia) (03/17/2021 12:50 PM EDT) Dispensed? Yes [facility] Blood specimen (specimen) 03/17/2021 12:50 PM EDT 03/17/2021 12:47 PM EDT Narrative Resulting Agency Comment Spec In Lab Sherrill Miner MD BLOOD BANK PRODUCT O RDERABLES Performing Organization Address City/[facility]/ZIP Co de Phone Number [facility] [place] [address] * SCAN DOC: LAB (03/17/2021 12:00 AM EDT) Narrative 03/17/2021 12:00 AM EDT Ordered by an unspecified provider. Scanning Provider MEDIA MGR SCAN EXT O RDR/RSLT documented in this encounter Visit Diagnoses Not on filedocumented in this encounter Administered Medications Inactive Administered Medications - up to 3 most recent administrations Medication Order MAR Action Action Date Dose Rate Site antihemophilic factor VIII (HUMATE P) IV Kit 3,990 Units 3,990 Units, Intravenous, ONCE, 1 dose, On Wed03/17/21 at 1415, Humate P is reviewed and issued by Blood bank. Assigned staff to continuous pickling line pickler helper factor at blood bank. Assigned RN to reconstitute and administer Humate P, 3990 units, IV Push over 1-2 minutes through PIV. Flush line with 10 mLs normal saline post infusion. If problems encountered with reconstitution or administration of factor, do not discard or return to blood bank. Page Dez Jo #[phone], hemophilia nurse, to assist with infusion., Day of Surgery (Day of Procedure) Given 03/17/2021 2:05 PM EDT 3,990 Units fentaNYL (pf) (50 mcg/mL) multi-dose injection ONCE PRN, Starting on Wed03/17/21 at 1414, Until Wed03/17/21 at 1757, Intra-Operative (Intra-Procedure), Routine Given 03/17/2021 2:34 PM EDT 25 mcg Given 03/17/2021 2:23 PM EDT 25 mcg Given 03/17/2021 2:20 PM EDT 50 mcg lactated ringers infusion 100 mL/hr, Intravenous, CONTINUOUS, Starting on Wed03/17/21 at 1345, Until Wed03/17/21 at 1537, Endoscopy (Day of Procedure) New Bag 03/17/2021 1:42 PM EDT 100 mL/hr 100 mL/hr midazolam (pf) (Versed) (1 mg/mL) multi-dose injection ONCE PRN, Starting on Wed03/17/21 at 1414, Until Wed03/17/21 at 1757, Intra-Operative (Intra-Procedure), Routine Given 03/17/2021 2:34 PM EDT 0.5 mg Given 03/17/2021 2:23 PM EDT 0.5 mg Given 03/17/2021 2:20 PM EDT 1 mg documented in this encounter Active and Recently Administered Medications Times are shown in EDT. Scheduled Medication Order 03/15/2021 03/16/2021 03/17/2021 antihemophilic factor VIII (HUMATE P) IV Kit 3,990 Units (COMPLETED) 3,990 Units, Intravenous, ONCE, 1 dose, On Wed03/17/21 at 1415, Humate P is reviewed and issued by Blood bank. Assigned staff to continuous pickling line pickler helper factor at blood bank. Assigned RN to reconstitute and administer Humate P, 3990 units, IV Push over 1-2 minutes through PIV. Flush line with 10 mLs normal saline post infusion. If problems encountered with reconstitution or administration of factor, do not discard or return to blood bank. Page Dez Jo #[phone], hemophilia nurse, to assist with infusion., Day of Surgery (Day of Procedure) 1405 (Given - Provid er: Lacy Montgomery RN) Continuous Medication Order 03/15/2021 03/16/2021 03/17/2021 lactated ringers infusion (CANCELED) 100 mL/hr, Intravenous, CONTINUOUS, Starting on Wed03/17/21 at 1345, Until Wed03/17/21 at 1537, Endoscopy (Day of Procedure) 1342 (New Bag - Prov ider: Lo Zuluaga RN) PRN Medication Order 03/15/2021 03/16/2021 03/17/2021 fentaNYL (pf) (50 mcg/mL) multi-dose injection (CANCELED) ONCE PRN, Starting on Wed03/17/21 at 1414, Until Wed03/17/21 at 1757, Intra-Operative (Intra-Procedure), Routine 1414 (Given - Provid er: Amanda Yanes RN)1417 (Given - Provider: Amanda Yanes RN)1420 (Given - Provider: Amanda Yanes RN)1423 (Given - Provider: Amanda Yanes RN)1434 (Given - Provider: Amanda Yanes RN) midazolam (pf) (Versed) (1 mg/mL) multi-dose injection (CANCELED) ONCE PRN, Starting on Wed03/17/21 at 1414, Until Wed03/17/21 at 1757, Intra-Operative (Intra-Procedure), Routine 1414 (Given - Provid er: Amanda Yanes RN)1417 (Given - Provider: Amanda Yanes RN)1420 (Given - Provider: Amanda Yanes RN)1423 (Given - Provider: Amanda Yanes RN)1434 (Given - Provider: Amanda Yanes RN) documented in this encounter Care Teams Electrochemist Relationship Specialty Start Date End Date Clayton Johnson DNP PCP - General Family Medicine 07/07/19 04/15/23 documented as of this encounter
--- OUTSIDE RECORDS SUMMARY | 2024-08-10 15:57 | XMS_ITS | Encounter Summary ---
[place] [address] Care Team Providers Care Sandblast Or Shotblast Equipment Tender Name Role Phone Clayton Johnson DNP Primary Care Provider [phone] Encounter Details Date Type Department Care Team (Late st Contact Info) Description 10/31/2021 10:00 AM EST Clinical Support Obstetrics [place] [id number] Endometriosis Social History Tobacco Use Types Packs/Day Years Used Date Smoking Tobacco: Never Smokeless Tobacco: Never Alcohol Use Standard Drinks/Week Comments No 0 (1 standard drink = 0.6 oz pur e alcohol) Sex and Gender Information Value Date Recorded Sex Assigned at Not on file Gender Identity Not on file Sexual Orientation Not on file documented as of this encounter Progress Notes * Aditi Garcia LPN - 10/31/2021 10:00 AM EST No diagnosis found. Depo Lupron Siteright gluteus katy: 11.25 mg Ordering Provider:Linda Date of order:10/14/2021 Prior authorization obtained by Juli Strauss Patient tolerated injection well and will return to clinic for next injection 3 months. documented in this encounter Plan of Treatment Upcoming Encounters Date Type Department Care Team (Late st Contact Info) Description 10/20/2024 9:00 AM EST Office Visit Hematology [place] [address] Lacy Jameson MD [facility] DR HEMATOLOGY [place] [address] Layla Jo RN documented as of this encounter Visit Diagnoses Diagnosis Endometriosis Endometriosis, site unspecified documented in this encounter Administered Medications Inactive Administered Medications - up to 3 most recent administrations Medication Order MAR Action Action Date Dose Rate Site leuprolide (Lupron Depot) injection 11.25 mg 11.25 mg, Intramuscular, ONCE, 1 dose, On 11/10/21 at 1815, Routine, This agent is restricted to outpatient use. Is this drug being given as an outpatient? Yes Given 10/31/2021 8:20 AM EST 11.25 mg documented in this encounter Care Teams Sandblast Or Shotblast Equipment Tender Relationship Specialty Start Date End Date Clayton Johnson DNP PCP - General Family Medicine 07/07/19 04/15/23 documented as of this encounter
--- OUTSIDE RECORDS SUMMARY | 2024-08-10 15:57 | XMS_ITS | Encounter Summary ---
Author Organization [facility] [place] [address] Care Team Providers Care Geophysical Laboratory Supervisor Name Role Phone Clayton Johnson JOHN Primary Care Provider [phone] Encounter Details Date Type Department Care Team (Late st Contact Info) Description 06/15/2021 Telephone Hematology [place] [address] Kentrell Jones [facility] HEMATOLOGY/[place] [address] Social History Tobacco Use Types Packs/Day Years [...] encounter Miscellaneous Notes * Telephone Encounter - Kentrell Jones DO - 06/15/2021 2:27 PM EDT Patient ID: Elodia Lin : 1970 Call from: Dr. Charlene Yang. [place] [facility] [place] from the ED regarding Elodia vaginal bleeding. She is hemodynamically stable. Hgb is 11.9 which is essentially unchanged from her prior 5 days ago. Vaginal exam did not show brisk bleeding per Dr. Yang. AUTO BODY REPAIR ESTIMATOR has been consulted and they plan to start Norethindrone. I asked Dr. Yang to add coags and vWF levels and we will re-dose Elodia with Humate P today to help with the bleeding prior to discharge. This case was discussed with Dr. Love. 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 She has had irregular perimenopausal bleeding. Her current ongoing episode started about 16 days ago. She has taken TXA (1300 mg 3x daily x 3 days) on 06/09-. She had labs done locally on Sunday 06/10 and her Hgb was 12.2 She then presented to the AUTO BODY REPAIR ESTIMATOR's office on Wednesday 06/13 and underwent a pelvic exam and an endometrial biopsy. She was also dosed with Humate P. Since then the bleeding has gotten worse and she is going through 1 tampon every hour and also passing clots. She is feeling some dizziness and lightheadedness but denies any chest pain or shortness of breath. She already got in touch with the AUTO BODY REPAIR ESTIMATOR traffic division commanding officerbellperson and they recommended she present to the ED. I agree with this plan. Kentrell Jones DO Fellow, Hematology and Medical Oncology [facility] Pager: [phone], 06/15/21, 10:28 AM CC: Dr. Jameson. documented in this encounter Plan of Treatment Upcoming Encounters Date Type Department Care Team (Late st Contact Info) Description 10/20/2024 9:00 AM EST Office Visit Hematology [place] [address] Lacy Jameson MD [facility] [place] [address] Layla Jo RN documented as of this encounter Visit Diagnoses Not on filedocumented in this encounter Care Teams Geophysical Laboratory Supervisor Relationship Specialty Start Date End Date Clayton Johnson DNP PCP - General Family Medicine 07/07/19 04/15/23 documented as of this encounter
--- OUTSIDE RECORDS SUMMARY | 2024-08-10 15:57 | XMS_ITS | Encounter Summary ---
Author Organization [facility] Address [facility] [place] [address] Care Team Providers Care Communications Electrician Supervisor Name Role Phone Clayton Johnson JOHN Primary Care Provider Encounter Details Date Type Department Care Team (Late st Contact Info) Description 06/15/2021 Telephone Obstetrics [place] [phone] Shari Gilmore MD [facility] OBSTETRICS & [place] [address] Social History Tobacco Use Types Packs/Day Years [...] encounter Miscellaneous Notes * Telephone Encounter - Shari Gilmore MD - 06/15/2021 9:48 AM EDT Telephone Note ID/CC: Elodia Shah Riley??is a 51 y.o.??female??with Von Willebrand Disease, type 2A,??who reports vaginal bleeding for the past 16 days, changing tampons/ pad every hour. ?? Elodia reports that she had been bleeding more frequently since her EMB in clinic on Wednesday. She reports that she has been having vaginal bleeding for 16 days, but then after her EMB, started to noticean increase in volume of bleeding. She reports now filling a supermax tampon every 30 minutes. She states this has increased from her previous pattern of filling a supermax tampon every 1.5 hours. She had received an infusion of Humate -P last week, and was seen in clinic, where she was found to have a septate uterus (not a candidate for a Mirena IUD) and was recommeded to trial OCPs. She reportsthe Rx was not yet sent at the time of this call. I recommended that she come in given her increase in bleeding and possible need for a blood transfusion given her symptoms of increased fatigue and lightheadedness. She agrees after much discussion and will come to ED. Shari Gilmore MD PGY-4 documented in this encounter Plan of Treatment Upcoming Encounters Date Type Department Care Team (Late st Contact Info) Description 10/20/2024 9:00 AM EST Office Visit Hematology [place] [address] Lacy Jameson MD [facility] [address] [place] [address] Layla Jo, RN documented as of this encounter Visit Diagnoses Not on filedocumented in this encounter Care Teams Communications Electrician Supervisor Relationship Specialty Start Date End Date Clayton Johnson DNP PCP - General Family Medicine 07/07/19 04/15/23 documented as of this encounter
--- OUTSIDE RECORDS SUMMARY | 2024-08-10 15:57 | XMS_ITS | Encounter Summary ---
Author Organization [facility] [place] [address] Care Team Providers Care Bait Maker Name Role Phone Clayton Johnson JOHN Primary Care Provider Encounter Details Date Type Department Care Team (Late st Contact Info) Description 11/17/2021 Telephone Obstetrics [place] [phone] Ida Carr, RN Social History Tobacco Use Types Packs/Day [...] Telephone Encounter - Ida Carr RN - 11/17/2021 10:29 AM ESTSummary: Vaginl Bleeding TC to Elodia Shah Riley is a 51 y.o. female, with c/o of increase vaginal bleeding since having the Depo Lupron Shot 10/31/2021 . She states She Is experiencing heavy bleeding intermittently for 4-6 hours at night after around 4:00 PM. She has sometimes saturated a super tampon in 30-45 minutes and other times hourly. Patient given emergency bleeding precautions and verbalized understanding. She states she is having head aches the last couple of nights and is exhausted. She is teary and says she might sometimes be dizzy. She states her bleeding has slowed now. Patient symptomatic and advised to go to ER. She said she has other responsibilities and wants to see family over the holidays. I explained that she can not continue to bleed at this rate safely. Patient stated she would seek immediate assessment in [facility]. documented in this encounter Plan of Treatment Upcoming Encounters Date Type Department Care Team (Late st Contact Info) Description 10/20/2024 9:00 AM EST Office Visit Hematology [place] [address] Lacy Jameson MD [facility] DR HEMATOLOGY [place] [address] Layla Jo RN documented as of this encounter Visit Diagnoses Not on filedocumented in this encounter Care Teams Bait Maker Relationship Specialty Start Date End Date Clayton Johnson DNP PCP - General Family Medicine 07/07/19 04/15/23 documented as of this encounter
--- OUTSIDE RECORDS SUMMARY | 2024-08-10 15:57 | XMS_ITS | Encounter Summary ---
Author Organization [facility] [place] [address] Care Team Providers Care Small Craft Operator Name Role Phone Clayton Johnson JOHN Primary Care Provider Encounter Details Date Type Department Care Team (Late st Contact Info) Description 06/26/2021 Telephone Obstetrics [place] [address] Marilin Connolly, KRUNAL Social History Tobacco Use Types Packs/Day Years [...] encounter Miscellaneous Notes * Telephone Encounter - Marilin Connolly RN - 06/26/2021 11:02 AM EDT TELEPHONE NOTE Caller: Elodia Lin Reason for call: Aygestin taper is causing her to feel anxious, not sleeping and hair is falling out Assessment: Started Aygestin taper 2 weeks ago after ED visit for AUB. Consultation with ACCOUNTING TEACHER started Microgestin to start after taper. No bleeding x 1 week but feels like she is going crazy, not sleeping and generally feeling unwell. Would like to stop aygestin soon No pain or fever reported NOV 07/09/21 but had been requested for this week by MD Plan/Instructions: will discuss with provider and call her with a plan ----- Message from Susanna Eugene sent at 06/26/2021 10:03 AM EDT ----- Regarding: Elodia Temple is on norethindrone (Aygestin) 5 mg Tablet and is having every side effect that they list. Please call her back on her cell [phone]. Dev documented in this encounter Plan of Treatment Upcoming Encounters Date Type Department Care Team (Late st Contact Info) Description 10/20/2024 9:00 AM EST Office Visit Hematology [place] [address] Lacy Jameson MD [facility] [address] HEMAT[place] [address] Layla Jo RN documented as of this encounter Visit Diagnoses Not on filedocumented in this encounter Care Teams Small Craft Operator Relationship Specialty Start Date End Date Clayton Johnson DNP PCP - General Family Medicine 07/07/19 04/15/23 documented as of this encounter
--- OUTSIDE RECORDS SUMMARY | 2024-08-10 15:57 | XMS_ITS | Encounter Summary ---
Author Organization [facility] Address [facility] [place] [address] Care Team Providers Care Hydro Station Supervisor Name Role Phone Clayton Johnson JOHN Primary Care Provider Encounter Details Date Type Department Care Team (Late st Contact Info) Description 09/09/2021 Orders Only Obstetrics [place] [phone] Fadia Hodge, TOOL DESIGNER [address] [place] [address] OB[place] [address] Encounter for surveillance of contraceptive pills Social History Tobacco Use Types Packs/Day Years [...] EST Office Visit [place]ology [place] [phone] Lacy Jameson MD [facility] [address] [place] [address] Layla Jo RN documented as of this encounter Visit Diagnoses Diagnosis Encounter for surveillance of contraceptive pills Surveillance of previously prescribed contraceptive pill documented in this encounter Care Teams Hydro Station Supervisor Relationship Specialty Start Date End Date Clayton Johnson DNP PCP - General Family Medicine 07/07/19 04/15/23 documented as of this encounter
--- OUTSIDE RECORDS SUMMARY | 2024-08-10 15:57 | XMS_ITS | Encounter Summary ---
Author Organization [facility] [address] [place] [address] Care Team Providers Care Charge Account Authorizer Name Role Phone Clayton Johnson JOHN Primary Care Provider Encounter Details Date Type Department Care Team (Latest Contact Info) Description 07/29/2021 2:40 PM EDT TH Visit (TeleHealth) Obstetrics [place] [address] Felisha Ignacio APRN [facility] [place] [address] Abnormal uterine bleeding (AUB) (Primary Dx) Social History Tobacco Use Types [...] as of this encounter Progress Notes * Felisha Ignacio APRN - 07/29/2021 2:40 PM EDT Division of Obstetrics and Gynecology [facility] ESCROW OFFICER TeleHealth Encounter I provided care to the patient today via telehealth TOV. The patient voiced an understanding of thereason and intent of the visit. The patient provided verbal consent to bill their insurance for thevisit. Patient physically in [place] at time of this visit. I spent 20 minutes on this visit including time with the patient and pre-/post-visit planning for the management of ESCROW OFFICER care. Subjective: Elodia Lin is a 51 y.o. who presents today complaining of continued AUB now on COCs. Please see Fadia Sevilla APRN's note 07/07/21 for details. She started Apri three weeks ago for AUB. Currently on day 12 of bleeding, and just started the placebo week yesterday. She is frustrated by the continued bleeding. Changing products every 3-4 hrs, not soaked. Previously on aygestin, which managed bleeding well, but did not tolerate side effects on3-4x/day dosing. Very frustrated, wants to know when it's going to stop. Patient Active Problem List Diagnosis Date Noted ??? Anemia, iron deficiency 02/11/2021 ??? Abnormal [...] DELIVERY performed by Clint Orlando MD at [facility] ??? PRO COLONOSCOPY, BIOPSY N/A 03/11/2015 [...] Orlando MD at [facility] No outpatient medications have been marked as taking for the 07/29/21 encounter (Appointment) with Felisha Ignacio APRN. Allergies Allergen Reactions ??? Aygestin [Norethindrone Acetate] Other (See Comments) Hair loss, mood changes, hot flashes ??? Adhesive Bandage Rash Blistering rash with tegederm ??? Codeine Percocet is ok ??? Durapore Cloth Surgical Tape [Adhesive Tape] Hives ROS: See HPI, all others negative. Objective: General: Patient sitting comfortably in no acute distress. Appears stated age, average size female.Breathing unlabored. HEENT: Normocephalic, atraumatic, normal hair distribution, facial nerves grossly intact. Musculoskeletal: grossly normal, active ROM Psychiatric: A&O x4. Intact recent and remote memory, judgement and insight. Normal mood and affect. Assessment/Plan: Elodia Lin is a 51 y.o. who presents today with continued Aub now on SKY. Advised to skip placebos and take SKY continuously. Reassured that irregular bleeding in the first three months of starting a SKY is WNL. Suggested trying single daily dose of aygestin 12 hours separate from SKY, which Elodia may start in a few days. Plan: take SKY continuously, skipping placebos, and add aygestin 5mg once daily 12 hours separate from SKY. No H/H at this time, though would consider if bleeding became heavier. Keep scheduled appt with in September for f/u. If SKY +aygestin does not manage her bleeding, would need sooner F/U with MD to discuss surgical management. I have spent a total time of 20 minutes on this patient encounter on the day of visit, including pre-charting time, patient time, and post-service wrap-up. Felisha Ignacio APRN 07/29/2021 documented in this encounter Plan of Treatment Upcoming Encounters Date Type Department Care Team (Late st Contact Info) Description 10/20/2024 9:00 AM EST Office Visit Hematology [place] [address] Lacy Jameson MD [facility] [place] [address] Layla Jo RN documented as of this encounter Visit Diagnoses Diagnosis Abnormal uterine bleeding (AUB)- Primary documented in this encounter Care Teams Charge Account Authorizer Relationship Specialty Start Date End Date Clayton Johnson DNP PCP - General Family Medicine 07/07/19 04/15/23 documented as of this encounter
--- OUTSIDE RECORDS SUMMARY | 2024-08-10 15:57 | XMS_ITS | Encounter Summary ---
Author Organization [facility] Address [facility] [place] [address] Care Team Providers Care Carpentry Professional Name Role Phone Clayton Johnson JOHN Primary Care Provider [phone] Encounter Details Date Type Department Care Team (Late st Contact Info) Description 06/15/2021 Telephone Hematology [place] [address] Lisa Love MD [facility] [address] [place] [address] Social History Tobacco Use Types Packs/Day Years [...] encounter Miscellaneous Notes * Telephone Encounter - Lisa Love MD - 06/15/2021 4:57 PM EDT Elodia Lin is a 51 Y F with hx of VWD type2A who has been having vaginal bleeding and her bleeding has increased since endometrial biopsy on Wednesday. She received Humate P ~2,000 units on Wednesday. . She called and talked to my fellow today and was instructed to come to the ED. Her hemoglobin wasstable at 11.9. We have recommended to check coag and her VWF activity was 30% and we recommended 1 dose of Humate P ~2,000 units which should bring her VWF levels up to > 50% and this level should be adequate for hemostasis. She was started on Aygestin by MANAGER CRITICAL CARE. I attempted to see the patient, but she just left the ED. Our hemophilia team will call and follow-up with her. Lisa Love MD documented in this encounter Plan of Treatment Upcoming Encounters Date Type Department Care Team (Late st Contact Info) Description 10/20/2024 9:00 AM EST Office Visit Hematology [place] [address] Lacy Jameson MD [facility] DR HEMATOLOGY [place] [address] Layla Jo RN documented as of this encounter Visit Diagnoses Not on filedocumented in this encounter Care Teams Carpentry Professional Relationship Specialty Start Date End Date Clayton Johnson DNP PCP - General Family Medicine 07/07/19 04/15/23 documented as of this encounter
--- OUTSIDE RECORDS SUMMARY | 2024-08-10 15:57 | XMS_ITS | Encounter Summary ---
Author Organization [facility] [place] [address] Care Team Providers Care Marker Machine Attendant Name Role Phone Clayton Johnson JOHN Primary Care Provider Encounter Details Date Type Department Care Team (Late st Contact Info) Description 07/21/2021 Telephone Obstetrics [place] [phone] Tosha Strauss, RN Social History Tobacco Use [...] Telephone Encounter - Tosha Strauss RN - 07/21/2021 11:42 AM EDT Returning patient phone call to discuss her bleeding and cramping. Patient was seen 07/07/2021 by Fadia Sevilla APRN. Plan per note is to trial COCP for 3 months. Patient reports she is off progesterone and has been taking the new control (desogethreL-ethinyl estradiol (Apri)) for 2 weeks.On Wednesday, July 18 she describes cramping and light to moderate bleeding with small clots and mucous. She describes intermittent pain as cramping at a 6/10 in her lower belly. Patient reports that she is taking Tylenol without much relief. Patient is wondering if she should continue with this medication or take this medication continuously. Patient was educated on bleeding precautions and the plan is to send this message to her provider for further advise. Patient agrees to this plan and requests follow up via [facility]- on disposition. * Telephone Encounter - Tosha Strauss RN - 07/21/2021 11:42 AM EDT ----- Message from Jasmine Lang sent at 07/21/2021 10:33 AM EDT ----- Regarding: Bleeding / Cramping Caller's name: Elodia Lin Call back #: [phone] Patient's provider/team: Jeronimo Sevilla Reason for call: Bleeding and cramping documented in this encounter Plan of Treatment Upcoming Encounters Date Type Department Care Team (Late st Contact Info) Description 10/20/2024 9:00 AM EST Office Visit Hematology [place] [address] Lacy Jameson MD [facility] [address] [place] [address] Layla Jo RN documented as of this encounter Visit Diagnoses Not on filedocumented in this encounter Care Teams Marker Machine Attendant Relationship Specialty Start Date End Date Clayton Johnson DNP PCP - General Family Medicine 07/07/19 04/15/23 documented as of this encounter
--- OUTSIDE RECORDS SUMMARY | 2024-08-10 15:57 | XMS_ITS | Encounter Summary ---
[place] [address] Care Team Providers Care Associate Professor Of Medicine Name Role Phone Clayton Johnson JOHN Primary Care Provider Reason for Visit * Reason Comments Prior Authorization Lupron Depot (3-le h) 11.25 mg kit Encounter Details Date Type Department Care Team (Late st Contact Info) Description 10/01/2021 Specialty [place] [address] Marnie Hernandez, SCENERY BUILDER Social History Tobacco Use Types Packs/Day Years Used Date Smoking Tobacco: Never Smokeless Tobacco: Never Alcohol Use Standard Drinks/Week Comments No 0 (1 standard drink = 0.6 oz pur e alcohol) Sex and Gender Information Value Date Recorded Sex Assigned at Not on file Gender Identity Not on file Sexual Orientation Not on file documented as of this encounter Progress Notes * Marnie Hernandez - 10/01/2021 10:20 AM EDT [facility], Medication Prior Authorization Submission Patient: Elodia Lin Patient : 1970 Patient Address: [address] [place] [phone] (home) Medication Name: LUPRON DEPOT 11.25 MG (3 MONTH) INTRAMUSCULAR SYRINGE KIT Medication ID: [id number] Subscriber Insurance: Subscriber Insurance Comment: [facility] (IRX) Fax: Physician: DACIA LEW Physician Comment: Sent Via: [facility] [place]: [id number] Ref/Case/PA#: Medication Strength Frequency Requested: INJECT 1 KIT INTRAMUSCULARLY ONCE EVERY 3 MONTHS Qty/Day Supply: New Start: New to Therapy Diagnosis & ICD-10 Code: N93.9 abnormal uterine bleeding (AUB) Patient Notified: No Submission Notes: None Marnie Hernandez 10/01/21 10:24 AM * Marnie Hernandez - 10/01/2021 10:20 AM EDT [facility], Prior Authorization Denial Medication Name: LUPRON DEPOT 11.25 MG (3 MONTH) INTRAMUSCULAR SYRINGE KIT Medication ID: [id number] Case/Reference # : [id number] Denial Summary: PA denied because Lupron is not a covered benefit. Patient does not have FDA approved Dx of Endometriosis or Uterine Fibroids. Documentation does not support off label use. Patient Notified of Denial: Left Voicemessage Additional Information from insurance carrier. Please see below: None For any questions relating to this denial please reach out directly to your section's specialty pharmacist, or the specialty pharmacy team at [facility] Marnie Hernandez 10/01/21 11:45 AM documented in this encounter Plan of Treatment Upcoming Encounters Date Type Department Care Team (Late st Contact Info) Description 10/20/2024 9:00 AM EST Office Visit Hematology [place] [address] Lacy Jmaeson MD [facility] [place] [address] Layla Jo RN documented as of this encounter Visit Diagnoses Not on filedocumented in this encounter Care Teams Associate Professor Of Medicine Relationship Specialty Start Date End Date Clayton Johnson DNP PCP - General Family Medicine 07/07/19 04/15/23 documented as of this encounter
--- OUTSIDE RECORDS SUMMARY | 2024-08-10 15:57 | XMS_ITS | Encounter Summary ---
Author Organization [facility] [place] [address] Care Team Providers Care Foundation Director Name Role Phone Clayton Johnson JOHN Primary Care Provider Encounter Details Date Type Department Care Team (Late st Contact Info) Description 02/19/2021 Telephone Hematology [place] [address] Layla Jo, RN Social History [...] Telephone Encounter - Layla Jo RN - 02/19/2021 9:58 AM EDT Elodia Lin is a 50 y.o. female with Von Willebrand Disease, type 2A, with a mild bleeding phenotype who is pending a colonoscopy per DrPam??Sherrill Miner at [facility]??on March 17, 2021@ 1:30PM.?Dr. Jameson??recommends Elodia's hemostasis be supported with a dose of Humate P, IV Push??prior to procedure. Spoke with KRUNAL Stoll, from Endoscopy to review plan outlined below. ??Hematology Plan ?? March 17, 2021?? 12:30?Patient to??arrive at [facility] Endoscopy, 4T.??Assigned RN to confirm time of procedure and have peripheral IV placed. ?? 1PM?Assigned??RN to reconstitute and administer Humate P, 3990 units (one vial 1946 units and one vial 2044 unitsl) , IV push over 1-2 minutes. Flush IV with 10 mLs normal saline??post infusion. Hemophilia team will order and obtain Humate P from blood bank for administration in 4T. Hemophilia Nurse available for assistance with administration of factor as needed. Pager # [phone]. ?? 1:30 PM? Patient??to??colonoscopy ??per Dr. Miner's??order. ?Post Procedure ??Prior to patient discharge from Endoscopy unit, follow up with Dr. Miner??regarding any biopsiesobtained during procedure. ? MD Layla Lyn MSN RN?? Stenciling Machine Tender Clinical Nurse Specialist [facility] Thrombosis Hemophilia Attending Physician I have reviewed this patient's care with Layla Jo, KRUNAL, MSN and concur with the recommendations and plan as outlined in her note above. Also, at some point in the day she will have her blood drawnfor CBC and iron studies to assess efficacy of IV iron infusions. Lacy Jameson MD Stenciling Machine Tender, [facility] ?? documented in this encounter Plan of Treatment Upcoming Encounters Date Type Department Care Team (Late st Contact Info) Description 10/20/2024 9:00 AM EST Office Visit Hematology [place] [address] Lacy Jameson MD [facility] H[place]ATOLOGY [place] [address] Layla Jo RN documented as of this encounter Visit Diagnoses Not on filedocumented in this encounter Care Teams Foundation Director Relationship Specialty Start Date End Date Clayton oJhnson DNP PCP - General Family Medicine 07/07/19 04/15/23 documented as of this encounter
--- OUTSIDE RECORDS SUMMARY | 2024-08-10 15:57 | XMS_ITS | Encounter Summary ---
Author Organization [facility] [place] [address] Care Team Providers Care Special Skills Officer Name Role Phone Clayton Johnson JOHN Primary Care Provider [phone] Encounter Details Date Type Department Care Team (Late st Contact Info) Description 06/09/2021 Telephone Hematology [place] [address] Layla Jo, RN Social History [...] Telephone Encounter - Layla Jo RN - 06/09/2021 3:17 PM EDT Elodia Shah Riley??is a 50 y.o.??female??with Von Willebrand Disease, type 2A, who called stating she's had vaginal bleeding for the past 10 days, changing tampons/ pad every hour. Started to take TXA afew days ago but only had 3 doses and thought her period would stop. It didn't. Since this past January, she stated TXA has been effective in reducing the intensity of vaginal flow and length of her menstrual cycles. Elodia picked up a refill for her oral TXA today. She has c/o dizziness and lightheadedness. She did speak with her DRY WALL SPRAYER office today. See Ms. Cano's note. A couple of months ago, Elodia stated she was told by DRY WALL SPRAYER that due to the shape of her uterus, she was not able to use the Merina IUD and other options would be discussed. She did not schedule a follow up DRY WALL SPRAYER michelle't to date. Reviewed with Dr. Jameson who recommended Elodia go to her local hospital ([facility]) and have labs done including a CBC and iron studies.Orders were faxed to the lab. Patient aware and will call the lab for michelle't prior to arrival. Elodia plans to resume taking TXA today along with ferrous sulfate tabs shehad stopped a few months ago due to the resolution of her iron anemia post IV iron infusions. Will follow up after lab results available. Layla Jo RN MSN Patient message sent Sat June 07. Seen on WednesdayJune 09. Rohit Rich, A doctor suggested I take the supplement NAC for anxiety. Since I started (Wednesday) I have had my period. I???m on day 8. I???m wondering if there is a correlation. I???m going to stop taking it. I ran out of the t-acid and had some issues with my insurance so I won???t have that until Wednesday. I???maware I???m writing this on a Wednesday and I don???t expect a response until Wednesday! Just wanted towrite while it was on my mind. Take care, Elodia documented in this encounter Plan of Treatment Upcoming Encounters Date Type Department Care Team (Late st Contact Info) Description 10/20/2024 9:00 AM EST Office Visit Hematology [place] [address] Lacy Jameson MD [facility] [place] [address] Layla Jo RN documented as of this encounter Visit Diagnoses Not on filedocumented in this encounter Care Teams Special Skills Officer Relationship Specialty Start Date End Date Clayton Johnson DNP PCP - General Family Medicine 07/07/19 04/15/23 documented as of this encounter
--- OUTSIDE RECORDS SUMMARY | 2024-08-10 15:57 | XMS_ITS | Encounter Summary ---
Author Organization [facility] [place] [address] Care Team Providers Care Change Management Facilitator Name Role Phone Clayton Johnson JOHN Primary Care Provider Encounter Details Date Type Department Care Team (Late st Contact Info) Description 07/28/2021 Telephone Hematology [place] [phone] Layla Jo, RN Social History Tobacco Use [...] Telephone Encounter - Layla Jo RN - 07/28/2021 10:07 AM EDT TC to Elodia who stated she's saw VAMP LINER at [facility] and prescribed Agysten which did stop the bleeding. Unfortunately, she had significant side effects with Agysten so it was discontinued and she was switched to desogestreL-ethinyl estradioL (Apri) which she's been taking for the past 3 weeks. Elodia is hoping to have a TeleHealth visit with VAMP LINER in the next couple of days to review degree of vaginal flow and discuss expectations. Elodia stated, It's steady but not as bad as it was the last time. I'm not dizzy or SOB, just wondering how long this bleeding will last. Elodia plans to contact her PCP in [facility] today and have a CBC and iron studies done. Plan to follow up with patient after visit with VAMP LINER michelle't and CBC/iron study results available. Will review with Dr. Jameson for further recommendations. Layla Jo RN MSN ===View-only below this line=== ----- Message ----- From: Lacy Jameson MD Sent: 07/28/2021 9:01 AM EDT To: Layla Jo RN Subject: FW: Iron levels and menstrual bleeding Layla Please touch base with her. Thanks. /dlo ----- Message ----- From: Florence Mcrae RN Sent: 07/28/2021 6:34 AM EDT To: Jacinta Duval RN, Lacy Jameson MD Subject: FW: Iron levels and menstrual bleeding ----- Message ----- From: Elodia Shah Jayceejulito Sent: 07/27/2021 1:49 PM EDT To: [facility] Hem Onc Nurse Subject: Iron levels and menstrual bleeding I'm still having quite a bit of bleeding. Currently on day 10 of my period while on control. I'm concerned about my iron levels and wonder if I should have my levels tested. And any thoughts onthe bleeding? Elodia documented in this encounter Plan of Treatment Upcoming Encounters Date Type Department Care Team (Late Contact Info) Description 10/20/2024 9:00 AM EST Office Visit Hematology [place] [address] Lacy Jameson MD [facility] HEMATOLOGY [place] [address] Layla Jo RN documented as of this encounter Visit Diagnoses Not on filedocumented in this encounter Care Teams Change Management Facilitator Relationship Specialty Start Date End Date Clayton Johnson DNP PCP - General Family Medicine 07/07/19 04/15/23 documented as of this encounter
--- OUTSIDE RECORDS SUMMARY | 2024-08-10 15:57 | XMS_ITS | Encounter Summary ---
Author Organization [facility] [place] [address] Care Team Providers Care Ecologist Name Role Phone Clayton Johnson DNP Primary Care Provider Encounter Details Date Type Department Care Team (Latest Contact Info) Description 10/31/2021 10:45 AM EST - 10/31/2021 11:59 PM [facility] Hospital Encounter [place] [phone] Iron deficiency anemia due to chronic blood [...] mouth as needed. PRN for Migranes 01/17/2015 leuprolide (Lupron Depot, 3 month,) 11.25 mg Syringe Kit Inject 1 kit into the muscle Q 3 Months for 4 doses. 1 kit 3 10/14/2021 07/12/2022 desogestreL-ethinyl estradioL (Apri) 0.15-0.03 mg TabletIndications:Encou nter for surveillance of contraceptive pills Take 1 tablet by mouth daily. Skip placebos for continuous cycles. 112 tablet 4 09/09/2021 11/25/2021 norethindrone (Aygestin) 5 mg Tablet Take 1 tablet by mouth daily. 90 tablet 3 06/15/2021 12/14/2021 Acetylcysteine 600 mg Capsule TAKE 2 CAPSULES BY MOUTH IN THE MORNING AND AN ADDITIONAL 1 2 CAPSULES IN THE AFTERNOON NEEDED FOR MOOD 05/22/2021 03/16/2023 ferrous sulfate 325 mg (65 mg iron) Tablet Take one tab by mouth every other day. 90 tablet 3 01/24/2021 02/11/2022 documented as of this encounter Plan of Treatment Upcoming Encounters Date Type Department Care Team (Late st Contact Info) Description 10/20/2024 9:00 AM EST Office Visit [place]ematology [place] [address] Lacy Jameson MD [facility] [address] [place] [address] Layla Jo RN documented as of this encounter Procedures Procedure Name Priority Date/Time Associated Diagnosis Comments HEMOGRAM Routine 10/31/2021 10:51 AM EST Iron deficiency anemia due to chronic blood loss DIFFERENTIAL, AUTOMATED Routine 10/31/2021 10:51 AM EST Iron deficiency anemia due to chronic blood loss HC IRON BINDING CAPACITY Routine 10/31/2021 10:51 AM EST Iron deficiency anemia due to chronic blood loss HC CBC,PLT & AUTO DIFF Routine 10/31/2021 10:51 AM EST Iron deficiency anemia due to chronic blood loss HC VENIPUNCTURE Routine 10/31/2021 10:51 AM EST Iron deficiency anemia due to chronic blood loss documented in this encounter Results * (ABNORMAL) Differential, Automated (10/31/2021 10:51 AM EST) Neutrophil % 74.0 % [facility] Neutrophil Absolute 6.17(H) 1.70 - 6.10 x10(3)/ L [facility] Lymph % 17.5 % [facility] Lymphocytes Abs 1.5 0.9 - 3.2 x10(3)/[facility] Monocyte % 6.3 % [facility] Monocyte Abs 0.5 0.3 - 0.9 x10(3)/[facility] Eos % 1.2 % [facility] Eosinophils Abs 0.1 0.0 - 0.4 x10(3)/[facility] Basophil % 0.8 % [facility] Baso Absolute 0.1 0.0 - 0.1 x10(3)/[facility] Immature Gran % 0.20 % [facility] Comment: Immature granulocytes(IG's)percentage and absolute count will include metamyelocytes, myelocytes, and promyelocytes. Blood smears from CBCs yielding IG's will be scanned manually for concordance. If this scan disagrees with the automated IG or if promyelocytes are noted, a manual differential will be performed. Immature Gran Absolute 0.02 0.00 - 0.04 x10(3)/[facility] Blood 10/31/2021 10:5 1 AM EST 10/31/2021 11:22 AM EST Narrative Resulting Agency Comment Spec In Lab Lacy Jameson MD HEMATOLOGY ORDERAB LES [facility] [place] [address] * (ABNORMAL) Hemogram (10/31/2021 10:51 AM EST) Pathologist [facility] White Blood Cell 8.4 4.0 - 9.5 x10(3)/ L [facility] Red Blood Cell 5.08 4.00 - 5.21 x10(6)/mc L [facility] Hemoglobin 12.7 11.7 - 15.5 g/dL [facility] Hematocrit 40.0 35.7 - 45.8 % [facility] Mean Cell Volume 78.7(L) 82.6 - 94.4 fL [facility] Mean Cell Hemoglobin 25.0(L) 27.1 - 32.0 pg [facility] Mean Cell Hemoglobin Concentration 31.8 31.7 - 35.0 g/dL [facility] Platelet 386(H) 145 - 357 x10(3)/ L [facility] RDW Standard Deviation 50.2(H) 37.0 - 46.0 fL [facility] RDW coefficient of variation 17.3(H) 11.5 - 14.1 % [facility] Mean Platelet Volume 10.1 7.6 - 12.9 fL [facility] NRBC% auto 0.0 % [facility] NRBC Absolute 0.000 0.000 - 0.000 x10(3)/ L [facility] Blood 10/31/2021 10:5 1 AM EST 10/31/2021 11:22 AM EST Narrative Resulting Agency Comment Spec In Lab Lacy Jameson MD HEMATOLOGY ORDERAB LES [facility] [place] [address] * (ABNORMAL) Iron and TIBC (10/31/2021 10:51 AM EST) Iron 36 30 - 150 mcg/dL [facility] TIBC 467(H) 250 - 450 mcg/dL [facility] Iron Saturation 8(L) 20 - 50 % [facility] Blood 10/31/2021 10:5 1 AM EST 10/31/2021 11:22 AM EST Narrative Resulting Agency Comment Spec In Lab Lacy Jameson MD CHEMISTRY ORDERABL ES Performing Organization Address [facility] Co de Phone Number [facility] [place] [address] * (ABNORMAL) Ferritin (10/31/2021 10:51 AM EST) Ferritin 8(L) 30 - 400 ng/mL [facility] Comment: Pediatric reference ranges not verified at [facility], interpret with caution. Reference ranges for females greater than 50 years of age approach values for men, i.e., 30-400 ng/mL. Blood 10/31/2021 10:5 1 AM EST 10/31/2021 11:22 AM EST Narrative Resulting Agency Comment Spec In Lab Lacy Jameson MD CHEMISTRY ORDERABL ES Performing Organization Address [facility] Co de Phone Number [facility] [place] [address] documented in this encounter Visit Diagnoses Diagnosis Iron deficiency anemia due to chronic blood loss Iron deficiency anemia secondary to blood loss (chronic) documented in this encounter Care Teams Ecologist Relationship Specialty Start Date End Date Clayton Johnson DNP PCP - General Family Medicine 07/07/19 04/15/23 documented as of this encounter
--- OUTSIDE RECORDS SUMMARY | 2024-08-10 15:57 | XMS_ITS | Encounter Summary ---
[place] [address] Care Team Providers Care Data Warehouse Consultant Name Role Phone Clayton Johnson JOHN Primary Care Provider Reason for Visit * Reason Comments Prior Authorization Lupron Depot (3-le h) 11.25 mg kit Encounter Details Date Type Department Care Team (Late st Contact Info) Description 10/14/2021 Specialty [place] [address] Marnie Hernandez, DIRECTOR EDUCATIONAL RADIO Social History Tobacco Use Types Packs/Day Years [...] encounter Progress Notes * Marnie Hernandez - 10/14/2021 4:24 PM EST [facility], Medication Prior Authorization Submission Patient: Elodia Lin Patient : 1970 Patient Address: [address] [place] [phone] (home) Medication Name: LUPRON DEPOT 11.25 MG (3 MONTH) INTRAMUSCULAR SYRINGE KIT Medication ID: [id number] Subscriber Insurance: Subscriber Insurance Comment: [facility] (IRX) Fax: Physician: DACIA LEW Physician Comment: Sent Via: [facility] [place]: [id number] Ref/Case/PA#: Medication Strength Frequency Requested: INJECT 1 KIT INTO THE MUSCLE EVERY 3 MONTHS FOR 4 DOSES Qty/Day Supply: New Start: New to Therapy Diagnosis & ICD-10 Code: N80.9 Endometriosis Patient Notified: No Submission Notes: Terrell Hernandez 10/14/21 4:29 PM * Marnie Hernandez - 10/14/2021 4:24 PM EST [facility], Prior Authorization Approval Medication Name: LUPRON DEPOT 11.25 MG (3 MONTH) INTRAMUSCULAR SYRINGE KIT Medication ID: [id number] Approval Dates: 10/14/2021 to 04/13/2022 Insurance requirements/notes: None Other Notes: None Case/Reference #: [id number] Approval notification Received via: [facility] Copay: $1,195.56 Copay assistance: Copay Card Copay Notes: Copay reduced to $945.56 with Lupron copay card ($250 savings) PCN: [id number] BIN: [id number] Grp: [id number] ID: [id number] Insurance mandated Pharmacy: [facility] Fillable at [facility]: Yes Pharmacy staff will be reaching out to the patient to inform them of their [facility]. If applicable, a pharmacist will speak with the patient to offer our specialty pharmacy services and to arrange delivery of their medication. Marnie Hernandez 10/15/21 10:07 AM documented in this encounter Plan of Treatment Upcoming Encounters Date Type Department Care Team (Late st Contact Info) Description 10/20/2024 9:00 AM EST Office Visit [place]ematology [place] [address] Lacy Jameson MD [facility] [address] [place] [address] Layla Jo RN documented as of this encounter Visit Diagnoses Not on filedocumented in this encounter Care Teams Data Warehouse Consultant Relationship Specialty Start Date End Date Clayton Johnson DNP PCP - General Family Medicine 07/07/19 04/15/23 documented as of this encounter
--- OUTSIDE RECORDS SUMMARY | 2024-08-10 15:57 | XMS_ITS | Encounter Summary ---
Author Organization [facility] [place] [address] Care Team Providers Care Go Go Dancer Name Role Phone Clayton Johnson DNP Primary Care Provider Encounter Details Date Type Department Care Team (Late Contact Info) Description 10/16/2021 Notes Only Obstetrics [place] [phone] Tosha Strauss RN Social History Tobacco Use [...] as of this encounter Progress Notes * Tosha Strauss RN - 10/16/2021 1:40 PM EST Approval letter for Lupron Depot 11.25mg Injection received. This medication is approved until 04/14/2022 and should be processed with code J1950 per letter. Document placed in urgent scanning. documented in this encounter Plan of Treatment Upcoming Encounters Date Type Department Care Team (Late st Contact Info) Description 10/20/2024 9:00 AM EST Office Visit [place]ology [place] [address] Lacy Jameson MD [facility] DR HEMATOLOGY [place] [address] Layla Jo RN documented as of this encounter Visit Diagnoses Not on filedocumented in this encounter Care Teams Go Go Dancer Relationship Specialty Start Date End Date Clayton Johnson DNP PCP - General Family Medicine 07/07/19 04/15/23 documented as of this encounter
--- OUTSIDE RECORDS SUMMARY | 2024-08-10 15:57 | XMS_ITS | Encounter Summary ---
Author Organization [facility] [place] [address] Care Team Providers Care Mud Analysis Operator Name Role Phone Clayton Johnson JOHN Primary Care Provider [phone] Encounter Details Date Type Department Care Team (Latest Contact Info) Description 06/15/2021 11:16 AM EDT - 06/15/2021 12:11 PM EDT Hospital [place] [phone] Discharge Disposition: Home Social History Tobacco Use [...] EST Office Visit Hematology [place] [address] Lacy Jameson MD [facility] DR HEMATOLOGY [place] [address] Layla Jo RN documented as of this encounter Visit Diagnoses Not on filedocumented in this encounter Care Teams Mud Analysis Operator Relationship Specialty Start Date End Date Clayton Johnson DNP PCP - General Family Medicine 07/07/19 04/15/23 documented as of this encounter
--- OUTSIDE RECORDS SUMMARY | 2024-08-10 15:57 | XMS_ITS | Encounter Summary ---
[place] [address] Care Team Providers Care Bulb Brander Name Role Phone Clayton Johnson JOHN Primary Care Provider Reason for Visit * Reason Comments Follow-up Encounter Details Date Type Department Care Team (Late st Contact Info) Description 07/07/2021 11:40 AM EDT Office Visit Obstetrics [place] [phone] Fadia Hodge, BRANCH SERVICE REPRESENTATIVE [address] [place] [address] OBSTETRICS [place] [address] Abnormal uterine bleeding (AUB); Mood change; Hair loss; Von Willebrand disease Social History Tobacco [...] Sign Reading Time Taken Comments Blood Pressure 124/79 07/07/2021 11:39 AM EDT Pulse 59 07/07/2021 11:39 AM EDT Temperature 37.3 ??C (99.2 ??F) 07/07/2021 1 1:39 AM EDT Respiratory Rate 16 07/07/2021 11:3 9 AM EDT Oxygen Saturation 100% 07/07/2021 11: 39 AM EDT Inhaled Oxygen Concentration - - Weight 97.5 kg (214 lb 14.4 oz) 021 11:39 AM EDT Height 157.5 cm (5' 2) 07/07/2021 11:3 9 AM EDT Body Mass Index 39.31 07/07/2021 11:39 AM EDT documented in this encounter Progress Notes * Fadia Sevilla APRN - 07/07/2021 11:40 AM EDT ENCOUNTER DATE/TIME 07/07/2021 12:40 PM PROVIDER NAME Fadia Sevilla APRN PATIENT NAME Elodia Lin AGE 6 1970 51 y.o. Reason for Visit: Elodia Lin is a 51 y.o. perimenopausal female with a von Willebrand disease, type 2a presenting for follow up regarding medication for heavy vaginal bleeding. Last seen 06/13/[address] Adelia Aleman and again in ER due heavy bleeding on 06/15/21. At office, visit reviewed options to manage cycle - including OCP, progestin only pill, Nexplanon, or Depo-Provera. Elodia was st arted on Aygestin taper x 3 weeks following her ER visit and has not started cOCP Microgestin 1.04/27 yet. Having severe side effects to medication. Although bleeding has subsided, reports mood changes, brain fog, loss of hair, hot flashes too, etc. Go her appointment time wrong today (orginally scheduled for 07/09) Currently taking 1 tab Aygestin 5 mg daily. Rx fo Microgestin 1.04/27 ordered. No other medication changes other than Aygestin Continues to take iron supplement every 2 days as directed. AUB Work Up thus far: TVUS on 02/07/21 showed small antverted, septate uterus with 7mm endometrial stripe. Latest labs: 01/24 prolactin wnl (9.5) 01/24 TSH wnl (1.98) 01/24 vWF activity low (<19) 06/10 Hgb 12.2 (up from 7.6 in January) 06/10 iron wnl (79) 06/10 TIBC wnl (361) 7/13 Ferritin wnl 22) 06/[address] Aleman encounter on 06/13/21 for further history. Patient is s/p BTL for contraception. Was on OCP for many years before of her son, then DMP. Back on OCPs after of daughter. Had Mirena IUD for a couple of months, taken out due to significant pain. Also trialed TXA for heavy bleeding, did not tolerate SE of this either. ?? 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 Pap UTD 12/2020 NILM, HPV neg. 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 FHx cancer: Breast (PGM postmenopausal), colon (MGF) Mammogram: UTD Colonoscopy: UTD Current Outpatient Medications on File Prior to Visit Medication Sig Dispense Refill ??? norethindrone (Aygestin) 5 mg Tablet Take 1 tablet by mouth 4 times daily. 90 tablet 0 ??? norethindrone (Aygestin) 5 mg Tablet Take 1 tablet by mouth daily. 90 tablet 3 ??? ferrous sulfate 325 mg (65 mg iron) Tablet Take one tab by mouth every other day. 90 tablet 3 ??? [DISCONTINUED] Tranexamic Acid 650 mg Tablet Take 2 tabs 3 times daily for first 3 days of menstrual period. 54 tablet 1 ??? acetaminophen (TYLENOL) 500 mg Tablet Take 1,000 mg by mouth every 6 hours as needed for Pain. ??? venlafaxine (EFFEXOR-XR) 150 mg Capsule, Sust. Release 24 hr Take 1 capsule by mouth daily. (Patient taking differently: Take 75 mg by mouth daily.) 30 capsule 0 ??? Acetylcysteine 600 mg Capsule TAKE 2 CAPSULES BY MOUTH IN THE MORNING AND AN ADDITIONAL 1 2 CAPSULES IN THE AFTERNOON NEEDED FOR MOOD ??? pseudoephedrine (SUDAFED) 30 mg Tablet Take 30 mg by mouth every 4 hours as needed for Congestion. ??? rizatriptan (MAXALT) 10 mg Tablet Take 10 mg by mouth as needed. PRN for Migranes No current facility-administered medications on file prior to visit. Allergies Allergen Reactions ??? Aygestin [Norethindrone Acetate] Other (See Comments) Hair loss, mood changes, hot flashes ??? Adhesive Bandage Rash Blistering rash with tegederm ??? Codeine Percocet is ok ??? Durapore Cloth Surgical Tape [Adhesive Tape] Hives Immunization History Administered Date(s) Administered ??? Influenza Trivalent PF, Split (6-35 mos) 07/30/2012 ??? Tdap Vaccine 07/30/2012 Past Medical History: Diagnosis Date ??? Abnormal [...] DELIVERY performed by Clint Orlando MD at [facility] ??? PRO COLONOSCOPY, BIOPSY N/A 03/11/2015 COLONOSCOPY FLEXIBLE, WITH BX performed by Alida Mahmood MD at [facility] END[facility]COPY ??? PRO COLONOSCOPY, DIAGNOSTIC N/A 03/17/2021 COLONOSCOPY, DIAGNOSTIC performed by Sherrill Miner MD at [facility] END[facility]COPY ??? PRO COLONOSCOPY, REMV LESN, SNARE N/A 03/11/2015 COLONOSCOPY, POLYPECTOMY, REMOVAL LESION BY SNARE performed by Alida Mahmood MD at [facility] END[facility]COPY ??? PRO LIGATE FALLOPIAN TUBE, 04/26/2013 @FALLOPIAN TUBE(S), TRANSECTION OR LIGATION, ABD APPROACH, POST- performed by Clint Orlando MD at [facility] Family History Problem Relation Age of Onset [...] on file Occupational History ??? 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 Smoking status: Never Smoker [...] Strain: ??? Difficulty of Paying Living Expenses: Not on file Food Insecurity: ??? Worried About Running Out of Food in the Last Year: Not on file ??? Ran Out of Food in the Last Year: Not on file Transportation Needs: ??? Lack of Transportation (Medical): Not on file ??? Lack of Transportation (Non-Medical): Not on file Physical Activity: ??? Days of Exercise per Week: Not on file ??? Minutes of Exercise per Session: Not on file ROS: See above. PE: BP 124/79 Pulse 59 Temp 37.3 ??C (99.2 ??F) Resp 16 Ht 157.5 cm (5' 2) Wt 97.5 kg (214 lb 14.4 oz) SpO2 100% BMI 39.31 kg/m?? General - A&O x 3. Tearful. No apparent distress. Assessment and Plan: -- AUB management: Instructed to stop Aygestin at this time due to side effects and start cOCPs. Reviewed RBA and SE of use. Switched to Apri COCs from Microgestin due to SE from norethindrone. Recommend to trial pills x 3 months. Option discussed for continuous cycles. Follow up with MD as well for further discussion including surgical management of bleeding if continues. Amenable with POC. New prescription ordered for Apri SKY. Fadia Sevilla APRN 07/07/2021 documented in this encounter Plan of Treatment Upcoming Encounters Date Type Department Care Team (Late st Contact Info) Description 10/20/2024 9:00 AM EST Office Visit Hematology [place] [address] Lacy Jameson MD [facility] DR HEMATOLOGY [place] [address] Layla Jo RN documented as of this encounter Visit Diagnoses Diagnosis Abnormal uterine bleeding (AUB) Mood change Unspecified episodic mood disorder Hair loss Alopecia, unspecified Von Willebrand disease Von Willebrand's disease documented in this encounter Care Teams Bulb Brander Relationship Specialty Start Date End Date Clayton Johnson DNP PCP - General Family Medicine 07/07/19 04/15/23 documented as of this encounter
--- OUTSIDE RECORDS SUMMARY | 2024-08-10 15:57 | XMS_ITS | Encounter Summary ---
[place] [address] Care Team Providers Care Pan Washer Hand Name Role Phone Clayton Johnson JOHN Primary Care Provider Encounter Details Date Type Department Care Team (Late st Contact Info) Description 10/16/2021 Telephone Obstetrics [place] [phone] Tosha Strauss, RN Social History Tobacco Use [...] Telephone Encounter - Tosha Strauss, RN - 10/16/2021 10:00 AM EST Calling Elodia Lin's insurance company to follow up on medical benefit PA for Lupron Depot 11.25mg syringe kit with reference #[id number]. community service representative states that the PA for medical benefit is approved until 04/14/2022. Calling [employer] to discuss buy and bill of Lupron Depot now that it has been approved as a medical benefit. [employer] sent call to the Fees Department and a message was left requesting a call back to discuss. documented in this encounter Plan of Treatment Upcoming Encounters Date Type Department Care Team (Late st Contact Info) Description 10/20/2024 9:00 AM EST Office Visit [place]ology [place] [address] Lacy Jameson MD [facility] [address] [place] [address] Layla Jo RN documented as of this encounter Visit Diagnoses Not on filedocumented in this encounter Care Teams Pan Washer Hand Relationship Specialty Start Date End Date Clayton Johnson DNP PCP - General Family Medicine 07/07/19 04/15/23 documented as of this encounter
--- OUTSIDE RECORDS SUMMARY | 2024-08-10 15:57 | XMS_ITS | Encounter Summary ---
Author Organization [facility] Address [facility] [place] [address] Care Team Providers Care Aircraft Pneudraulic Systems Mechanic Name Role Phone Clayton Johnson DNP Primary Care Provider Reason for Visit * Auth/Cert Specialty Diagnoses / Procedures Referred By Patsy hernandez Referred To Contact Diagnoses Follow up 5 YR F/U FROM 03/11/15 pt with YAZMIN SAHU. pt needs HUMATE-P IN SAME DAY PER COLO, [place] [phone] WILL HELP WITH RX Procedures PRO COLONOSCOPY, DIAGNOSTIC COLONOSCOPY, DIAGNOSTIC Referral ID Status Reason Start Date Expiration Date Visits Re quested Visits Authorized [id number] 1 1 Encounter Details Date Type Department Care Team (Latest Contact Info) Description 03/17/2021 12:47 PM EDT - 03/17/2021 3:56 PM EDT Hospital En[place] [address] Sherrill Miner MD [facility] [place] [address] Discharge Disposition: Home Social History Tobacco Use [...] Sign Reading Time Taken Comments Blood Pressure 113/61 03/17/2021 3:30 PM EDT Pulse 46 03/17/2021 3:00 PM EDT Temperature 36.7 ??C (98.1 ??F) 03/17/2021 1:25 PM ED T Respiratory Rate 16 03/17/2021 3:30 PM EDT Oxygen Saturation 100% 03/17/2021 3:30 PM EDT Inhaled Oxygen Concentration - [...] occurs, please contact your Doctor. Please call [phone] before 8pm Mon-Fri with problems, questions or concerns. If you call after 8pm or on weekends, call the Hospital at [phone] and ask to speak to the Cut Filer motion and time study teacher and the thread milling machine set up operator will contact that person for you. When should you call for help? Call [phone] anytime you think you may need emergency [...] any problems. Where can you learn more? [facility] View your After Visit Summary and more online at [email or web address] If you would like to provide feedback about your hospital experience, please call the Office of Patient and Family Relations at . If you have received this After Visit Summary in error, please immediately return it in person to the department, or notify the [facility] Privacy Office by calling toll free at between the hours of 8AM and 5PM to arrange for our retrieval of the documents at no cost to you. Content Version: 12.2 ?? [id number] [employer]. Care instructions adapted under license by [facility]. If you have questions about a medical condition or this instruction, always ask your healthcare professional. [employer] disclaims any warranty or liability for your [...] EST Office Visit [place]ematology [place] [address] Lacy Jameson MD [facility] DR HEMATOLOGY [place] [address] Dze Jo RN documented as of this encounter Procedures Procedure Name Priority Date/Time Associated Diagnosis Comments Colonoscopy, Diagnostic (47528) 03/17/2021 2:13 PM EDT Colon cancer screening in patient at ??increased risk: Family history of ??colon polyps 5 YR F/U FROM 03/11/15 pt with YAZMIN CHARLESADILENE. Dez Jo will come and do push infusion as her IV is placed COLONOSCOPY Routine 03/17/2021 1:53 PM EDT PREPARE COAGULATION FACTORS (HEMOPHILIA) Timed 03/17/2021 12:50 PM EDT LAB SCAN 03/17/2021 12:00 AM EDT documented in this encounter Results * COLONOSCOPY (03/17/2021 1:53 PM EDT) COLONOSCOPY [facility] Endoscopy Procedure Date: 03/17/2021 1:53 PM ? Patient Name: Elodia Lin ? Date of : 1970 ? Age: 50 ? Order #: [id number] ? Instrument Name: [id number] ? Procedure: ? Colonoscopy Indications: ? Colon cancer screening in patient at ? increased risk: Family history of ? 1st-degree relative with colon polyps ? (father, type unknown) and paternal ? grandfather with CRC (age 50?) - last ? colonoscopy with hyperplastic polyps Providers: ? Sherrill Miner MD, Amanda Palacios ? Bernard Yanes MD: ?Clayton Dege Elizabeth Medicines: ? Midazolam 4 [...] preparation was evaluated using ? the BBPS (Dawson Bowel Preparation ? Scale) with scores of: [...] (03/17/2021 12:50 PM EDT) Dispensed? Yes [facility] Blood specimen (specimen) 03/17/2021 12:50 PM EDT 03/17/2021 12:47 PM EDT Narrative Resulting Agency Comment Spec In Lab Sherrill Miner MD BLOOD BANK PRODUCT O RDERABLES [facility] [place] [address] * SCAN DOC: LAB (03/17/2021 12:00 AM [...] issued by Blood bank. Assigned staff to orange picking supervisor factor at blood bank. Assigned RN to reconstitute and administer Humate P, 3990 units, IV Push over 1-2 minutes through PIV. Flush line with 10 mLs normal saline post infusion. If problems encountered with reconstitution or administration of factor, do not discard or return to blood bank. Page Dez Jo #[phone], hemophilia nurse, to assist with infusion., Day of Surgery (Day of Procedure) Given 03/17/2021 2:05 PM EDT 3,990 Units lactated ringers infusion 100 mL/hr, Intravenous, CONTINUOUS, Starting on Wed03/17/21 at 1345, Until Wed03/17/21 at 1537, Endoscopy (Day of Procedure) New Bag 03/17/2021 1:42 PM EDT 100 mL/hr 100 mL/hr documented in this encounter Active and Recently Administered Medications Times are shown in EDT. Scheduled Medication Order 03/15/2021 03/16/2021 03/17/2021 antihemophilic factor VIII (HUMATE P) IV Kit 3,990 Units (COMPLETED) 3,990 Units, Intravenous, ONCE, 1 dose, On Wed03/17/21 at 1415, Humate P is reviewed and issued by Blood bank. Assigned staff to orange picking supervisor factor at blood bank. Assigned RN to reconstitute and administer Humate P, 3990 units, IV Push over 1-2 minutes through PIV. Flush line with 10 mLs normal saline post infusion. If problems encountered with reconstitution or administration of factor, do not discard or return to blood bank. Page Dez Jo #[phone], hemophilia nurse, to assist with infusion., Day [...] RN) documented in this encounter Care Teams Aircraft Pneudraulic Systems Mechanic Relationship Specialty Start Date End Date Clayton Johnson DNP PCP - General Family Medicine 07/07/19 04/15/23 documented as of this encounter
--- OUTSIDE RECORDS SUMMARY | 2024-08-10 15:57 | XMS_ITS | Encounter Summary ---
Author Organization [facility] [place] [address] Care Team Providers Care Supervisor Travel Trailer Name Role Phone Clayton Johnson JOHN Primary Care Provider Encounter Details Date Type Department Care Team (Late st Contact Info) Description 10/31/2021 Telephone Hematology [place] [address] Layla Jo, RN Social History [...] Telephone Encounter - Layla Jo RN - 10/31/2021 3:12 PM EST TC with patient. Reviewed normal CBC results and low ferritin level. Patient will start taking daily iron supplements today x 3 months. Elodia stated she has a follow up michelle't in [employer] in January 2022 so that will work out well to have CBC and iron levels rechecked then. Results for ELODIA LIN ( ) as of 10/31/2021 15:12 Ref. Range 10/31/2021 10:51 Hemoglobin Latest Ref Range: 11.7 - 15.5 g/dL 12.7 Hematocrit Latest Ref Range: 35.7 - 45.8 % 40.0 Results for ELODIA LIN ( ) as of 10/31/2021 15:12 Ref. Range 10/31/2021 10:51 Ferritin Latest Ref Range: 30 - 400 ng/mL 8 (L) Layla Jo RN MSN ===View-only below this line=== ----- Message ----- From: Lacy Jameson MD Sent: 10/31/2021 2:55 PM EST To: Layla Jo RN CBC today = no anemia but iron low. Please ask her to start iron supplement, once daily. We should recheck in ~3 months (she will be due for her annual visit with me at that time -- please make sure she has one scheduled). Thanks. /dlo documented in this encounter Plan of Treatment Upcoming Encounters Date Type Department Care Team (Late st Contact Info) Description 10/20/2024 9:00 AM EST Office Visit Hematology [place] [address] Lacy Jameson MD [facility] [address] [place] [address] Layla Jo RN documented as of this encounter Visit Diagnoses Not on filedocumented in this encounter Care Teams Supervisor Travel Trailer Relationship Specialty Start Date End Date Clayton Johnson DNP PCP - General Family Medicine 07/07/19 04/15/23 documented as of this encounter
--- OUTSIDE RECORDS SUMMARY | 2024-08-10 15:57 | XMS_ITS | Encounter Summary ---
Author Organization [facility] [place] [address] Care Team Providers Care Escalator Operator Name Role Phone Clayton Johnson JOHN Primary Care Provider [phone] Encounter Details Date Type Department Care Team (Late st Contact Info) Description 06/13/2021 External Results Hematology [place] [phone] [facility] DR [place]EMATOLOGY [place] [address] Social History Tobacco Use Types Packs/Day Years [...] EST Office Visit [place]ematology [place] [phone] [facility] [place]OLOG[place] [address] Layla Jo RN documented as of this encounter Procedures Procedure Name Priority Date/Time Associated Diagnosis Comments INFUSION SCAN Routine 06/13/2021 documented in this encounter Results * Scan Doc: Infusion (06/13/2021) Lacy Jameson MD MEDIA MGR SCAN EXT ORDR/RSLT documented in this encounter Visit Diagnoses Not on filedocumented in this encounter Care Teams Escalator Operator Relationship Specialty Start Date End Date Clayton Johnson DNP PCP - General Family Medicine 07/07/19 04/15/23 documented as of this encounter
--- OUTSIDE RECORDS SUMMARY | 2024-08-10 15:57 | XMS_ITS | Encounter Summary ---
Author Organization [facility] Address [facility] [address] [facility] [place] [address] Care Team Providers Care Radiation Safety Officer Name Role Phone Clayton Johnson JOHN Primary Care Provider Reason for Visit * Reason Comments Follow-up Encounter Details Date Type Department Care Team (Late st Contact Info) Description 09/29/2021 11:20 AM EDT Office Visit Obstetrics [place] [address] Erica Mckeon MD [facility] DR OBSTETRICS & [place] [address] Abnormal uterine bleeding (AUB); Von Willebrand disease; Iron deficiency anemia due to chronic blood loss; Perimenopause Social History Tobacco Use Types Packs/Day Years [...] Sign Reading Time Taken Comments Blood Pressure - - Pulse - - Temperature - - Respiratory Rate - - Oxygen Saturation - - Inhaled Oxygen Concentration - - Weight 101.9 kg (224 lb 9.6 oz) 021 11:19 AM EDT Height 157.5 cm (5' 2) 09/29/2021 11:1 9 AM EDT Body Mass Index 41.08 09/29/2021 11:19 AM EDT documented in this encounter Progress Notes * Erica Mckeon MD - 09/29/2021 11:20 AM EDT * Erica Mckeon MD - 09/29/2021 11:20 AM EDT Follow up Visit Reason for Visit: Elodia Lin is a 51 y.o. perimenopausal female with a von Willebrand disease, type 2a presenting for follow up regarding ongoing management for heavy vaginal bleeding refractory to medication management, likely perimenopausal. Previously had tried Aygestin taper x3 weeks after an emergency room visit, but has had terrible side effects reports mood changes, brain fog, loss of hair, hot flashes, anger. She was then seen by Felisha Lux and Fadia Sevilla, after which time she started Microgestin .04/27 which she's been taking continuously for almost 4 months. She also added on QD Aygestin 5mg daily. Since her last visit, she's been bleeding fairly consistently, daily. She notes a pattern of no bleeding in the AM then a few hours of heavy bleeding, changing a regular pad/tampon every few hours. She's still experiencing mood changes and Cramping. Having night sweats a few nights before her period and hot flashes daily. AUB Work Up thus far: TVUS on 02/07/21 showed small antverted, septate uterus with 7mm endometrial stripe. Septum 1.5 cm Labs: 01/24 prolactin wnl (9.5) 01/24 TSH wnl (1.98) 01/24 vWF activity low (<19) 06/10 Hgb 12.2 (up from 7.6 in January) 06/10 iron wnl (79) 06/10 TIBC wnl (361) 06/10 Ferritin wnl 22) 06/13 Embx normal Patient is s/p BTL for contraception. Was on OCP for many years before of her son, then DMP which she didn't like due to weight gain. Had Mirena IUD for a couple of months, taken out due to significant pain (likely due to uterine septum). Also trialed TXA for heavy bleeding, prescribed by herhematologist, did not tolerate SE of this either. ?? 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 Pap UTD 12/2020 NILM, HPV neg. STI: no DIAL REFINISHER surgeries: LTCS x3, D&C, BTL FHx cancer: Breast (PGM postmenopausal), colon (MGF) Current Outpatient Medications on File Prior to Visit Medication Sig Dispense Refill ??? venlafaxine XR (Effexor-XR) 75 mg Capsule, Sust. Release 24 hr TAKE ONE CAPSULE BY MOUTH EVERY DAY ??? desogestreL-ethinyl estradioL (Apri) 0.15-0.03 mg Tablet Take 1 tablet by mouth daily. Skip placebos for continuous cycles. 112 tablet 4 ??? norethindrone (Aygestin) 5 mg Tablet Take 1 tablet by mouth daily. 90 tablet 3 ??? [DISCONTINUED] norethindrone (Aygestin) 5 mg Tablet Take 1 tablet by mouth 4 times daily. 90 tablet 0 ??? ferrous sulfate 325 mg (65 mg iron) Tablet Take one tab by mouth every other day. 90 tablet 3 ??? acetaminophen (TYLENOL) 500 mg Tablet Take 1,000 mg by mouth every 6 hours as needed for Pain. ??? rizatriptan (MAXALT) 10 mg Tablet Take 10 mg by mouth as needed. PRN for Migranes ??? Acetylcysteine 600 mg Capsule TAKE 2 CAPSULES BY MOUTH IN THE MORNING AND AN ADDITIONAL 1 2 CAPSULES IN THE AFTERNOON NEEDED FOR MOOD ??? pseudoephedrine (SUDAFED) 30 mg Tablet Take 30 mg by mouth every 4 hours as needed for Congestion. ??? [DISCONTINUED] venlafaxine (EFFEXOR-XR) 150 mg Capsule, Sust. Release 24 hr Take 1 capsule by mouth daily. (Patient not taking: Reported on 09/29/2021) 30 capsule 0 No current facility-administered medications on file prior [...] DELIVERY performed by Clint Orlando MD at [facility] ??? PRO COLONOSCOPY, BIOPSY N/A 03/11/2015 COLONOSCOPY FLEXIBLE, WITH BX performed by Alida Mahmood MD at [facility] ENDOSCOPY ??? PRO COLONOSCOPY, DIAGNOSTIC N/A 03/17/2021 COLONOSCOPY, DIAGNOSTIC performed by Sherrill Miner MD at [facility] ENDOSCOPY ??? PRO COLONOSCOPY, REMV LESN, SNARE N/A 03/11/2015 COLONOSCOPY, POLYPECTOMY, REMOVAL LESION BY SNARE performed by Alida Mahmood MD at [facility] ENDOSCOPY ??? PRO LIGATE FALLOPIAN TUBE, 04/26/2013 @FALLOPIAN TUBE(S), TRANSECTION OR LIGATION, ABD APPROACH, POST- performed by Clint Orlando MD at [facility] Family History Problem Relation Age of [...] on file Occupational History ??? 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 Smoking status: Never Smoker [...] of Exercise per Session: Not on file Housing Stability: ??? Unable to Pay for Housing in the Last Year: Not on file ??? Number of Places Lived in the Last Year: Not on file ??? Unstable Housing in the Last Year: Not on file ROS: See above. PE: Ht 157.5 cm (5' 2) Wt 101.9 kg (224 lb 9.6 oz) LMP 06/29/2021 BMI 41.08 kg/m?? General - A&O x 3. No apparent distress. Assessment and Plan: Elodia Lin is a 51 y.o. woman presenting with refractory AUB despite medication management on concurrent cCOCs, and aygestin. She is experiencing side effects from this regimen, as well as unsatisfactory AUB control. She has a history of VWD, and severe blood loss anemia (Hbg 7 in 01/2021). Her TVUS is remarkable for uterine septum, making her not a candidate for Mirena IUD which she has trialled unsuccessfully in the past. I discussed options with her including depo Leuprolide, endometrial ablation or hysterectomy. I don't favor increasing OCP dose due to her age and obesity and risk of VTE. Her trials of increased Aygestin have been intolerable, and TXA has not worked in the past. With Lupron we would plan for transition to OCPs for two weeks after injection, but to dc the aygestin. We could add back hormones PRN to mitigate side effects. Our goal would be to allow for amenorrhea and eased transition to menopause. Side effects would include hot flashes, vaginal dryness etc. With an endometrial ablation, there is a higher risk of failure, as well as reasonable change machine would not deploy due to uterine shape. Rollerball could be used for manual ablation. She is open to this, but would like to try medication first. Finally hysterectomy would be feasible but challenging and with risks due to BMI, surgical hx and bleeding disorder, so this would be a less favorable option. Rx for Lupron sent to pharmacy. Explained prior auth process and RN visit for q3 month dosing for 1-2 years if tolerable. RTC 3 months for f/u. D/w Fernanda Mckeon MD 09/29/21 * Fernanda Osorio MD - 09/29/2021 11:20 AM EDT The case was discussed in person at the time of the visit or immediately after the visit. The assessment and plan were formulated in discussion with me and I agree with them as documented. I have reviewed the history, physical exam, assessment and plan with the resident. Major issues discussed today: AUB, likely combo of ovulatory dysfunction and coagulation d/o (VWD) refractory to hormonal therapy. Plan: will try Depo-Lupron to see if we can get her a break from the bleeding. Fernanda Osorio MD documented in this encounter Miscellaneous Notes * Addendum Note - Fernanda Osorio MD - 09/29/2021 11:20 AM EDTAddended by: FERNANDA OSORIO on: 09/30/2021 02:50 PM Modules accepted: Level of Service documented in this encounter Plan of Treatment Upcoming Encounters Date Type Department Care Team (Late st Contact Info) Description 10/20/2024 9:00 AM EST Office Visit Hematology [place] [address] Lacy Jameson MD [facility] DR HEMATOLOGY [place] [address] Layla Jo RN documented as of this encounter Visit Diagnoses Diagnosis Abnormal uterine bleeding (AUB) Von Willebrand disease Von Willebrand's disease Iron deficiency anemia due to chronic blood loss Iron deficiency anemia secondary to blood loss (chronic) Perimenopause Symptomatic menopausal or female climacteric states documented in this encounter Care Teams Radiation Safety Officer Relationship Specialty Start Date End Date Clayton Johnson DNP PCP - General Family Medicine 07/07/19 04/15/23 documented as of this encounter
--- OUTSIDE RECORDS SUMMARY | 2024-08-10 15:57 | XMS_ITS | Encounter Summary ---
Author Organization [facility] Address [facility] [place] [address] Care Team Providers Care Bumper Straightener Name Role Phone Clayton Johnson DNP Primary Care Provider Encounter Details Date Type Department Care Team (Late Contact Info) Description 10/22/2021 Orders [place] [phone] Lacy Jameson MD [facility] [address] [place] [address] Iron deficiency anemia due to chronic blood [...] EST Office Visit [place] [phone] Lacy Jameson MD [facility] [address] [place] [address] Layla Jo RN documented as of this encounter Results * (ABNORMAL) Ferritin (10/31/2021 10:51 AM EST) Ferritin 8(L) 30 - 400 ng/mL [facility] Comment: Pediatric reference ranges not verified at [facility], interpret with caution. Reference ranges for females greater than 50 years of age approach values for men, i.e., 30-400 ng/mL. Blood 10/31/2021 10:5 1 AM EST 10/31/2021 11:22 AM EST Narrative Resulting Agency Comment Spec In Lab Lacy Jameson MD CHEMISTRY ORDERABL ES Performing Organization Address City/[facility]/ZIP Co de Phone Number [facility] [place] [address] * (ABNORMAL) Iron and TIBC (10/31/2021 10:51 AM EST) Iron 36 30 - 150 mcg/dL [facility] TIBC 467(H) 250 - 450 mcg/dL [facility] Iron Saturation 8(L) 20 - 50 % [facility] Blood 10/31/2021 10:5 1 AM EST 10/31/2021 11:22 AM EST Narrative Resulting Agency Comment Spec In Lab Lacy Jameson MD CHEMISTRY ORDERABL ES Performing Organization Address City/[facility]/ZIP Co de Phone Number [facility] [place] [address] documented in this encounter Visit Diagnoses Diagnosis Iron deficiency anemia due to chronic blood loss Iron deficiency anemia secondary to blood loss (chronic) documented in this encounter Care Teams Bumper Straightener Relationship Specialty Start Date End Date Clayton Johnson DNP PCP - General Family Medicine 07/07/19 04/15/23 documented as of this encounter
--- OUTSIDE RECORDS SUMMARY | 2024-08-10 15:57 | XMS_ITS | Encounter Summary ---
Author Organization [facility] [place] [address] Care Team Providers Care Certified Fraud Examiner Name Role Phone Clayton Johnson DNP Primary Care Provider [phone] Encounter Details Date Type Department Care Team (Latest Contact Info) Description 06/13/2021 10:00 AM EDT - 06/13/2021 11:59 PM EDT Hospital Encounter Hematology [place] [phone] Von Willebrand disease Discharge Disposition: Home Social [...] 02/26/2015 09/30/2021 documented as of this encounter Progress Notes * Jacinta Duval, RN - 06/13/2021 11:26 AM EDT Date of Encounter: June 13, 2021 Patient Name: Elodia Lin Patient Age: 51 y.o. Birthdate: 1970 Admit date: 06/13/2021 Elodia Lin??is a 51 y.o.??female??with Von Willebrand Disease, type 2A, who reports vaginal bleeding for the past 12 days, changing tampons/ pad every hour. Today, per Dr. Jameson she was seen in 3K infusion and infused with Humate P 2061 units from the blood bank from 11:15 to 11:18 via a PIV placed in her left arm. The infusion was well tolerated. Theline was flushed post infusion with 10 mLs of saline and removed. The patient was discharged for anappt in ELECTRIC MOTOR FITTER for management of persistent vaginal bleeding. Patient to call if bleeding persists. GERMÁN Leyva RN documented in this encounter Plan of Treatment Upcoming Encounters Date Type Department Care Team (Late st Contact Info) Description 10/20/2024 9:00 AM EST Office Visit Hematology [place] [address] Lacy Jameson MD [facility] DR HEMATOLOGY [place] [address] Layla Jo RN documented as of this encounter Procedures Procedure Name Priority Date/Time Associated Diagnosis Comments PREPARE COAGULATION FACTORS (HEMOPHILIA) Routine 06/13/2021 10:50 AM EDT documented in this encounter Results * Prepare Coagulation Factors (Hemophilia) (06/13/2021 10:50 AM EDT) Dispensed? Yes [facility] Blood 06/13/2021 10:5 0 AM EDT 06/13/2021 10:48 AM EDT Narrative Resulting Agency Comment Spec In Lab Lacy Jameson MD BLOOD BANK PRODUCT ORDERABLES [facility] [place] [address] documented in this encounter Visit Diagnoses Diagnosis Von Willebrand disease Von Willebrand's disease documented in this encounter Administered Medications Inactive Administered Medications - up to 3 most recent administrations Medication Order MAR Action Action Date Dose Rate Site antihemophilic factor VIII (HUMATE P) IV Kit 2,061 Units 2,061 Units, Intravenous, ONCE, 1 dose, On Wed06/13/21 at 1115, Humate P is reviewed and issued by the blood bank. cosmetics supervisor at the blood bank dose will be one vial of 2061 units IV push over 1 to 2 mintues. Given 06/13/2021 11:15 AM EDT 2,061 Units documented in this encounter Care Teams Certified Fraud Examiner Relationship Specialty Start Date End Date Clayton Johnson DNP PCP - General Family Medicine 07/07/19 04/15/23 documented as of this encounter
--- OUTSIDE RECORDS SUMMARY | 2024-08-10 15:57 | XMS_ITS | Encounter Summary ---
Author Organization [facility] Address [facility] [place] [address] Care Team Providers Care Employee Communications Manager Name Role Phone Clayton Johnson DNP Primary Care Provider Encounter Details Date Type Department Care Team (Late st Contact Info) Description 06/13/2021 11:20 AM EDT Office Visit Obstetrics [place] [address] Adelia Aleman MD [facility] [address] OBSTETRICS [place] [address] Abnormal uterine bleeding (AUB) (Primary Dx); Von Willebrand disease Social History Tobacco Use [...] Sign Reading Time Taken Comments Blood Pressure 134/79 06/13/2021 11:32 AM EDT Pulse 63 06/13/2021 11:32 AM EDT Temperature - - Respiratory Rate 06/13/2021 11:3 2 AM EDT Oxygen Saturation 100% 06/13/2021 11: 32 AM EDT Inhaled Oxygen Concentration - - Weight 96.1 kg (211 lb 14.4 oz) 021 11:32 AM EDT Height 157.5 cm (5' 2) 06/13/2021 11:3 2 AM EDT Body Mass Index 38.76 06/13/2021 11:32 AM EDT documented in this encounter Progress Notes * Adelia Aleman MD - 06/13/2021 11:20 AM EDT Acute Office Visit Patient Name: Elodia Lin Date of : 1970 Primary Care Provider: Clayton Johnson APRN Date of Visit: 06/13/2021 Patient Active Problem List Diagnosis Code ??? Von Willebrand disease D68.0 ??? Obesity (BMI 35.0-39.9 without comorbidity) E66.9 ??? History of recurrent UTI (urinary tract infection) Z87.440 ??? Uterine septum Q51.9 ??? Tubal ligation status Z98.51 ??? Generalized anxiety disorder F41.1 ??? Dysthymic disorder F34.1 ??? Pain in left shoulder M25.512 ??? Abnormal uterine bleeding (AUB) N93.9 ??? Anemia, iron deficiency D50.9 Reason for Visit: Elodia Lin is a 51 y.o. perimenopausal female with a von Willebrand disease, type 2a presenting with heavy vaginal bleeding. Subjective: Elodia presents today from infusion suite s/p Humate-P for heavy vaginal bleeding for the past 2 weeks, changing super+ tampon/pad every hour. LMP 05/30/2021. She is followed by hematology and has required Humate-P and Feraheme for her heavy bleeding and subsequent iron deficiency anemia. Patient notes change in her menses around Oct 2020 with heavier, longer cycles (up to 9 days) + clotting/cramping and intermenstrual bleeding. Menses prior were consistent 26-28d lasting 5-7d with moderate bleeding, changing tampon every 3-4 hours. She was prescribed NAC by psychiatry for anxiety and started taking this last Wednesday, thinks it may have made her bleeding worse. Reports vivid and weird dreams and has stopped taking it. She is prescribed TXA for use with menses by hematology. Took TXA at the beginning of this bleeding episode but ran out (only had 3 doses left). Pharmacy didn'thave in stock and wasn't able to start taking it again until Wednesday of this week (had already been bleeding for a week). Thinks TXA helps with bleeding but doesn't like how it makes her feel. Feels like bleeding is tapering, light now. Denies dizziness/lightheadedness, CP, palpations, PEDERSEN, SOB. Last saw Felisha Mateus, FOREST LOGISTICS MANAGER 12/2020 and had lab work and TVUS. They had discussed LNG-IUD +/- Aygestin. TVUS on 02/07/21 showed small anteverted, septate uterus with 7mm endometrial stripe. Latest labs: 01/24 prolactin wnl (9.5) 01/24 TSH wnl (1.98) 01/24 vWF activity low (<19) 06/10 Hgb 12.2 (up from 7.6 in January) 06/10 iron wnl (79) 06/10 TIBC wnl (361) 06/10 ferritin wnl 22) Patient is s/p BTL for contraception. Was on OCP for many years before of her son, then DMP. Back on OCPs after of daughter. Had Mirena IUD for a couple of months, taken out due to significant pain. Other press operator automatic history: Menarche: Early teens Menopause: Occasional hot flashes Pregnancies: , CS x3 Pap hx/tx: Remote history of abnormal in 2007, has regular Paps with PCP in [facility]. Pap UTD 12/2020 NILM, HPV neg. STI: no MENTAL HEALTH THERAPIST surgeries: LTCS x3, D&C, BTL Sexually active: yes - has fianc??, taking a break from sexual intimacy, happy relationship, deniespostcoital bleeding. FHx cancer: Breast (PGM postmenopausal), colon (MGF) Mammogram: UTD Colonoscopy: UTD OB History 4 Para 3 Term 3 0 AB 1 Living 3 SAB 1 TAB 0 Ectopic 0 Multiple 0 Live Births 3 # Outc Date GA Lbr Dami/2nd Wgt Sex Del Anes PTL Lv 1 2000 6w0d 2 Term 11/2001 38w0d 3.204 kg (7 lb 1 oz) M CS-LTranv Spinal Living Comments: hx of uterine septum baby was breech 3 Term 07/2005 38w0d 3.204 kg (7 lb 1 oz) F CS-LTranv Gen Living Comments: scheduled 4 Term 03/2013 39w3d 3.055 kg (6 lb 11.8 oz) F LWR SEG TAO Spinal Living Past Medical History: Diagnosis Date ??? Abnormal [...] DELIVERY performed by Clint Orlando MD at [facility] ??? PRO COLONOSCOPY, BIOPSY N/A 03/11/2015 COLONOSCOPY FLEXIBLE, WITH BX performed by Alida Mahmood MD at [facility] ENDOSCOPY ??? PRO COLONOSCOPY, DIAGNOSTIC N/A 03/17/2021 COLONOSCOPY, DIAGNOSTIC performed by Sherrill Miner MD at [facility] ENDOSCOPY ??? PRO COLONOSCOPY, REMV LESN, SNARE N/A 03/11/2015 COLONOSCOPY, POLYPECTOMY, REMOVAL LESION BY SNARE performed by Alida Mahmood MD at [facility] ENDOSCOPY ??? PRO LIGATE FALLOPIAN TUBE, 04/26/2013 @FALLOPIAN TUBE(S), TRANSECTION OR LIGATION, ABD APPROACH, POST- performed by Clint Orlando MD at [facility] Family Hx: Family History Problem Relation Age of Onset ??? Cancer Maternal Grandmother 70 ??? Heart Disease Maternal Grandfather ??? Colorectal Cancer Maternal Grandfather ??? Breast Cancer Paternal Grandmother 70 ??? Cancer Paternal Grandfather ??? Ovarian Cancer Neg Hx Social Hx: Social History Socioeconomic History ??? Marital status: Spouse name: August Lin ??? Number of children: 2 ??? Years of education: 18 ??? Highest education level: Not on file Occupational History ??? 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 Smoking status: Never Smoker [...] Week: ??? Minutes of Exercise per Session: ROS: No fevers/chills, fatigue, dizziness, headache, vision change, chest pain, palpitations, cough, wheeze, shortness of breath, abdominal pain, nausea/vomiting, diarrhea/constipation, dysuria, urinary frequency, positive vaginal bleeding, change in vaginal discharge, muscle/joint aches, easy bruis ing, rashes, depression/anxiety Prior to Admission medications Medication Sig Start Date End Date Taking? Authorizing Provider Tranexamic Acid 650 mg Tablet Take 2 tabs 3 times daily for first 3 days of menstrual period. 01/24/21 Lacy Jameson MD ferrous sulfate 325 mg (65 mg iron) Tablet Take one tab by mouth every other day. 01/24/21 Lacy Jameson MD acetaminophen (TYLENOL) 500 mg Tablet Take 1,000 mg by mouth every 6 hours as needed for Pain. PROVIDER, HISTORICAL pseudoephedrine (SUDAFED) 30 mg Tablet Take 30 mg by mouth every 4 hours as needed for Congestion. PROVIDER, HISTORICAL rizatriptan (MAXALT) 10 mg Tablet Take 10 mg by mouth as needed. PRN for Migranes 01/17/15 PROVIDER,HISTORICAL venlafaxine (EFFEXOR-XR) 150 mg Capsule, Sust. Release 24 hr Take 1 capsule by mouth daily. Patient taking differently: Take 75 mg by mouth daily. 02/26/15 Erica Bazan MD Allergies Allergen Reactions ??? Adhesive Bandage Rash Blistering rash with tegederm ??? Codeine Percocet is ok ??? Durapore Cloth Surgical Tape [Adhesive Tape] [facility] Objective: BP 134/79 Pulse 63 Resp 16 Ht 157.5 cm (5' 2) Wt 96.1 kg (211 lb 14.4 oz) LMP05/30/2021 (Approximate) Body mass index is 38.76 kg/m??. Gen: Pleasant, NAD Pelvic: Normal hair distribution. Labia well developed with no evidence of atrophy, inflammatory, dystrophic, or neoplastic lesions. Bartholin glands normal. Urethra and skene glands without evidenceof exudate. Liquid Light speculum used to visualize the vagina and cervix. Normal vaginal ruggae. Cervix without obvious lesion, minimal blood in vaginal vault. EMBx procedure: Following a brief verbal description of the procedure, verbal consent was obtained from the patient. A bimanual exam was performed which revealed a small anteverted uterus. Adnexa were non palpable. Graves speculum was placed without difficulty. The cervix and vagina were prepped with sterile betadine x3. Initial passes of biopsy pipelle unsuccessful due to resistance at internal cervical os. Os finder used to gently dilated with subsequent successful entry to uterine cavity. A biopsy was obtained in a 360 degree fashion. The tissue was placed into formalin for pathologic specimen and labeled with her name and date of and sent to pathology for assessment. The patient tolerated the procedure well. EBL 10-15mL. Imagin02/07/21 TVUS COMPARISON: No prior studies for comparison. ?? -------- HISTORY: -------- Age: 50 ?? PREVIOUS PELVIC SURGERY: X 3 per pt ------- UTERUS: ------- Uterus: Visualized Position: Anteverted Size [...] seen transvaginally and was visualized transabdominally. Assessment/Plan: 51 y.o. perimenopausal female with von Willebrand disease presenting with heavy vaginal bleeding. Abnormal uterine bleeding likely secondary to perimenopausal, anovulatory bleeding as well as patient's known coagulopathy. EMB collected today to assess for hyperplasia/malignancy. Recent labs reassuring without evidence of current iron deficiency anemia. Reviewed transvaginal ultrasound from January with what was reported as a uterine septum. 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 We reviewed hormonal options to control heavy bleeding including OCP, progestin only pill, Nexplanon, or Depo-Provera. Patient is obese otherwise no contraindications to E2. After discussion plan trial of cOCP, prescription sent to pharmacy. Counseled on VTE risk and to stop TXA. RTC in 3-6 months for follow up. Patient discussed with Dr. Sylvia Yu, attending press operator automatic. Adelia Aleman MD PGY3 06/13/21 * Sylvia Yu MD - 06/13/2021 11:20 AM EDT The case was discussed at the time of the visit. The assessment and plan were formulated in discussion with me and I agree with them as documented. I have reviewed the history, physical exam, assessment and plan with Dr. Aleman. Sylvia Yu MD documented in this encounter Plan of Treatment Upcoming Encounters Date Type Department Care Team (Late st Contact Info) Description 10/20/2024 9:00 AM EST Office Visit Hematology [place] [address] Lacy Jameson MD [facility] [place] [address] aLyla Jo RN documented as of this encounter Procedures Procedure Name Priority Date/Time Associated Diagnosis Comments SPECIMEN TO PATHOLOGY Routine 06/13/2021 12:03 PM EDT Von Willebrand disease Abnormal uterine bleeding (AUB) SURGICAL PATHOLOGY REPORT Routine 06/13/2021 11:20 AM EDT documented in this encounter Results * Specimen to Pathology (06/13/2021 12:03 PM EDT) AP Specimen 06/13/2021 12:0 3 PM EDT 06/13/2021 12:03 PM EDT [facility] - 06/13/2021 12:03 PM EDT Specimen requisition ordered. ??Separate Pathology report to follow Sylvia Yu MD PATHOLOGY/CYTOLOGY O RDJENNY Performing Organization Address [facility] Co de Phone Number [facility] [place] [address] * Surgical Pathology Report (06/13/2021 11:20 AM EDT) Final Diagnosis [id number] ? Location: 5L The signing pathologist has (i) examined the relevant preparation(s) for the specimen(s) and (ii) rendered or confirmed the diagnosis(es). . ?Surgical Pathology DIAGNOSIS A - Endometrium (biopsy): ??- Proliferative endometrium with endometrial stromal breakdown. Electronically signed by: ?Reyes BERRY, Ivonne Forbes Verified: ??06/19/2021 16:19 ??Pathologist Performed at: ??-[facility] Dept. of [place]ology, [place], [place] SPECIMEN(S) SUBMITTED A - Endometrial biopsy CLINICAL INFORMATION 51-year-old with vWD and heavy vaginal bleeding SPECIMEN PROCESSING A - Labeled/Fixative: Patient demographics, formalin. Quantity/Size: ??Fragments, 2.5 x 2.0 x 0.5 cm. Tissue Description: Soft white tissues and blood clot. Sections/Processi ng: Submitted en toto in 1 cassette labeled A1. ??sns 06/19/2021 4:19 PM EDT [facility] ENDOMETRIAL STRUCTURE / Unknown 06/13/2021 11:20 AM EDT 06/13/2021 11:20 AM EDT Adelia Aleman MD PATHOLOGY/CYTOLOGY O RDJENNY Performing Organization Address [facility]/ZIP Co de Phone Number [facility] [place] [address] documented in this encounter Visit Diagnoses Diagnosis Abnormal uterine bleeding (AUB)- Primary Von Willebrand disease Von Willebrand's disease documented in this encounter Care Teams Employee Communications Manager Relationship Specialty Start Date End Date Clayton Johnson DNP PCP - General Family Medicine 07/07/19 04/15/23 documented as of this encounter
--- OUTSIDE RECORDS SUMMARY | 2024-08-10 15:57 | XMS_ITS | Encounter Summary ---
[place] [address] Care Team Providers Care Dope Worker Name Role Phone Clayton Johnson DNP Primary Care Provider Encounter Details Date Type Department Care Team (Late st Contact Info) Description 03/17/2021 Telephone Hematology [place] [address] Layla Jo RN Social History Tobacco Use Types Packs/Day [...] Telephone Encounter - Layla Jo RN - 03/17/2021 3:14 PM EDT TC to patient. VM left regarding resolution of anemia and recommendations/plan written below from Dr. Jameson. Colonoscopy went well yesterday. No biopsies/polyps taken. No need to take oral TXA post procedure. Layla Jo RN MSN ===View-only below this line=== ----- Message ----- From: Lacy Jameson MD Sent: 03/17/2021 3:00 PM EDT To: Layla Jo RN Can you please let her know the good news? Thanks. /dlo Results for ELODIA LIN ( ) as of 03/17/2021 14:50 Ref. Range 10/13/2012 10:12 01/23/2013 11:12 01/24/2021 12:09 03/17/2021 12:43 Iron Latest Ref Range: 30 - 150 mcg/dL 12 (L) 75 TIBC Latest Ref Range: 250 - 450 mcg/dL 467 (H) 264 Iron Saturation Latest Ref Range: 20 - 50 % 3 (L) 28 Ferritin Latest Ref Range: 15 - 150 ng/mL 2 (L) 148 Impression: Anemia is resolved, storage iron replete. ?? Plan: Continue TXA for heavy menstrua periods. Recommend Mirena IUD Follow up CBC, iron studies 1 year. documented in this encounter Plan of Treatment Upcoming Encounters Date Type Department Care Team (Late st Contact Info) Description 10/20/2024 9:00 AM EST Office Visit [place] [address] Lacy Jameson MD [facility] [address] [place] [address] Layla Jo, RN documented as of this encounter Visit Diagnoses Not on filedocumented in this encounter Care Teams Dope Worker Relationship Specialty Start Date End Date Clayton Johnson DNP PCP - General Family Medicine 07/07/19 04/15/23 documented as of this encounter
--- OUTSIDE RECORDS SUMMARY | 2024-08-10 15:57 | XMS_ITS | Encounter Summary ---
Author Organization [facility] Address [facility] [place] [address] Care Team Providers Care Supervisor Tank House Name Role Phone Clayton Johnson JOHN Primary Care Provider Encounter Details Date Type Department Care Team (Late st Contact Info) Description 10/14/2021 Notes Only Obstetrics [place] [address] Erica Mckeon MD [facility] DR OBSTETRICS & [place] [address] Social History Tobacco Use Types Packs/Day Years Used Date Smoking Tobacco: Never Smokeless Tobacco: Never Alcohol Use Standard Drinks/Week Comments No 0 (1 standard drink = 0.6 oz pur e alcohol) Sex and Gender Information Value Date Recorded Sex Assigned at Not on file Gender Identity Not on file Sexual Orientation Not on file documented as of this encounter Progress Notes * Erica Mckeon MD - 10/14/2021 3:24 PM EST Upon review of Elodia Lin's medical history she notes a long history of pelvic pain, dysmenorrhea, heavy menstrual bleeding and irregular menstrual bleeding. Endometriosis is definitively diagnosed by histologic evaluation of a lesion biopsied during surgery (typically laparoscopy), however she has not had a laparoscopy and is a sub-optimal surgical candidate due to her bleeding disorder. While definitive diagnosis requires tissue biopsy and histologic confirmation, the combination of her symptoms can be used to make a presumptive, nonsurgical diagnosis of endometriosis, for which I recommend trial of depo Lupron treatment, given that she has failed many other treatments. She is nota good candidate for definitive surgical management due to her bleeding disorder, and not a candidate for other options such as IUD or ablation due to her uterine shape (septum). Erica Mckeon MD documented in this encounter Plan of Treatment Upcoming Encounters Date Type Department Care Team (Late st Contact Info) Description 10/20/2024 9:00 AM EST Office Visit Hematology [place] [address] Lacy Jameson MD [facility] DR HEMATOLOGY [place] [address] Layla Jo RN documented as of this encounter Visit Diagnoses Not on filedocumented in this encounter Care Teams Supervisor Tank House Relationship Specialty Start Date End Date Clayton Johnson DNP PCP - General Family Medicine 07/07/19 04/15/23 documented as of this encounter
--- OUTSIDE RECORDS SUMMARY | 2024-08-10 15:57 | XMS_ITS | Encounter Summary ---
[place] [address] Care Team Providers Care Die Developer Name Role Phone Clayton Johnson DNP Primary Care Provider Encounter Details Date Type Department Care Team (Late st Contact Info) Description 06/17/2021 Telephone Obstetrics [place] [address] Nikki Olivera, RN Social History Tobacco Use [...] Telephone Encounter - Nikki Olivera, RN - 06/17/2021 1:48 PM EDT Called pt to follow up on AUB, still bleeding scant amount changing tampon 2 times in 24 hours all old blood. Denies fever and cramping. Feeling much better. * Telephone Encounter - Nikki Olivera, RN - 06/17/2021 1:47 PM EDT ----- Message from Shari Gilmore MD sent at 06/15/2021 10:03 PM EDT ----- Regarding: Follow up Please schedule this patient for either this Wednesday or next Wednesday for a follow up visit in clinic for AUB. Thanks! Please call this pt to check in on bleeding symptoms on Aygestin. Shari Doyle documented in this encounter Plan of Treatment Upcoming Encounters Date Type Department Care Team (Late st Contact Info) Description 10/20/2024 9:00 AM EST Office Visit Hematology [place] [address] [facility] [address] HEMATOLOGY [place] [address] Layla Jo RN documented as of this encounter Visit Diagnoses Not on filedocumented in this encounter Care Teams Die Developer Relationship Specialty Start Date End Date Clayton Johnson DNP PCP - General Family Medicine 07/07/19 04/15/23 documented as of this encounter
--- OUTSIDE RECORDS SUMMARY | 2024-08-10 15:57 | XMS_ITS | Encounter Summary ---
Author Organization [facility] [place] [address] Care Team Providers Care Apparatus Repair Mechanic Name Role Phone Clayton Johnson JOHN Primary Care Provider Reason for Visit * Reason Comments Von Willebrand Disease * Treatment/Therapy Plan Authorization (Routine) - Closed Specialty Diagnoses / Procedures Referred By Contac t Referred To Contact Diagnoses Iron deficiency anemia, unspecified iron deficiency anemia type Procedures TC FERUMOXYTOL, NON-ESRD, 1 MG, INJECTION Lisa Love MD [facility] [address] HEMATOLOGY [place] [address] [facility] [address] [place] [address] Referral ID Status Reason Start Date Expiration Date Visits Re quested Visits Authorized [id number] Closed 02/11/2021 02/11/2022 99 99 Encounter Details Date Type Department Care Team (Latest Contact Info) Description 02/21/2021 2:00 PM EDT - 02/21/2021 11:59 PM EDT Hospital Encounter Hematology [place] [address] Von Willebrand disease; Iron deficiency anemia, unspecified [...] Sign Reading Time Taken Comments Blood Pressure 116/63 02/21/2021 3:31 PM EDT Pulse 51 02/21/2021 3:31 PM EDT Temperature 36.1 ??C (97 ??F) 02/21/2021 3:31 PM EDT Respiratory Rate 16 02/21/2021 3:31 PM EDT Oxygen Saturation 100% 02/21/2021 3:31 PM EDT Inhaled Oxygen Concentration - - Weight - - Height - - Body Mass Index - - documented in this encounter Medications at Time [...] as of this encounter Progress Notes * Susy Ahmadi RN - 02/21/2021 2:13 PM EDT Patient Name: Elodia Lin Patient Age: 50 y.o. Birthdate: 1970 Admit date: 02/21/2021 Attending Physician: MD Trino TIME TREATMENT STARTED: 1415 TIME TREATMENT ENDED: 154 Elodia Lin, 50 y.o. female with diagnosis of Von Willebrand Disease, is here for feraheme. S: Patient offers no complaints, questions, or concerns regarding treatment today. O: Orders independently verified by Susy Ahmadi RN, pharmacy RN, and two pharmacists. A: Elodia Lin tolerated treatment well and confirms that all questions and issues have been addressed. P: Return to clinic as advised. documented in this encounter Plan of Treatment Upcoming Encounters Date Type Department Care Team (Late st Contact Info) Description 10/20/2024 9:00 AM EST Office Visit Hematology [place] [address] Lacy Jameson MD [facility] [address] HEMATOLOGY [place] [address] Layal Jo RN documented as of this encounter Visit Diagnoses Diagnosis Von Willebrand disease Von Willebrand's disease Iron deficiency anemia, unspecified iron deficiency anemia type documented in this encounter Administered Medications Inactive Administered Medications - up to 3 most recent administrations Medication Order MAR Action Action Date Dose Rate Site ferumoxytoL (Feraheme) 510 mg in sodium chloride 0.9% 117 mL infusion 510 mg, Intravenous, ONCE, 1 dose, On Wed02/21/21 at 1445, Administer over 30 Minutes, Do not administer as an undiluted injection. Administer while patient is in a reclined or semi-reclined position. Obtain vital signs pre and post-infusion. Observe patient during infusion and for 30 minutes post-infusion for possible hypersensitivity reaction and/or hypotension. Initiate infusion reaction management per protocol if needed., FerumoxytoL may alter MRI imaging. Reference operations inspector's recommendations for details. Acknowledged, This agent is restricted to outpatient use. Is this drug being given as an outpatient? Yes New Bag 02/21/2021 2:41 PM EDT 510 mg 234 mL/hr documented in this encounter Care Teams Apparatus Repair Mechanic Relationship Specialty Start Date End Date Clayton Johnson DNP PCP - General Family Medicine 07/07/19 04/15/23 documented as of this encounter
--- OUTSIDE RECORDS SUMMARY | 2024-08-10 15:57 | XMS_ITS | Encounter Summary ---
[place] [address] Care Team Providers Care Lan Support Specialist Name Role Phone Clayton Johnson JOHN Primary Care Provider Encounter Details Date Type Department Care Team (Late st Contact Info) Description 10/16/2021 Telephone Obstetrics [place] [address] Tosha Strauss, RN Social History Tobacco Use [...] Encounter - Tosha Strauss, RN - 10/16/2021 2:48 PM EST [facility] patient estimate leasing representative calling the office back to discuss Lupron Depot 11.25mg injection. With CPT code of J1950 the leasing representative states that the estimated patient cost with Elodia's co-insurance and current deductible is $185. The leasing representative states that this estimate is based off of in network provider and the patient should call her insurance company to verifying [facility] is in network. Heating Technician states they will add a letter to patient's [employer] account so she can view the estimate. Calling Elodia Lin to discuss this update. Elodia states that she still wants to receive the injection and will call her insurance to ensure that [facility] is in network. Discussed with patient that she can call [employer] or that financial assistance office to discuss this further and make a payment plan if she would prefer. Elodia requests to come into the clinic for a nurse visit for the injection on 10/31/2021 at 10am. Will send message to schedulers to make this appointment. documented in this encounter Plan of Treatment Upcoming Encounters Date Type Department Care Team (Late st Contact Info) Description 10/20/2024 9:00 AM EST Office Visit Hematology [place] [address] Lacy Jameson MD [facility] DR HEMATOLOGY [place] [address] Layla Jo RN documented as of this encounter Visit Diagnoses Not on filedocumented in this encounter Care Teams Lan Support Specialist Relationship Specialty Start Date End Date Clayton Johnson DNP PCP - General Family Medicine 07/07/19 04/15/23 documented as of this encounter
--- OUTSIDE RECORDS SUMMARY | 2024-08-10 15:57 | XMS_ITS | Encounter Summary ---
[place] [address] Care Team Providers Care Independent Distributor Name Role Phone Clayton Johnson JOHN Primary Care Provider Encounter Details Date Type Department Care Team (Late Contact Info) Description 10/24/2021 Telephone Hematology [place] [address] Layla Jo RN Social History [...] Telephone Encounter - Layla Jo RN - 10/24/2021 10:25 AM EST VM left stating orders per Dr. 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 Layla Jo RN MSN documented in this encounter Plan of Treatment Upcoming Encounters Date Type Department Care Team (Late Contact Info) Description 10/20/2024 9:00 AM EST Office Visit Hematology [place] [address] Lacy Jameson MD [facility] DR HEMATOLOGY [place] [address] Layla Jo RN documented as of this encounter Visit Diagnoses Not on filedocumented in this encounter Care Teams Independent Distributor Relationship Specialty Start Date End Date Clayton Johnson DNP PCP - General Family Medicine 07/07/19 04/15/23 documented as of this encounter
--- OUTSIDE RECORDS SUMMARY | 2024-08-10 15:58 | XMS_ITS | Encounter Summary ---
Author Organization [facility] [place] [address] Care Team Providers Care Franchise Sales Manager Name Role Phone Malini Daugherty MITUL Primary Care Provider [phone] Encounter Details Date Type Department Care Team (Late st Contact Info) Description 05/28/2015 Orders [place] [phone] Carmelo Mcclure MD [facility] [place] [address] Pain in left shoulder Social History Tobacco Use Types Packs/Day Years [...] EST Office Visit [place]ology [place] [phone] Lacy Jameson MD [facility] [address] [place] [address] Layla Jo RN documented as of this encounter Results * XR shoulder (06/07/2015 10:04 AM EDT) Anatomical Region Laterality Modality Shoulder N/A Radiographic Latanya ging 06/07/2015 10:0 4 AM EDT Impressions 06/07/2015 10:11 AM EDT IMPRESSION: 1. ??Normal left shoulder examination. Narrative 06/07/2015 10:11 AM EDT EXAMINATION: SHOULDER MINIMUM TWO VIEWS/LEFT CLINICAL HISTORY: LEFT SHOULDER PAIN TECHNIQUE: 4 views. COMPARISON: None FINDINGS: There is no evidence of acute fracture identified. The articular interspaces appear adequately maintained. There are no abnormal soft tissue masses or calcifications visualized. There are no radiopaque foreign bodies evident.. Procedure Note Dariel Carbajal, DO - 06/07/2015 EXAMINATION: SHOULDER MINIMUM TWO VIEWS/LEFT CLINICAL HISTORY: LEFT SHOULDER PAIN TECHNIQUE: 4 views. COMPARISON: None FINDINGS: There is no evidence of acute fracture identified. The articularinterspaces appear adequately maintained. There are no abnormal soft tissue massesor calcifications visualized. There are no radiopaque foreign bodiesevident.. IMPRESSION IMPRESSION: 1. Normal left shoulder examination. Carmelo Mcclure MD IMG DX ORDERABLES documented in this encounter Visit Diagnoses Diagnosis Pain in left shoulder Pain in joint, shoulder region Pain in left shoulder Pain in joint, shoulder region documented in this encounter Care Teams Franchise Sales Manager Relationship Specialty Start Date End Date Malini Daugherty APRN [facility] [address] [place] [address] PCP - General 10/02/14 06/06/15 documented as of this encounter
--- OUTSIDE RECORDS SUMMARY | 2024-08-10 15:58 | XMS_ITS | Encounter Summary ---
Author Organization [place] [address] Care Team Providers Care Rolling Mill Plugger Name Role Phone Clayton Johnson JOHN Primary Care Provider Reason for Visit * Treatment/Therapy Plan Authorization (Routine) - Closed Specialty Diagnoses / Procedures Referred By Patsy t Referred To Contact Diagnoses Iron deficiency anemia, unspecified iron deficiency anemia type Procedures TC FERUMOXYTOL, NON-ESRD, 1 MG, INJECTION Lisa Love MD [facility] [address] [place] [address] [facility] [address] [place] [address] Referral ID Status Reason Start Date Expiration Date Visits Re quested Visits Authorized [id number] Closed 02/11/2021 02/11/2022 99 99 Encounter Details Date Type Department Care Team (Latest Contact Info) Description 02/14/2021 2:00 PM EDT - 02/14/2021 11:59 PM EDT Hospital Encounter Hematology [place] [address] Iron deficiency anemia, unspecified iron deficiency anemia [...] Sign Reading Time Taken Comments Blood Pressure 122/59 02/14/2021 2:27 PM EDT Pulse 66 02/14/2021 2:27 PM EDT Temperature 36.5 ??C (97.7 ??F) 02/14/2021 2:27 PM ED T Respiratory Rate 17 02/14/2021 2:27 PM EDT Oxygen Saturation 100% 02/14/2021 2:27 PM EDT Inhaled Oxygen Concentration - - Weight 95.6 kg (210 lb 12.8 oz) 02/14/2021 2:27 PM EDT Height 158.3 cm (5' 2.32) 02/14/2021 2:27 PM ED T Body Mass Index 38.16 02/14/2021 2:27 PM EDT documented in this encounter Medications at [...] as of this encounter Progress Notes * Analilia Allen, RN - 02/14/2021 2:59 PM EDT Patient Name: Elodia Lin Patient Age: 50 y.o. Birthdate: 1970 Admit date: 02/14/2021 Attending Physician: No att. providers found Elodia Lin, 50 y.o. female with diagnosis of KARELY is here for chemotherapy infusion of feraheme. S: Pt. offers no complaints at this time. O: Chemotherapy orders independently verified for correct drug name, route and dosage per patient'sheight, weight and BSA by Analilia Allen RN and onsite pharmacist REACTIONS (DESCRIPTION, TIME, INTERVENTION AND EFFECTIVENESS) none A: Pt. Tolerated treatment well. Elodia Lin confirms that all questions and issues have been addressed. P: Return to clinic per routine documented in this encounter Plan of Treatment Upcoming Encounters Date Type Department Care Team (Late st Contact Info) Description 10/20/2024 9:00 AM EST Office Visit [place] [address] Lacy Jameson MD [facility] [address] [place] [address] Layla Jo RN documented as of this encounter Visit Diagnoses Diagnosis Iron deficiency anemia, unspecified iron deficiency anemia type documented in this encounter Administered Medications Inactive Administered Medications - up to 3 most recent administrations Medication Order MAR Action Action Date Dose Rate Site ferumoxytoL (Feraheme) 510 mg in sodium chloride 0.9% 117 mL infusion 510 mg, Intravenous, ONCE, 1 dose, On Wed02/14/21 at 1430, Administer over 30 Minutes, Do not administer as an undiluted injection. Administer while patient is in a reclined or semi-reclined position. Obtain vital signs pre and post-infusion. Observe patient during infusion and for 30 minutes post-infusion for possible hypersensitivity reaction and/or hypotension. Initiate infusion reaction management per protocol if needed., FerumoxytoL may alter MRI imaging. Reference principal statistical scientist's recommendations for details. Acknowledged, This agent is restricted to outpatient use. Is this drug being given as an outpatient? Yes New Bag 02/14/2021 2:38 PM EDT 510 mg 234 mL/hr documented in this encounter Care Teams Rolling Mill Plugger Relationship Specialty Start Date End Date Clayton Johnson DNP PCP - General Family Medicine 07/07/19 04/15/23 documented as of this encounter
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
--- OUTSIDE RECORDS SUMMARY | 2024-08-10 15:58 | XMS_ITS | Encounter Summary ---
Author Organization [facility] [place] [address] Care Team Providers Care Chief Safety Officer Name Role Phone Yanely Marshall Pablo BAUMAN Primary Care Provider Encounter Details Date Type Department Care Team (Late st Contact Info) Description 07/11/2018 Orders Only Hematology [place] [phone] Lacy Jameson MD [facility] [address] [place] [address] Social History Tobacco Use Types Packs/Day Years [...] EST Office Visit Hematology [place] [phone] Lacy Jameson MD [facility] [address] [place] [address] Layla Jo RN documented as of this encounter Procedures Procedure Name Priority Date/Time Associated Diagnosis Comments PREPARE COAGULATION FACTORS (HEMOPHILIA) Routine 07/11/2018 12:49 PM EDT documented in this encounter Results * Prepare Coagulation Factors (Hemophilia) (07/11/2018 12:49 PM EDT) Dispensed? Yes [facility] Blood specimen (specimen) No Charge / Unknown 07/11/2018 12:49 PM EDT 07/11/2018 12:49 PM EDT Narrative Resulting Agency Comment Spec In Lab Lacy Jameson MD BLOOD BANK PRODUCT ORDERABLES Performing Organization Address City/State/[facility] Co de Phone Number [facility] [place] [address] documented in this encounter Visit Diagnoses Not on filedocumented in this encounter Care Teams Chief Safety Officer Relationship Specialty Start Date End Date Yanely Marshall APRN PCP - General 06/07/15 06/28/19 documented as of this encounter
--- OUTSIDE RECORDS SUMMARY | 2024-08-10 15:58 | XMS_ITS | Encounter Summary ---
Author Organization [facility]ly [facility] Address [facility] [place] [address] Care Team Providers Care Casket Upholsterer Name Role Phone Yanely Marshall APRN Primary Care Provider Encounter Details Date Type Department Care Team (Late st Contact Info) Description 06/10/2018 10:00 AM EDT Office Visit Hematology [place] [address] Lacy Jameson MD [facility] DR [place] [address] Layla Jo, RN Type 2A von Willebrand disease Social History Tobacco Use Types [...] Sign Reading Time Taken Comments Blood Pressure 108/69 06/10/2018 10:02 AM EDT Pulse 51 06/10/2018 10:02 AM EDT Temperature 36.7 ??C (98.1 ??F) 06/10/2018 10:02 AM E DT Respiratory Rate 18 06/10/2018 10:02 AM EDT Oxygen Saturation 100% 06/10/2018 10:02 AM EDT Inhaled Oxygen Concentration - - Weight 74.6 kg (164 lb 6.4 oz) 06/10/2018 10:02 AM EDT Height 157.5 cm (5' 2) 06/10/2018 10:02 AM EDT Body Mass Index 30.07 06/10/2018 10:02 AM EDT documented in this encounter Progress Notes * Lacy Jameson MD - 06/10/2018 10:00 AM EDT Images from the original note were not included. [facility] [place] [id number] HEMOSTASIS FOLLOW UP DATE OF VISIT 06/10/2018 Patient Elodia Lin 1970 Elodia is a 48 year old woman with Von Willebrand Disease, type 2A, with a mild bleeding phenotype who comes in for routine follow up. I last saw her in 2014 prior to a shoulder injection for which we recommended pre-treatment with a dose of Humate P. She did well and has had no bleeding issues subsequently. She maintains a dose of Humate P at home for emergencies but her current dose over a year ago. She has no active bleeding issues presently and no upcoming procedures. She is still menstruating and having no issues with menorrhagia. In the office today she reports feeling well. Her 13 yo daughter has started menstruating and her first period was quite heavy. She is untested for VWD. PAST MEDICAL HISTORY 1) Type 2 von Willebrand Disease (previous testing consistent with type 2A) Baseline lab values 07/07/2012: VWF:Ag 47% VWF:Act 28% F8A 73% PFA-100 Col/Epi >264 s Col/ADP >231s VWF Ag, multimeric - absence of large to intermediate weight multimers 2) Anxiety 3) Iron deficiency anemia with pregnancies ?? OPERATIVE PROCEDURES 1) Tonsillectomy - at age 10 2) [employer] teeth extractions - 1986 3) Ankle surgery - 4) Wrist surgery - 5) section x 3 - 2000, 2004, 2012 6) Tubal ligation, 2012 ?? OBSTETRIC HISTORY Normal menses - bleeds about a 1 week, 2-3 heavy; tampon every 3-4 hours; q 30 days MEDICATIONS Current Outpatient Prescriptions on File Prior to Visit Medication Sig Dispense Refill ??? acetaminophen (TYLENOL) 500 mg Tablet Take 1,000 mg by mouth every 6 hours as needed for Pain. ??? pseudoephedrine (SUDAFED) 30 mg Tablet Take 30 mg by mouth every 4 hours as needed for Congestion. ??? rizatriptan (MAXALT) 10 mg Tablet Take 10 mg by mouth as needed. PRN for Migranes ??? venlafaxine (EFFEXOR-XR) 150 mg Capsule, Sust. Release 24 hr Take 1 capsule by mouth daily. (Patient taking differently: Take 75 mg by mouth daily.) 30 capsule 0 No current facility-administered medications on file prior to visit. ADVERSE DRUG REACTIONS Allergies Allergen Reactions ??? Adhesive Bandage Rash Blistering rash with tegederm ??? Codeine Percocet is ok FAMILY HISTORY Mother - tested negative for vWD; but hx of easy bruising Father - cancerous polyps at 68; no bleeding Son - tested negative for vWD, Younger daughter negative for VWD; Older daughter untested No other family members with bleeding problems or known to have vWD ?? 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 REVIEW OF SYSTEMS Fevers/chills/sweats No Recent infections No Unexplained weight loss No Headache/lightheadedness/syncope No Sinus pain/pressure No Oral sores/lesions/bleeding No Sore throat/dysphagia No Nosebleeds No Cough/SOB/chest pain/heart racing No Nausea/vomiting/dyspepsia No Abdominal pain No Diarrhea/constipation No Urinary pain, burning, incontinence No Hematuria No Vaginal discharge/bleeding No Skin rashes/ulcers No Back/joint pain/swelling No Leg swelling/pain/redness No Bruising/petechiae/bleeding/melena No Sensory/motor No Polydipsia/polyuria/heat/cold intol No Lumps/bumps/swollen glands No Other Negative except as above PHYSICAL EXAMINATION Most Recent Vitals: 06/10/18 1002 BP: 108/69 Pulse: 51 Resp: 18 Temp: 36.7 ??C (98.1 ??F) SpO2: 100% Body mass index is 30.07 kg/(m^2). GENERAL: Well-appearing, articulate white female. HEENT: Oropharynx clear; no mucosal lesions, petechiae, bleeding, thrush or ulcers. NECK: Supple; no cervical, supraclavicular or submental adenopathy. BREASTS: Exam deferred. CHEST: Clear to auscultation/percussion. No rales, rhonchi, wheezes. HEART: Regular rate and rhythm; no murmur, rub, gallop ABDOMEN: Soft, non-tender, no hepatosplenomegaly. GENITOURINARY: Exam deferred. EXTREMITIES: No clubbing, cyanosis or edema. No erythema, tenderness or palpable cords. No venous varicosities. No skin discoloration or hemosiderin deposits. Peripheral pulses palpable. MUSCULOSKELETAL: Spine nontender. Full ROM all joints. No acutely inflamed joints. SKIN: No ecchymoses, petechiae, ulcers or rashes. LYMPH: No palpable lymph nodes. NEUROLOGIC: Alert, oriented. Speech clear, coherent. No focal deficits noted. PSYCHIATRIC: Appropriate affect, no apparent distress. IMPRESSION Elodia Lin is a 48 y.o. woman with type 2A von Willebrand disease who is doing well overall andhas a good understanding of her bleeding disorder and its management. She has no active VWD issues requiring immediate attention presently but will continue to require VWF concentrate infusions in the event of injury or trauma and prior to invasive procedures. She is happy with Humate P as her coagu lation factor concentrate and with [facility] as the supplier. PLAN We reviewed some basic educational material about VWD with Elodia, reiterated the importance of regular follow-up at the hemophilia center and reminded her of our emergency contact information and indications for calling. We also reviewed with her the importance of contacting us in advance of any planned invasive procedures so that we may formulate a hemostasis plan and reminded her to notify us quickly in the event of significant bleeding. We have reviewed the coagulation factor concentrate and vendor choice information with Elodia and hailey elected to continue with Humate P as her coagulation factor concentrate product and with [facility] as the vendor. We reviewed the indications for Humate P infusion and will ensure that she continues to have a fresh supply. Her current emergency dose is , thus we will verify her insurance coverage and send her a fresh dose (~2000 units/~~25 u/kg). It is a good idea to have her 13 yo daughter evaluated for VWD. She will work on getting a referralfrom her blanket washer -- best if she comes to for evaluation given availability of on site lab testing. Elodia had the opportunity to ask questions and indicated that all her questions were answered to hersatisfaction. We'll continue to see her at least annually at the [facility] and in the interim as necessary. Lacy Jameson MD School Age Program Teacher, [facility] documented in this encounter Plan of Treatment Upcoming Encounters Date Type Department Care Team (Late st Contact Info) Description 10/20/2024 9:00 AM EST Office Visit Hematology [place] [address] Lacy Jameson MD [facility] DR [place] [address] Layla Jo RN documented as of this encounter Visit Diagnoses Diagnosis Type 2A von Willebrand disease documented in this encounter Care Teams Casket Upholsterer Relationship Specialty Start Date End Date Yanely Marshall APRN PCP - General 06/07/15 06/28/19 documented as of this encounter
--- OUTSIDE RECORDS SUMMARY | 2024-08-10 15:58 | XMS_ITS | Encounter Summary ---
Author Organization [facility] Address [facility] [place] [address] Care Team Providers Care Line Leader Name Role Phone Clayton Johnson JOHN Primary Care Provider Reason for Visit * Reason Comments Skin Check Encounter Details Date Type Department Care Team (Late st Contact Info) Description 12/04/2019 11:30 AM EST Office Visit Dermatology at [facility] [address] [place] [address] Wen Valladares MD [facility] [place] [address] Seborrheic keratosis, inflamed; Dermatofibroma Social History Tobacco Use Types Packs/Day Years Used Date Smoking Tobacco: Never Smokeless Tobacco: Never Alcohol Use Standard Drinks/Week Comments No 0 (1 standard drink = 0.6 oz pur e alcohol) Sex and Gender Information Value Date Recorded Sex Assigned at Not on file Gender Identity Not on file Sexual Orientation Not on file documented as of this encounter Progress Notes * Wen Valladares MD - 12/04/2019 11:30 AM EST DERMATOLOGY OUTPATIENT CLINIC NOTE Date of service: 12/04/2019 Elodia Archibaldmavis : 1970 Provider: Wen Valladares MD PROBLEM: Facial concerns and left shoudler SKIN HISTORY: none HPI Elodia Lin is a 49 y.o. female. She is a new pt here for a few concering spots on her face and on the left shoulder. She denies anything growing in size, shape, color. Nothing is tender or bleeding. 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 Family History: none ADR: Allergies Allergen Reactions ??? Adhesive Bandage Rash Blistering rash with tegederm ??? Codeine Percocet is ok CURRENT MEDICATIONS: Current Outpatient Medications Medication Sig Dispense Refill ??? acetaminophen (TYLENOL) [...] 30 capsule 0 No current facility-administered medications for this visit. PROBLEM LIST: Patient Active Problem List Diagnosis Code ??? Von Willebrand disease D68.0 ??? Obesity (BMI 35.0-39.9 without comorbidity) E66.9 ??? History of recurrent UTI (urinary tract infection) Z87.440 ??? Uterine septum Q51.9 ??? Tubal ligation status Z98.51 ??? Generalized anxiety disorder F41.1 ??? Dysthymic disorder F34.1 ??? Pain in left shoulder M25.512 ROS General: feeling well. Oriented X 3. Skin: denies other skin complaints EXAM General: NAD, pleasant, cooperative Skin: A focused skin examination of the face and left shoulder, significant for the following: Significant skin findings: -Right preauricular x 1: inflamed, waxy, brown stuck-on papule. -Left cheek x 1: irritated papule. -Left shoulder: 6 mm pink firm papule. ASSESSMENT/PLAN Inflamed Seborrheic Keratosis - Discussed benign nature of lesion(s) and provided reassurance. - Due to irritation present on today's exam and history of symptoms, discussed removal with cryotherapy. - Patient elects to proceed with cryotherapy today. ?? Procedure: Destruction of benign lesion(s) with cryotherapy (LN2). Location(s): As noted above Number: 1 Discussed procedure and expectations, including risks (especially hypopigmentation) and benefits. Verbal consent obtained. Frozen with LN2, 15-30 second thaw time, twice. There were no complications;patient tolerated the procedure well. Post-procedure expectations and wound care were reviewed. Inflamed Seborrheic Keratosis vs EIC - Discussed benign nature of lesion(s) and provided reassurance. - Due to irritation present on today's exam and history of symptoms, discussed removal with cryotherapy. - Patient elects to proceed with cryotherapy today. ?? Procedure: Destruction of benign lesion(s) with cryotherapy (LN2). Location(s): As noted above Number: 1 Discussed procedure and expectations, including risks (especially hypopigmentation) and benefits. Verbal consent obtained. Frozen with LN2, 15-30 second thaw time, twice. There were no complications;patient tolerated the procedure well. Post-procedure expectations and wound care were reviewed. Dermatofibroma - Discussed benign nature of lesion and provided reassurance. No treatment necessary. - Explained that if it were to become irritated, punch removal is an option but would be trading the papule for a scar. Concerns with aging skin - Recommended an OTC retinol. Apply to the face night, as tolerated. - Instructed to call if she would like a stronger retinoid and we can send that in. - Emphasized the importance of sun protection. RTC - PRN. Instructed patient to call with questions or concerns. Note initiated and routed to physician for review and change by: DARA SEXTON LPN I, Michell Anthony, Clinical Scribe have performed the documentation for this encounter in the presence of and acting as a scribe for Wen Valladares MD. I, Dr. Wen Valladares, performed the visit service though my nurse assisted me in scribing the note. I reviewed and edited this note above, a scribed service performed by my nurse. On closure of this note I agree with the accuracy of the documentation. Wen Valladares MD Section of Dermatology [facility] documented in this encounter Plan of Treatment Upcoming Encounters Date Type Department Care Team (Late st Contact Info) Description 10/20/2024 9:00 AM EST Office Visit Hematology [place] [address] Lacy Jameson MD [facility] DR [place] [address] Layla Jo RN documented as of this encounter Visit Diagnoses Diagnosis Seborrheic keratosis, inflamed Inflamed seborrheic keratosis Dermatofibroma Benign neoplasm of skin, site unspecified documented in this encounter Care Teams Line Leader Relationship Specialty Start Date End Date Clayton Johnson DNP PCP - General Family Medicine 07/07/19 04/15/23 documented as of this encounter
--- OUTSIDE RECORDS SUMMARY | 2024-08-10 15:58 | XMS_ITS | Encounter Summary ---
[place] [address] Care Team Providers Care Lens Molding Equipment Operator Name Role Phone Clayton Johnson JOHN Primary Care Provider Encounter Details Date Type Department Care Team (Late st Contact Info) Description 01/24/2021 Telephone Hematology [place] [phone] Layla Jo, RN Social History Tobacco Use [...] Telephone Encounter - Layla Jo RN - 01/24/2021 1:24 PM EST Addendum 02/05/21 TC to patient. Detailed VM left reviewing schedule for February 07 at [facility]. 1. Lab draw for CBC 2. Ultrasound 3. F/U with hemophilia office regarding lab result and to sampler pickup dose of Humate P to have at home for emergency use. Requested a call back to confirm. Layla Jo RN MSN Addendum: 01/24 3:15PM TC with patient who confirmed she is returning to [facility] on 02/07/[address] Dr. Jameson's request, Elodia stop by the lab to have a CBC drawn that day. If she does not show improvement in her iron deficiency anemia, Dr. Jameson will recommend Venofer infusions. Patient aware and in agreement with plan. No wonder I've been so tired. Layla Jo RN MSN 1:30PM TC to patient. Reviewed lab results obtained today reflecting an iron deficiency anemia. recommends Elodia take a daily iron supplement and have her levels checked locally in a month. Patient aware that scripts for both ferrous sulfate and oral TXA were called into her local pharmacy. An order to check her iron levels will be sent to a local lab at [facility] with results faxed back for Dr. Jameson's review. A replacement dose of Humate P will be sent to Elodia's residence to have on hand for emergency use. Elodia knows to call the office with any questions or concerns regarding scripts, VWD, or upcoming plan for colonoscopy in February. Layla Jo RN MSN Results for ELODIA LIN ( ) as of 01/24/2021 15:05 Ref. Range 01/24/2021 12:09 Iron Latest Ref Range: 30 - 150 mcg/dL 12 (L) TIBC Latest Ref Range: 250 - 450 mcg/dL 467 (H) Iron Saturation Latest Ref Range: 20 - 50 % 3 (L) Ferritin Latest Ref Range: 15 - 150 ng/mL 2 (L) Results for ELODIA LIN ( ) as of 01/24/2021 13:23 Ref. Range 01/24/2021 12:09 Hemoglobin Latest Ref Range: 11.7 - 15.5 gm/dL 7.6 (L) Hematocrit Latest Ref Range: 35.7 - 45.8 % 27.3 (L) documented in this encounter Plan of Treatment Upcoming Encounters Date Type Department Care Team (Late st Contact Info) Description 10/20/2024 9:00 AM EST Office Visit Hematology [place] [phone] Lacy Jameson MD [facility] [place]ATOLOG[place] [address] Layla Jo RN documented as of this encounter Visit Diagnoses Not on filedocumented in this encounter Care Teams Lens Molding Equipment Operator Relationship Specialty Start Date End Date Clayton Johnson DNP PCP - General Family Medicine 07/07/19 04/15/23 documented as of this encounter
--- OUTSIDE RECORDS SUMMARY | 2024-08-10 15:58 | XMS_ITS | Encounter Summary ---
Author Organization [facility] Address [facility] [place] [address] Care Team Providers Care Gravity Meter Operator Name Role Phone Yanely Marshall APRN Primary Care Provider Encounter Details Date Type Department Care Team (Latest Contact Info) Description 06/07/2015 9:53 AM EDT - 06/07/2015 11:59 PM EDT Hospital Encounter XRay at [address] [place] [address] Pain in left shoulder Social History Tobacco [...] EST Office Visit Hematology and Oncology at [facility] [place] [address] Lacy Jameson MD [facility] DR [place]AT[place] [address] Layla Jo RN documented as of this encounter Procedures Procedure Name Priority Date/Time Associated Diagnosis Comments XR SHOULDER Routine 06/07/2015 10:04 AM EDT Pain in left shoulder documented in this encounter Results * XR shoulder (06/07/2015 [...] region documented in this encounter Care Teams Gravity Meter Operator Relationship Specialty Start Date End Date Yanely Marshall APRN PCP - General 06/07/15 06/28/19 documented as of this encounter
--- OUTSIDE RECORDS SUMMARY | 2024-08-10 15:58 | XMS_ITS | Encounter Summary ---
Author Organization [facility] Address [facility] [place] [address] Care Team Providers Care Dog Hair Clipper Name Role Phone Yanely Marshall APRN Primary Care Provider Encounter Details Date Type Department Care Team (Late st Contact Info) Description 11/19/2015 Orders [place] [address] Lacy Garibay METAL TRADES INSTRUCTOR [facility] [place] [address] Pain in left shoulder Social History Tobacco [...] as of this encounter Progress Notes * Nickie Norman RN - 11/19/2015 4:14 PM EST Call from patient requesting that she has the MRI in [facility] as she is unable to get transportation to . Order for MRI changed to external, patient will cancel her currently scheduledMRI. documented in this encounter Plan of Treatment Upcoming Encounters Date Type Department Care Team (Late st Contact Info) Description 10/20/2024 9:00 AM EST Office Visit [place] [address] Lacy Jameson MD [facility] DR [place] [address] Layla Jo RN documented as of this encounter Visit Diagnoses Diagnosis Pain in left shoulder Pain in joint, shoulder region documented in this encounter Care Teams Dog Hair Clipper Relationship Specialty Start Date End Date Yanely Marshall APRN PCP - General 06/07/15 06/28/19 documented as of this encounter
--- OUTSIDE RECORDS SUMMARY | 2024-08-10 15:58 | XMS_ITS | Encounter Summary ---
Author Organization Replaced By [facility] [place] [address] Care Team Providers Care Box Strapper Name Role Phone Yanely Marshall APRN Primary Care Provider [phone] Encounter Details Date Type Department Care Team (Late st Contact Info) Description 05/27/2018 Telephone Hematology [place] [phone] Layla Jo, RN Social History Tobacco Use [...] Telephone Encounter - Layla Jo RN - 05/27/2018 11:27 AM EDT T/c to patient and message left to return call at her convenience to review Humate P usage, insurance updates, and upcoming michelle't with Dr. Jameson on 06/10. Layla Jo MSN RN From: Sharon Munoz Sent: Sunday, May 27, 2018 9:44 AM To: Jacinta Duval < >; Edwina Hernandez < > Cc: Layla Jo < > Subject: Andrei Lin- heads up [place], Elodia called to let us know that the factor she has on hand is . we have not seen her since 05/2015 so I have scheduled her an appointment w/Dr. Jameson for 06/10/18 @ 12:00. I told her that shemay be able to knot picker cloth factor that day, but I would have one of the nurses give her a call if they had any questions before the appointment. 70 Thanks, Sharon documented in this encounter Plan of Treatment Upcoming Encounters Date Type Department Care Team (Late st Contact Info) Description 10/20/2024 9:00 AM EST Office Visit Hematology [place] [address] Lacy Jameson MD [facility] [address] [place] [address] Layla Jo, RN documented as of this encounter Visit Diagnoses Not on filedocumented in this encounter Care Teams Box Strapper Relationship Specialty Start Date End Date Yanely Marshall APRN PCP - General 06/07/15 06/28/19 documented as of this encounter
--- OUTSIDE RECORDS SUMMARY | 2024-08-10 15:58 | XMS_ITS | Encounter Summary ---
Author Organization [facility] Address [facility] [place] [address] Care Team Providers Care Oil And Gas Recruiter Name Role Phone Clayton Johnson JOHN Primary Care Provider Encounter Details Date Type Department Care Team (Latest Contact Info) Description 02/07/2021 7:53 AM EST - 02/07/2021 2:03 PM [facility] Hospital [place] [phone] Lacy Jameson MD [facility] [address] [place] [address] Discharge Disposition: Home Social History Tobacco Use [...] EST Office Visit Hematology [place] [address] Lacy Jameson MD [facility] [address] [place] [address] Layla Jo, RN documented as of this encounter Procedures Procedure Name Priority Date/Time Associated Diagnosis Comments INFUSION SCAN Routine 02/07/2021 documented in this encounter Results * Scan Doc: Infusion (02/07/2021) Lacy Jameson MD MEDIA MGR SCAN EXT ORDR/RSLT documented in this encounter Visit Diagnoses Not on filedocumented in this encounter Care Teams Oil And Gas Recruiter Relationship Specialty Start Date End Date Clayton Johnson DNP PCP - General Family Medicine 07/07/19 04/15/23 documented as of this encounter
--- OUTSIDE RECORDS SUMMARY | 2024-08-10 15:58 | XMS_ITS | Encounter Summary ---
Author Organization [facility] Address [facility] [place] [address] Care Team Providers Care Philosophy Faculty Member Name Role Phone Clayton Johnson DNP Primary Care Provider Encounter Details Date Type Department Care Team (Late st Contact Info) Description 02/11/2021 Orders Only [place]ology [place] [phone] Lisa Love MD [facility] DR HEMATOLOGY [place] [address] Social History Tobacco Use Types Packs/Day Years [...] EST Office Visit [place]ology [place] [phone] Lacy Jameson MD [facility] DR HEMATOLOGY [place] [address] Layla Jo RN documented as of this encounter Visit Diagnoses Not on filedocumented in this encounter Care Teams Philosophy Faculty Member Relationship Specialty Start Date End Date Clayton Johnson DNP PCP - General Family Medicine 07/07/19 04/15/23 documented as of this encounter
--- OUTSIDE RECORDS SUMMARY | 2024-08-10 15:58 | XMS_ITS | Encounter Summary ---
Author Organization [facility] Address [facility] [place] [address] Care Team Providers Care Spot Checker Name Role Phone Clayton Johnson DNP Primary Care Provider Encounter Details Date Type Department Care Team (Late st Contact Info) Description 01/17/2021 Telephone Obstetrics [place] [address] Nancy Hoyos Social History Tobacco Use Types Packs/Day Years [...] EST Office Visit Hematology [place] [address] Lacy Jameson MD [facility] [address] [place] [address] Layla Jo RN documented as of this encounter Visit Diagnoses Not on filedocumented in this encounter Care Teams Spot Checker Relationship Specialty Start Date End Date Clayton Johnson DNP PCP - General Family Medicine 07/07/19 04/15/23 documented as of this encounter
--- OUTSIDE RECORDS SUMMARY | 2024-08-10 15:58 | XMS_ITS | Encounter Summary ---
Author Organization [facility] Address [facility] [place] [address] Care Team Providers Care Glass Decorator Name Role Phone Yanely Marshall APRN Primary Care Provider [phone] Encounter Details Date Type Department Care Team (Late st Contact Info) Description 11/08/2015 Orders Only [place] [address] Rachana Wilson Social History Tobacco Use Types Packs/Day Years [...] EST Office Visit Hematology [place] [address] Lacy Jameson MD [facility] [address] [place] [address] Layla Jo RN documented as of this encounter Visit Diagnoses Not on filedocumented in this encounter Care Teams Glass Decorator Relationship Specialty Start Date End Date Yanely Marshall APRN PCP - General 06/07/15 06/28/19 documented as of this encounter
--- OUTSIDE RECORDS SUMMARY | 2024-08-10 15:58 | XMS_ITS | Encounter Summary ---
Author Organization [facility] Address [facility] [place] [address] Care Team Providers Care Preforms Laminator Name Role Phone Yanely Marshall APRN Primary Care Provider Encounter Details Date Type Department Care Team (Latest Contact Info) Description 07/11/2018 11:46 AM EDT - 07/11/2018 11:59 PM EDT Hospital [place] [phone] Lacy Jameson MD [facility] DR HEMATOLOGY [place] [address] Discharge Disposition: Home Social History Tobacco Use [...] EST Office Visit [place]ematology [place] [address] Lacy Jameson MD [facility] DR HEMATOLOGY [place] [address] Layla Jo RN documented as of this encounter Procedures Procedure Name Priority Date/Time Associated Diagnosis Comments INFUSION SCAN Routine 07/11/2018 documented in this encounter Results * Scan Doc: Infusion (07/11/2018) Lacy Jameson MD MEDIA MGR SCAN EXT ORDR/RSLT documented in this encounter Visit Diagnoses Not on filedocumented in this encounter Care Teams Preforms Laminator Relationship Specialty Start Date End Date Yanely Marshall APRN PCP - General 06/07/15 06/28/19 documented as of this encounter
--- OUTSIDE RECORDS SUMMARY | 2024-08-10 15:58 | XMS_ITS | Encounter Summary ---
Author Organization [facility] [place] [address] Care Team Providers Care Director Of Global Talent Name Role Phone Clayton Johnson JOHN Primary Care Provider [phone] Encounter Details Date Type Department Care Team (Late st Contact Info) Description 10/02/2019 Telephone Hematology [place] [address] Layla Jo RN Social History [...] Telephone Encounter - Layla Jo RN - 10/02/2019 11:32 AM EST From: Sharon Munoz Sent: Wednesday, October 02, 2019 11:23 AM To: Layla Jo <[email or web address] Subject: Andrei Lin 70 [facility] to let us know that Elodia is scheduled for a colo on March 29. will she need to be scheduled in for an infusion prior? Her procedure is at 1pm with an arrival time of 12. If she does need an infusion please let me know what I need to schedule or if you had questions youcan give Gasto a call @ [phone] Thanks, Danyasue documented in this encounter Plan of Treatment Upcoming Encounters Date Type Department Care Team (Late st Contact Info) Description 10/20/2024 9:00 AM EST Office Visit [place]ology [place] [address] Lcay Jameson MD [facility] [address] HEMAT[place] [address] Layla Jo, RN documented as of this encounter Visit Diagnoses Not on filedocumented in this encounter Care Teams Director Of Global Talent Relationship Specialty Start Date End Date Clayton Johnson DNP PCP - General Family Medicine 07/07/19 04/15/23 documented as of this encounter
--- OUTSIDE RECORDS SUMMARY | 2024-08-10 15:58 | XMS_ITS | Encounter Summary ---
Author Organization [facility] Address [facility] [place] [address] Care Team Providers Care Toddler Caregiver Name Role Phone Clayton Johnson DNP Primary Care Provider Encounter Details Date Type Department Care Team (Late st Contact Info) Description 01/10/2021 Telephone Obstetrics [place] [address] Nancy Hoyos Social History Tobacco Use Types [...] EST Office Visit Hematology [place] [address] Lacy Jameson MD [facility] DR [place]ATOLOGY [place] [address] Layla Jo RN documented as of this encounter Visit Diagnoses Not on filedocumented in this encounter Care Teams Toddler Caregiver Relationship Specialty Start Date End Date Clayton Johnson DNP PCP - General Family Medicine 07/07/19 04/15/23 documented as of this encounter
--- OUTSIDE RECORDS SUMMARY | 2024-08-10 15:58 | XMS_ITS | Encounter Summary ---
Author Organization [facility] Address [facility] [place] [address] Care Team Providers Care Felt Cutting Machine Operator Name Role Phone Clayton Johnson JOHN Primary Care Provider Encounter Details Date Type Department Care Team (Late st Contact Info) Description 01/24/2021 11:30 AM EST Office Visit [place] [address] Lacy Jameson MD [facility] DR HEMATOLOGY [place] [address] Layla Jo RN Von Willebrand disease; Menorrhagia with irregular cycle Social History Tobacco Use Types Packs/Day Years Used Date Smoking Tobacco: Never Smokeless Tobacco: Never Alcohol Use Standard Drinks/Week Comments No 0 (1 standard drink = 0.6 oz pur e alcohol) Sex and Gender Information Value Date Recorded Sex Assigned at Not on file Gender Identity Not on file Sexual Orientation Not on file documented as of this encounter Progress Notes * Courtney Anderson MD - 01/24/2021 11:30 AM EST Images from the original note were not included. [facility] [place] [address] HEMOSTASIS FOLLOW UP DATE OF VISIT 01/24/2021 Patient Elodia Lin 1970 Elodia Lin is a 50 y.o. female [...] her current dose over a year ago. INTERVAL HISTORY Patient is presenting to the clinic for follow up and to discuss discuss management for her increased menstrual bleeding. She reports that with her last menstrual cycle (early Dec 2020), she had a longer cycle (9 days instead of 5-6 days) with at least 2 days of heavy bleeding (soaking super tampon about every hour withsanitary pads, and multiple blood clots). She also had irregular periods in Oct 2020 and November 2020, occurring more frequently (about every 2 weeks). She denies other signs of increased bleeding such as epistaxis, blood in stool and urine, melena. She saw her [facility] this morning for the menorrhagia and was they recommended a told that she is likely perimenopausal. They recommended a uterine ultrasound which is scheduled for 02/07/2021, and Mirena IUD/Aygestin for the menorrhagia. She has been feeling more fatigued recently, with intermittent lightheadedness especially with changing positions. However, she attributed this to changes in life. Denies any shortness of breath, chest pain, headaches. ?? PAST MEDICAL HISTORY 1) Type 2 von Willebrand Disease (previous testing consistent with type 2A) Baseline lab values 07/07/2012: VWF:Ag 47% VWF:Act 28% F8A 73% PFA-100 Col/Epi >264 s Col/ADP >231s VWF Ag, multimeric - absence of large to intermediate weight multimers 2) Anxiety 3) Iron deficiency anemia with pregnancies ?? OPERATIVE PROCEDURES 1) Tonsillectomy - at age 10 2) Dudley teeth extractions - 1986 3) Ankle surgery - 4) Wrist surgery - 5) section x 3 - 2000, 2004, 2012 6) Tubal ligation, 2013 ?? OBSTETRIC HISTORY Currently sheela-menopausal with irregular and heavy menstrual bleeding Normal menses - bleeds about a 1 week, 2-3 heavy; tampon every 3-4 hours; q 30 days MEDICATIONS Current Outpatient Medications on File Prior [...] or known to have vWD ?? 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 HEENT: Oropharynx [...] apparent distress. IMPRESSION Elodia Lin is a 50 y.o. woman with type 2A von Willebrand disease with a good understanding of her bleeding disorder and its management. She is presenting today for management of excessive menstrual bleeding, likely in the setting of sheela-menopausal changes. She also has upcoming colonoscopy inApril 2020, for which she will require periprocedural management to prevent excessive bleeding. For the excessive menstrual bleeding, we agree with recommendation for the placement of Mirena IUD.However, it may take some time for the Mirena IUD to be scheduled and for it to take effect. Hence,we would recommend management with oral tranexamic acid during this interval. For the upcoming colonoscopy, we would recommend infusing her with a dose of Humate-P prior to her procedure to prevent excessive bleeding in case she requires biopsy or polypectomy. We will coordinate this based on her appointment with GI for that day. PLAN We reviewed that patients were in the perimenopausal stage can have increased and irregular bleeding. In her case, this is further exacerbated by her von Willebrand disease. In patients who have excessive menstrual bleeding, Mirena IUD can be beneficial and we would agree with her [employer]'s recommendation for the placement of the IUD. However, the Mirena IUD may take some time before it is effective. Hence it would be important to use an additional management strategy to control her bleeding in that interval. We would recommend using tranexamic acid 1300 mg 3 times daily on day 1-3 of her menstrual bleeding. We would not recommend using tranexamic acid daily due to the musculoskeletal side effects. We sent a prescription of tranexamic acid to her pharmacy of preference. Patient will reach out to her [employer] to schedule the placement of the Mirena IUD. Given her excessive bleeding and fatigue, we will also recommend getting blood work to evaluate foranemia (CBC - already ordered by OB/GYB; iron panel) and will recommend iron supplementation if necessary. In addition, we will also recommend getting a repeat VWF antigen and activity level, as wellas factor 8 level. For her upcoming colonoscopy, we would recommend using a dose of Humate-P prior to the procedure. We will coordinate this with her appointment with GI on that day. This will help prevent excessive bleeding in case she requires biopsy or polypectomy during her colonoscopy. We will also prescribe monika new emergency dose of Humate-P (~1900 units/~~25 u/kg) to keep at home, as her current dose is . Elodia had the opportunity to ask questions and indicated that all her questions were answered to hersatisfaction. We'll continue to see her at least annually at the [facility] and in the interim as necessary. Patient's case was discussed with my attending Dr. Jameson. Courtney Anderson MD Hematology/Oncology fellow Pager [phone] +*+*+*+*+*+*+*+*+*+*+*+*+*+*+*+*+*+*+*+*+*+*+*+*+*+*+*+*+*+*+*+*+*+*+*+*+*+* Hemostasis Attending Physician ?? I have independently interviewed and examined this patient in the outpatient clinic and have personally reviewed the relevant clinical, laboratory and radiological data with Dr. Courtney Anderson, Hematology/Oncology Fellow. Please refer to the separate consultation note, with which I concur, for complete details of our encounter with this patient. I have reviewed and endorse the recommendations as outlined and have made any additions/corrections below. ?? In brief, Elodia comes in for follow up of type 2A von Willebrand disease. Her major issue today is heavy and erratic menstrual periods, likely associated with perimenopausal state. She saw [facility] today and was recommended either a Mirena IUD or a progestin, and we endorsed the Mirena. An ultrasound forfurther evaluation has been scheduled. Her labs today show a significant iron deficiency anemia, which is likely due to blood loss from menses. We have prescribed TXA to manage heavy menses (1300 mg 3x daily x 3 days during menses) until the Mirena is inserted and starts to work to slow her periods. Additionally, we have prescribed oral iron supplementation with a plan for a repeat CBC on 02-07 when she is here for the ultrasound. If she is not making progress with oral iron, will set her up forIV infusions. She is here for colonoscopy in February and we will plan to infuse a dose of Humate P (~3600 units) prior to the procedure to support hemostasis in the event that she requires a biopsy or polypectomy. Her emergency dose of Humate P is , thus we will replace (~1900 units). ? Lacy Jameson MD * Lacy Jameson MD - 01/24/2021 11:30 AM EST +*+*+*+*+*+*+*+*+*+*+*+*+*+*+*+*+*+*+*+*+*+*+*+*+*+*+*+*+*+*+*+*+*+*+*+*+*+* Hemostasis Attending Physician I have independently interviewed and examined this patient in the outpatient clinic and have personally reviewed the relevant clinical, laboratory and radiological data with Dr. Courtney Anderson, Hematology/Oncology Fellow. Please refer to the separate consultation note, with which I concur, for complete details of our encounter with this patient. I have reviewed and endorse the recommendations as outlined and have made any additions/corrections below. In brief, Elodia comes in for follow up of type 2A von Willebrand disease. Her major issue today is heavy and erratic menstrual periods, likely associated with perimenopausal state. She saw [facility] today and was recommended either a Mirena IUD or a progestin, and we endorsed the Mirena. An ultrasound forfurther evaluation has been scheduled. Her labs today show a significant iron deficiency anemia, which is likely due to blood loss from menses. We have prescribed TXA to manage heavy menses (1300 mg 3x daily x 3 days during menses) until the Mirena is inserted and starts to work to slow her periods. Additionally, we have prescribed oral iron supplementation with a plan for a repeat CBC on 02-07 when she is here for the ultrasound. If she is not making progress with oral iron, will set her up forIV infusions. She is here for colonoscopy in February and we will plan to infuse a dose of Humate P (~3600 units) prior to the procedure to support hemostasis in the event that she requires a biopsy or polypectomy. Her emergency dose of Humate P is , thus we will replace (~1900 units). Lacy Jameson MD [facility] documented in this encounter Plan of Treatment Upcoming Encounters Date Type Department Care Team (Late st Contact Info) Description 10/20/2024 9:00 AM EST Office Visit [place] [address] Lacy Jameson MD [facility] [address] [place] [address] Layla Jo RN documented as of this encounter Results * Factor 8 assay (01/24/2021 12:09 PM EST) Factor VIII Assay 79 50 - 150 % [facility] Blood specimen (specimen) 01/24/2021 12:09 PM EST 01/24/2021 12:17 PM EST Narrative Resulting Agency Comment Spec In Lab Lacy Jameson MD HEMATOLOGY ORDERAB LES Performing Organization Address [facility]/ZIP Co de Phone Number [facility] [place] [address] * (ABNORMAL) Ferritin (01/24/2021 12:09 PM EST) Ferritin 2(L) 15 - 150 ng/mL [facility] Comment: Pediatric reference ranges not verified at [facility], interpret with caution. Reference ranges for females greater than 50 years of age approach values for men, i.e., 30-400 ng/mL. Blood specimen (specimen) 01/24/2021 12:09 PM EST 01/24/2021 12:17 PM EST Narrative Resulting Agency Comment Spec In Lab Lacy Jameson MD CHEMISTRY ORDERABL ES Performing Organization Address [facility] Co de Phone Number [facility] [place] [address] * (ABNORMAL) Iron and TIBC (01/24/2021 12:09 PM EST) Iron 12(L) 30 - 150 mcg/dL [facility] TIBC 467(H) 250 - 450 mcg/dL [facility] Iron Saturation 3(L) 20 - 50 % [facility] Blood specimen (specimen) 01/24/2021 12:09 PM EST 01/24/2021 12:17 PM EST Narrative Resulting Agency Comment Spec In Lab Lacy Jameson MD CHEMISTRY ORDERABL ES Performing Organization Address [facility] Co de Phone Number [facility] [place] [address] * Von Willebrand Factor Antigen (01/24/2021 12:09 PM EST) von Willebrand Factor Antigen 50 % [facility] Comment: The presence of Rheumatoid Factor may produce an overestimation of the test results. vWF Anti Interp ABO blood group has a significant influence on vWF:Ag levels in normal individuals. Type A, type B, and type AB have a range of 66 - 176%. [facility] Blood specimen (specimen) 01/24/2021 12:09 PM EST 01/24/2021 12:17 PM EST Narrative Resulting Agency Comment Spec In Lab Lacy Jameson MD HEMATOLOGY ORDERAB LES Performing Organization Address City/[facility] Co de Phone Number [facility] [place] [address] * Von Willebrand Factor Activity (01/24/2021 12:09 PM EST) Von Willebrand Factor Assay <19 % activity [facility] vWF Act Interp ??ABO blood group has a significant influence on vWF:Act levels in normal individuals. Type A, type B and type AB have a range of 49 ? 163%. [facility] Blood specimen (specimen) 01/24/2021 12:09 PM EST 01/24/2021 12:17 PM EST Narrative Resulting Agency Comment Spec In Lab Lcay Jameson MD HEMATOLOGY ORDERAB LES Performing Organization Address [facility] Co de Phone Number [facility] [place] [address] documented in this encounter Visit Diagnoses Diagnosis Von Willebrand disease Von Willebrand's disease Menorrhagia with irregular cycle Excessive or frequent menstruation documented in this encounter Care Teams Felt Cutting Machine Operator Relationship Specialty Start Date End Date Clayton Johnson DNP PCP - General Family Medicine 07/07/19 04/15/23 documented as of this encounter
--- OUTSIDE RECORDS SUMMARY | 2024-08-10 15:58 | XMS_ITS | Encounter Summary ---
Author Organization [facility] [address] Care Team Providers Care Cloth Coverer Name Role Phone Clayton Johnson JOHN Primary Care Provider [phone] Encounter Details Date Type Department Care Team (Late st Contact Info) Description 10/02/2019 Tele[place] [phone] Amanda Olson Social History Tobacco Use Types Packs/Day Years [...] Miscellaneous Notes * Telephone Encounter - Amanda Olson - 10/02/2019 11:29 AM EST Alejo Lin [id number] Diagnosis: 5 year Screening 1. Have you ever had a colonoscopy before? [x] YES [] NO If Yes, Date of Last [place]: 03/11/15 [facility] If yes, did you have any problems with the procedure? [] YES [x] NO Explain: What type of sedation was used: IV 2. Do you take any Blood Thinners? [x] YES [] NO If Yes, type: pt with [facility]HU. pt needs HUMATE-P IN SAME DAY PER COLO 3. Do you have a Pacemaker or Defibrillator device? [] YES [x] NO If Yes send [employer] message to [employer] DEVICE CHECK 4. Are you a diabetic? [] YES [x] NO If yes, controlled by meds or diet? 5. Do you have any Allergies to Eggs, Latex or Medications? [x] YES [] NO If Yes, what: EDH 6. Do you take any Oral Iron Supplements (Including multi vitamins)? [] YES [x] NO 7. Do you have a history of three or more abdominal surgeries? [x] YES [] NO 8. Have you had a problem with sedation or anesthesia? [] YES [x] NO 9. Do you have a c-pap machine or oxygen tank? [] C-PAP [] Oxygen [x] NO 10. Do you take prescription narcotic pain medications? [] YES [x] NO 11. You must have a responsible democrat stay at the facility during your procedure and drive you home? [x] YES 12. Is there any other information you would like to give us to aid in scheduling? __pt with YAZMIN CHARLESADILENE. pt needs HUMATE-P IN SAME DAY PER COLO Called Mina to set up infuson that day. See Case Height: Weight: BMI: ____ Age:49 y.o. documented in this encounter Plan of Treatment Upcoming Encounters Date Type Department Care Team (Late st Contact Info) Description 10/20/2024 9:00 AM EST Office Visit Hematology [place] [address] Lacy Jameson MD [facility] HEMATOLOGY [place] [address] Layla Jo RN documented as of this encounter Visit Diagnoses Not on filedocumented in this encounter Care Teams Cloth Coverer Relationship Specialty Start Date End Date Clayton Johnson DNP PCP - General Family Medicine 07/07/19 04/15/23 documented as of this encounter
--- OUTSIDE RECORDS SUMMARY | 2024-08-10 15:58 | XMS_ITS | Encounter Summary ---
Author Organization [facility] Address [facility] [place] [address] Care Team Providers Care Agile Scrum Coach Name Role Phone Clayton Johnson JOHN Primary Care Provider Encounter Details Date Type Department Care Team (Late st Contact Info) Description 01/09/2021 Orders Only Obstetrics [place] [phone] Gene Ignacio APRN [facility] [address] OBSTETRICS [place] [address] Abnormal uterine bleeding (AUB) Social History Tobacco [...] EST Office Visit Hematology [place] [phone] Lacy Jameson MD [facility] DR HEMATOLOGY [place] [address] Layla Jo RN documented as of this encounter Results * US Transvaginal Non OB (02/07/2021 3:01 PM EST) Anatomical Region Laterality Modality Ultrasound 02/07/2021 2:57 PM EST Impressions 02/07/2021 3:12 PM EST 1. Septate uterus 2. Fluid in the a scar. 3. ??fluid in the cervical canal and multiple nabothian cysts. 4. RIGHT ovary is normal. 5. There is a dominant follicle in the LEFT ovary with maximum dimension of 2.4 cm. 6. The RIGHT ovary could not be seen transvaginally and was visualized transabdominally. Thank you for letting us participate in the care of this patient. For questions regarding this report, please contact the number below. Electronically signed by: Kori Leblanc MD, [facility] ([phone]), at 02/07/2021 3:05 PM ??Kori Leblanc, [facility] & Dept Chair - Rad Electronically Signed Final Report ?? 02/07/2021 03:12 pm Narrative 02/07/2021 3:12 PM EST Gynecological Report ?(Signed Final 02/07/2021 03:12 pm) PATIENT INFO: ID #: ? [id number] ?: ??[birth year] (50 yrs)(F) Name: ? ELODIA LIN ? Visit Date: 02/07/2021 02:57 pm PERFORMED BY: Performed By: ? Vera Marino RDMS Attending: ?Deana BERRY, Kori Montenegro Referred By: ?GENE IGNACIO Location: ? [place] SERVICE(S) PROVIDED: UTV - Transvaginal - [id number] ?[id number] INDICATIONS: AUB; History of: Abnormal bleeding TECHNIQUE/SCAN QUALITY: Technique: ?Transducer ID#: [id number] COMPARISON: No prior studies for comparison. -------- HISTORY: -------- Age: ?? 50 PREVIOUS PELVIC SURGERY: X 3 per pt ------- UTERUS: ------- Uterus: ? Visualized Position: ?? Anteverted Size (cm) ?L: ??7.5 ? W: ?? 5.4 ?H: ??4.2 Description: ?? Septate uterus ENDOMETRIUM: Endometrium: ?Normal appearance Thickness(mm): ?7.0 Comment: ? 3D rendering with interpretation was performed to ?evaluate the endometrium ------- CERVIX: ------- Small amount of fluid seen within the cervical canal Multiple nabothian cysts seen CUL-DE-SAC: No fluid is visualized. RIGHT OVARY: Status: ?? Visualized Size (cm) ?L: ??2.3 ? W: ?? 2.0 ?H: ??1.5 Vol (ml): ?3.6 Morphology: ?Normal appearance Comment: ? Transabdominal visualization LEFT OVARY: Status: ?? Visualized Size (cm) ?L: ??3.0 ? W: ?? 2.7 ?H: ??1.9 Vol (ml): ?8.1 Morphology: ?Normal appearance Type: ?? Dominant follicle Size (cm) ?L: ??2.4 ? W: ?? 2.3 ?H: ??1.8 Vol (ml): ?5.2 Procedure Note Kori Leblanc MD - 02/07/2021 Gynecological Report (Signed Final 02/07/2021 03:12 pm) PATIENT INFO: ID #: [id number] : [birth year] (50 yrs)(F) Name: ELODIA LIN Visit Date: 02/07/2021 02:57 pm PERFORMED BY: Performed By: Vera Marino RDMS Attending: Kori Leblanc MD Referred By: GENE IGNACIO Location: [place] SERVICE(S) PROVIDED: UTV - Transvaginal - [id number] INDICATIONS: AUB; History of: Abnormal bleeding TECHNIQUE/SCAN QUALITY: Technique: Transducer ID#: [id number] COMPARISON: No prior studies for comparison. -------- HISTORY: -------- Age: 50 PREVIOUS PELVIC SURGERY: X 3 per pt ------- UTERUS: ------- Uterus: Visualized Position: Anteverted Size (cm) L: 7.5 W: 5.4 H: 4.2 Description: Septate uterus ENDOMETRIUM: Endometrium: Normal appearance Thickness(mm): 7.0 Comment: 3D rendering with interpretation was performed to evaluate the endometrium ------- CERVIX: ------- Small amount of fluid seen within the cervical canal Multiple nabothian cysts seen CUL-DE-SAC: No fluid is visualized. RIGHT OVARY: Status: Visualized Size (cm) L: 2.3 W: 2.0 H: 1.5 Vol (ml): 3.6 Morphology: Normal appearance Comment: Transabdominal visualization LEFT OVARY: Status: Visualized Size (cm) L: 3.0 W: 2.7 H: 1.9 Vol (ml): 8.1 Morphology: Normal appearance Type: Dominant follicle Size (cm) L: 2.4 W: 2.3 H: 1.8 Vol (ml): 5.2 IMPRESSION 1. Septate uterus 2. Fluid in the a scar. 3. fluid in the cervical canal and multiple nabothian cysts. 4. RIGHT ovary is normal. 5. There is a dominant follicle in the LEFT ovary with maximum dimension of 2.4 cm. 6. The RIGHT ovary could not be seen transvaginally and was visualized transabdominally. Thank you for letting us participate in the care of this patient. For questions regarding this report, please contact the number below. Electronically signed by: Kori Leblanc MD, [facility] ([phone]), at 02/07/2021 3:05 PM Kori Leblanc, [facility] & Dept Chair - Rad Electronically Signed Final Report 02/07/2021 03:12 pm Gene LouандрейTerry MITUL IMG US PELVIC ORDERABLES * (ABNORMAL) Hemogram (01/24/2021 12:09 PM EST) White Blood Cell 5.9 4.0 - 9.5 x10(3)/mc L [facility] Red Blood Cell 4.36 4.00 - 5.21 x10(6)/mc L [facility] Hemoglobin 7.6(L) 11.7 - 15.5 gm/dL [facility] Hematocrit 27.3(L) 35.7 - 45.8 % [facility] Mean Cell Volume 62.6(L) 82.6 - 94.4 fL [facility] Mean Cell Hemoglobin 17.4(L) 27.1 - 32.0 pg [facility] Mean Cell Hemoglobin Concentration 27.8(L) 31.7 - 35.0 gm/dL [facility] Platelet 334 145 - 357 x10(3)/mc L [facility] RDW Standard Deviation 43.2 37.0 - 46.0 fL [facility] RDW coefficient of variation 19.8(H) 11.5 - 14.1 % [facility] Mean Platelet Volume 9.0 7.6 - 12.9 fL [facility] NRBC% auto 0.0 % [facility] NRBC Absolute 0.000 0.000 - 0.000 x10(3)/mc L [facility] Blood specimen (specimen) 01/24/2021 12:09 PM EST 01/24/2021 12:17 PM EST Narrative Resulting Agency Comment Spec In Lab Gene Ignacio APRN HEMATOLOGY OR DERABLES [facility] [place] [address] * Prolactin (01/24/2021 12:09 PM EST) Prolactin 9.5 4.8 - 23.3 ng/mL [facility] Blood specimen (specimen) 01/24/2021 12:09 PM EST 01/24/2021 12:17 PM EST Narrative Resulting Agency Comment Spec In Lab Gene Ignacio APRN CHEMISTRY ORD ERABLES [facility] [place] [address] * TSH [place] (01/24/2021 12:09 PM EST) Thyroid Stimulating Hormone 1.98 0.27 - 4.20 mcIU/mL [facility] Blood specimen (specimen) 01/24/2021 12:09 PM EST 01/24/2021 12:17 PM EST Narrative Resulting Agency Comment Spec In Lab Gene Ignacio APRN CHEMISTRY ORD ERABLES [facility] [place] [address] documented in this encounter Visit Diagnoses Diagnosis Abnormal uterine bleeding (AUB) Abnormal uterine bleeding (AUB) documented in this encounter Care Teams Agile Scrum Coach Relationship Specialty Start Date End Date Clayton Johnson DNP PCP - General Family Medicine 07/07/19 04/15/23 documented as of this encounter
--- OUTSIDE RECORDS SUMMARY | 2024-08-10 15:58 | XMS_ITS | Encounter Summary ---
Author Organization [facility] Address [facility] [place] [address] Care Team Providers Care Stone Chimney Mason Name Role Phone Rolando Yanely Shah APRN Primary Care Provider [phone] Reason for Visit * Reason Comments Follow-up Encounter Details Date Type Department Care Team (Late st Contact Info) Description 06/21/2015 10:00 AM EDT Follow-Up [place]ology [place] [address] Lacy Jameson MD [facility] [address] [place] [address] VWD (von Willebrand's disease) Discharge Disposition: Home Social History Tobacco Use [...] Sign Reading Time Taken Comments Blood Pressure 128/70 06/21/2015 10:01 AM EDT Pulse 64 06/21/2015 10:01 AM EDT Temperature 36.5 ??C (97.7 ??F) 06/21/2015 10:01 AM E DT Respiratory Rate 20 06/21/2015 10:01 AM EDT Oxygen Saturation 100% 06/21/2015 10:01 AM EDT Inhaled Oxygen Concentration - - Weight 99.5 kg (219 lb 5.7 oz) 06/21/2015 10:01 AM EDT Height 157.8 cm (5' 2.13) 06/21/2015 10:01 AM E DT Body Mass Index 39.96 06/21/2015 10:01 AM EDT documented in this encounter Progress Notes * Lacy Jameson MD - 06/21/2015 4:27 PM EDT +*+*+*+*+*+*+*+*+*+*+*+*+*+*+*+*+*+*+*+*+*+*+*+*+*+*+*+*+*+*+*+*+*+*+*+*+*+* Hemostasis Attending Physician I have independently interviewed and examined this patient in the outpatient clinic and have personally reviewed the relevant clinical, laboratory and radiological data with Dr. Orin Newman, Hematology/Oncology Fellow. Please refer to her comprehensive note from today, with which I concur, for complete details of our encounter with this patient. I have reviewed and endorse the recommendations as outlined and have made any additions/corrections below. In brief, Elodia has type 2A von Willebrand disease who is seen for annual VWD follow up and is scheduled for a corticosteroid injection in her left shoulder later today. Since I saw her last at the delivery of her daughter two years ago, she has done generally well from a hemostasis standpoint. She has had no major bleeding episodes for which a Humate P infusion has been required. She underwent a colonoscopy in February after infusion of Humate P and had two hyperplastic polyps removed without bleeding complications. She has a dose of unexpired Humate P at home for emergency use. She has agreed to participate in the CDC bleeding registry. As above, prior to the corticosteroid injection today she will have an infusion of Humate P for hemostasis (3 x 953 units = 2859 units). A single dose should be sufficient for hemostasis for the procedure. We reviewed some basic educational material about [...] her coagulation factor concentrate product and with [facility] [place] [place] as the vendor. We reviewed the indications for Humate P infusion and will ensure that she continues to have a fresh supply. Elodia had the opportunity to ask questions and indicated that all her questions were answered to hersatisfaction. We'll continue to see herat least annually at the [facility] [place] [place] [facility] and in the interim as necessary. Lacy Jameson MD Architecture Department Chair, Hemophilia and Thrombosis Center * Orin Newman - 06/21/2015 9:56 AM EDT [facility] Department of Medicine [place] [address] [facility] HEMOSTASIS FOLLOW UP DATE OF VISIT 06/21/2015 Patient Elodia Lin 1970 42 year old female with Von Willebrand Disease, type 2A, with a mild bleeding phenotype presents for recommendations prior to steorid injection into her left shoulder for shoulder adhesive capsulitisand mild rotator cuff impingement . last saw her in 03/2013 prior to her delivery. Elodia reports doing very well overall. She last received humate P prior to colo in 02/2015. She denies any major bleeding episodes over the past couple of years. She has few minor nose bleeds that subside spontaneously.Her menstrual periods are heavy, but didn't have to use factor. She has humate P at home, but didn't have to use it. She reports pain and stiffness in left shoulder for the past 8-9 months for which she is getting steroid inj today. No pain anywhere else. Rest of the ROS is negative. ROS (+)as above (-)fever, chills, headache, dizziness, sore throat, mouth sores, recent cold/flu sx, cough, chest pain, shortness of breath, abdominal pain, nausea, vomiting, diarrhea, constipation, dysuria, hematuria, gait disturbance, focal weakness, rash PAST MEDICAL HISTORY 1) Type 2 von Willebrand Disease (previous testing consistent with type 2A), diagnosed at age 10 after she experienced bleeding with an adenoidectomy Baseline lab values 07/07/2012: VWF:Ag 47% VWF:Act 28% F8A 73% PFA-100 Col/Epi >264 s Col/ADP >231s VWF Ag, multimeric - absence of large to intermediate weight multimers 2) Anxiety - on Effexor 3) Hx iron deficiency anemia with pregnancies Current Outpatient Prescriptions on File Prior to Visit Medication Sig Dispense Refill ??? rizatriptan (MAXALT) 10 mg Tablet Take 10 mg by mouth as needed. PRN for Migranes ??? venlafaxine (EFFEXOR-XR) 150 mg Capsule, Sust. Release 24 hr Take 1 capsule by mouth daily. 30 capsule 0 No current facility-administered medications on file prior to visit. Filed Vitals: 06/21/15 1001 BP: 128/70 Pulse: 64 Temp: 36.5 ??C (97.7 ??F) TempSrc: Temporal Resp: 20 Height: 157.8 cm (5' 2.13) Weight: 99.5 kg (219 lb 5.7 oz) SpO2: 100% PHYSICAL EXAMINATION GENERAL: Well-appearing, articulate white female. HEENT: Oropharynx clear; no mucosal lesions, petechiae, bleeding, thrush or ulcers. NECK: Supple; no cervical, supraclavicular or submental adenopathy. BREASTS: Exam deferred. CHEST: Clear to auscultation/percussion. No rales, rhonchi, wheezes. HEART: Regular rate and rhythm; no murmur, rub, gallop ABDOMEN: protuberant; BS+, ND,NT; no hepatosplenomegaly; GENITOURINARY: Exam deferred. EXTREMITIES: No clubbing, cyanosis or edema. No erythema, tenderness or palpable cords. No venous varicosities. No skin discoloration or hemosiderin deposits. Peripheral pulses palpable. MUSCULOSKELETAL: Spine nontender. Limited ROM of left shoulder,especially abduction and external rotation. SKIN: No ecchymoses, petechiae, ulcers or rashes. LYMPH: No palpable lymph nodes. NEUROLOGIC: Alert, oriented. Speech clear, coherent. No focal deficits noted. PSYCHIATRIC: Appropriate affect, no apparent distress. A/P: 42 year old female with von Willebrand Disease, type 2A presents for hemostasis recommendations prior to the steroid inj into the left shoulder today afternoon. We will administer her 30 units/kg dose of Humate P (~ 3000 units: 3x953 unit vials.) prior to the steroid inj. This is expected to raise the VWF activity level by around 45%. Her baseline VWF activity level is around 28%. So, with this dose of humate P, her VWF activity level is expected to be raised to around 70% which is adequate for the shoulder injection. We have previously reviewed the product and vendor choice with Elodia and she has elected to use Humate P as her coagulation factor concentrate and [facility] [place] [place] as the supplier. She has a dose at home for use in emergencies. She will take the dose to the local hospital for infusion in the event of bleeding or trauma and will call the Hemophilia Center so that we will facilitate treatment as needed locally. She is consented for bleeding registry by Ms.Maura Trisha Jo RN. Layla reviewed the 24 hour emergency contact information with her. Pt was seen and discussed with . Orin Newman MD Fellow, Hematology /Oncology Pager: [phone] +*+*+*+*+*+*+*+*+*+*+*+*+*+*+*+*+*+*+*+*+*+*+*+*+*+*+*+*+*+*+*+*+*+*+*+*+*+* Hemostasis Attending Physician I have independently interviewed and examined this patient in the outpatient clinic and have personally reviewed the relevant clinical, laboratory and radiological data with Dr. Orin Newman, Hematology/Oncology Fellow. Please refer to the comprehensive progress note above, with which I concur, for complete details of our encounter with this patient. I have reviewed and endorse the recommendations as outlined and have made any additions/corrections below. In brief, Elodia has type 2A von Willebrand disease who is seen for annual VWD follow up and is scheduled for a corticosteroid injection in her left shoulder later today. Since I saw her last at the delivery of her daughter two years ago, she has done generally well from a hemostasis standpoint. She has had no major bleeding episodes for which a Humate P infusion has been required. She underwent a colonoscopy in February after infusion of Humate P and had two hyperplastic polyps removed without bleeding complications. She has a dose of unexpired Humate P at home for emergency use. She has agreed to participate in the [facility] bleeding registry. As above, prior to the corticosteroid injection today she will have an infusion of Humate P for hemostasis (3 x 953 units = 2859 units). A single dose should be sufficient for hemostasis for the procedure. We reviewed some basic educational material about [...] her coagulation factor concentrate product and with [facility] [place] [place] as the vendor. We reviewed the indications for Humate P infusion and will ensure that she continues to have a fresh supply. Elodia had the opportunity to ask questions and indicated that all her questions were answered to hersatisfaction. We'll continue to see herat least annually at the [facility] [place] [place] [facility] and in the interim as necessary. Lacy Jameson MD Architecture Department Chair, [facility] Thrombosis Center documented in this encounter Plan of Treatment Upcoming Encounters Date Type Department Care Team (Late st Contact Info) Description 10/20/2024 9:00 AM EST Office Visit Hematology [place] [address] Lacy Jamseon MD [facility] [address] [place] [address] Layla Jo RN documented as of this encounter Visit Diagnoses Diagnosis VWD (von Willebrand's disease) Von Willebrand's disease documented in this encounter Care Teams Stone Chimney Mason Relationship Specialty Start Date End Date Yanely Marshall APRN PCP - General 06/07/15 06/28/19 documented as of this encounter
--- OUTSIDE RECORDS SUMMARY | 2024-08-10 15:58 | XMS_ITS | Encounter Summary ---
[place] [address] Care Team Providers Care Reserve Operator Name Role Phone Yanely Marshall APRN Primary Care Provider Reason for Visit * Reason Onset Date Comments Advice Only 06/10/2015 Encounter Details Date Type Department Care Team (Late st Contact Info) Description 06/10/2015 Telephone Hematology [place] [phone] Jacinta Duval, production metal sprayer Only Social History Tobacco Use Types Packs/Day Years [...] encounter Miscellaneous Notes * Telephone Encounter - Jacinta Duval, RN - 06/14/2015 11:11 AM EDT Date of Encounter: June 10, 2015 T/C to patient with VWD, 2A pending shoulder injection on Wednesday06/21/15 Reviewed with the patient that she has not seen Dr. Jameson in 2 years and will need to be seen prior to orders for clotting factor for her upcoming shoulder injection. Agreed to appt on WednesdayMay [address] Jameson and Layla Jo, MSN RN, followed by infusion therapy for Humate P infusion (not yet ordered) prior to the shoulder injection at 1 PM. GERMÁN He RN Pager [phone] Addendum - June 11, 2015 - pt stated she might have a conflict and would call back to let us know if the appt needed to be changed. Addendum - June 14, 2015 - Route Sales Delivery Drivers Supervisor and I have left several messages for the patient who is still scheduled for the appts above. No response to messages. GERMÁN He RN documented in this encounter Plan of Treatment Upcoming Encounters Date Type Department Care Team (Late st Contact Info) Description 10/20/2024 9:00 AM EST Office Visit [place] [address] Lacy Jameson MD [facility] DR HEMATOLOGY [place] [address] Layla Jo RN documented as of this encounter Visit Diagnoses Not on filedocumented in this encounter Care Teams Reserve Operator Relationship Specialty Start Date End Date Yanely Marshall APRN PCP - General 06/07/15 06/28/19 documented as of this encounter
--- OUTSIDE RECORDS SUMMARY | 2024-08-10 15:58 | XMS_ITS | Encounter Summary ---
Author Organization [facility] [place] [address] Care Team Providers Care Highway Administrative Engineer Name Role Phone Clayton Johnson JOHN Primary Care Provider Encounter Details Date Type Department Care Team (Late st Contact Info) Description 01/07/2021 Telephone [place]ology [place] [phone] Layla Jo, RN Social History Tobacco Use [...] Telephone Encounter - Layla Jo RN - 01/07/2021 4:40 PM EST Wednesday 4:30 PM TC with 50 yo patient with VWD 11A stating her menstrual periods have been heavier than usual and more irregular, with breakthrough bleeding every couple of weeks. Elodia stated she's going through a super tampon every hour to hour and a half, typically lasting for 4 days in length. Elodia relayed that she had talked with her PCP and is going to place a call to [facility] regarding the above issue. She stated her PCP recommended labs. Unclear what labs were recommended. She stated she wanted to wait to see if Dr. Jameson wanted labs as well and have it all drawn at one sitting. Discussed possible treatment options, including oral tranexamic acid. Elodia is in possession of a dose of Humate P at home for emergency use. Will review with Dr. Jameson and follow up with patient. Patient has a f/u annual clinic michelle't with Dr. Jameson on 01/24/21. Elodia to call [facility] and see if she can secure a [facility] michelle't for follow up michelle't the same day she sees Dr. Jameson. Layla Jo RN MSN 01/08/21 Addendum: TC with Elodia and relayed Dr. Jameson's interest in hearing [facility] recommendations regardingrecent menometrorrhagia and have the opportunity to discuss hematology treatment options during herclinic visit on 01/24. Elodia verbalized agreement with plan. Layla Jo RN MSN documented in this encounter Plan of Treatment Upcoming Encounters Date Type Department Care Team (Late st Contact Info) Description 10/20/2024 9:00 AM EST Office Visit [place]ology [place] [address] Lacy Jameson MD [facility] DR [place] [address] Layla Jo, RN documented as of this encounter Visit Diagnoses Not on filedocumented in this encounter Care Teams Highway Administrative Engineer Relationship Specialty Start Date End Date Clayton Johnson DNP PCP - General Family Medicine 07/07/19 04/15/23 documented as of this encounter
--- OUTSIDE RECORDS SUMMARY | 2024-08-10 15:58 | XMS_ITS | Encounter Summary ---
[place] [address] Care Team Providers Care Explosive Operator Fuse Name Role Phone Clayton Johnson DNP Primary Care Provider Encounter Details Date Type Department Care Team (Late Contact Info) Description 12/05/2020 Telephone [place] [phone] Margaret Weiss Social History Tobacco Use Types Packs/Day Years [...] encounter Miscellaneous Notes * Telephone Encounter - Margaret Weiss - 12/05/2020 3:14 PM EST Left message for patient to reschedule her colonoscopy that was cancelled in March 2020. Case in depot. documented in this encounter Plan of Treatment Upcoming Encounters Date Type Department Care Team (Late st Contact Info) Description 10/20/2024 9:00 AM EST Office Visit [place]ology [place] [address] Lacy Jameson MD [facility] DR [place] [address] Layla Jo RN documented as of this encounter Visit Diagnoses Not on filedocumented in this encounter Care Teams Explosive Operator Fuse Relationship Specialty Start Date End Date Clayton Johnson DNP PCP - General Family Medicine 07/07/19 04/15/23 documented as of this encounter
--- OUTSIDE RECORDS SUMMARY | 2024-08-10 15:58 | XMS_ITS | Encounter Summary ---
Author Organization [facility] [place] [address] Care Team Providers Care Terrazzo Layer Helper Name Role Phone Yanely Marshall APRN Primary Care Provider Reason for Visit * Reason Onset Date Comments Prior Authorization 11/27/2015 Encounter Details Date Type Department Care Team (Late st Contact Info) Description 11/27/2015 Telephone [place] [address] Pawan Carlson MD [facility] [place] [address] Prior Authorization Social History Tobacco Use Types Packs/Day Years [...] encounter Miscellaneous Notes * Telephone Encounter - Rachana Childers - 11/27/2015 11:16 AM EST [facility]oster Placed information for order, received the precert. Number [id number], faxed all information to [phone] on 11/25. Confirmed documented in this encounter Plan of Treatment Upcoming Encounters Date Type Department Care Team (Late st Contact Info) Description 10/20/2024 9:00 AM EST Office Visit Hematology [place] [address] Lacy Jameson MD [facility] [address] [place] [address] Layla Jo RN documented as of this encounter Visit Diagnoses Not on filedocumented in this encounter Care Teams Terrazzo Layer Helper Relationship Specialty Start Date End Date Yanely Marshall APRN PCP - General 06/07/15 06/28/19 documented as of this encounter
--- OUTSIDE RECORDS SUMMARY | 2024-08-10 15:58 | XMS_ITS | Encounter Summary ---
Author Organization [facility] [place] [address] Care Team Providers Care Dance Therapist Name Role Phone Clayton Johnson DNP Primary Care Provider Encounter Details Date Type Department Care Team (Latest Contact Info) Description 02/07/2021 2:04 PM EST - 02/07/2021 2:19 PM EST Hospital Encounter [place]ematology [place] [phone] Von Willebrand disease; Menorrhagia with irregular cycle Discharge Disposition: Home Social History Tobacco Use [...] EST Office Visit [place]ology [place] [address] Lacy Jameson MD [facility] [address] HEMATOLOGY [place] [address] Layla Jo RN documented as of this encounter Procedures Procedure Name Priority Date/Time Associated Diagnosis Comments SCAN, PERIPHERAL BLOOD Routine 02/07/2021 2:14 PM EST HEMOGRAM Routine 02/07/2021 2:14 PM EST Von Willebrand disease Menorrhagia with irregular cycle DIFFERENTIAL, AUTOMATED Routine 02/07/2021 2:14 PM EST Von Willebrand disease Menorrhagia with irregular cycle HC VENIPUNCTURE Routine 02/07/2021 2:14 PM EST Von Willebrand disease Menorrhagia with irregular cycle documented in this encounter Results * Scan, Peripheral Blood (02/07/2021 2:14 PM EST) Plat estimate Increased [facility] RBC Morphology Abnormal [facility] Microcyte gtr than 10 /HPF [facility] Hypochromia Moderate [facility] Ovalocytes 1-5 /HPF [facility] Tear Cell 1-5 /HPF [facility] Blood specimen (specimen) 02/07/2021 2:14 PM EST 02/07/2021 2:20 PM EST Narrative Resulting Agency Comment Spec In Lab Lacy Jameson MD HEMATOLOGY ORDERAB LES Performing Organization Address City/[facility]/ZIP Co de Phone Number [facility] [place] [address] * Differential, Automated (02/07/2021 2:14 PM EST) Neutrophil % 71.2 % [facility] Neutrophil Absolute 4.37 1.70 - 6.10 x10(3)/[facility] Lymph % 18.9 % [facility] Lymphocytes Abs 1.2 0.9 - 3.2 x10(3)/[facility] Monocyte % 7.2 % [facility] Monocyte Abs 0.4 0.3 - 0.9 x10(3)/[facility] Eos % 1.6 % [facility] Eosinophils Abs 0.1 0.0 - 0.4 x10(3)/[facility] Basophil % 0.8 % [facility] Baso Absolute 0.0 0.0 - 0.1 x10(3)/[facility] Immature Gran % 0.30 % [facility] Comment: Immature granulocytes(IG's)percentage and absolute count will include metamyelocytes, myelocytes, and promyelocytes. Blood smears from CBCs yielding IG's will be scanned manually for concordance. If this scan disagrees with the automated IG or if promyelocytes are noted, a manual differential will be performed. Immature Gran Absolute 0.02 0.00 - 0.04 x10(3)/[facility] Blood specimen (specimen) 02/07/2021 2:14 PM EST 02/07/2021 2:20 PM EST Narrative Resulting Agency Comment Spec In Lab Lacy Jameson MD HEMATOLOGY ORDERAB LES Performing Organization Address City/[facility]/ZIP Co de Phone Number [facility] [place] [address] * (ABNORMAL) Hemogram (02/07/2021 2:14 PM EST) White Blood Cell 6.1 4.0 - 9.5 x10(3)/[facility] Red Blood Cell 4.14 4.00 - 5.21 x10(6)/[facility] Hemoglobin 7.6(L) 11.7 - 15.5 gm/dL [facility] Hematocrit 27.0(L) 35.7 - 45.8 % [facility] Mean Cell Volume 65.2(L) 82.6 - 94.4 fL [facility] Mean Cell Hemoglobin 18.4(L) 27.1 - 32.0 pg [facility] Mean Cell Hemoglobin Concentration 28.1(L) 31.7 - 35.0 gm/dL [facility] Platelet 376(H) 145 - 357 x10(3)/[facility] RDW Standard Deviation 50.2(H) 37.0 - 46.0 [facility] RDW coefficient of variation 22.2(H) 11.5 - 14.1 % [facility] Mean Platelet Volume 9.3 7.6 - 12.9 fL [facility] NRBC% auto 0.0 % [facility] NRBC Absolute 0.000 0.000 - 0.000 x10(3)/[facility] Blood specimen (specimen) 02/07/2021 2:14 PM EST 02/07/2021 2:20 PM EST Narrative Resulting Agency Comment Spec In Lab Lacy Jameson MD HEMATOLOGY ORDERAB LES [facility] [place] [address] documented in this encounter Visit Diagnoses Diagnosis Von Willebrand disease Von Willebrand's disease Menorrhagia with irregular cycle Excessive or frequent menstruation documented in this encounter Care Teams Dance Therapist Relationship Specialty Start Date End Date Clayton Johnson DNP PCP - General Family Medicine 07/07/19 04/15/23 documented as of this encounter
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
--- OUTSIDE RECORDS SUMMARY | 2024-08-10 15:58 | XMS_ITS | Encounter Summary ---
Author Organization [facility] [place] [address] Care Team Providers Care Political Consultant Name Role Phone Clayton Johnson DNP Primary Care Provider Encounter Details Date Type Department Care Team (Late st Contact Info) Description 03/14/2020 Telephone [place] [phone] Joselin Sanderson, [facility] Social History Tobacco Use Types Packs/Day Years [...] encounter Miscellaneous Notes * Telephone Encounter - Joselin Sanderson - 03/14/2020 11:52 AM EDT LVM case removed. Called to reach patient about upcoming endoscopy procedure and read the following: We are reaching to let you know that in response to the COVID-19 Public Health Crisis we have made the decision to delay elective procedure on 03/29/20. Our top priority is always to keep our patients and employees safe. As you have likely heard in themedia there is a national shortage of critical supplies and we must focus on maintaining the adequacy of equipment and supplies during this challenging period. All [facility] hospitals are open, outpatient appointments, urgent and emergency procedures are continuing. To stay up to date on COVID-19 please visit our website where we post regular updates. Please remember to say healthy through social distancing and frequent handwashing We are sorry for this inconvenience to you and your family, we appreciate your understanding. Patient was understanding of this plan and that we will contact them at a later time to reschedule their procedure. documented in this encounter Plan of Treatment Upcoming Encounters Date Type Department Care Team (Late st Contact Info) Description 10/20/2024 9:00 AM EST Office Visit Hematology [place] [address] aLcy Jameson MD [facility] DR HEMATOLOGY [place] [address] Layla Jo RN documented as of this encounter Visit Diagnoses Not on filedocumented in this encounter Care Teams Political Consultant Relationship Specialty Start Date End Date Clayton Johnson DNP PCP - General Family Medicine 07/07/19 04/15/23 documented as of this encounter
--- OUTSIDE RECORDS SUMMARY | 2024-08-10 15:58 | XMS_ITS | Encounter Summary ---
Author Organization [facility] Address [facility] [place] [address] Care Team Providers Care Central Service Technician Name Role Phone Clayton Johnson DNP Primary Care Provider Encounter Details Date Type Department Care Team (Latest Contact Info) Description 02/07/2021 2:20 PM EST - 02/07/2021 11:59 PM [facility] Hospital [place] [phone] Felisha Ignacio APRN [facility] [place] [address] Abnormal uterine bleeding (AUB) Discharge Disposition: Home Social History Tobacco Use [...] EST Office Visit Hematology [place] [address] Lacy Jameson MD [facility] [place] [address] Layla Jo RN documented as of this encounter Procedures Procedure Name Priority Date/Time Associated Diagnosis Comments US TRANSVAGINAL NON OB Routine 02/07/2021 3:01 PM EST Abnormal uterine bleeding (AUB) documented in this encounter Results * US Transvaginal Non [...] below. Electronically signed by: Kori Leblanc MD, [facility] ([phone]), at 02/07/2021 3:05 PM ??ZENIA Porter [facility] [address] [facility] Dept Chair - Rad Electronically Signed Final Report ?? 02/07/2021 03:12 pm Narrative 02/07/2021 3:12 PM EST Gynecological Report ?(Signed Final 02/07/2021 03:12 pm) PATIENT INFO: ID #: ? [id number] ?: ??[birth year] (50 yrs)(F) Name: ? ELODIA Shah VAISHALI ? Visit Date: 02/07/2021 02:57 pm PERFORMED BY: Performed By: ? Vera Marino RDMS Attending: ?Deana BERRY, Kori Montenegro Referred By: ?FELISHA IGNACIO Location: ? [place] SERVICE(S) PROVIDED: UTV - Transvaginal - [id number] INDICATIONS: AUB; History of: Abnormal bleeding TECHNIQUE/SCAN [...] 02/07/2021 03:12 pm) PATIENT INFO: ID #: [id number] : [birth year] (50 yrs)(F) Name: ELODIA CROSSMIKHAIL Visit Date: 02/07/2021 02:57 pm PERFORMED BY: Performed By: Vera Marino RDMS Attending: Kori Leblanc MD Referred By: FELISHA IGNACIO Location: [place] SERVICE(S) PROVIDED: UTV - Transvaginal - [id number] INDICATIONS: AUB; History of: Abnormal bleeding TECHNIQUE/SCAN [...] this report, please contact the number below. Kori Leblanc [facility] & Dept Chair - Rad Electronically Signed Final Report 02/07/2021 03:12 pm Felisha Ignacio FURNACE MECHANIC IMG US PELVIC ORDERABLES documented in this encounter Visit Diagnoses Diagnosis Abnormal uterine bleeding (AUB) documented in this encounter Care Teams Central Service Technician Relationship Specialty Start Date End Date Clayton Johnson DNP PCP - General Family Medicine 07/07/19 04/15/23 documented as of this encounter
--- OUTSIDE RECORDS SUMMARY | 2024-08-10 15:58 | XMS_ITS | Encounter Summary ---
Author Organization [place] [address] Care Team Providers Care Scenic Designer Name Role Phone Clayton Johnson DNP Primary Care Provider [phone] Encounter Details Date Type Department Care Team (Late st Contact Info) Description 01/20/2021 Telephone [place] [address] Susanna Soares Social History Tobacco Use Types Packs/Day Years [...] encounter Miscellaneous Notes * Telephone Encounter - Susanna Soares - 01/20/2021 2:26 PM EST Elodia Lin [id number] Diagnosis/Indication: [place] 1. Have you ever had a/an Colonoscopy before? Yes: Date 03/11/15 If yes, did you have any problems with the procedure? No What type of sedation was used: IV Conscious Sedation 2. Do you take any blood thinners or have you been diagnosed with a bleeding disorder that increases your risk of bleeding with procedures? Yes: Type: Bleeding Disorder 3. Do you have a Pacemaker or Defibrillator device? No 4. Are you a diabetic? No 5. Do you have any Allergies to Eggs, Latex or Medications? Yes: See EDH 6. Do you take any Oral Iron Supplements (Including multi-vitamins)? No 7. Do you have a history of three or more abdominal surgeries? Yes 8. Have you had a problem with sedation or anesthesia? No 9. Do you use a c-pap machine or oxygen tank? Neither 10. Do you take prescription narcotic pain medications, including suboxone or methodone? No 11. Do you have a preference regarding the gender of your provider? No Preference 12. Is there any other information you would like to us to note for the provider and nursing team who will perform your case? No 13. Say to patient: You must have a responsible republican who will drive you to your procedure, stay [place] for the entire duration of your procedure, and drive you home from your procedure? *Please Verify the height and weight, and adjust if height and/or weight have changed* Estimated body mass index is 36.47 kg/m?? as calculated from the following: Height as of 01/22/20: 157.5 cm (5' 2). Weight as of 01/22/20: 90.4 kg (199 lb 6.4 oz). *Delete if not needed* Height: 5'2 Weight: 200 BMI: 36.6 Age:50 y.o. documented in this encounter Plan of Treatment Upcoming Encounters Date Type Department Care Team (Late st Contact Info) Description 10/20/2024 9:00 AM EST Office Visit Hematology [place] [address] Lacy Jameson MD [facility] DR HEMATOLOGY [place] [address] Layla Jo RN documented as of this encounter Visit Diagnoses Not on filedocumented in this encounter Care Teams Scenic Designer Relationship Specialty Start Date End Date Clayton Johnson DNP PCP - General Family Medicine 07/07/19 04/15/23 documented as of this encounter
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
--- OUTSIDE RECORDS SUMMARY | 2024-08-10 15:58 | XMS_ITS | Encounter Summary ---
Author Organization [facility] [place] [address] Care Team Providers Care Brine Plant Operator Name Role Phone Iman Marshalline Pablo BAUMAN Primary Care Provider [phone] Reason for Referral * Physical Therapy (Routine) - Closed Specialty Diagnoses / Procedures Referred By Patsy hernandez Referred To Contact Physical Therapy Diagnoses Pain in left shoulder Impingement syndrome of shoulder, left Lacy Garibay APRN [facility] [place] [address] Referral ID Status Reason Start Date Expiration Date V isits Requested Visits Authorized [id number] Closed Evaluate and Treat 11/08/2015 05/06/2016 24 24 Reason for Visit * Reason Comments Left Shoulder Pain Encounter Details Date Type Department Care Team (Late st Contact Info) Description 11/08/2015 1:10 PM EST Office [place] [address] Pawan Carlson MD [facility] [place] [address] Impingement syndrome of shoulder, left [M75.42] (Primary Dx); Pain in left shoulder; Adhesive capsulitis of left shoulder Social History Tobacco Use Types [...] Sign Reading Time Taken Comments Blood Pressure 101/66 11/08/2015 12:58 PM EST Pulse 69 11/08/2015 12:58 PM EST Temperature - - Respiratory Rate - - Oxygen Saturation - - Inhaled Oxygen Concentration - - Weight 97.5 kg (215 lb) 11/08/2015 12:58 PM EST stated Height 157.5 cm (5' 2) 11/08/2015 12:58 PM EST stated Body Mass Index 39.32 11/08/2015 12:58 PM EST documented in this encounter Progress Notes * Lacy Garibay, GRAIN ELEVATOR SUPERINTENDENT - 11/08/2015 1:07 PM EST Shoulder and Elbow Service [place], [place] Date of Evaluation: 11/08/2015 Chief Complaint: Planned follow up for LEFT shoulder pain/adhesive capsulitis. History of Present Illness: Elodia Lin is a RHD 45 y.o. female with a chief complaint of LEFT shoulder pain and stiffness. This is a planned follow-up for left shoulder adhesive capsulitis she did have a fluoroscopically guided cortisone injection several months ago and her range of motion is significantly improved. Yet she has had some persistent rotator cuff impingement pain she and her therapist her concern about possible injury to the rotator cuff. No interval falls or injuries since we saw her last no infections.No neck pain or radiculopathy. He is nighttime pain she's unable to use anti-inflammatories due to von Willebrand's disease. Her health is otherwise in stable and she's here for definitive management. Review of Systems: Denies fever, chills, nausea, vomiting, vision change, shortness of breath, chest pain, vision changes, headaches, bowel or bladder problem, ear, nose, sinus problem, neuro or psychiatric, or endocrine disorder not addressed above. Patient's medications, allergies, past medical, surgical, social and family histories were reviewedand updated as appropriate. Physical Examination BP 101/66 mmHg Pulse 69 Ht 157.5 cm (5' 2) Wt 97.523 kg (215 lb) BMI 39.31 kg/m2 General: This is a very pleasant 45-year-old female in no acute distress alert and oriented ??3 affect is bright and appropriate. Chest: Respiratory rate 12 non labored. Orthopaedic LEFT shoulder Exam: Neck: Negative Spurling's Range of Motion: Active forward flexion to improved since her last visit to approximately 170?? with a soft endpoint. External rotation improved since her last appointment to approximately 60?? with a soft endpoint. Internal rotation to approximately L$ L5. Acromioclavicular Joint: There is mild tenderness yet a negative cross adduction Rotator Cuff: Rotator cuff strength is grossly intact with all planes of motion 5/5. Empty can is painful and mild weakness noted 5-/5. Impingement: Mild impingement Luz and Cheung. Stability: Negative glenohumeral instability. Long Head of Biceps Tendon: No tenderness. Negative speeds. Negative Yergason's negative Carson's. Scapula: No obvious scapular winging or dyskinesia noted. Skin: Dry and intact Neurological/Vascular: Neurologic examination of the upper extremity is intact with normal motor function of the radial, median, ulnar, axillary and musculocutaneous nerves. Sensory function is intact in the radial, median, ulnar, axillary, and lateral antebrachial cutaneous nerve distributions. The hand was well perfused. Radial pulses are 2+ and equal bilateral. Imaging: No new x-rays. 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 Given persistent LEFT shoulder rotator cuff impingement pain consider small full thickness RTC tear. Plan: Dr Carlson looked in on the patient and agrees with above. Treatment options and risks/benefits discussed from least to most invasive. Patient understands options. At this time, given residual rotator cuff impingement, we could consider a small full-thickness rotator cuff tear. A left shoulder MRI scan is ordered. I will call her with these drill results. I do recommend that she continue with her physical therapist on range of motion exercises Pt agrees, questions solicited/answered, will return as scheduled and as needed for concerns or questions. Pt understands they may also call us prn for above. [facility] [place] [address] documented in this encounter Plan of Treatment Upcoming Encounters Date Type Department Care Team (Late st Contact Info) Description 10/20/2024 9:00 AM EST Office Visit [place]ology [place] [address] Lacy Jameson MD [facility] [address] [place] [address] Layla Jo, RN Scheduled Referrals Name Type Priority Associated Diagnoses Orde r Schedule Referral to Physical Therapy Outpatient Referral Routine Pain in left shoulder Impingement syndrome of shoulder, left [M75.42] Ordered: 11/08/2015 documented as of this encounter Visit Diagnoses Diagnosis Impingement syndrome of shoulder, left [M75.42]- Primary Pain in left shoulder Pain in joint, shoulder region Adhesive capsulitis of left shoulder Adhesive capsulitis of shoulder documented in this encounter Care Teams Brine Plant Operator Relationship Specialty Start Date End Date Ynaely Marshall APRN PCP - General 06/07/15 06/28/19 documented as of this encounter
--- OUTSIDE RECORDS SUMMARY | 2024-08-10 15:58 | XMS_ITS | Encounter Summary ---
Author Organization [facility] [place] [address] Care Team Providers Care Inner Tube Cutter Name Role Phone Clayton Johnson JOHN Primary Care Provider Encounter Details Date Type Department Care Team (Latest Contact Info) Description 01/24/2021 11:55 AM EST - 01/24/2021 11:59 PM [facility] Hospital Encounter Hematology [place] [phone] Von Willebrand disease; Menorrhagia with irregular cycle; Abnormal uterine bleeding (AUB) Discharge Disposition: Home [...] EST Office Visit Hematology [place] [address] Lacy Jameson MD [facility] [address] [place] [address] Layla Jo RN documented as of this encounter Procedures Procedure Name Priority Date/Time Associated Diagnosis Comments HC THYROID STIMULATING HORMONE, SERUM Routine 01/24/2021 12:09 PM EST Abnormal uterine bleeding (AUB) SCAN, PERIPHERAL BLOOD Routine 01/24/2021 12:09 PM EST HC HEMOGRAM Routine 01/24/2021 12:09 PM EST Abnormal uterine bleeding (AUB) HC IRON BINDING CAPACITY Routine 01/24/2021 12:09 PM EST Von Willebrand disease Menorrhagia with irregular cycle HC VWF ANTIGEN Routine 01/24/2021 12:09 PM EST Von Willebrand disease HC PROLACTIN ASSAY, SERUM Routine 01/24/2021 12:09 PM EST Abnormal uterine bleeding (AUB) HC VWF ACTIVITY Routine 01/24/2021 12:09 PM EST Von Willebrand disease HC FACTOR VIII ASSAY CLOTTING Routine 01/24/2021 12:09 PM EST Von Willebrand disease HC FERRITIN, SERUM Routine 01/24/2021 12 :09 PM EST Von Willebrand disease Menorrhagia with irregular cycle documented in this encounter Results * Scan, Peripheral Blood (01/24/2021 12:09 PM EST) Plat estimate Normal [facility] RBC Morphology Abnormal [facility] Microcyte 6-10 /HPF [facility] Hypochromia Moderate [facility] Blood specimen (specimen) 01/24/2021 12:09 PM EST 01/24/2021 12:17 PM EST Narrative Resulting Agency Comment Spec In Lab Felisha Ignacio APRN HEMATOLOGY OR DERABLES [facility] [place] [address] * TSH Mineral (01/24/2021 12:09 PM EST) Thyroid Stimulating Hormone 1.98 0.27 - 4.20 mcIU/mL [facility] Blood specimen (specimen) 01/24/2021 12:09 PM EST 01/24/2021 12:17 PM EST Narrative Resulting Agency Comment Spec In Lab Felisha Ignacio APRN CHEMISTRY ORD ERABLES Performing Organization Address City/[facility]/ZIP Co de Phone Number [facility] [place] [address] * Prolactin (01/24/2021 12:09 PM EST) Prolactin 9.5 4.8 - 23.3 ng/mL [facility] Blood specimen (specimen) 01/24/2021 12:09 PM EST 01/24/2021 12:17 PM EST Narrative Resulting Agency Comment Spec In Lab Felisha Ignacio DONOR SERVICES TEAM LEADER CHEMISTRY ORD ERABLES [facility] [place] [address] * (ABNORMAL) Hemogram (01/24/2021 12:09 PM EST) White Blood Cell 5.9 4.0 - 9.5 x10(3)/[facility] Red Blood Cell 4.36 4.00 - 5.21 x10(6)/[facility] Hemoglobin 7.6(L) 11.7 - 15.5 gm/dL [facility] Hematocrit 27.3(L) 35.7 - 45.8 % [facility] Mean Cell Volume 62.6(L) 82.6 - 94.4 [facility] Mean Cell Hemoglobin 17.4(L) 27.1 - 32.0 pg [facility] Mean Cell Hemoglobin Concentration 27.8(L) 31.7 - 35.0 gm/dL [facility] Platelet 334 145 - 357 x10(3)/[facility] RDW Standard Deviation 43.2 37.0 - 46.0 [facility] RDW coefficient of variation 19.8(H) 11.5 - 14.1 % [facility] Mean Platelet Volume 9.0 7.6 - 12.9 [facility] NRBC% auto 0.0 % [facility] NRBC Absolute 0.000 0.000 - 0.000 x10(3)/[facility] Blood specimen (specimen) 01/24/2021 12:09 PM EST 01/24/2021 12:17 PM EST Narrative Resulting Agency Comment Spec In Lab Felisha Ignacio APRN HEMATOLOGY OR DERABLES Performing Organization Address City/State/[facility] Co de Phone Number [facility] [place] [address] * Von Willebrand Factor Activity (01/24/2021 12:09 PM EST) Von Willebrand Factor Assay <19 % activity [facility] vWF Act Interp ??ABO blood group has a significant influence on vWF:Act levels in normal individuals. Type A, type B and type AB have a range of 49 ? 163%. [facility] Blood specimen (specimen) 01/24/2021 12:09 PM EST 01/24/2021 12:17 PM EST Narrative Resulting Agency Comment Spec In Lab Lacy Jameson MD HEMATOLOGY ORDERAB LES Performing Organization Address [facility] Co de Phone Number [facility] [place] [address] * Von Willebrand Factor Antigen (01/24/2021 12:09 PM EST) von Willebrand Factor Antigen 50 % [facility] Comment: The presence of Rheumatoid Factor may produce an overestimation of the test results. vWF Anti Interp ABO blood group has a significant influence on vWF:Ag levels in normal individuals. Type A, type B, and type AB have a range of 66 - 176%. [facility] Blood specimen (specimen) 01/24/2021 12:09 PM EST 01/24/2021 12:17 PM EST Narrative Resulting Agency Comment Spec In Lab Lacy Jameson MD HEMATOLOGY ORDERAB LES Performing Organization Address [facility] Co de Phone Number [facility] [place] [address] * (ABNORMAL) Iron and TIBC (01/24/2021 12:09 PM EST) Iron 12(L) 30 - 150 mcg/dL [facility] TIBC 467(H) 250 - 450 mcg/dL [facility] Iron Saturation 3(L) 20 - 50 % [facility] Blood specimen (specimen) 01/24/2021 12:09 PM EST 01/24/2021 12:17 PM EST Narrative Resulting Agency Comment Spec In Lab Layc Jameson MD CHEMISTRY ORDERABL ES Performing Organization Address [facility]/ZIP Co de Phone Number [facility] [place] [address] * (ABNORMAL) Ferritin (01/24/2021 12:09 PM EST) Pathologist [facility] Ferritin 2(L) 15 - 150 ng/mL [facility] Comment: Pediatric reference ranges not verified at [facility], interpret with caution. Reference ranges for females greater than 50 years of age approach values for men, i.e., 30-400 ng/mL. Blood specimen (specimen) 01/24/2021 12:09 PM EST 01/24/2021 12:17 PM EST Narrative Resulting Agency Comment Spec In Lab Lacy Jameson MD CHEMISTRY ORDERABL ES Performing Organization Address [facility]/ZIP Co de Phone Number [facility] [place] [address] * Factor 8 assay (01/24/2021 12:09 PM EST) [facility] Factor VIII Assay 79 50 - 150 % [facility] Blood specimen (specimen) 01/24/2021 12:09 PM EST 01/24/2021 12:17 PM EST Narrative Resulting Agency Comment Spec In Lab Lacy Jameson MD HEMATOLOGY ORDERAB LES Performing Organization Address City/[facility]/ZIP Co de Phone Number [facility] [place] [address] documented in this encounter Visit Diagnoses Diagnosis Von Willebrand disease Von Willebrand's disease Menorrhagia with irregular cycle Excessive or frequent menstruation Abnormal uterine bleeding (AUB) documented in this encounter Care Teams Inner Tube Cutter Relationship Specialty Start Date End Date Clayton Johnson DNP PCP - General Family Medicine 07/07/19 04/15/23 documented as of this encounter
--- OUTSIDE RECORDS SUMMARY | 2024-08-10 15:58 | XMS_ITS | Encounter Summary ---
Author Organization [place] [address] Care Team Providers Care Manager Business Name Role Phone Yanely Marshall APRN Primary Care Provider Encounter Details Date Type Department Care Team (Late st Contact Info) Description 11/27/2015 - 11/27/2015 11:59 PM EST Hospital Encounter [place] [phone] Dr Shereen Temporary Pain Discharge Disposition: Home Social History Tobacco Use [...] EST Office Visit Hematology [place] [address] Lacy Jameson MD [facility] [place] [address] Layla Jo RN documented as of this encounter Procedures Procedure Name Priority Date/Time Associated Diagnosis Comments FILM LIBRARY STORAGE ONLY MR SHOULDER Routine 11/27/2015 12:00 AM EST Pain documented in this encounter Results * Film Library- Storage only MR Shoulder (11/27/2015 12:00 AM EST) Narrative [facility] - 11/28/2015 11:25 AM EST See PACS for result report. Dr Stallings [facility] FILM LIBRARY ORD ERABLES [place], [place] documented in this encounter Visit Diagnoses Diagnosis Pain Generalized pain documented in this encounter Care Teams Manager Business Relationship Specialty Start Date End Date Yanely Marshall APRN PCP - General 06/07/15 06/28/19 documented as of this encounter
--- OUTSIDE RECORDS SUMMARY | 2024-08-10 15:58 | XMS_ITS | Encounter Summary ---
[place] [address] Care Team Providers Care Timber Repairer Name Role Phone Yanely Marshall APRN Primary Care Provider [phone] Reason for Visit * Reason Onset Date Comments Results 12/18/2015 Encounter Details Date Type Department Care Team (Late st Contact Info) Description 12/18/2015 Telephone [place] [address] Lacy Garibay APRN [facility] [place] [address] Results Social History Tobacco Use Types Packs/Day Years [...] encounter Miscellaneous Notes * Telephone Encounter - Lacy Garibay APRN - 12/18/2015 12:48 PM EST Called pt and reviewed MRI scan. No RTC tear. + RTC inflammation. Recommend continue PT to work on ROM exercises. If no improvement will consider a subacromial cortisone injection in the office. She would just need to call the Nursing call CTR to have that arranged in Dr. Carlson's team or associate. She is unable to use oral NSAIDs due to renal disease. Needs a letter of medical necessity for PT for September 2015. Letter written today and sent to secretarial staff for mailing. Pt agrees, questions solicited/answered, will return as scheduled and as needed for concerns or questions. Pt understands they may also call us prn for above. documented in this encounter Plan of Treatment Upcoming Encounters Date Type Department Care Team (Late st Contact Info) Description 10/20/2024 9:00 AM EST Office Visit Hematology [place] [address] Lacy Jameson MD [facility] [address] [place] [address] Layla Jo RN documented as of this encounter Visit Diagnoses Not on filedocumented in this encounter Care Teams Timber Repairer Relationship Specialty Start Date End Date Yanely Marshall APRN PCP - General 06/07/15 06/28/19 documented as of this encounter
--- OUTSIDE RECORDS SUMMARY | 2024-08-10 15:58 | XMS_ITS | Encounter Summary ---
Author Organization [facility] [place] [address] Care Team Providers Care Cross Country And Track And Field Coach Name Role Phone Yanely Marshall APRN Primary Care Provider [phone] Encounter Details Date Type Department Care Team (Latest Contact Info) Description 06/21/2015 10:05 AM EDT - 06/21/2015 11:59 PM EDT Hospital Encounter Hematology [place] [phone] INFUSION THERAPY, MEDS None Von Willebrand disease (Primary Dx) Discharge Disposition: Home Social History Tobacco Use [...] of this encounter Progress Notes * Michell Dempsey RN - 06/21/2015 12:20 PM EDT Patient Name: Elodia Lin Patient Age: 45 y.o. Birthdate: 1970 Admit date: 06/21/2015 Attending Physician: [facility] Diagnosis: Von Willebrand Disease Hep cap placed for Humate administration. Humate 2859 units adm by Saul Hemophilia nurse. Pt to have shoulder injection at 1300. documented in this encounter Plan of Treatment Upcoming Encounters Date Type Department Care Team (Late st Contact Info) Description 10/20/2024 9:00 AM EST Office Visit Hematology [place] [address] Lacy Jameson MD [facility] [address] [place] [address] Layla Jo RN documented as of this encounter Procedures Procedure Name Priority Date/Time Associated Diagnosis Comments LAB SCAN 06/25/2015 12:00 AM EDT PREPARE COAGULATION FACTORS (HEMOPHILIA) Routine 06/21/2015 11:15 AM EDT documented in this encounter Results * SCAN DOC: LAB (06/25/2015 12:00 AM EDT) Scanning Provider MEDIA MGR SCAN EXT O RDR/RSLT * Prepare Coagulation Factors (Hemophilia) (06/21/2015 11:15 AM EDT) Dispensed? Yes SANDRA JONES Blood specimen (specimen) 06/21/2015 11:15 AM EDT 06/21/2015 10:41 AM EDT Narrative Resulting Agency Comment Spec In Lab Lacy Jameson MD BLOOD BANK PRODUCT ORDERABLES [facility] [employer] documented in this encounter Visit Diagnoses Diagnosis Von Willebrand disease- Primary Von Willebrand's disease documented in this encounter Administered Medications Inactive Administered Medications - up to 3 most recent administrations Medication Order MAR Action Action Date Dose Rate Site antihemophilic factor VIII (HUMATE P) IV Kit 2,859 Units 2,859 Units, Intravenous, ONCE, 1 dose, On Wed06/21/15 at 1130, Infuse Humate P, 2859 units ( 3 vials 953 units/vial) via peripheral IV over 3-5 minutes. Flush with 10mLs normal saline. D/C IV post infusion. Given 06/21/2015 12:20 PM EDT 2,859 Units documented in this encounter Care Teams Cross Country And Track And Field Coach Relationship Specialty Start Date End Date Yanely Marshall APRN PCP - General 06/07/15 06/28/19 documented as of this encounter
--- OUTSIDE RECORDS SUMMARY | 2024-08-10 15:58 | XMS_ITS | Encounter Summary ---
Author Organization [facility] [place] [address] Care Team Providers Care Rn Transplant Name Role Phone [place] Johnson JOHN Primary Care Provider Encounter Details Date Type Department Care Team (Late st Contact Info) Description 02/07/2021 Orders Only Hematology [place] [phone] Lacy Jameson MD [facility] DR HEMATOLOGY [place] [address] Social History Tobacco Use Types Packs/Day Years [...] EST Office Visit Hematology [place] [phone] Lacy Jameson MD [facility] HEMATOLOGY [place] [address] Layla Jo RN documented as of this encounter Procedures Procedure Name Priority Date/Time Associated Diagnosis Comments PREPARE COAGULATION FACTORS (HEMOPHILIA) Routine 02/07/2021 7:45 AM EST documented in this encounter Results * Prepare Coagulation Factors (Hemophilia) (02/07/2021 7:45 AM EST) Dispensed? Yes [facility] Blood specimen (specimen) No Charge / Unknown 02/07/2021 7:45 AM EST 02/07/2021 7:45 AM EST Narrative Resulting Agency Comment Spec In Lab Lacy Jameson MD BLOOD BANK PRODUCT ORDERABLES [facility] [place] [address] documented in this encounter Visit Diagnoses Not on filedocumented in this encounter Care Teams Rn Transplant Relationship Specialty Start Date End Date [place] Johnson DNP PCP - General Family Medicine 07/07/19 04/15/23 documented as of this encounter
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
--- OUTSIDE RECORDS SUMMARY | 2024-08-10 15:58 | XMS_ITS | Encounter Summary ---
Author Organization [facility] Address [facility] [place] [address] Care Team Providers Care Voice Intercept Technician Name Role Phone Rolando Yanely Shah APRN Primary Care Provider Encounter Details Date Type Department Care Team (Latest Contact Info) Description 06/21/2015 12:28 PM EDT - 06/21/2015 11:59 PM EDT Hospital Encounter XRay at [address] [place] [address] CLINIC, Carmelo Redding MD [facility] [place] [address] Pain in left shoulder; Adhesive capsulitis of shoulder, left [726.0] Discharge Disposition: Home Social History Tobacco Use [...] EST Office Visit Hematology [place] [address] Lacy Jameson MD [facility] [place] [address] Layla Jo RN documented as of this encounter Procedures Procedure Name Priority Date/Time Associated Diagnosis Comments XR FLUORO INJECTION FL DRAIN LARGE JT Routine 06/21/2015 1:35 PM EDT Pain in left shoulder Adhesive capsulitis of shoulder, left [726.0] documented in this encounter Results * XR Fluoro injection FL drain large JT (06/21/2015 1:35 PM EDT) Anatomical Region Laterality Modality N/A Radiographic Latanya ging 06/21/2015 1:35 PM EDT Impressions 06/21/2015 5:20 PM EDT IMPRESSION: Uneventful left shoulder injection under fluoroscopy. Resident/Fellow: None Attending: Mary Hall performed this procedure. Narrative 06/21/2015 5:20 PM [...] pre- procedural time-out was performed as per [facility] protocol. The patient was placed in a [...] We will need to coordinate with Dr. Trino renteria injection, she will need a factor prior to injection. Left shoulder INJECTION UNDER FLUOROSCOPY TECHNIQUE: After an extensive conversation with the patient regardingrisks and benefits, oral and written consent were obtained. A pre- proceduraltime-out was performed as per [facility] protocol. The patient was placed in a [...] shoulder, left [726.0] documented in this encounter Administered Medications Inactive Administered Medications - up to 3 most recent administrations Medication Order MAR Action Action Date Dose Rate Site ROpivacaine (PF) 5 mg/mL (0.5 %) 4 mL with triamcinolone acetonide 40 mg injection Intra-articular, ONCE, 1 dose, On Wed06/21/15 at 1345 Given 06/21/2015 1:45 PM EDT documented in this encounter Care Teams Voice Intercept Technician Relationship Specialty Start Date End Date Yanely Marshall APRN PCP - General 06/07/15 06/28/19 documented as of this encounter
--- OUTSIDE RECORDS SUMMARY | 2024-08-10 15:58 | XMS_ITS | Encounter Summary ---
[place] [address] Care Team Providers Care Field Consultant Name Role Phone Yanely Marshall APRN Primary Care Provider [phone] Reason for Visit * Reason Onset Date Comments Results 12/06/2015 Encounter Details Date Type Department Care Team (Late st Contact Info) Description 12/06/2015 [place]phone [place] [phone] Ishaan Urbina, RN Results Social History Tobacco Use Types Packs/Day [...] Telephone Encounter - Lacy Garibay APRN - 12/06/2015 11:48 AM EST Called pt back with MRI scan results. No full thickness RTC tear. Mild RTC inflammation. Left a brief message for her to call me back to discuss tx options . * Telephone Encounter - Ishaan Urbina, RN - 12/06/2015 11:36 AM EST Patient calling for MRI results. She can be reached at [phone] documented in this encounter Plan of Treatment Upcoming Encounters Date Type Department Care Team (Late st Contact Info) Description 10/20/2024 9:00 AM EST Office Visit [place]ematology [place] [address] Lacy Jameson MD [facility] [address] [place] [address] Layla Jo RN documented as of this encounter Visit Diagnoses Not on filedocumented in this encounter Care Teams Field Consultant Relationship Specialty Start Date End Date Yanely Marshall APRN PCP - General 06/07/15 06/28/19 documented as of this encounter
--- OUTSIDE RECORDS SUMMARY | 2024-08-10 15:58 | XMS_ITS | Encounter Summary ---
Author Organization [facility] Address [facility] [place] [address] Care Team Providers Care Fruit Pitter Name Role Phone Yanely Marshall APRN Primary Care Provider Reason for Visit * Reason Onset Date Comments Questions 11/20/2015 Encounter Details Date Type Department Care Team (Late st Contact Info) Description 11/20/2015 Telephone [place] [address] Pawan Carlson MD [facility] [place] [address] Questions Social History Tobacco Use Types Packs/Day Years [...] encounter Miscellaneous Notes * Telephone Encounter - Leah Chan - 11/25/2015 9:17 AM EST PATIENT CALLED BACK AND CALLED 3A . QUESTIONS TO BE FAXED TO [facility] TODAY. * Telephone Encounter - Antonia Coker - 11/21/2015 11:08 AM EST LM#2 to see if patient is claustorphobic or not, also it 11/27 @ 1 pm will work for the patient thi MRI Need to know prior to 1pm today (11/21) in order to keep the 11/27 appt. * Telephone Encounter - Mara Saavedra - 11/20/2015 1:47 PM EST I left a message for the patient to call us back to let us know if they are claustrophobic and to let us know if nov 27 at 1 pm (need to arrive at 12:30 pm) works for her. Please find out this information and let 3A know DENISE so they can fax over the necessary paperwork to [facility] before 1 pm 11/21/15. documented in this encounter Plan of Treatment Upcoming Encounters Date Type Department Care Team (Late st Contact Info) Description 10/20/2024 9:00 AM EST Office Visit Hematology [place] [address] Lacy Jameson MD [facility] DR [place] [address] Layla Jo RN documented as of this encounter Visit Diagnoses Not on filedocumented in this encounter Care Teams Fruit Pitter Relationship Specialty Start Date End Date Yanely Marshall APRN PCP - General 06/07/15 06/28/19 documented as of this encounter
--- OUTSIDE RECORDS SUMMARY | 2024-08-10 15:59 | XMS_ITS | Encounter Summary ---
Author Organization [facility] Include [address] Address [facility] [place] [address] Care Team Providers Care Forensic Economist Name Role Phone Hao Ctodin Diana BAUMAN Primary Care Provider [phone] Reason for Visit * Reason Comments Routine Visit Encounter Details Date Type Department Care Team (Late st Contact Info) Description 03/29/2013 2:00 PM EDT Routine Obstetrics [place] [address] Clint Orlando MD [facility] DR OBSTETRICS & [place] [address] GA: [id number] Discharge Disposition: Home Social History Tobacco Use Types Packs/Day Years Used Date Smoking Tobacco: Never Smokeless Tobacco: Never Alcohol Use Standard Drinks/Week Comments No 0 (1 standard drink = 0.6 oz pur e alcohol) Comments Yes Sex and Gender Information Value Date Recorded Sex Assigned at Not on file Gender Identity Not on file Sexual Orientation Not on file documented as of this encounter Last Filed Vital Signs Vital Sign Reading Time Taken Comments Blood Pressure 122/80 03/29/2013 1:35 PM EDT Pulse - - Temperature - - Respiratory Rate - - Oxygen Saturation - - Inhaled Oxygen Concentration - - Weight 106.1 kg (234 lb) 03/29/2013 1:35 PM EDT Height - - Body Mass Index 42.25 03/29/2013 1:11 PM EDT documented in this encounter Progress Notes * Clint Orlando MD - 03/29/2013 2:22 PM EDT Babe active . No probs. Discussed pre-op plans with Dr. Jameson. Explained to pt and noted in problem list under Von Garland . documented in this encounter Plan of Treatment Upcoming Encounters Date Type Department Care Team (Late st Contact Info) Description 10/20/2024 9:00 AM EST Office Visit Hematology [place] [address] Lacy Jameson MD [facility] DR HEMATOLOGY AND ONCOLOGY [place] [phone] Layla Jo RN documented as of this encounter Visit Diagnoses Diagnosis Supervision of other normal - Primary documented in this encounter Care Teams Forensic Economist Relationship Specialty Start Date End Date Bismark Bui, MITUL PCP - General 12/26/12 10/01/14 documented as of this encounter
--- OUTSIDE RECORDS SUMMARY | 2024-08-10 15:59 | XMS_ITS | Encounter Summary ---
Author Organization [facility] Address [address] [place] [address] Care Team Providers Care Bleacher Lard Name Role Phone Bismark Bui Diana BAUMAN Primary Care Provider Reason for Visit * Reason Comments Anxiety Encounter Details Date Type Department Care Team (Late st Contact Info) Description 01/01/2014 9:10 AM EST Office Visit Psychiatry [place] [address] Erica Bazan MD [facility] [place] [address] ROSINA (generalized anxiety disorder) (Primary Dx) Social History Tobacco Use Types [...] Sign Reading Time Taken Comments Blood Pressure 118/78 01/01/2014 9:43 AM EST Pulse 73 01/01/2014 9:43 AM EST Temperature - - Respiratory Rate - - Oxygen Saturation - - Inhaled Oxygen Concentration - - Weight 97.1 kg (214 lb) 01/01/2014 9:41 AM EST Height - - Body Mass Index 38.88 04/26/2013 8:17 AM EDT documented in this encounter Patient Instructions * Patient Instructions* Erica Bazan MD - 01/01/2014 10:23 AM EST Increase Effexor XR to 150mg daily. Follow-up with me in 3-4 weeks. Call sooner with questions or concerns [phone] or call in an emergency. documented in this encounter Progress Notes * Erica Bazan MD - 01/01/2014 9:43 AM EST [facility] ESTABLISHED ADULT PATIENT OFFICE VISIT NOTE Time Spent: 45 min Attendee(s): patient HISTORY Chief Complaint: Elodia Lin is a 43 y.o. Female with history of ROSINA and depression who presentstoday for medication consultation regarding increase in anxiety in the context of severe stressor (currently 8 months ) HPI: () Ms. Lin reports that she had been doing well with medication (Effexor XR 75mg daily)until September, when her was arrested. He has been incarcerated since that time and is awaiting trial. She elected not to post bail because the conditions of his bail would have been such that he would have had nowhere to live. She has not been speaking with him or visiting him. She expectsto know more about the outcome by the end of this month, which could include federal charges, group home time, or deportation. She has been dealing with extreme stress as a result of this situation. She took the kids and went to stay with her parents in [place] for several weeks, then returned to work at the beginning of the new semester. She needed to move out of the dorm where they were living, but is still living on campus with her children. 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 She is not sleeping well and is exhausted. She has a hard time falling sleep due to inability to turn off her thoughts, but once she falls asleep she is able to stay asleep. She feels an xious and worried all the time with physical symptoms including chest tightness. She is frequently tearful and finds that the situation is on her mind most of the time, leaving her preoccupied and distracted. She finds it difficult to concentrate and feels her short term memory has been poor. It isdifficult to make decisions. She is also sad that all of the family's computers were confiscated aspart of the investigation, meaning that she lost most of her photos of her children that were stored on the computer. She has been seeing therapist Alida Hale in [facility] for about a month and is finding it helpful. Her children are also seeing a therapist and have been struggling with the situation at times. Their school has been very supportive. She feels she has good support from her parents and in her c ommunity. Quality: not doing great Severity: moderate to severe anxiety in context of extreme stress Duration: 2 months Timing: symptoms began after stressor (Oct 19) Context: currently facing significant legal charges Modifying factors: venlafaxine helpful in past, but does not seem sufficient at current dose; therapy helpful Associated S&S: difficulty falling asleep, tearfulness, poor concentration, anxious, no suicidal ideation Current Medications: Current outpatient prescriptions:venlafaxine (EFFEXOR-XR) 75 mg 24 hr capsule, Take 1 capsule by mouth daily., Disp: 90 capsule, Rfl: 3; [DISCONTINUED] vitamin 27 & [id number] 60 mgiron-1 mg tablet, Take 1 tablet by mouth daily., Disp: , Rfl: Pertinent Medication Side Effects: none Review of Systems: (11/30/09) Constitutional: difficulty falling asleep, tired during the day Eyes: ENT: Cardiovascular: Chest tightness when anxious Respiratory: GI: : Musculoskeletal: Integumentary: Neurological: Psychiatric: See above Endocrine: Hematologic/Lymphatic: Allergic/Immunological: Allergies as of 01/01/2014 - Review Complete 01/01/2014 Allergen Reaction Noted ??? Adhesive bandage Rash 04/29/2013 ??? Codeine 07/07/2012 PFS: () Past Medical/Psychiatric History: Family Psychiatric and Medical History: Social History: see HPI-- severe stress currently EXAM [05/07/14 bullets (incl VS)] Constitutional System ? Vital Signs: Filed Vitals: 01/01/14 0943 BP: 118/78 Pulse: 73 Musculoskeletal System ? Muscle Strength/Tone (note atrophy, abnormal movements): No atrophy or abnormal movements ? Gait and Station: wnl Psychiatric System ? General Appearance/Behavior: casually dressed, adequately groomed, calm, no PMA/PMR ? Speech: normal rate, volume, prosody ? Thought Process: Linear, logical ? Associations: intact ? Abnormal Thoughts and Perceptions / Thought Content: Homicidality / Violent Thoughts: none Suicidality: none Hallucinations: none Delusions: none Obsessions: none ? Judgment and Insight: good/good ? Mood & Affect: not doing very well, affect congruent at times, somewhat blank/numb at others ? Orientation: Fully oriented ? Attention/Concentration: Attentive to interview, reports subjectively poor concentration ? Memory: No evident memory deficits, but reports subjectively poor short term memory ? Language: fluent, no unusual language ? Fund of Knowledge: appropriate MEDICAL DECISION MAKING ASSESSMENT: Elodia Lin is a 43 y.o. Female with history of ROSINA and depression, here with exacerbation in both due to extreme psychosocial stress. While in many ways her symptoms seem completely in proportion to the degree of the stressor, it is my hope that increasing venlafaxine might be able to reduce her anxiety level allowing her to sleep better, feel more relaxed, and effectively problemsolve. 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 I hope that if venlafaxine is able to reduce her overall anxiety level, this will improve her sleep. Diagnosis: ROSINA, currently exacerbated by stressor PLAN: ?? Safety: no current SI or safety concerns; reviewed office and emergency contact info ?? Medications: increase Effexor XR to 150mg daily ?? Additional treatment recommendations: continue psychotherapy; signed release for therapist todayto be scanned in eDH ?? Follow-up: with me in 3-4 weeks; call sooner with questions or concerns Patient Instruction/Education provided: Treatment plan discussed verbally and provided in AVS. Patient demonstrates understanding verbally. documented in this encounter Plan of Treatment Upcoming Encounters Date Type Department Care Team (Late st Contact Info) Description 10/20/2024 9:00 AM EST Office Visit Hematology [place] [address] Lacy Jameson MD [facility] [place] [address] Layla Jo, RN documented as of this encounter Visit Diagnoses Diagnosis ROSINA (generalized anxiety disorder)- Primary Generalized anxiety disorder documented in this encounter Care Teams Bleacher Lard Relationship Specialty Start Date End Date Bismark Bui, MITUL PCP - General 12/26/12 10/01/14 documented as of this encounter
--- OUTSIDE RECORDS SUMMARY | 2024-08-10 15:59 | XMS_ITS | Encounter Summary ---
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 were sent. Oxytocin was initiated to facilitate uterine contractions. The placenta was removed manually, and the uterus was cleared of all clots and debris. The uterine incision was repaired in one layer with 0 vicryl in a continuous locked fashion. Excellent hemostasis was appreciated. There was moderate bleeding at the bladder flap which required multiple figures of eight with 3-0 vicryl. The gutters were then cleared of all clots and debris and copiously irrigated. The left fallopian tube was then grasped with damon clamps and a window was made in the mesosalpinx with bovie cautery. The proximal and distal ends were suture ligated with 0 chromic. The intervening segment was excised with scalpel. The segment was sent to pathology for confirmation. This was repeated on the right side. Excellent hemostasis was appreciated on both sides. Examination of the pelvis revealed normal uterus, tubes and ovaries. The hysterotomy and the bladder flap were checked again and found to be hemostatic. The fascia was reapproximated with looped PDS which was tied in the center. The subcuticular space was well irrigated. The subcuticular space was reapproximated with 3-0 vicryl suture. The skin was closed with 4-0 vicryl in a subcuticular fashion. Sterile dressings were applied over the incision. The vagina was cleared of all clots and the cervix was found to be patent. The patient and tolerated the procedure well and were in satisfactory condition at its conclusion. Sponge, lap and needle counts were correct times two at case close. The patient was taken back to her room in stable condition. Dr. Escobedo was present and participated for the entire procedure without any conflicting clinical responsibilities. SOFYA ARENAS MD, PGY3 04/26/2013 * Consult Note - Lacy Jameson MD - 04/26/2013 4:26 PM EDT [facility] [place], [place] Department of Medicine [place] [address] [facility] HEMOSTASIS INPATIENT CONSULTATION DATE OF VISIT 04/26/2013 Patient Elodia Tom 1970 42 year old female with Von Willebrand Disease, type 2A, whom we are asked to see in consultation by Dr. Escobedo for perioperative hemostasis management. Elodia presented today for a scheduled . Prior to the we administered 3856 units of Humate P (~38 u/kg; recovery ~2% for each unit/kg administered) and achieved a pre-operative vWF:RCoA level of 148% (baseline 54%). She underwentthe without complications, and we are seeing her in her room in the birthing [facility]. She is doing well and reports no pain or bleeding. Her daughter appears healthy and without evidence for unusual bleeding. Elodia generally has a mild bleeding phenotype associated with her VWD, and requires Humate P supplementation only for surgery or invasive procedures. ROS (+)as above (-)fever, chills, headache, dizziness, sore throat, mouth sores, recent cold/flu sx, cough, chest pain, shortness of breath, abdominal pain, nausea, vomiting, diarrhea, constipation, dysuria, hematuria, gait disturbance, rash PAST MEDICAL HISTORY 1) Type 2 [...] 3) Hx iron deficiency anemia with pregnancies No current facility-administered medications on file prior to encounter. Current Outpatient Prescriptions on File Prior to Encounter Medication Sig Dispense Refill ? ? vitamin 27 & [id number] 60 mg iron-1 mg tablet Take 1 tablet by mouth daily. BP 108/67 Pulse 67 Temp(Src) 36.3 ??C (97.3 ??F) (Oral) Resp 18 Ht 158 cm (5' 2.21) Wt 106.641 kg (235 lb 1.6 oz) BMI 42.72 kg/m2 SpO2 100% LMP 07/13/2012 PHYSICAL EXAMINATION GENERAL: Well-appearing, articulate white female lying comfortably in bed, holding . HEENT: Oropharynx clear; no bleeding. NECK: Supple BREASTS: Exam deferred. CHEST: Clear anteriorly. HEART: Regular rate and rhythm; no murmur, rub, gallop ABDOMEN: wound bandaged; bandage is clean, dry and intact with no blood soaking GENITOURINARY: Perez in place. EXTREMITIES: No edema. Peripheral IVs, one in each forearm SKIN: No ecchymoses, petechiae, ulcers or rashes. NEUROLOGIC: Alert, oriented. Speech clear, coherent. No focal deficits noted. PSYCHIATRIC: Appropriate affect, no apparent distress. LABORATORY Results for ELODIA TOM ( ) as of 04/26/2013 16:30 Ref. Range 04/26/2013 08:14 WBC Latest Range: 4.0-10.0 x10(3)/mcL 9.2 RBC Latest Range: 3.93-5.22 x10(6)/mcL 3.91 (L) Hemoglobin Latest Range: 11.2-15.7 gm/dL 12.4 Hematocrit Latest Range: 34.0-45.0 % 36.3 MCV Latest Range: 79.0-94.0 fL 92.8 MCH Latest Range: 26.6-32.2 pg 31.7 MCHC Latest Range: 32.0-36.5 gm/dL 34.2 RDWSD Latest Range: 35.0-46.0 fL 45.4 RDWCV Latest Range: 10.9-14.4 % 13.6 Platelets Latest Range: 145-370 x10(3)/mcL 212 Ref. Range 04/25/2013 11:49 04/26/2013 12:16 Factor 8 Assay Latest Range: 50-150 % 142 201 (H) vWF Antigen No range found 110 248 vWF Activity Latest: 50-150 % activity 54 148 IMPRESSION: 42 year old female with von Willebrand Disease, type 2A who has had hemostatic levels of von Willebrand factor throughout the perioperative period and has no evidence for excessive or unexpected bleeding. Though her late third trimester vWF:RCoA level is in the normal range (54%), her baseline (non-) vWF:RCoA level is ~25 - 30%, thus I would expect her to drift back toward her baseline over the next couple of weeks. I would like to maintain her vWF:RCoA >50% for the first few days post-operatively, after which I would not expect there to be significant bleeding as her vWF:RCoA returns to baseline. PLAN ?? No further Humate P today ?? Check vWF:RCoA levels tomorrow and Wednesday morning ( I have ordered) ?? Additional Humate P (~2000 units; ~20 u/kg) daily as needed to maintain vWF:RCoA levels >50%.Hemophilia team will monitor lab results and write all orders for Humate P as needed. Please do not administer NSAIDs including aspirin, ibuprofen, Toradol etc. for Please maintain one peripheral IV for Humate P infusions as needed while hospitalized. She will notneed to be discharged with an IV in place. Elodia has 2 x 2000 unit doses of Humate P at home and this can be infused locally should she develop abnormal bleeding subsequently and a new IV can be started at that time. Venodynes and ambulation for VTE prophylaxis. If once daily enoxaparin (40 mg) is your standard practice, we do not object to using in this patient as we will be ensuring normal platelet hemostasis with Humate P. Hemophilia Service will follow throughout her hospitalization. Please don't hesitate to contact us if we may provide additional information or assistance. Lacy Jameson MD Public Safety Dispatcher, [facility] Layla Bui RN, MSN Hemophilia & Thrombosis Clinical Nurse Specialist Semaj Parker MD Fellow, Hematology Inpatient Consult Service * L&D Delivery Note - Sofya Arenas MD - 04/26/2013 4:26 PM EDT Delivery Summary Elodia is a 42 yo female at 39w3d who presented for repeat section and tubal ligation. Her was complicated by Von Willebrand's Disease type 2A and thus she required an infusion of Humate P immediately prior to the surgery. She underwent a repeat section and tubal ligation without complication to deliver a liveborn female in breech presentation. Clear fluid. No meconium. Peds was present at delivery and assigned Apgars of 7 at one minute and 8 at five minutes, weight of 3055 gm. Normal uterus, tubes and ovaries. Please see operative note for complete details. Dr. Escobedo was present for the entire procedure. SOFYA ARENAS MD, PGY3 Information for the patient's : Beth Tom [[id number]] DELIVERY SUMMARY FOR Beth Tom (please note there is a separate summary for each fetus) LABOR EVENTS Beth Tom Labor Onset Type: section without labor Labor Onset Date: Induction: Indications for Induction of Labor: Induction Methods: Augmentation: None Complications: Rupture Date: 04/26/2013 Rupture Time: 1:50 PM Rupture Type: Artificial Fluid Color: Clear DELIVERY EVENTS Baby Aldair Tom Delivery Type: Presentation/Position Baby Aldair Archibaldal : Breech Failed Operative Delivery: Anesthesia Method :Spinal [252] Analgesic: Episiotomy: None Lacerations: None Comments: Repair Suture: None Repair # of Packets: Blood Loss (ml): 1200 Placenta: Delivered: 04/26/2013 1:50 PM Removal: Manual Removal Appearance: Intact Comment: Maternal Procedures with Delivery: tubal ligation manual removal of placenta Attempted ?: no INFORMATION Beth Tom 04/26/2013 1:50 PM by Lower Segment Transverse Sex: female Gestational Age: 39.4 weeks. Measurements: Weight: 6 lb 11.8 oz (3055 g) Height: 20 Head Circumference: 35 cm Chest Circumference: Observed Anomalies: Delivery Clinician: Sofya Arenas Other Providers: Delivery Assist Delivery Nurse Refinery Operator Resident Medical Student International Sales Manager Kusum Cason ICN Staff Present: Delivery Location: OR Living?: Yes APGARS One Minute Five Minutes Ten Minutes Skin Color: 0 1 Heart Rate: 2 2 Grimace: 2 2 Muscle Tone: 2 2 Breathin 1 Totals: 7 8 INTERVENTIONS Baby Girl Riley Resuscitation:None Suctioning Method: None [1] Vocal Cords Visualized: Meconium: Resuscitation Comment: Medications: Meds Given: vitamin K erythromycin Naloxone Given?: no Amount (mg): Injection Site: Cord Information: 3 Vessels Disposition of Cord Blood: Lab Blood Gases Sent? No Cord Insertion: normal Cord Complications: None [1] Cord Comment: LABOR LENGTH 1st Stage (hrs/min): 2nd Stage (hrs/min): 3rd Stage (hrs/min);0.00 0.00 ADDITIONAL DELIVERY DETAILS DELIVERY Delivery Type: Lower Segment Transverse [[id number]] Major Indications-: Contributing Factors-: Delivery Comment: Uterine Scar Status if Prior Section: ADDITIONAL DELIVERY DETAILS VAGINAL DELIVERY Vaginal Delivery Type: Lower Segment Transverse [[id number]] Major Indications-Operative Delivery: Contributing Factors-Operative Vaginal: Rotation: Total Number of Pulls: Total Time Forceps Applied: Forceps: Forceps Type: Total Time Vacuum Applied: Number of Popoffs: Vacuum: Breech: Nuchal Arm: * OR Attestation - Clint Escobedo MD - 04/26/2013 3:26 PM EDT Attestation: Case Date: 04/26/2013 I was present and I participated during the entire procedure (does not need to include opening and closing). CLINT ESCOBEDO MD 04/26/2013 * Brief Op Note - Clint Escobedo MD - 04/26/2013 3:25 PM EDT Brief Operative Note Patient Name: Elodia Tom : [id number] MR#: [id number] Case Date: 04/26/2013 Surgeon: Surgeon(s) and Role: * Clint Escobedo MD - Primary * Dacia Ryan MD - Resident-Lesser Role * Sofya Arenas MD - Resident-Certified Fraud Examiner Preoperative diagnosis: Repeat CS Postoperative diagnosis: * No post-op diagnosis entered * Procedure(s): @ DELIVERY @FALLOPIAN TUBE(S), TRANSECTION OR LIGATION, ABD APPROACH, POST- Anesthesia: Spinal Findings: adherent bladder Complications: bleeding dissected surface of bladder needed several fig of 8 sutures Fluids: 2700 crystalloid Estimated Blood Loss: 1200 cc's Drains: none Disposition: to the recovery room in a stable condition, having suffered no apparent untoward event. Condition: doing well without problems * Med Student H&P - Marcello Fito D - 04/26/2013 11:52 AM EDT Labor Admission HPI: Elodia Tom is a 42 y.o. female presenting at 39 and 3/7 weeks gestations for scheduled . Her has been complicated by VWF type 2A disease. She has had two prior C-sections with breech presentation both of which were treated with Humate P prior to delivery. Chief concern: No concerns. OB ROS: LOF: No Bloody show: No Contractions: No Fetus Active: Yes Changes in vision: No Headaches: No Abdominal Pain: No Nondependent Edema: No Vomiting/Fevers/Chills: No Course: LMP in Jun 2012. Final ADELITA of 04/30/13 based on 8week sono. course complicated by VwF disease type 2A. She has had two prior c-sections with this disease treated with Humate P with no bleedingor clotting complications. The rest of the course was uncomplicated. Pregravid BMI of 37.8and TWG of 27 lbs. Had visits at the regular times with no complications throughout. Prental Labs: Blood type: A+ Rubella Immune: yes HBsAg: neg Syphilis: neg HIV: non-reactive GC/Chlamydia: neg CF carrier status: neg 1 hour GTT: wnl. Hgb/Hct 12.4 and 36.3 GBS culture: neg PMHx: VWF Type 2A - mild bleeding phenotyle. Followed by Dr. Jameson. Two prior c- sections with humate Pgiven prior. Anxiety PSHx: Two prior c-sections: 1- in 2001, baby boy, delivered at term by for breech presentation. Humate P given. No complications. 2- in 2004, baby girl, delivered at term by . Also breech presentation. Humate P given. Nocomplication. Wrist surgery for scar tissue. Ankle surgery for bone spur. FHx: Breast cancer in [facility] [place]. [place] cancer in [facility] [place]. Lymphoma in [facility] [place]. No other history of bleeding disease. OBGYN: Hx of abnormal pap:None No STDs or HSV Past pregnancies/ two prior c-sections: 1- in 2001, baby boy, delivered at term by for breech presentation. Humate P given. No complications. 2- in 2004, baby girl, delivered at term by . Also breech presentation. Humate P given. Nocomplication. 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 Plans to return to work in June 2013. Tobacco: Denies EtOH: Denies Drugs: Denies Medications: Venlafaxine 37.5 mg for anxiety. vitamins. Allergies: Codeine: Full body rash. Physical Exam: Filed Vitals: 04/26/13 0817 BP: 111/62 Pulse: 79 Temp: 36.7 ??C (98.1 ??F) Resp: 18 General: Wel appearing sitting in the bed.No contractions appreciated. CV: RRR no m/r/g Pulm: Lungs CTAB with no rales, wheezes or rhonchi. Abdomen/Uterus: Gravid. EFW 4+ Kg. Transverse lie by maureen with head on left. Pelvic: Deferred.. Extremities. 1+ peripheral edema. 2+ pedal pulses. Impression/Plan: Elodia Tom is a 42 y.o. female presenting at 39 and 3/7 weeks gestations for scheduled complicated by vWF type 2A disease. Hematology is giving Humate P bases on yesterday's vWFpanel showing vWf activity of 54%. Will get vWF panel 15 minutes after infusion to assess further need for Humate P post-op. Will continue to . - CBC prior to surgery. - Patient desires tubal ligation for contraception. - IV lines for fluid repletion. - PRBCs in case of hemorrhage. - Plans to breast feed. documented in this encounter Plan of Treatment Upcoming Encounters Date Type Department Care Team (Late st Contact Info) Description 10/20/2024 9:00 AM EST Office Visit Hematology [place] [address] Lacy Jameson MD [facility] [address] HEMATOLOGY [place] [address] Layla Jo RN documented as of this encounter Procedures Procedure Name Priority Date/Time Associated Diagnosis Comments LAB SCAN 04/30/2013 9:44 AM EDT VON WILLEBRAND FACTOR ACTIVITY Routine 04/29/2013 4:44 AM EDT VON WILLEBRAND FACTOR ACTIVITY Routine 04/28/2013 5:30 AM EDT DIFFERENTIAL, AUTOMATED Routine 04/27/2013 5:30 AM EDT VON WILLEBRAND FACTOR ACTIVITY Routine 04/27/2013 5:30 AM EDT CBC (WITH DIFF) Routine 04/27/2013 5:30 AM EDT SPECIMEN TO PATHOLOGY Routine 04/26/2013 3:47 PM EDT SPECIMEN TO PATHOLOGY Routine 04/26/2013 3:47 PM EDT SURGICAL PATHOLOGY REPORT Routine 04/26/2013 3:40 PM EDT SPECIMEN TO PATHOLOGY (NON-OR) Routine 04/26/2013 3:35 PM EDT @FALLOPIAN TUBE(S), TRANSECTION OR LIGATION, ABD APPROACH, POST- (WRVU 5.28) 04/26/2013 12:47 PM EDT Repeat CS @ DELIVERY (WRVU 16.13) 04/26/2013 12:47 PM EDT Repeat CS PREPARE RBC Routine 04/26/2013 12:45 PM EDT VON WILLEBRAND FACTOR ANTIGEN Routine 04/26/2013 12:16 PM EDT VON WILLEBRAND FACTOR ACTIVITY Routine 04/26/2013 12:16 PM EDT FACTOR 8 ASSAY Routine 04/26/2013 12:16 PM EDT PREPARE COAGULATION FACTORS (HEMOPHILIA) Routine 04/26/2013 9:00 AM EDT DIFFERENTIAL, AUTOMATED Routine 04/26/2013 8:14 AM EDT ABO/RH TYPING Routine 04/26/2013 8:14 AM EDT CBC (WITH DIFF) Routine 04/26/2013 8:14 AM EDT ANTIBODY SCREEN Routine 04/26/2013 8:14 AM EDT TYPE AND SCREEN ([facility]) Routine 04/26/2013 8:14 AM EDT documented in this encounter Results * SCAN DOC: LAB (04/30/2013 9:44 AM EDT) Narrative 04/30/2013 9:44 AM EDT Procedure Note Provider, Scanning - 04/30/2013 9:44 AM EDT Scanning Provider MEDIA MGR SCAN EXT O RDR/RSLT * Von Willebrand Factor Activity (04/29/2013 4:44 AM EDT) Von Willebrand Factor Assay 62 50 - 150 % activity [facility] specimen (specimen) 04/29/2013 4:44 AM EDT 04/29/2013 4:51 AM EDT Narrative Resulting Agency Comment Spec In Lab Lacy Jameson MD HEMATOLOGY ORDERAB LES CERNER MILLENNIUM * Von Willebrand Factor Activity (04/28/2013 5:30 AM EDT) Von Willebrand Factor Assay 92 50 - 150 % activity CERNER SHIKHAENNIUM Blood specimen (specimen) 04/28/2013 5:30 AM EDT 04/28/2013 5:38 AM EDT Narrative Resulting Agency Comment Spec In Lab Lacy Jameson MD HEMATOLOGY ORDERAB LES SANDRA TRIVEDIENNIUM * (ABNORMAL) Differential, Automated (04/27/2013 5:30 AM EDT) Neutrophil % 81.7(H) 34.0 - 71.0 % CERNER MILLENNIUM Neutrophil Absolute 6.54(H) 1.50 - 6.30 x10(3)/mc L CERNER MILLENNIUM Lymph % 12.5(L) 19.0 - 53.0 % CERNER MILLENNIUM Lymphocytes Abs 1.0 1.0 - 3.6 x10(3)/mc L CERNER MILLENNIUM Monocyte % 4.9 4.0 - 13.0 % CERNER MILLENNIUM Monocyte Abs 0.4 0.2 - 1.0 x10(3)/mc L CERNER MILLENNIUM Eos % 0.7 0.0 - 7.0 % CERNER MILLENNIUM Eosinophils Abs 0.1 0.0 - 0.5 x10(3)/mc L CERNER MILLENNIUM Basophil % 0.1 0.0 - 2.0 % CERNER MILLENNIUM Baso Absolute 0.0 0.0 - 0.2 x10(3)/mc L CERNER MILLENNIUM Immature Gran % 0.10 0.00 - 0.66 % CERNER MILLENNIUM Comment: Immature granulocytes(IG's)percentage and absolute count will include metamyelocytes, myelocytes, and promyelocytes. Blood smears from CBCs yielding IG's will be scanned manually for concordance. If this scan disagrees with the automated IG or if promyelocytes are noted, a manual differential will be performed. Immature Gran Absolute 0.01 0.00 - 0.05 x10(3)/mc L CERNER MILLENNIUM Blood specimen (specimen) 04/27/2013 5:30 AM EDT 04/27/2013 6:08 AM EDT Clint Escobedo MD HEMATOLOGY ORDERABL ES CERNER SHIKHAENNIUM * Von Willebrand Factor Activity (04/27/2013 5:30 AM EDT) Von Willebrand Factor Assay 116 50 - 150 % activity CERNER MILLENNIUM Blood specimen (specimen) 04/27/2013 5:30 AM EDT 04/27/2013 6:08 AM EDT Narrative Resulting Agency Comment Spec In Lab Lacy Jameson MD HEMATOLOGY ORDERAB LES Performing Organization Address City/[facility]/ZIP Co de Phone Number CERNER MILLENNIUM * (ABNORMAL) CBC (with Diff) (04/27/2013 5:30 AM EDT) White Blood Cell 8.0 4.0 - 10.0 x10(3)/mc L CERNER MILLENNIUM Red Blood Cell 3.45(L) 3.93 - 5.22 x10(6)/mc L CERNER MILLENNIUM Hemoglobin 11.0(L) 11.2 - 15.7 gm/dL CERNER MILLENNIUM Hematocrit 32.4(L) 34.0 - 45.0 % CERNER MILLENNIUM Mean Cell Volume 93.9 79.0 - 94.0 fL CERNER MILLENNIUM Mean Cell Hemoglobin 31.9 26.6 - 32.2 pg CERNER MILLENNIUM Mean Cell Hemoglobin Concentration 34.0 32.0 - 36.5 gm/dL CERNER MILLENNIUM Platelet 173 145 - 370 x10(3)/mc L CERNER MILLENNIUM RDW Standard Deviation 47.2(H) 35.0 - 46.0 fL CERNER MILLENNIUM RDW coefficient of variation 13.9 10.9 - 14.4 % CERNER MILLENNIUM Mean Platelet Volume 11.5 9.0 - 12.0 fL CERNER MILLENNIUM Blood specimen (specimen) 04/27/2013 5:30 AM EDT 04/27/2013 6:08 AM EDT Narrative Resulting Agency Comment Spec In Lab Clint Escobedo MD HEMATOLOGY ORDERABL ES Performing Organization Address [facility] Co de Phone Number SANDRA JONES * Specimen to Pathology (surgical or derm) (04/26/2013 3:47 PM EDT) AP Specimen 04/26/2013 3:47 PM EDT 04/26/2013 3:47 PM EDT Narrative SANDRA JONES - 04/26/2013 3:47 PM EDT Specimen requisition ordered. ??Separate Pathology report to follow Clint Escobedo MD PATHOLOGY/CYTOLOGY ORDERABLES Performing Organization Address [facility] Co de Phone Number SANDRA JONES * Specimen to Pathology (surgical or derm) (04/26/2013 3:47 PM EDT) AP Specimen 04/26/2013 3:47 PM EDT 04/26/2013 3:47 PM EDT Narrative SANDRA JONES - 04/26/2013 3:47 PM EDT Specimen requisition ordered. ??Separate Pathology report to follow Clint Escobedo MD PATHOLOGY/CYTOLOGY ORDERABLES Performing Organization Address [facility] Co de Phone Number SANDRA JONES * Surgical Pathology Report (04/26/2013 3:40 PM EDT) Surgical Pathology Report ? [facility] ? Provider: ?? CLINT ESCOBEDO ??Pt. Name: ?? ELODIA TOM ? Acc #: ?[id number] ?Pt. ? Col Date: ?? 04/26/2013 ? /Sex: ?1970,(42 years),Female ? Rec Date: ?? 04/26/2013 ? LOC: ?BP ? SURGICAL PATHOLOGY ? ---Pathologic Diagnosis--- ? A - Segment of left fallopian tube: ? Completely transected fallopian tube. ? B - Segment of right fallopian tube: ? Completely transected fallopian tube. ? C - Third trimester placenta, cord and membranes: ? Negative for chorioamnionitis or funisitis. ? CR-0 ? 04/27/13 ? KO ? 04/28/13 Verified by: ? Caroline Cedeño MD ? Pathologist ? (Electronic Signature) ? The attending pathologist whose signature appears on this report has ? reviewed all diagnostic slides and has edited the gross and/or ? microscopic portion of the report in rendering the final pathologic ? diagnosis. ? ---Gross Description--- ? A - Labeled/Fixative: Segment of left fallopian tube, formalin. ? Quantity/Size: ?Single, 1.3 x 0.8 x 0.4 cm. ? Tissue Description: ?? Herrera-pink tubular portion of tissue. ? Sections/Processing : ??(R1) ? B - Labeled/Fixative: Segment of right fallopian tube, formalin. ? Quantity/Size: ?Single, 1.3 x 0.8 x 0.4 cm. ? Tissue Description: ?? Herrera-pink tubular portion of tissue. ? Sections/Processing : ??(R1) ??sns ? C -Labeled/Fixative: Patient's name, fresh. ? Qty/Size/Weight: Single, 20.0 x 14.0 x 2.8 cm, 582 g. ? Tissue Description: Intact, agee placenta. ?Membranes: ? Cloudy, yellow herrera with one percent marginal insertion. ?Cord: ? 80.0 x 1.0 cm; excessively spiraled; three vessels; ? paracentral insertion. ? Surface: Clear glistening herrera-purple. ?Maternal Surface: Complete, intact with a moderate amount of ? peripheral loosely attached old red-brown blood clot. ? [facility] ? Provider: ?? CLINT ESCOBEDO ??Pt. Name: ?? ELODIA TOM ? Acc #: ?[id number] ?Pt. ? Col Date: ?? 04/26/2013 ? /Sex: ?1970,(42 years),Female ? Rec Date: ?? 04/26/2013 ? LOC: ?BP ? SURGICAL PATHOLOGY ?Parenchyma: The specimen is serially sectioned at 0.5-cm to 1-cm ? intervals. Sections show a homogeneous red-brown spongy parenchyma with no ? evidence of hemorrhages infarction or the placental abnormalities. ? Sections/Processing : ?? Sections are submitted as follows: (1) membrane ? roll; (2) proximal and distal cord; (3) surface; (4)maternal surface. ? (R 4) ? ---Clinical Information--- ? Specimen Submitted: ? A - Segment of left fallopian tube ? B - Segment of right fallopian tube ? C - Placenta ? Clinical History: ? 42 year old patient status post elective repeat CS and bilateral tubal ? ligation ? Clinical Diagnosis: ? Same [facility] 04/26/2013 3:40 PM EDT Clint Escobedo MD PATHOLOGY/CYTOLOGY ORDERABLES Performing Organization Address [facility] de Phone Number [facility] * Specimen to Pathology (NON-OR) (04/26/2013 3:35 PM EDT) AP Specimen 04/26/2013 3:35 PM EDT 04/26/2013 3:35 PM EDT Narrative [facility] - 04/26/2013 3:35 PM EDT Specimen requisition ordered. ??Separate Pathology report to follow Clint Escobedo MD PATHOLOGY/CYTOLOGY ORDERABLES Performing Organization Address [facility] de Phone Number [facility] * Prepare RBC (04/26/2013 12:45 PM EDT) Dispensed? Yes [facility] Blood specimen (specimen) 04/26/2013 12:45 PM EDT 04/26/2013 12:42 PM EDT Tracy Kang MD BLOOD BANK PRODUCT O RDERABLES Performing Organization Address [facility] de Phone Number [facility] * Von Willebrand Factor Activity (04/26/2013 12:16 PM EDT) Von Willebrand Factor Assay 148 50 - 150 % activity [facility] Blood specimen (specimen) 04/26/2013 12:16 PM EDT 04/26/2013 12:25 PM EDT Narrative Resulting Agency Comment Spec In Lab Clint Escobedo MD HEMATOLOGY ORDERABL ES Performing Organization Address [facility] Co de Phone Number [facility] * Von Willebrand Factor Antigen (04/26/2013 12:16 PM EDT) von Willebrand Factor Antigen 248 % [facility] vWF Anti Interp ABO blood group has a significant influence on vWF:Ag levels in normal individuals*. ??Type A individuals have a mean level of 106% (range: 48-234% 2SD). ??* Ruby ESCALONA, et. al. ??The Effect of ABO Blood Group on the Diagnosis of von Willebrand Disease. ??Blood, 1987; 69(6) : 4798-6339 SANDRA JONES Blood specimen (specimen) 04/26/2013 12:16 PM EDT 04/26/2013 12:25 PM EDT Narrative Resulting Agency Comment Spec In Lab Clint Escobedo MD HEMATOLOGY ORDERABL ES Performing Organization Address [facility] de Phone Number SANDRA JONES * (ABNORMAL) Factor 8 assay (04/26/2013 12:16 PM EDT) Factor VIII Assay 201(H) 50 - 150 % SANDRA JONES Blood specimen (specimen) 04/26/2013 12:16 PM EDT 04/26/2013 12:25 PM EDT Narrative Resulting Agency Comment Spec In Lab Clint Escobedo MD HEMATOLOGY ORDERABL ES Performing Organization Address [facility] de Phone Number SANDRA JONES * Prepare Coagulation Factors (Hemophilia) (04/26/2013 9:00 AM EDT) Dispensed? Yes SANDRA JONES Blood specimen (specimen) 04/26/2013 9:00 AM EDT 04/26/2013 8:00 AM EDT Lacy Jameson MD BLOOD BANK PRODUCT ORDERABLES Performing Organization Address [facility] de Phone Number SANDRA JONES * (ABNORMAL) Differential, Automated (04/26/2013 8:14 AM EDT) Neutrophil % 78.6(H) 34.0 - 71.0 % [facility] Neutrophil Absolute 7.27(H) 1.50 - 6.30 x10(3)/mc L [facility] Lymph % 14.2(L) 19.0 - 53.0 % [facility] Lymphocytes Abs 1.3 1.0 - 3.6 x10(3)/mc L [facility] Monocyte % 5.6 4.0 - 13.0 % [facility] Monocyte Abs 0.5 0.2 - 1.0 x10(3)/mc L [facility] Eos % 1.0 0.0 - 7.0 % [facility] Eosinophils Abs 0.1 0.0 - 0.5 x10(3)/mc L [facility] Basophil % 0.2 0.0 - 2.0 % [facility] Baso Absolute 0.0 0.0 - 0.2 x10(3)/mc L [facility] Immature Gran % 0.40 0.00 - 0.66 % [facility] Comment: Immature granulocytes(IG's)percentage and absolute count will include metamyelocytes, myelocytes, and promyelocytes. Blood smears from CBCs yielding IG's will be scanned manually for concordance. If this scan disagrees with the automated IG or if promyelocytes are noted, a manual differential will be performed. Immature Gran Absolute 0.04 0.00 - 0.05 x10(3)/mc L [facility] Blood specimen (specimen) 04/26/2013 8:14 AM EDT 04/26/2013 8:18 AM EDT Clint Escobedo MD HEMATOLOGY ORDERABL ES [facility]A [facility] * Antibody screen (04/26/2013 8:14 AM EDT) Ab Screen Interp Negative [facility]ER[facility]STASIYA TRIVEDIENNIUM Expires at [id number] on: [id number] CERNER SH[facility]ENNIUM Blood specimen (specimen) 04/26/2013 8:14 AM EDT 04/26/2013 8:17 AM EDT Narrative Resulting Agency Comment Spec In Lab Clint Escobedo MD BLOOD BANK LAB ORDE RABLES SANDRA MITCHELLIUM * ABO/Rh Typing (04/26/2013 8:14 AM EDT) ABORH Type A Pos [facility] Blood specimen (specimen) 04/26/2013 8:14 AM EDT 04/26/2013 8:17 AM EDT Narrative Resulting Agency Comment Spec In Lab Clint Escobedo MD BLOOD BANK LAB ORDE REYNALDO Performing Organization Address [facility]/ZIP Co de Phone Number SANDRA JONES * (ABNORMAL) CBC (with Diff) (04/26/2013 8:14 AM EDT) White Blood Cell 9.2 4.0 - 10.0 x10(3)/mc L [facility] MILLENNIUM Red Blood Cell 3.91(L) 3.93 - 5.22 x10(6)/mc L C[facility]ER MILLENNIUM Hemoglobin 12.4 11.2 - 15.7 gm/dL CERNER MILLENNI[facility] Hematocrit 36.3 34.0 - 45.0 % [facility] MILLENNI[facility] Mean Cell Volume 92.8 79.0 - 94.0 fL C[facility] MILLENNIUM Mean Cell Hemoglobin 31.7 26.6 - 32.2 pg [facility] MILLENNI[facility] Mean Cell Hemoglobin Concentration 34.2 32.0 - 36.5 gm/dL CERNER MILLENNIUM Platelet 212 145 - 370 x10(3)/mc L [facility]ER MILLEN[facility] RDW Standard Deviation 45.4 35.0 - 46.0 fL [facility]ILL[facility] RDW coefficient of variation 13.6 10.9 - 14.4 % C[facility]ER MILLENNI[facility] Mean Platelet Volume 11.6 9.0 - 12.0 fL [facility]ILLEN[facility] Blood specimen (specimen) 04/26/2013 8:14 AM EDT 04/26/2013 8:18 AM EDT Narrative Resulting Agency Comment Spec In Lab Clint Escobedo MD HEMATOLOGY ORDERABL ES Performing Organization Address City/[facility]/ZIP Co de Phone Number SANDRA JONES documented in this encounter Visit Diagnoses Diagnosis , supervision of, high-risk- Primary Unspecified high-risk Von Willebrand disease Von Willebrand's disease , supervision of, high-risk Unspecified high-risk Von Willebrand disease Von Willebrand's disease Obesity (BMI 35.0-39.9 without comorbidity) Obesity, unspecified Previous section complicating Previous delivery, unspecified as to episode of care or not applicable Tubal ligation status documented in this encounter Administered Medications Inactive Administered Medications - up to 3 most recent administrations Medication Order MAR Action Action Date Dose Rate Site acetaminophen (TYLENOL) tablet 650 mg 650 mg, Oral, EVERY 4 HOURS PRN, Starting on Wed04/26/13 at 1535, Until 04/29/13 at 1647, Pain, mild pain, Maximum dose of acetaminophen is 4000 mg from all sources in 24 hours., Routine Given 04/29/2013 1:20 PM EDT 650 mg Given 04/29/2013 4:30 AM EDT 650 mg Given 04/29/2013 12:20 AM EDT 650 mg antihemophilic factor VIII (HUMATE P) IV Kit 3,856 Units 3,856 Units, Intravenous, ONCE, 1 dose, On Wed04/26/13 at 0900, Reviewed and issued by blood bank. Infuse 3856 units over 3-5 minutes, IVP., Day of Surgery (Day of Procedure) Given 04/26/2013 12:00 PM EDT 3,856 Units bisacodyl (DULCOLAX) suppository 10 mg 10 mg, Rectal, DAILY PRN, Starting on Wed04/26/13 at 1535, Until 04/29/13 at 1647, Constipation, - If no bowel movement by morning of post day #2., Routine Given 04/28/2013 5:11 PM EDT 10 mg calcium carbonate (TUMS) chewable tablet 1,000 mg 1,000 mg, Oral, EVERY 6 HOURS PRN, Starting on Wed04/28/13 at 1708, Until 04/29/13 at 1647, Heartburn, Routine Given 04/28/2013 9:25 PM EDT 1,000 mg Given 04/28/2013 5:11 PM EDT 1,000 mg ceFAZolin (ANCEF) 2g in dextrose 5% 50 mL 2 g, Intravenous, ONCE, 1 dose, On Wed04/26/13 at 1315, For section prophylaxis., Indication for (Active or Suspected): Prophylaxis Given 04/26/2013 1:15 PM EDT 2 g citric acid-sodium citrate (BICITRA) oral solution 30 mL 30 mL, Oral, HAND TWISTER TO O.R., 1 dose, On Wed04/26/13 at 1315, Routine Given 04/26/2013 1:00 PM EDT 30 mLs diphenhydrAMINE (BENADRYL) capsule 25 mg 25 mg, Oral, ONCE, 1 dose, On 04/29/13 at 0915, Routine Given 04/29/2013 10:40 AM EDT 25 mg docusate sodium (COLACE) capsule 100 mg 100 mg, Oral, 2 TIMES DAILY, First dose on Wed04/26/13 at 2100, Until Discontinued, Routine Given 04/29/2013 9:00 AM EDT 100 mg Given 04/28/2013 9:25 PM EDT 100 mg Given 04/28/2013 9:34 AM EDT 100 mg enoxaparin (LOVENOX) injection 40 mg 40 mg, Subcutaneous, EVERY 24 HOURS SCHEDULED (Daily), First dose on Sarah 04/27/13 at 0900, Until Discontinued, Routine Given 04/29/2013 9:00 AM EDT 40 mg Given 04/28/2013 9:34 AM EDT 40 mg Given 04/27/2013 10:40 AM EDT 40 mg lactated ringers 500 mL IV bolus at 500 mL/hr, Intravenous, ONCE, 1 dose, On Wed04/26/13 at 1315, Prior to epidural placement or concerning heart rate pattern or maternal condition Given 04/26/2013 1:15 PM EDT 500 mL/hr magnesium hydroxide (MILK OF MAGNESIA) oral suspension 10 mL 10 mL, Oral, NIGHTLY PRN, Starting on Wed04/26/13 at 1535, Until 04/29/13 at 1647, Constipation, - If no bowel movement by morning of post day #1., Routine Given 04/28/2013 9:34 AM EDT 10 mLs OXYcodone (ROXICODONE) immediate release tablet 5-10 mg 5-10 mg, Oral, EVERY 4 HOURS PRN, Starting on Wed04/26/13 at 1803, Until 04/29/13 at 1647, Pain, Routine Given 04/29/2013 1:20 PM EDT 10 mg Given 04/29/2013 9:00 AM EDT 10 mg Given 04/29/2013 4:31 AM EDT 10 mg polyethylene glycol (MIRALAX) packet 17 g 17 g, Oral, DAILY, First dose on Wed04/28/13 at 0900, Until Discontinued, Routine Given 04/29/2013 9:00 AM EDT 17 g Given 04/28/2013 9:33 AM EDT 17 g simethicone (MYLICON) chewable tablet 80 mg 80 mg, Oral, 4 TIMES DAILY PRN, Starting on Wed04/26/13 at 1535, Until 04/29/13 at 1647, Cramping, gas pain, Routine Given 04/29/2013 12:20 AM EDT 80 mg Given 04/28/2013 4:27 PM EDT 80 mg Given 04/28/2013 3:55 AM EDT 80 mg sodium chloride 0.9 % flush 5 mL 5 mL, Intravenous, EVERY 12 HOURS, First dose on Wed04/26/13 at 1315, Until Discontinued, Routine Given 04/26/2013 1:15 PM EDT 5 mLs venlafaxine (EFFEXOR-XR) XR Capsule 37.5 mg 37.5 mg, Oral, EVERY OTHER DAY, First dose on Wed04/26/13 at 1315, Until Discontinued, Routine Given 04/27/2013 10:36 AM EDT 37.5 mg venlafaxine (EFFEXOR-XR) XR Capsule 37.5 mg 37.5 mg, Oral, DAILY, First dose (after last modification) on Wed04/28/13 at 0900, Until Discontinued, Routine Given 04/29/2013 9:00 AM EDT 37.5 mg Given 04/28/2013 9:33 AM EDT 37.5 mg documented in this encounter Active and Recently Administered Medications Times are shown in EDT. Scheduled Medication Order 04/27/2013 04/28/2013 04/29/2013 diphenhydrAMINE (BENADRYL) capsule 25 mg (COMPLETED) 25 mg, Oral, ONCE, 1 dose, On 04/29/13 at 0915, Routine 1040 (Given - Provider: Holli Bishop RN) docusate sodium (COLACE) capsule 100 mg 100 mg, Oral, 2 TIMES DAILY, First dose on Wed04/26/13 at 2100, Until Discontinued, Routine 1035 (Given - Provider: Kusum Galvez RN)2016 (Given - Provider: Kellen Liu RN) 0934 (Given - Provider: Venessa Omalley RN)2125 (Given - Provider: Wen Mcguire RN) 0900 (Given - Provider: Holli Bishop, KRUNAL) enoxaparin (LOVENOX) injection 40 mg (CANCELED) 40 mg, Subcutaneous, EVERY 24 HOURS SCHEDULED (Daily), First dose on Wed04/27/13 at 0900, Until Discontinued, Routine 1040 (Given - Provider: Kusum Galvez RN) 0934 (Given - Provider: Venessa Omalley RN) 0900 (Given - Provider: Holli Bishop RN) polyethylene glycol (MIRALAX) packet 17 g (CANCELED) 17 g, Oral, DAILY, First dose on Wed04/28/13 at 0900, Until Discontinued, Routine 0933 (Given - Provider: Venessa Omalley RN) 0900 (Given - Provider: Holli Bishop RN) venlafaxine (EFFEXOR-XR) XR Capsule 37.5 mg (CANCELED) 37.5 mg, Oral, EVERY OTHER DAY, First dose on Wed04/26/13 at 1315, Until Discontinued, Routine 1036 (Given - Provider: Kusum Galvez RN - Comment: Pt was unable to take yesterday 04/26 due to NPO / pt request today) venlafaxine (EFFEXOR-XR) XR Capsule 37.5 mg (CANCELED) 37.5 mg, Oral, DAILY, First dose (after last modification) on Wed04/28/13 at 0900, Until Discontinued, Routine 0933 (Given - Provider: Venessa Omalley RN) 0900 (Given - Provider: Holli Bishop RN) PRN Medication Order 04/27/2013 04/28/2013 04/29/2013 acetaminophen (TYLENOL) tablet 650 mg (CANCELED)(Linked Group 1) 650 mg, Oral, EVERY 4 HOURS PRN, Starting on Wed04/26/13 at 1535, Until 04/29/13 at 1647, Pain, mild pain, Maximum dose of acetaminophen is 4000 mg from all sources in 24 hours., Routine 0518 (Given - Provider: Miya March RN)1030 (Given - Provider: Venessa Omalley RN)1438 (Given - Provider: Kusum Galvez, RN)2016 (Given - Provider: Kellen Liu, RN) 0049 (Given - Provider: Odalis Capps, KRUNAL)0514 (Given - Provider: Tim Clark, RN)0934 (Given - Provider: Venessa Omalley, KRUNAL)1353 (Given - Provider: Venessa Omalley, KRUNAL)1816 (Given - Provider: Venessa Omalley RN) 0020 (Given - Provider: Wen Mcguire, KRUNAL)0430 (Given - Provider: Wen Mcguire, KRUNAL)1320 (Given - Provider: Holli Bishop, KRUNAL) bisacodyl (DULCOLAX) suppository 10 mg (CANCELED) 10 mg, Rectal, DAILY PRN, Starting on Wed04/26/13 at 1535, Until 04/29/13 at 1647, Constipation, - If no bowel movement by morning of post day #2., Routine 171 (Given - Provider: Venessa Omalley RN) calcium carbonate (TUMS) chewable tablet 1,000 mg (CANCELED) 1,000 mg, Oral, EVERY 6 HOURS PRN, Starting on Wed04/28/13 at 1708, Until 04/29/13 at 1647, Heartburn, Routine 1711 (Given - Provider: Venessa Omalley RN)2125 (Given - Provider: Wen Mcguire RN) magnesium hydroxide (MILK OF MAGNESIA) oral suspension 10 mL (CANCELED) 10 mL, Oral, NIGHTLY PRN, Starting on Wed04/26/13 at 1535, Until 04/29/13 at 1647, Constipation, - If no bowel movement by morning of post day #1., Routine 0934 (Given - Provider: Venessa Omalley RN) OXYcodone (ROXICODONE) immediate release tablet 5-10 mg 5-10 mg, Oral, EVERY 4 HOURS PRN, Starting on Wed04/26/13 at 1803, Until 04/29/13 at 1647, Pain, Routine 0515 (Given - Provider: Miya A Joaquim, RN)1030 (Given - Provider: Venessa Omalley, KRUNAL)1438 (Given - Provider: Kusum Galvez, RN)2016 (Given - Provider: Kellen Liu RN) 0049 (Given - Provider: Odalis Capps, RN)0514 (Given - Provider: Tim Clark, KRUNAL)0934 (Given - Provider: Venessa Omalley, RN)1353 (Given - Provider: Venessa Omalley, RN)1816 (Given - Provider: Venessa Omalley, RN)2125 (Given - Provider: Wen Mcguire, KRUNAL) 0020 (Given - Provider: Wen Mcguire, KRUNAL)0431 (Given - Provider: Wen Mcguire, KRUNAL)0900 (Given - Provider: Holli Bishop, KRUNAL)1320 (Given - Provider: Holli Bishop, KRUNAL) simethicone (MYLICON) chewable tablet 80 mg (CANCELED) 80 mg, Oral, 4 TIMES DAILY PRN, Starting on Wed04/26/13 at 1535, Until 04/29/13 at 1647, Cramping, gas pain, Routine 0355 (Given - Provider: Tim Clark, KRUNAL)1627 (Given - Provider: Noris Green, KRUNAL) 0020 (Given - Provider: Wen Mcguire, KRUNAL) Linked Groups Order Group 1: acetaminophen (TYLENOL) tablet 650 mg (CANCELED)Jump to med 650 mg, Oral, EVERY 4 HOURS PRN, Starting on Wed04/26/13 at 1535, Until 04/29/13 at 1647, Pain, mild pain, Maximum dose of acetaminophen is 4000 mg from all sources in 24 hours., Routine Or acetaminophen (TYLENOL) tablet 1,000 mg (CANCELED) 1,000 mg, Oral, EVERY 6 HOURS PRN, Starting on Wed04/26/13 at 1535, Until 04/29/13 at 1647, Pain, moderate pain, Maximum dose of acetaminophen is 4000 mg from all sources in 24 hours., Routine documented in this encounter Care Teams Signal Intelligence Analyst Relationship Specialty Start Date End Date Bismark Bui, MITUL PCP - General 12/26/12 10/01/14 documented as of this encounter
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
--- OUTSIDE RECORDS SUMMARY | 2024-08-10 15:59 | XMS_ITS | Encounter Summary ---
Author Organization [facility] Address [facility] [place] [address] Care Team Providers Care Family And Consumer Sciences Teacher Name Role Phone Bismark Bui Diana BAUMAN Primary Care Provider Reason for Visit * Reason Comments Anxiety Encounter Details Date Type Department Care Team (Late st Contact Info) Description 01/29/2014 9:10 AM EST Office Visit Psychiatry [place] [address] Erica Bazan MD [facility] [place] [address] ROSINA (generalized anxiety disorder) (Primary Dx) Social [...] Sign Reading Time Taken Comments Blood Pressure 125/66 01/29/2014 9:46 AM EST Pulse 63 01/29/2014 9:46 AM EST Temperature - - Respiratory Rate - - Oxygen Saturation - - Inhaled Oxygen Concentration - - Weight 95.3 kg (210 lb) 01/29/2014 9:44 AM EST Height - - Body Mass Index 38.16 04/26/2013 8:17 AM EDT documented in this encounter Patient Instructions * Patient Instructions* Erica Bazan MD - 01/29/2014 10:08 AM EST Continue Effexor XR 150mg daily. You can try lorazepam 0.5mg on an as needed basis for anxiety or sleep. Do not drive if sedated by medication. Follow-up with me in 1 month. Call sooner with questions or concerns [phone] or call in an emergency. documented in this encounter Progress Notes * Erica Bazan MD - 01/29/2014 9:46 AM EST [facility] ESTABLISHED ADULT PATIENT OFFICE VISIT NOTE Time Spent: 30 min Attendee(s): patient, daughter HISTORY Chief Complaint: Elodia Lin is a 43 y.o. Female who presents today for medication follow-up of anxiety in the context of significant life stress HPI: () Ms. Lin reports that she is finding the increased dose of venlafaxine helpful. She rates her anxiety as around 80% better overall with the medication and psychotherapy. She feels she is managing her re-experiencing symptoms better and is having fewer panic attacks. She is less frequently tearful. She still tends to feel more overwhelmed when she is around people, so has been feeling a bit better over the past week due to school vacation. She has some anticipatory anxiety about returning to work Wednesday. She has been staying active with her kids, taking them skiing and taking her son to hit golf balls (she went for a 2 mile walk while he was working on golf). She still has difficulty winding down to go to sleep and usually does not fall asleep until around 3 hours after her kids go to bed-- some of this time is spent on household tasks. Her 's legal case remains up in the air. She gets information from the turkey roll maker periodically, but has not been in touch with her . She is unsure whether she wants to see him before going to court. 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 However, she does not wish him ill will and feels his behavior was a result of his own mental health issues, for which she hopes he gets treatment. She continues to see her therapist weekly and is finding this very helpful. She is working on beingin the moment and addressing things that are in her control. She has a cloud systems administrator advising her on the divorce as well as her 's legal issues. Quality: anxiety Severity: improved, but not resolved Duration: Timing: Context: severe stress ( currently in skilled nursing awaiting trial) Modifying factors: therapy extremely helpful, venlafaxine helpful Associated S&S: difficulty winding down to sleep, difficulty being around people, anticipatory anxiety, decreased panic, decreased tearfulness Current Medications: Current outpatient prescriptions:venlafaxine (EFFEXOR-XR) 150 mg 24 hr capsule, Take 1 capsule by mouth daily., Disp: 90 capsule, Rfl: 3 Pertinent Medication Side Effects: none Review of Systems: (11/30/09) Constitutional: tired Eyes: ENT: Cardiovascular: Respiratory: GI: : Musculoskeletal: Integumentary: Neurological: Psychiatric: See above Endocrine: Hematologic/Lymphatic: Allergic/Immunological: Allergies as of 01/29/2014 - Review Complete 01/29/2014 Allergen Reaction Noted ??? Adhesive bandage Rash 04/29/2013 ??? Codeine 07/07/2012 PFSH: () Past Medical/Psychiatric History: Family Psychiatric and Medical History: Social History: see HPI; awaiting trial, pt has has filed for divorce EXAM [05/07/14 bullets (incl VS)] Constitutional System ? Vital Signs: Filed Vitals: 01/29/14 0946 BP: 125/66 Pulse: 63 Musculoskeletal System ? Muscle Strength/Tone (note atrophy, abnormal movements): No atrophy or abnormal movements ? Gait and Station: wnl Psychiatric System ? General Appearance/Behavior: casually dressed, adequately groomed, interacts lovingly and appropriately with infant throughout ? Speech: normal rate, volume, prosody ? Thought Process: Linear, logical ? Associations: intact ? Abnormal Thoughts and Perceptions / Thought Content: Homicidality / Violent Thoughts: none Suicidality: none Hallucinations: none Delusions: none Obsessions: none ? Judgment and Insight: excellent ? Mood & Affect: doing okay overall, affect congruent and stable ? Orientation: Fully oriented ? Attention/Concentration: Attentive, concentration intact ? Memory: No evident memory impairment ? Language: fluent, no unusual language ? Fund of Knowledge: appropriate MEDICAL DECISION MAKING ASSESSMENT: Elodia Lin is a 43 y.o. Female with history of ROSINA and depression, here with exacerbation in both due to extreme psychosocial stress. We increased venlafaxine at last visit, which hasbeen helpful, but she continues with some anxiety and insomnia related to ongoing stress/unresolvedlegal issues for . She is working very productively in psychotherapy. We discussed potentialfor occasional use of lorazepam for anxiety and sleep-- she has used alprazolam with good effect inthe past. We discussed not driving if sedated by medication and using caution the first time she takes it since she is sole caregiver for three children. Occasional use of low dose is not a concern for , but if she is concerned about medication exposure she can avoid for ~4 hours after taking. Amount of medication transferred into breastmilk is small (Cherry estimates relative dose at 2.6-2.9%) and unlikely to have an adverse effect on her baby, so she should notworry if baby wants to feed sooner. Diagnosis: ROSINA, acutely exacerbated by recent stressor PLAN: ?? Safety: no current SI or safety concerns; reviewed office and emergency contact info ?? Medications: continue venlafaxine XR 150mg daily; add lorazepam 0.5mg PRN for anxiety/sleep ?? Additional treatment recommendations: continue psychotherapy ?? Follow-up: with me in ~1 month; anticipate she can follow-up with PCP once acute stressors have settled down somewhat Patient Instruction/Education provided: Treatment plan discussed verbally and provided in AVS. Patient demonstrates understanding verbally. documented in this encounter Plan of Treatment Upcoming Encounters Date Type Department Care Team (Late st Contact Info) Description 10/20/2024 9:00 AM EST Office Visit [place]ology [place] [address] Lacy Jameson MD [facility] [place] [address] Layla Jo RN documented as of this encounter Visit Diagnoses Diagnosis ROSINA (generalized anxiety disorder)- Primary Generalized anxiety disorder documented in this encounter Care Teams Family And Consumer Sciences Teacher Relationship Specialty Start Date End Date Bismark Bui APRN PCP - General 12/26/12 10/01/14 documented as of this encounter
--- OUTSIDE RECORDS SUMMARY | 2024-08-10 15:59 | XMS_ITS | Encounter Summary ---
[place] [address] Care Team Providers Care Yarn Spooler Name Role Phone Bismark Bui APRN Primary Care Provider [phone] Reason for Visit * Reason Onset Date Comments Vaginal Bleeding 05/01/2013 Encounter Details Date Type Department Care Team (Late st Contact Info) Description 05/01/2013 Telephone Obstetrics [place] [address] Lara Patricia RN Vaginal Bleeding Social History Tobacco Use Types Packs/Day Years [...] encounter Miscellaneous Notes * Telephone Encounter - Lara Patricia - 05/01/2013 10:39 AM EDT TELEPHONE NOTE Date of call: 05/01/2013 Time of call: 10:40 AM Caller: patient Reason for call: Patient calls questioning her edema in her lower extremeties as well as her bleeding. She is passing dime to nickel sized clots. She is changing her pad every 2 hours filling about 1/3. Plan/Instructions: Reassured patient that her bleeding was within normal limits. She should call ifshe starts soaking a pad in an hour, passes plum sized clots or has any other questions or concerns. We also discussed swelling being normal and should resolve around 2 weeks post op. Lara Patricia, policy and planning manager Nurse, Triage [phone] documented in this encounter Plan of Treatment Upcoming Encounters Date Type Department Care Team (Late st Contact Info) Description 10/20/2024 9:00 AM EST Office Visit Hematology [place] [address] Lacy Jameson MD [facility] DR HEMATOLOGY [place] [address] Layla Jo RN documented as of this encounter Visit Diagnoses Not on filedocumented in this encounter Care Teams Yarn Spooler Relationship Specialty Start Date End Date Bismark Bui, PRIMARY CARE PHYSICIAN PCP - General 12/26/12 10/01/14 documented as of this encounter
--- OUTSIDE RECORDS SUMMARY | 2024-08-10 15:59 | XMS_ITS | Encounter Summary ---
Author Organization [facility] Address [facility] [place] [address] Care Team Providers Care Cda Teacher Name Role Phone Bismark Bui APRN Primary Care Provider [phone] Encounter Details Date Type Department Care Team (Late st Contact Info) Description 05/15/2013 Orders Only Obstetrics [place] [address] Lara Patricia RN Social History Tobacco Use Types Packs/Day [...] EST Office Visit Hematology [place] [address] Lacy Jameson MD [facility] [address] [place] [address] Layla Jo RN documented as of this encounter Visit Diagnoses Not on filedocumented in this encounter Care Teams Cda Teacher Relationship Specialty Start Date End Date Bismark Bui APRN PCP - General 12/26/12 10/01/14 documented as of this encounter
--- OUTSIDE RECORDS SUMMARY | 2024-08-10 15:59 | XMS_ITS | Encounter Summary ---
Author Organization [facility] Address [facility] [place] [address] Care Team Providers Care Group Supervisor Yard Name Role Phone Hao Ctodin Diana BAUMAN Primary Care Provider Reason for Visit * Reason Comments Routine Visit Encounter Details Date Type Department Care Team (Late st Contact Info) Description 04/05/2013 11:15 AM EDT Routine Obstetrics [place] [address] Julia Rizvi MD [facility] DR OBSTETRICS [place] [address] GA: [id number] Discharge Disposition: Home Social History Tobacco Use [...] Sign Reading Time Taken Comments Blood Pressure 120/70 04/05/2013 11:19 AM EDT Pulse - - Temperature - - Respiratory Rate - - Oxygen Saturation - - Inhaled Oxygen Concentration - - Weight 107.1 kg (236 lb 3.2 oz) 013 11:19 AM EDT Height - - Body Mass Index 42.65 03/29/2013 1:11 PM EDT documented in this encounter Progress Notes * Julia Rizvi MD - 04/05/2013 11:40 AM EDT FM felt. No LOF, no bleeding. No contractions. F/u 1 week. documented in this encounter Plan of Treatment Upcoming Encounters Date Type Department Care Team (Late st Contact Info) Description 10/20/2024 9:00 AM EST Office Visit [place]ematology [place] [address] Lacy Jameson MD [facility] DR HEMATOLOGY [place] [address] Layla Jo, RN documented as of this encounter Visit Diagnoses Diagnosis Unspecified high-risk - Primary documented in this encounter Care Teams Group Supervisor Yard Relationship Specialty Start Date End Date Bismark Bui, MITUL PCP - General 12/26/12 10/01/14 documented as of this encounter
--- OUTSIDE RECORDS SUMMARY | 2024-08-10 15:59 | XMS_ITS | Encounter Summary ---
Author Organization [facility] Address [place] [address] Care Team Providers Care Ribbon Lapper Tender Name Role Phone Malini Daugherty Silvestre BAUMAN Primary Care Provider [phone] Encounter Details Date Type Department Care Team (Latest Contact Info) Description 11/13/2014 1:26 PM EST - 11/13/2014 11:59 PM [facility] Hospital [place] [address] Lacy Jameson MD [facility] DR HEMATOLOGY [place] [address] Discharge Disposition: Home Social History Tobacco Use [...] Sig Dispensed Refills Start Date End Date LORazepam (ATIVAN) 0.5 mg tablet Take 1 tablet by mouth daily as needed for Anxiety. 15 tablet 0 01/29/2014 12/03/2014 venlafaxine (EFFEXOR-XR) 150 mg 24 hr capsule Take 1 capsule by mouth daily. 90 capsule 3 01/01/2014 02/26/2015 documented as of this encounter Plan of Treatment Upcoming Encounters Date Type Department Care Team (Late st Contact Info) Description 10/20/2024 9:00 AM EST Office Visit Hematology [place] [address] Lacy Jameson MD [facility] DR HEMATOLOGY [place] [address] Layla Jo, RN documented as of this encounter Visit Diagnoses Not on filedocumented in this encounter Care Teams Ribbon Lapper Tender Relationship Specialty Start Date End Date Malini Daugherty, BACKREST ASSEMBLER [facility] [address] [place] [address] PCP - General 10/02/14 06/06/15 documented as of this encounter
--- OUTSIDE RECORDS SUMMARY | 2024-08-10 15:59 | XMS_ITS | Encounter Summary ---
Author Organization [facility] Address [facility] [place] [address] Care Team Providers Care Health Care Manager Name Role Phone Bismark Bui Diana BAUMAN Primary Care Provider Reason for Visit * Reason Comments Routine Visit Encounter Details Date Type Department Care Team (Latest Contact Info) Description 04/12/2013 3:00 PM EDT Routine Obstetrics [place] [address] Damion Nolen MD [facility] DR OBSTETRICS & [place] [address] GA: [id number] Discharge Disposition: Home Social History Tobacco Use [...] Sign Reading Time Taken Comments Blood Pressure 128/66 04/12/2013 2:50 PM EDT Pulse - - Temperature - - Respiratory Rate - - Oxygen Saturation - - Inhaled Oxygen Concentration - - Weight 108.5 kg (239 lb 3.2 oz) 04/12/2013 2:50 PM EDT Height - - Body Mass Index 43.19 03/29/2013 1:11 PM EDT documented in this encounter Progress Notes * Damion Nolen MD - 04/12/2013 3:07 PM EDT Feeling well. Wonders if her baby turned And if this might increase her risk of delivering early. Igave reassurance. She has never had spontaneous labor. I explained that we are here all day and night. We discussed warning signs and symptoms of labo rand to call first. documented in this encounter Plan of Treatment Upcoming Encounters Date Type Department Care Team (Late st Contact Info) Description 10/20/2024 9:00 AM EST Office Visit Hematology [place] [address] Lacy Jameson MD [facility] DR [place] [address] Layla Jo, RN documented as of this encounter Visit Diagnoses Diagnosis Von Willebrand disease- Primary Von Willebrand's disease , supervision of, high-risk Unspecified high-risk Obesity (BMI 35.0-39.9 without comorbidity) Obesity, unspecified documented in this encounter Care Teams Health Care Manager Relationship Specialty Start Date End Date Bismark Bui APRN PCP - General 12/26/12 10/01/14 documented as of this encounter"
--- OUTSIDE RECORDS SUMMARY | 2024-08-10 15:59 | XMS_ITS | Encounter Summary ---
Author Organization [facility] [place] [address] Care Team Providers Care Jewel Bearing Facer Name Role Phone DatMalini MITUL Primary Care Provider [phone]- [phone] Encounter Details Date Type Department Care Team (Late st Contact Info) Description 02/26/2015 Telephone Psychiatry [place] [address] Erica Bazan MD [facility] [place] [address] Social History Tobacco Use Types Packs/Day Years [...] encounter Miscellaneous Notes * Telephone Encounter - Erica Bazan MD - 02/26/2015 12:10 PM EDT Patient called requesting refill of venlafaxine. She was last seen about 1 year ago in women's mental health clinic, which is a short term consult setting. Plan was for her to f/u with her PCP after that episode of care. I called her back and left a message explaining that I am not able to provide refills for her on anongoing basis because I am not actively seeing her as a patient at this time. I recommended she contact her PCP for ongoing refills. Due to concern for discontinuation symptoms if she is unable to get prescription refilled promptly, I explained that I can refill x 30 days only to provide her time to contact her PCP. I left my office phone number in case she has any additional questions. documented in this encounter Plan of Treatment Upcoming Encounters Date Type Department Care Team (Late st Contact Info) Description 10/20/2024 9:00 AM EST Office Visit [place]ematology [place] [address] [facility] [address] [place] [address] Layla Jo RN documented as of this encounter Visit Diagnoses Not on filedocumented in this encounter Care Teams Jewel Bearing Facer Relationship Specialty Start Date End Date Malini Daugherty, ROUTE DELIVERER [facility] [address] [place] [address] PCP - General 10/02/14 06/06/15 documented as of this encounter
--- OUTSIDE RECORDS SUMMARY | 2024-08-10 15:59 | XMS_ITS | Encounter Summary ---
Author Organization [facility] [place] [address] Care Team Providers Care Nursing Services Manager Name Role Phone Hao, Bismark Ortiz APRN Primary Care Provider Reason for Visit * Reason Onset Date Comments Advice Only 12/28/2013 Encounter Details Date Type Department Care Team (Late st Contact Info) Description 12/28/2013 Telephone Psychiatry [place] [address] Erica Bazan MD [facility] [place] [address] Advice Only Social History Tobacco Use Types Packs/Day [...] Telephone Encounter - Erica Bazan MD - 12/28/2013 11:34 AM EST [facility] Phone Note Patient last seen by me in April 2013-- currently 8 months and still . Called today because her therapist recommended she consult with me regarding increased anxiety and possible medication adjustment. Patient is dealing with severe family stressor that occurred over the past2 months and is still ongoing. We made a plan for her to see me Monday 01/01 at 9:30am. We will try to minimize in person visits if possible due to distance. I may be able to consult with her PCP around management, but would like tosee her in person at least once due to recent change in status. Will also have her sign a release for therapist at Wednesday's appointment. documented in this encounter Plan of Treatment Upcoming Encounters Date Type Department Care Team (Late st Contact Info) Description 10/20/2024 9:00 AM EST Office Visit H[place]ology [place] [address] Lacy Jameson MD [facility] DR HEMATOLOGY [place] [address] Layla Jo RN documented as of this encounter Visit Diagnoses Not on filedocumented in this encounter Care Teams Nursing Services Manager Relationship Specialty Start Date End Date Bismark Bui, METAL TRIMMER PCP - General 12/26/12 10/01/14 documented as of this encounter
--- OUTSIDE RECORDS SUMMARY | 2024-08-10 15:59 | XMS_ITS | Encounter Summary ---
Author Organization [facility] [place] [address] Care Team Providers Care Salesperson Surgical Appliances Name Role Phone Malini Daugherty MITUL Primary Care Provider [phone]- [phone] Encounter Details Date Type Department Care Team (Late st Contact Info) Description 11/12/2014 External Results Hematology [place] [address] Lacy Jameson MD [facility] DR HEMATOLOGY [place] [address] Social History Tobacco Use Types Packs/Day Years [...] EST Office Visit Hematology [place] [address] Lacy Jameson MD [facility] HEMATOLOGY [place] [address] Layla Jo RN documented as of this encounter Visit Diagnoses Not on filedocumented in this encounter Care Teams Salesperson Surgical Appliances Relationship Specialty Start Date End Date Malini Daugherty APRN [facility] [address] [place] [address] PCP - General 10/02/14 06/06/15 documented as of this encounter
--- OUTSIDE RECORDS SUMMARY | 2024-08-10 15:59 | XMS_ITS | Encounter Summary ---
Author Organization [facility] Address [facility] [place] [address] Care Team Providers Care Salmon Troll Fisher Name Role Phone Bismark Bui Diana BAUMAN Primary Care Provider Reason for Visit * Reason Comments Routine Visit Encounter Details Date Type Department Care Team (Latest Contact Info) Description 03/14/2013 10:30 AM EDT Routine Obstetrics [place] [address] Bayron Vinson MD [facility] DR OBSTETRICS [place] [address] GA: [id number] Discharge Disposition: Home Social History Tobacco Use [...] Sign Reading Time Taken Comments Blood Pressure 122/72 03/14/2013 10:42 AM EDT Pulse - - Temperature - - Respiratory Rate - - Oxygen Saturation - - Inhaled Oxygen Concentration - - Weight 104.4 kg (230 lb 1.6 oz) 013 10:42 AM EDT Height - - Body Mass Index 42.09 01/23/2013 12:13 PM EST documented in this encounter Progress Notes * Bayron Vinson MD - 03/14/2013 10:56 AM EDT Good movement. No contractions/ leaking fluid / bleeding / pain. No headache, vision changes, RUQ pain. RTC 2 weeks. Would like appointment with Dr. Peoples before repeat c/s. Will arrange. Also would like f/u with Dr. Jameson again prior to delivery. documented in this encounter Plan of Treatment Upcoming Encounters Date Type Department Care Team (Late st Contact Info) Description 10/20/2024 9:00 AM EST Office Visit [place]ology [place] [address] Lacy Jameson MD [facility] DR [place] [address] Layla Jo, RN documented as of this encounter Visit Diagnoses Diagnosis Tubal ligation status- Primary , supervision of, high-risk Unspecified high-risk documented in this encounter Care Teams Salmon Troll Fisher Relationship Specialty Start Date End Date Bismark Bui APRN PCP - General 12/26/12 10/01/14 documented as of this encounter
--- OUTSIDE RECORDS SUMMARY | 2024-08-10 15:59 | XMS_ITS | Encounter Summary ---
Author Organization [facility] Address [facility] [place] [address] Care Team Providers Care Hydraulic Press Servicer Name Role Phone Bismark Bui Diana BAUMAN Primary Care Provider Reason for Visit * Reason Comments Anxiety Encounter Details Date Type Department Care Team (Late st Contact Info) Description 05/25/2013 2:10 PM EDT Office Visit Psychiatry [place] [address] Erica Bazan MD [facility] [place] [address] Generalized anxiety disorder (Primary Dx); Depression Social History Tobacco Use Types Packs/Day Years [...] Sign Reading Time Taken Comments Blood Pressure 129/82 05/25/2013 2:41 PM EDT Pulse 69 05/25/2013 2:41 PM EDT Temperature - - Respiratory Rate - - Oxygen Saturation - - Inhaled Oxygen Concentration - - Weight 98.4 kg (217 lb) 05/25/2013 2:40 PM EDT Height - - Body Mass Index 39.43 04/26/2013 8:17 AM EDT documented in this encounter Patient Instructions * Patient Instructions* Erica Bazan MD - 05/25/2013 3:00 PM EDT Increase Effexor XR to 75mg daily. Follow-up with me in ~6 weeks. If you are feeling well, you can call to cancel the appointment [phone]. Call [phone] with any questions or call in an emergency. documented in this encounter Progress Notes * Erica Bazan MD - 05/25/2013 2:58 PM EDT [facility] ESTABLISHED ADULT PATIENT OFFICE VISIT NOTE Time Spent: 30 min Attendee(s): patient, daughter Reji HISTORY Chief Complaint: Elodia Lin is a 43 y.o. Female who presents today for medication follow-up of anxiety, currently HPI: () Ms. Lin reports that she had her baby 1 month ago. The went well, but she has been feeling overwhelmed, anxious, and tearful. She is only sleeping in 2 hour stretches because the baby is upto feed or is fussy. She does not want to start pumping yet because the baby has had some latch issues, and does not want her to become sleep deprived as well, because he is providing most ofthe care for their older children. Her baby is still awake quite a bit at night, so she is feeling exhausted. She is feeling connected to her baby and is able to enjoy spending time with her kids. She denies any suicidal ideation. Her 11 year old has done well with the baby, but her 7 year old has regressed somewhat. She is feeling better about work-life balance issues for the fall, because it looks like she will not need to take on as many responsibilities in the evenings/weekends as she had feared. Dr. Nolen provided her with the names of two therapists in [facility]. She has not had time to call yet, but is planning to try to make an appointment. Quality: overwhelmed Severity: Duration: Timing: Context: recovering from , exhausted by lack of sleep Modifying factors: good support at home, medication well-tolerated Associated S&S: tearful, easily upset by small things, feels overwhelmed Current Medications: Current outpatient prescriptions:venlafaxine (EFFEXOR-XR) 37.5 mg 24 hr capsule, Take 1 capsule by mouth daily., Disp: 90 capsule, Rfl: PRN; vitamin 27 & [id number]-illt-NX 60 mg iron-1 mg tablet, Take 1 tablet by mouth daily., Disp: , Rfl: Pertinent Medication Side Effects: none Review of Systems: (11/30/09) Constitutional: still recovering from , exhausted Eyes: ENT: Cardiovascular: Respiratory: GI: : Currently PP s/p , Musculoskeletal: Integumentary: Neurological: Psychiatric: See above Endocrine: Hematologic/Lymphatic: Allergic/Immunological: Allergies as of 05/25/2013 - Review Complete 05/25/2013 Allergen Reaction Noted ??? Adhesive bandage Rash 04/29/2013 ??? 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 Vital Signs: Filed Vitals: 05/25/13 1441 BP: 129/82 Pulse: 69 Musculoskeletal System ? Muscle Strength/Tone (note atrophy, abnormal movements): No atrophy or abnl movements ? Gait and Station: wnl Psychiatric System ? General Appearance/Behavior: casually dressed, well-groomed, interacts lovingly and appropriatelywith , tearful at times ? Speech: normal rate, volume, prosody ? Thought Process: Linear, logical ? Associations: intact ? Abnormal Thoughts and Perceptions / Thought Content: Homicidality / Violent Thoughts: none Suicidality: none Hallucinations: none Delusions: none Obsessions: none ? Judgment and Insight: good/good ? Mood & Affect: overwhelmed, affect congruent, full-range ? Orientation: Fully oriented ? Attention/Concentration: Attentive, concentration intact ? Memory: No evident memory deficits ? Language: fluent, no unusual language ? Fund of Knowledge: appropriate MEDICAL DECISION MAKING ASSESSMENT: Elodia Lin is a 43 y.o. Female with history of anxiety and depression, now with increased symptoms in the period. She has had good response in the past to very low dose venlafaxine, but I recommend increasing dose today (at least temporarily) due to increased symptoms. Also encouraged her to connect with local therapist. Diagnosis: ROSINA, depression PLAN: ?? Safety: no current SI or safety concerns; reviewed office and emergency contact info ?? Medications: increase Effexor XR to 75mg daily ?? Additional treatment recommendations: encourage her to establish psychotherapy locally (Dr. Nolen has provided two recommendations) ?? Follow-up: ~6 weeks; she will call sooner with any questions or concerns Patient Instruction/Education provided: Treatment plan discussed verbally and provided in AVS. Patient demonstrates understanding verbally. documented in this encounter Plan of Treatment Upcoming Encounters Date Type Department Care Team (Late st Contact Info) Description 10/20/2024 9:00 AM EST Office Visit Hematology [place] [address] Lacy Jameson MD [facility] [address] [place] [address] Layla Jo, RN documented as of this encounter Visit Diagnoses Diagnosis Generalized anxiety disorder- Primary Depression Depressive disorder, not elsewhere classified documented in this encounter Care Teams Hydraulic Press Servicer Relationship Specialty Start Date End Date Bismark Bui APRN PCP - General 12/26/12 10/01/14 documented as of this encounter
--- OUTSIDE RECORDS SUMMARY | 2024-08-10 15:59 | XMS_ITS | Encounter Summary ---
[place] [address] Care Team Providers Care Customer Support Advisor Name Role Phone Bismark Bui Diana BAUMAN Primary Care Provider [phone] Reason for Visit * Reason Onset Date Comments Von Willebrand Disease 04/25/[address] an for April 26 ; scheduled Encounter Details Date Type Department Care Team (Late st Contact Info) Description 04/25/2013 Telephone Hematology [place] [address] Layla Jo RN Von Willebrand Disease (review plan for April 26 ; scheduled ) Social History Tobacco Use Types Packs/Day Years [...] Miscellaneous Notes * Telephone Encounter - Layla Bui RN - 04/25/2013 11:12 AM EDT T/c to Julia Body RN, to review hematology plan for a 42 year old female with Von Willebrand Disease, type 2A who is pending a scheduled on April 26, 2013. Julia and OB team aware of patient's diagnosis and reviewed Dr. Jameson's hematology note from March 29, 2013. ?? Patient coming in April 25 for labs, including a vWF activity,vWFantigen, factor 8 assay and CBC. Done. ?? Hemophilia nurse will plan to assist with Humate P infusion in OB unit approximately an hour prior to . ?? Dose of Humate P will be ordered pending results of vWF levels obtained today. DONE per Dr. Jameson's orders. Humate P 3856units. ?? Blood Bank called and aware of patient scheduled admission and anticipated request for Humate P on 04/26/13 DONE ?? Coagulation lab called and aware patient coming [place] [facility] [place] for lab michelle't. DONE. nowpending for 1PM will be infused 12 noon and post levels obtained at 12:[address] Jameson's orders. ?? Per mom's request, will attempt to obtain cord blood sample at time of delivery for coag studiesincluding a vWF activity, antigen, F8 assay. Discussed with mother that the coag levels obtained from cord blood are not diagnostic, may be influenced by Humate P infusion and will need to be repeated in the future to determine if the baby has vWD. Dr. Rae aware of plan. Layla Bui, MSN, RN Dr. Jameson's [facility] note 03/29/13 reprinted: We recommend the following protocol for the day of delivery, 04/26: Stat von Willebrand panel upon arrival to (I have ordered). I have also taken the liberty to order a CBC for that time as well. Based on the level of vWF:Activity, we will order a dose of Humate P (likely 4000 units); Hemophilia service will write all orders for Humate P Send blood for post-infusion vWF panel after infusion, but surgery/epidural or spinal anesthesia (if desired) may proceed before result returns. This result is for our information for administering further doses of Humate P post-operatively We will coordinate with laboratory and transfusion medicine service to ensure adequate hemostasis for this delivery and post- period. Lacy Jameson MD Detasseling Crew Supervisor, [facility] documented in this encounter Plan of Treatment Upcoming Encounters Date Type Department Care Team (Late st Contact Info) Description 10/20/2024 9:00 AM EST Office Visit Hematology [place] [address] Lacy Jameson MD [facility] [address] [place] [address] Layla Jo RN documented as of this encounter Visit Diagnoses Not on filedocumented in this encounter Care Teams Customer Support Advisor Relationship Specialty Start Date End Date Bismark Bui, STUCCO LABORER PCP - General 12/26/12 10/01/14 documented as of this encounter
--- OUTSIDE RECORDS SUMMARY | 2024-08-10 15:59 | XMS_ITS | Encounter Summary ---
Author Organization [facility] Address [facility] [place] [address] Care Team Providers Care Oral Surgery Physician Name Role Phone Hao Bismark Ortiz APRN Primary Care Provider Encounter Details Date Type Department Care Team (Latest Contact Info) Description 03/29/2013 12:52 PM EDT - 03/29/2013 11:59 PM EDT Hospital [place] [address] CLINIC, DR NITHIN Jameson, Lacy Forbes MD [facility] [place] [address] Discharge Disposition: Home Social History Tobacco Use [...] capsule PRN 03/29/2013 05/15/2013 vitamin 27 & [id number]-JP 60 mg iron-1 mg tablet Take 1 tablet by mouth daily. 01/01/2014 documented as of this encounter Plan of Treatment Upcoming Encounters Date Type Department Care Team (Late st Contact Info) Description 10/20/2024 9:00 AM EST Office Visit Hematology [place] [address] Lacy Jameson MD [facility] DR [place] [address] Lyala Jo, RN documented as of this encounter Visit Diagnoses Not on filedocumented in this encounter Care Teams Oral Surgery Physician Relationship Specialty Start Date End Date Bismark Bui APRN PCP - General 12/26/12 10/01/14 documented as of this encounter
--- OUTSIDE RECORDS SUMMARY | 2024-08-10 15:59 | XMS_ITS | Encounter Summary ---
[place] [address] Care Team Providers Care Yarder Operator Name Role Phone Bismark Bui APRN Primary Care Provider [phone] Reason for Visit * Reason Onset Date Comments Migraine 01/17/2014 Encounter Details Date Type Department Care Team (Late st Contact Info) Description 01/17/2014 Telephone Obstetrics [place] [address] Sowmya Srinivasan RN Migraine Social History Tobacco Use Types Packs/Day Years [...] encounter Miscellaneous Notes * Telephone Encounter - Sowmya Srinivasan RN - 01/17/2014 3:23 PM EST Elodia calls because she has a headache. She states that she has taken tylenol and caffeine for it. We reviewed that she could also take motrin or naproxen for this pain. She states that she also has Maxalt, and is wondering if this is safe during . It is a category L3, and thus can be used. documented in this encounter Plan of Treatment Upcoming Encounters Date Type Department Care Team (Late st Contact Info) Description 10/20/2024 9:00 AM EST Office Visit Hematology [place] [address] Lacy Jameson MD [facility] DR HEMATOLOGY [place] [address] Layla Jo RN documented as of this encounter Visit Diagnoses Not on filedocumented in this encounter Care Teams Yarder Operator Relationship Specialty Start Date End Date Bismark Bui APRN PCP - General 12/26/12 10/01/14 documented as of this encounter
--- OUTSIDE RECORDS SUMMARY | 2024-08-10 15:59 | XMS_ITS | Encounter Summary ---
Author Organization [facility] Address [facility] [place] [address] Care Team Providers Care Emu Farmer Name Role Phone Bismark Bui Diana BAUMAN Primary Care Provider Reason for Visit * Reason Comments Care Encounter Details Date Type Department Care Team (Latest Contact Info) Description 06/12/2013 1:30 PM EDT Visit Obstetrics [place] [address] Wen Villalobos MD [facility] DR OBSTETRICS [place] [address] care and examination (Primary Dx) Discharge Disposition: Home Social History [...] Sign Reading Time Taken Comments Blood Pressure 114/70 06/12/2013 1:34 PM EDT Pulse - - Temperature - - Respiratory Rate - - Oxygen Saturation - - Inhaled Oxygen Concentration - - Weight 97.2 kg (214 lb 3.2 oz) 06/12/2013 1:34 P M EDT Height - - Body Mass Index 38.92 04/26/2013 8:17 AM EDT documented in this encounter Progress Notes * Wen Villalobos MD - 06/12/2013 1:48 PM EDT Subjective: Weeks 6 weeks Mode of delivery section complicated by Von Willebrand Delivery complications None, received Humate complications cone General well being OK Mood Seeing Dr. Bazan, will see a therapist, feels safe Resumed intercourse no Resumed menses Took a long time for lochia to go away Symptoms of incontinence no Breast or bottle feeding breast Current contraception tubal Plan B discussed N/A Prior Pap smears June 2012, has primary to do Pap's Need for OGTT Y/N no Current Outpatient Prescriptions on File Prior to Visit Medication Sig Dispense Refill ??? venlafaxine (EFFEXOR-XR) 75 mg 24 hr capsule Take 1 capsule by mouth daily. 90 capsule 3 ? ? vitamin 27 & nhtmdcr-jrnt-FJ 60 mg iron-1 mg tablet Take 1 tablet by mouth daily. Allergies Allergen Reactions ??? Adhesive Bandage Rash Blistering rash with tegederm ??? Codeine Percocet is ok Objective: BP 114/70 Wt 97.16 kg (214 lb 3.2 oz) LMP 07/13/2012 ? Yes Examination General- Well appearing woman in no distress Abdomen - No mass or HSM, wound well-healed Extremities - No edema Assessment: Normal recovery from and delivery. Plan: Resume routine health maintenance care. Pap smear deferred to her primary care provider. Contraception tubal Wen Villalobos MD documented in this encounter Miscellaneous Notes * Miscellaneous - Provider, Scanning - 06/13/2013 10:45 AM EDT documented in this encounter Plan of Treatment Upcoming Encounters Date Type Department Care Team (Late st Contact Info) Description 10/20/2024 9:00 AM EST Office Visit Hematology [place] [address] Lacy Jameson MD [facility] DR HEMATOLOGY [place] [address] Layla Jo, RN documented as of this encounter Visit Diagnoses Diagnosis care and examination- Primary Routine follow-up documented in this encounter Care Teams Emu Farmer Relationship Specialty Start Date End Date Bismark Bui, MITUL PCP - General 12/26/12 10/01/14 documented as of this encounter
--- OUTSIDE RECORDS SUMMARY | 2024-08-10 15:59 | XMS_ITS | Encounter Summary ---
Author Organization [facility] [place] [address] Care Team Providers Care Vc++ Developer Name Role Phone Malini Daugherty MITUL Primary Care Provider [phone] Encounter Details Date Type Department Care Team (Late st Contact Info) Description 11/21/2014 External Results Hematology [place] [address] Lacy Jameson MD [facility] DR [place] [address] Social History Tobacco Use Types Packs/Day Years [...] EST Office Visit Hematology [place] [address] Lacy Jameson MD [facility] DR [place] [address] Layla Jo RN documented as of this encounter Visit Diagnoses Not on filedocumented in this encounter Care Teams Vc++ Developer Relationship Specialty Start Date End Date Malini Daugherty APRN [facility] [address] [place] [address] PCP - General 10/02/14 06/06/15 documented as of this encounter
--- OUTSIDE RECORDS SUMMARY | 2024-08-10 15:59 | XMS_ITS | Encounter Summary ---
Author Organization [facility] Address [facility] [place] [address] Care Team Providers Care Maintenance Mechanic Technician Name Role Phone Hao, Ctodin Diana BAUMAN Primary Care Provider [phone] Reason for Visit * Reason Comments Follow-up Encounter Details Date Type Department Care Team (Late st Contact Info) Description 03/29/2013 1:30 PM EDT Follow-Up Hematology [place] [address] Lacy Jameson MD [facility] [address] [place] [address] Von Willebrand disease, type IIa (Primary Dx) Discharge Disposition: Home Social History [...] Sign Reading Time Taken Comments Blood Pressure 130/88 03/29/2013 1:11 PM EDT Pulse 85 03/29/2013 1:11 PM EDT Temperature - - Respiratory Rate 17 03/29/2013 1:11 PM EDT Oxygen Saturation 95% 03/29/2013 1:11 PM EDT Inhaled Oxygen Concentration - - Weight 106.4 kg (234 lb 9.1 oz) 03/29/2013 1:11 PM EDT Height 158.5 cm (5' 2.4) 03/29/2013 1:11 PM EDT Body Mass Index 42.35 03/29/2013 1:11 PM EDT documented in this encounter Progress Notes * Lacy Jameson MD - 03/29/2013 2:02 PM EDT [facility] Department of Medicine [place] [address] [facility] HEMOSTASIS FOLLOW UP DATE OF VISIT 03/29/2013 Patient Elodia Lin 1970 42 year old female with Von Willebrand Disease, type 2A, with a mild bleeding phenotype presents for follow up of Von Willebrand disease. She is currently at about 35 weeks along in the now with a scheduled delivery date of April 26, 2013 for a . She's and has had2 caesarian sections in the past (children ages 7 and 10) in [facility], both of which were managed with Humate-P. She had one miscarriage in 1999 for which she received DDAVP. She continues to report no complications with this and has had no problems with bleeding or bruising. The has not had to use her emergency dose of Humate P. She is feeling well today with no symptoms to report. She will be having a post- tubal ligation. Interested in having her 7 yo daughter tested for VWD. Her son has been tested and does not have it. ROS (+)as above (-)fever, chills, headache, dizziness, [...] (EFFEXOR-XR) 37.5 mg 24 hr capsule Take 37.5 mg by mouth every other day. ? ? vitamin 27 & esyiqff-maev-HT 60 mg iron-1 mg tablet Take 1 tablet by mouth daily. BP 130/88 Pulse 85 Resp 17 Ht 158.5 cm (5' 2.4) Wt 106.4 kg (234 lb 9.1 oz) BMI 42.35 kg/m2 SpO2 95% LMP 07/13/2012 PHYSICAL EXAMINATION GENERAL: Well-appearing, articulate white female. HEENT: Oropharynx clear; no mucosal lesions, petechiae, bleeding, thrush or ulcers. NECK: Supple; no cervical, supraclavicular or submental adenopathy. BREASTS: Exam deferred. CHEST: Clear to auscultation/percussion. No rales, rhonchi, wheezes. HEART: Regular rate and rhythm; no murmur, rub, gallop ABDOMEN: GENITOURINARY: Exam deferred. EXTREMITIES: No clubbing, cyanosis [...] PSYCHIATRIC: Appropriate affect, no apparent distress. LABORATORY Ref. Range 03/29/2013 13:03 Factor 8 Assay Latest Range: 50-150 % 127 vWF Antigen No range found 97 vWF Activity Latest Range: 50-150 % activity 45 (L) A/P: 42 year old female with von Willebrand Disease, type 2A presents for follow up of Von Willebrand disease. As her has progressed, her VWF:Ag has increased but, as expected with type 2A VWD, the VWF:activity has not quite kept pace and is at 45% today. As the progresses,levels of VonWillebrand factor and factor 8 increase, peaking at term. Given today's test results, though, I anticipate that she will require Humate P pre-delivery to ensure adequate hemostasis for the surgery and the immediate post-operative period when we expect VWF consumption to be highest. We would anticipate the use of a ~40 unit/kg dose of Humate P (~4000 units based on her pre- weight; 4 x 997 unit vials currently in the inventory) pre-operatively based on the rise in VWF:Act during the thus far. This will be expected to raise the VWF:Activity level to close to ~80-100% for surgery (1 U/kg --> ~1.5% rise in VWF:Act) . We would not recommend the use of DDAVP for this patient. Care will need to be taken to not over-treat her for her VWD and create a situation in which she develops venous thromboembolism in the highly prothrombotic state of .. We have previously reviewed the product and vendor choice with [employer] and she has elected to use Humate P as her coagulation factor concentrate and [facility] [place]. She has a dose at home for use in emergencies. She will take the dose to the local hospital for infusion in the event of bleeding or trauma and will call the Hemophilia Center so that we may facilitate treatment as needed locally. I reviewed the 24 hour emergency contact information with her. Should an unexpected early or precipitous delivery at term occur then immediate administration of ~4000 units of Humate P will be in order. Elodia has two doses of ~2000 units each in her possession atthis time and she can have these infused locally should a pre-term, unplanned delivery be imminent.We recommend the following protocol for the day of delivery, 04/26: ?? Stat von Willebrand panel upon arrival to (I have ordered). I have also taken the liberty to order a CBC for that time as well. ?? Based on the level of vWF:Activity, we will order a dose of Humate P (likely 4000 units); Hemophilia service will write all orders for Humate P ?? Send blood for post-infusion vWF panel after infusion, but surgery/epidural or spinal anesthesia(if desired) may proceed before result returns. This result is for our information for administering further doses of Humate P post-operatively We will coordinate with laboratory and transfusion medicine service to ensure adequate hemostasis for this delivery and post- period. Lacy Jameson MD [facility] [employer], [facility] documented in this encounter Plan of Treatment Upcoming Encounters Date Type Department Care Team (Late st Contact Info) Description 10/20/2024 9:00 AM EST Office Visit Hematology [place] [address] Lacy Jameson MD [facility] [address] [place] [address] Layla Jo RN documented as of this encounter Procedures Procedure Name Priority Date/Time Associated Diagnosis Comments VON WILLEBRAND FACTOR ANTIGEN Routine 03/29/2013 1:03 PM EDT Von Willebrand disease, type IIa VON WILLEBRAND FACTOR ACTIVITY Routine 03/29/2013 1:03 PM EDT Von Willebrand disease, type IIa FACTOR 8 ASSAY Routine 03/29/2013 1:03 PM EDT Von Willebrand disease, type IIa documented in this encounter Results * CBC (with Diff) (04/25/2013 11:49 AM EDT) White Blood Cell 9.1 4.0 - 10.0 x10(3)/mcL CERNER MILLENNIUM Red Blood Cell 3.95 3.93 - 5.22 x10(6)/mcL CERNER MILLENNIUM Hemoglobin 12.5 11.2 - 15.7 gm/dL CERNER MILLENNIUM Hematocrit 36.6 34.0 - 45.0 % CERNER MILLENNIUM Mean Cell Volume 92.7 79.0 - 94.0 fL CERNER MILLENNIUM Mean Cell Hemoglobin 31.6 26.6 - 32.2 pg CERNER MILLENNIUM Mean Cell Hemoglobin Concentration 34.2 32.0 - 36.5 gm/dL CERNER MILLENNIUM Platelet 204 145 - 370 x10(3)/mcL CERNER MILLENNIUM RDW Standard Deviation 45.5 35.0 - 46.0 fL CERANASTASIYA TRIVEDIENNIUM RDW coefficient of variation 13.6 10.9 - 14.4 % CERNER MILLENNIUM Mean Platelet Volume 11.2 9.0 - 12.0 fL CERANASTASIYA MILLENNIUM Blood specimen (specimen) 04/25/2013 11:49 AM EDT 04/25/2013 12:00 PM EDT Narrative Resulting Agency Comment Spec In Lab Lacy Jameson MD HEMATOLOGY ORDERAB LES Performing Organization Address [facility] Co de Phone Number [facility] * Von Willebrand Factor Activity (04/25/2013 11:49 AM EDT) Von Willebrand Factor Assay 54 50 - 150 % activity [facility] TRIVEDIBAN[facility] Blood specimen (specimen) 04/25/2013 11:49 AM EDT 04/25/2013 12:00 PM EDT Narrative Resulting Agency Comment Spec In Lab Lacy Jameson MD HEMATOLOGY ORDERAB LES Performing Organization Address [facility] de Phone Number SANDRA TRIVEDIBAN[facility] * Von Willebrand Factor Antigen (04/25/2013 11:49 AM EDT) von Willebrand Factor Antigen 110 % [facility] vWF Anti Interp ABO blood group has a significant influence on vWF:Ag levels in normal individuals*. ??Type A individuals have a mean level of 106% (range: 48-234% 2SD). ??* Ruby ESCALONA et. al. ??The Effect of ABO Blood Group on the Diagnosis of von Willebrand Disease. ??Blood, 1987; 69(6) : 1037-8138 [facility] Blood specimen (specimen) 04/25/2013 11:49 AM EDT 04/25/2013 12:00 PM EDT Narrative Resulting Agency Comment Spec In Lab Lacy Jameson MD HEMATOLOGY ORDERAB LES Performing Organization Address City/[facility] Co de Phone Number [facility] * Factor 8 assay (04/25/2013 11:49 AM EDT) Factor VIII Assay 142 50 - 150 % CERNER MILLENNIUM Blood specimen (specimen) 04/25/2013 11:49 AM EDT 04/25/2013 12:00 PM EDT Narrative Resulting Agency Comment Spec In Lab Lacy Jameson MD HEMATOLOGY ORDERAB LES Performing Organization Address [facility] Co de Phone Number [facility] * (ABNORMAL) Von Willebrand Factor Activity (03/29/2013 1:03 PM EDT) Von Willebrand Factor Assay 45(L) 50 - 150 % activity [facility] SHIKHAENNIUM Blood specimen (specimen) 03/29/2013 1:03 PM EDT 03/29/2013 1:09 PM EDT Narrative Resulting Agency Comment Spec In Lab Lacy Jameson MD HEMATOLOGY ORDERAB LES Performing Organization Address [facility] de Phone Number CERANASTASIYA JONES * Von Willebrand Factor Antigen (03/29/2013 1:03 PM EDT) von Willebrand Factor Antigen 97 % [facility] MILLENNIUM vWF Anti Interp ABO blood group has a significant influence on vWF:Ag levels in normal individuals*. ??Type A individuals have a mean level of 106% (range: 48-234% 2SD). ??* Ruby ESCALONA, et. al. ??The Effect of ABO Blood Group on the Diagnosis of von Willebrand Disease. ??Blood, 1987; 69(6) : [phone] [facility] MILLENNIUM Blood specimen (specimen) 03/29/2013 1:03 PM EDT 03/29/2013 1:09 PM EDT Narrative Resulting Agency Comment Spec In Lab Lacy Jameson MD HEMATOLOGY ORDERAB LES Performing Organization Address [facility] Co de Phone Number [facility] SHIKHAPropancIUM * Factor 8 assay (03/29/2013 1:03 PM EDT) Factor VIII Assay 127 50 - 150 % CERANASTASIYA TRIVEDIENNIUM Blood specimen (specimen) 03/29/2013 1:03 PM EDT 03/29/2013 1:09 PM EDT Narrative Resulting Agency Comment Spec In Lab Lacy Jameson MD HEMATOLOGY ORDERAB LES [facility] documented in this encounter Visit Diagnoses Diagnosis Von Willebrand disease, type IIa- Primary Von Willebrand's disease documented in this encounter Care Teams Maintenance Mechanic Technician Relationship Specialty Start Date End Date Bismark Bui, CEMENTER HAND PCP - General 12/26/12 10/01/14 documented as of this encounter
--- OUTSIDE RECORDS SUMMARY | 2024-08-10 15:59 | XMS_ITS | Encounter Summary ---
Author Organization [facility] [place] [address] Care Team Providers Care Trap Operator Name Role Phone Bismark Bui Diana BAUMAN Primary Care Provider Encounter Details Date Type Department Care Team (Late st Contact Info) Description 04/26/2013 1:00 PM EDT - 04/26/2013 3:51 [place] [phone] Clint Escobedo MD [facility] OBSTETRICS & [place] [address] @ DELIVERY (WRVU 16.13) Social History Tobacco Use Types Packs/Day Years [...] this in detail. Call your doctor or vessel operator for: Fever more than 100.5 Heavy bleeding [...] follow up appointment. You may call the [facility] at any time for guidance or for answers to questions that come up prior to you follow up appointment. Your [facility] Provider can be reached during office hours at [facility] Follow-up Clinic AFTER OFFICE HOURS for the matrix bath attendant or vessel operator manager pulmonary Provider electronic signature confirms that discharge instructions were reviewed with the patient. A copy was printed and given to the patient. * Patient Instructions* Marilin Willson - 04/28/2013 10:41 AM EDT We are working on coordinating a 6 week follow up for you with Dr. Bazan and with an [facility] provider. Our schedulers will call you with [...] capsule PRN 03/29/2013 05/15/2013 vitamin 27 & vgiuvua-kvqy-VF 60 mg iron-1 mg tablet Take 1 tablet by mouth daily. 01/01/2014 documented as of this encounter Progress Notes * Wen Villalobos MD - 04/29/2013 7:23 AM EDT Delivery Note Information for the patient's : Beth Tom Girl [[id number]] Delivery Date and Time:04/26/2013 1:50 PM Delivery [...] Continue routine cares. Ambulate ad bladimir. Remove preez when ambulating. NBOs. ?? Von Willibrand disease: Hemophilia following; that service will order repeat Humate P infusion if necessary this admission. No NSAIDs. Will continue Lovenox prophylaxis today. This is acceptable per Dr Jameson as a routine part of our practice in obese women with EBL >1000cc. ?? Infant nutrition: breast ?? Contraception: s/p [...] for the patient's : Riley Baby Girl [[id number]] Delivery Date and Time:04/26/2013 1:50 PM Delivery [...] This is acceptable per Dr Jameson. ?? nutrition: breast ?? Contraception: s/p BTL [...] PM EDT Office of Care Management (OCM)/Clinical Supervisor Liquefaction O: Reviewed in multidisciplinary obstetric rounds and with direct care RN. Reviewed patient's medical record. Met with pt and significant family member. Introduced and reviewed CRC role and services accepted. Discussed availability of community resources in patient's geographic area to include VNA services, [employer] volunteer programs, Parent Child Centers, and home visiting programs in this area. Appropriate pamphlets left with patient. A: Support systems: In place. No discharge needs identified. Live in [facility]. Third child for this intact couple, older children ages 11 and 7. Garibaldi Nutrition: well Health Cost coverage: Insurance: [facility] Community Services: Aware of support services available in her area ([facility]) P: Home with . No needs identified. Has car seat and own transportation. F/U Peds appt in place. CRC: Nereida Patterson/LAKSHMI service:Birthing Sabina, pager [phone] * Stacie Espino MEAT GRADING MACHINE OPERATOR - 04/27/2013 1:23 PM EDT S/O: Met with Pt Elodia in room on BP. Elodia gave to baby girl Reji on 04/26 at 39+3 weeks gestation. Elodia's parents were also present in the room during this visit. Elodia lives in [place], [place] with her August and their two older children, Maxi (age 11) and Ary (age 7). Both Elodia and August work at [employer]. Elodia reported that the two older children [...] DV with Pt if possible. MAYRA Garay, [facility] Pager #[phone] * Wen Villalobos MD - 04/27/2013 7:45 AM EDT Delivery Note Information for the patient's : Riley, Baby Girl [[id number]] Delivery Date and Time:04/26/2013 1:50 PM Delivery [...] in obese women with EBL >1000cc. ?? Infant nutrition: breast ?? Contraception: s/p [...] capsule PRN ? ? vitamin 27 & rjtbzdk-kbrx-ZD 60 mg iron-1 mg tablet Take 1 tablet by mouth daily. Allergies Allergies Allergen Reactions ??? Codeine Percocet is ok Family History Problem Relation Age of Onset ??? Cancer Maternal Grandmother 70 ??? Heart Disease Maternal Grandfather ??? Breast Cancer Paternal Grandmother 70 ??? 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 Smoking status: [...] an 04/30/2013, by Ultrasound who is at [id number] gestation being admitted for with tubal sterilization. [...] 9:47 AM EDT * Miscellaneous - Provider, Angela - 04/30/2013 9:46 AM EDT * Plan of Care - Wen Mcguire, RN - 04/29/2013 7:50 AM EDT Problem: [...] antihistamine for itching. No NSAIDS. Control: BTL FCI follow up: Dr. Jameson and regular 6 [...] Physician: No att. providers found Care Provider: [facility] TE Discharge Diagnoses (Hospital Problems) and Secondary Diagnoses (Chronic Problems) Active Hospital Problems Diagnoses ??? , supervision of, high-risk Team [facility] Delivery plan April 26 ERCS with BTL, Humpate P based on prior day labs GBS date & Result Cystic fibrosis choice Aneuploidy choice Others screening tests Infant nutrition Childbirth education preferences Repeat c/s Contraception plan TL Ped/circ plans [facility] Immunizations: Influenza vaccine Accepted Declined Contraindicated x [...] Repeat c/s Contraception plan TL Ped/circ plans [facility] Immunizations: Influenza vaccine Accepted Declined Contraindicated x [...] without complication to deliver a liveborn female infant in breech presentation. Hematology evaluated the pt [...] Delivery Information Information for the patient's : Beth Tom Girl [[id number]] INFORMATION Baby Aldair Tom 04/26/2013 1:50 PM [...] Disp-30 capsule, R-PRN, Normal vitamin 27 & trglqol-blyy-UK 60 mg iron-1 mg tablet Take 1 tablet by mouth daily., Oral, DAILY, Until Discontinued, Historical Med Discharge to: Home Follow-up Recommendations for Providers: as above in hospital course Instructions Given to Patient at Discharge: Provider Instructions We are working on coordinating a 6 week follow up for you with Dr. Bazan and with an [facility] provider. Our schedulers will call you with [...] this in detail. Call your doctor or vessel operator for: Fever more than 100.5 Heavy bleeding [...] follow up appointment. You may call the [facility] at any time for guidance or for answers to questions that come up prior to you follow up appointment. Your [facility] Provider can be reached during office hours at [facility] Follow-up Clinic AFTER OFFICE HOURS for the matrix bath attendant or vessel operator manager pulmonary Provider electronic signature confirms that discharge instructions were reviewed with the patient. A copy was printed and given to the patient. Future Appointments and Orders Future Orders Please Complete By Expires Follow-up [BWG021 Custom] Process Instructions: Scheduling Instructions: Comments: We are working on coordinating a 6 week follow up for you with Dr. Bazan and with an [facility] provider. Our schedulers will call you with that appointment within the next few weeks. Questions: Responses: Provider Contact Information: [facility] BUILDING PERFORMANCE SPECIALIST Department, Discharge References/Attachments: Discharge References/Attachments None Signed: [...] will cont to monitor * Miscellaneous - Provider, Scanning - 04/27/2013 2:08 PM EDT * Med [...] vWF labs tomorrow. No NSAIDS. Control: BTL FCI follow up: Dr. Jameson and regular 6 [...] Arenas MD - 04/26/2013 5:28 PM EDT [facility] Operative Note Patient Name: Elodia Tom : [id number] MR#: [id number] Case Date: 04/26/2013 Surgeon: Surgeon(s) and Role: * Clint Escobedo MD - Primary * Dacia Ryan MD - Resident-Lesser Role * Sofya Arenas MD - Resident-Manager Medical * Fito Armendariz - Medical Student Preoperative [...] in a similar fashion was grasped with Aj clamps, elevated and the underlying rectus and [...] The infant was handed [facility] to the [facility] pediatricians, who assigned Apgars of 7 and [...] found to be patent. The patient and infant tolerated the procedure well and were in [...] Jameson MD - 04/26/2013 4:26 PM EDT [facility] [address] Department of Medicine [place] [address] [facility] HEMOSTASIS INPATIENT CONSULTATION [...] her in her room in the birthing pavillion. She is doing well and reports no [...] Dispense Refill ? ? vitamin 27 & krnekaw-srth-AQ 60 mg iron-1 mg tablet Take 1 [...] additional information or assistance. Lacy Jameson MD Farrowing Worker, [facility] Layla Bui RN, [...] without complication to deliver a liveborn female infant in breech presentation. Clear fluid. No meconium. Peds was present at delivery and assigned Apgars of 7 at one minute and 8 at five minutes, weight of 3055 gm. Normal uterus, tubes and ovaries. Please see operative note for complete details. Dr. Escobedo was present for the entire procedure. SOFYA ARENAS MD, PGY3 Information for the patient's : Beth Tom [[id number]] DELIVERY SUMMARY FOR Beth Tom (please note there is a separate summary for each fetus) LABOR EVENTS Beth Tom Labor Onset Type: section without labor Labor Onset Date: Induction: Indications for Induction of Labor: Induction Methods: Augmentation: None Complications: Rupture Date: 04/26/2013 Rupture Time: 1:50 PM Rupture Type: Artificial Fluid Color: Clear DELIVERY EVENTS Beth Tom Delivery Type: Presentation/Position Beth Tom : Breech Failed Operative Delivery: Anesthesia Method [...] Transverse Sex: female Gestational Age: 39.4 weeks. Garibaldi Measurements: Weight: 6 lb 11.8 oz (3055 g) Height: 20 Head Circumference: 35 cm Chest Circumference: Observed Anomalies: Delivery Clinician: Sofya Arenas Other Providers: Delivery Assist Delivery Nurse Hot Plate Plywood Press Offbearer Resident Medical Student Highway Painter Kusum Cason ICN Staff Present: Delivery Location: OR Living?: Yes APGARS One Minute Five Minutes Ten Minutes Skin Color: 0 1 Heart Rate: 2 2 Grimace: 2 2 Muscle Tone: 2 2 Breathin 1 Totals: 7 8 INTERVENTIONS Beth Tom Resuscitation:None Suctioning Method: None [1] Vocal Cords [...] DETAILS DELIVERY Delivery Type: Lower Segment Transverse [001939] Major Indications-: Contributing Factors-: Delivery Comment: Uterine Scar Status if Prior Section: ADDITIONAL DELIVERY DETAILS VAGINAL DELIVERY Vaginal Delivery Type: Lower Segment Transverse [[id number]] Major Indications-Operative Delivery: Contributing Factors-Operative Vaginal: Rotation: [...] Operative Note Patient Name: Elodia Tom : [id number] MR#: [id number] Case Date: 04/26/2013 Surgeon: Surgeon(s) and Role: * Clint Escobedo MD - Primary * Dacia Ryan MD - Resident-Lesser Role * Sofya Arenas MD - Resident-Manager Medical Preoperative diagnosis: Repeat CS Postoperative diagnosis: * [...] without problems * Med Student H&P - Fito Armendariz Veronica - 04/26/2013 11:52 AM EDT Labor Admission [...] for bone spur. FHx: Breast cancer in [place]. Colon cancer in [place]. Lymphoma in [place]. No other history of bleeding disease. OBGYN: Hx of abnormal pap:None No STDs or HSV Past pregnancies/ two prior c-sections: 1- in 2001, baby boy, delivered at term by for breech presentation. Humate P given. No complications. 2- in 2004, baby girl, delivered at term by . Also breech presentation. Humate P given. Nocomplication. 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 Plans to return to work in June [...] EST Office Visit [place] [address] Lacy Jameson MD [facility] [address] HEMATOLOGY [place] [address] Layla Jo RN documented as of this [...] Assay 62 50 - 150 % activity [facility] Blood specimen (specimen) 04/29/2013 4:44 AM EDT 04/29/2013 4:51 AM EDT Narrative Resulting Agency Comment Spec In Lab Lacy Jameson MD HEMATOLOGY ORDERAB LES [facility] * Von Willebrand Factor Activity (04/28/2013 5:30 AM EDT) Von Willebrand Factor Assay 92 50 - 150 % activity [facility] Blood specimen (specimen) 04/28/2013 5:30 AM EDT 04/28/2013 5:38 AM EDT Narrative Resulting Agency Comment Spec In Lab Lacy Jameson MD HEMATOLOGY ORDERAB LES CERNER MILLENNIUM * (ABNORMAL) Differential, Automated (04/27/2013 5:30 AM [...] EDT Clint Escobedo MD HEMATOLOGY ORDERABL ES CERANASTASIYA TRIVEDIENNIUM * Von Willebrand Factor Activity (04/27/2013 5:30 AM EDT) Von Willebrand Factor Assay 116 50 - 150 % activity [facility] MILLENNIUM Blood specimen (specimen) 04/27/2013 5:30 AM EDT 04/27/2013 6:08 AM EDT Narrative Resulting Agency Comment Spec In Lab Lacy Jameson MD HEMATOLOGY ORDERAB LES CERNER MILLENNIUM * (ABNORMAL) CBC (with Diff) [...] Lab Clint Escobedo MD HEMATOLOGY ORDERABL ES CERANASTASIYA MITCHELLIUM * Specimen to Pathology (surgical or derm) (04/26/2013 3:47 PM EDT) AP Specimen 04/26/2013 3:47 PM EDT 04/26/2013 3:47 PM EDT Narrative SANDRA MITCHELLIUM - 04/26/2013 3:47 PM EDT Specimen requisition ordered. ??Separate Pathology report to follow Clint Escobedo MD PATHOLOGY/CYTOLOGY ORDERABLES SANDRA JONES * Specimen to Pathology (surgical or derm) (04/26/2013 3:47 PM EDT) AP Specimen 04/26/2013 3:47 PM EDT 04/26/2013 3:47 PM EDT Narrative SANDRA MITCHELLIUM - 04/26/2013 3:47 PM EDT Specimen requisition ordered. ??Separate Pathology report to follow Clint Escobedo MD PATHOLOGY/CYTOLOGY ORDERABLES Performing Organization Address City/[facility]/ZIP Co de Phone Number SANDRA JONES * Surgical Pathology Report (04/26/2013 3:40 PM EDT) Surgical Pathology Report ? [facility] ? Provider: ?? CLINT ESCOBEDO ??Pt. Name: ?? ELODIA TOM ? Acc #: ?[id number] ?Pt. ? Col Date: ?? 04/26/2013 ? [...] loosely attached old red-brown blood clot. ? [facility] ? Provider: ?? CLINT ESCOBEDO ??Pt. Name: ?? ELODIA TOM ? Acc #: ?[id number] ?Pt. ? Col Date: ?? 04/26/2013 ? [...] ? ligation ? Clinical Diagnosis: ? Same SANDRA JONES 04/26/2013 3:40 PM EDT Clint Escobedo MD PATHOLOGY/CYTOLOGY ORDERABLES SANDRA JONES * Specimen to Pathology (NON-OR) (04/26/2013 3:35 PM EDT) AP Specimen 04/26/2013 3:35 PM EDT 04/26/2013 3:35 PM EDT Narrative SANDRA MITCHELLIUM - 04/26/2013 3:35 PM EDT Specimen requisition ordered. ??Separate Pathology report to follow Clint Escobedo MD PATHOLOGY/CYTOLOGY ORDERABLES Performing Organization Address [facility]/ZIP Co de Phone Number [facility] * Prepare RBC (04/26/2013 12:45 PM EDT) Dispensed? Yes [facility] Blood specimen (specimen) 04/26/2013 12:45 PM EDT 04/26/2013 12:42 PM EDT Tracy Kang MD BLOOD BANK PRODUCT O RDERABLES Performing Organization Address [facility] Co de Phone Number [facility] * Von Willebrand Factor Activity (04/26/2013 12:16 PM EDT) Von Willebrand Factor Assay 148 50 - 150 % activity [facility] Blood specimen (specimen) 04/26/2013 12:16 PM EDT 04/26/2013 12:25 PM EDT Narrative Resulting Agency Comment Spec In Lab Clint Escobedo MD HEMATOLOGY ORDERABL ES Performing Organization Address [facility] de Phone Number [facility] * Von Willebrand Factor Antigen (04/26/2013 12:16 PM EDT) von Willebrand Factor Antigen 248 % [facility] vWF Anti Interp ABO blood group has a significant influence on vWF:Ag levels in normal individuals*. ??Type A individuals have a mean level of 106% (range: 48-234% 2SD). ??* Ruby ESCALONA et. al. ??The Effect of ABO Blood Group on the Diagnosis of von Willebrand Disease. ??Blood, 1987; 69(6) : 7131-9317 [facility] Blood specimen (specimen) 04/26/2013 12:16 PM EDT 04/26/2013 12:25 PM EDT Narrative Resulting Agency Comment Spec In Lab Clint Escobedo MD HEMATOLOGY ORDERABL ES SANDRA MITCHELLIUM * (ABNORMAL) Factor 8 assay (04/26/2013 12:16 PM EDT) Factor VIII Assay 201(H) 50 - 150 % SANDRA MITCHELLIUM Blood specimen (specimen) 04/26/2013 12:16 PM EDT 04/26/2013 12:25 PM EDT Narrative Resulting Agency Comment Spec In Lab Clint Escobedo MD HEMATOLOGY ORDERABL ES Performing Organization Address [facility] Co de Phone Number SANDRA MITCHELLIUM * Prepare Coagulation Factors (Hemophilia) (04/26/2013 9:00 AM EDT) Dispensed? Yes SANDRA MITCHELLIUM Blood specimen (specimen) 04/26/2013 9:00 AM EDT 04/26/2013 8:00 AM EDT Lacy Jameson MD BLOOD BANK PRODUCT ORDERABLES Performing Organization Address City/[facility]/ZIP Co de Phone Number SANDRA JONES * (ABNORMAL) Differential, Automated (04/26/2013 8:14 AM EDT) Neutrophil % 78.6(H) 34.0 - 71.0 % CERNER MILLENNIUM Neutrophil Absolute 7.27(H) 1.50 - 6.30 x10(3)/mc L CERNER MILLENNIUM Lymph % 14.2(L) 19.0 - 53.0 % CERNER MILLENNIUM Lymphocytes Abs 1.3 1.0 - 3.6 x10(3)/mc [...] Absolute 0.04 0.00 - 0.05 x10(3)/mc L SANDRA MITCHELLIUM Blood specimen (specimen) 04/26/2013 8:14 AM EDT 04/26/2013 8:18 AM EDT Clint Escobedo MD HEMATOLOGY ORDERABL ES Performing Organization Address [facility] de Phone Number SANDRA JONES * Antibody screen (04/26/2013 8:14 AM EDT) Ab Screen Interp Negative SANDRA JONES Expires at [id number] on: [id number] SANDRA MITCHELLIUM Blood specimen (specimen) 04/26/2013 8:14 AM EDT 04/26/2013 8:17 AM EDT Narrative Resulting Agency Comment Spec In Lab Clint Escobedo MD BLOOD BANK LAB ORDE REYNALDO Performing Organization Address [facility] de Phone Number SANDRA JONES * ABO/Rh Typing (04/26/2013 8:14 AM EDT) ABORH Type A Pos SANDRA MITCHELLIUM Blood specimen (specimen) 04/26/2013 8:14 AM EDT 04/26/2013 8:17 AM EDT Narrative Resulting Agency Comment Spec In Lab Clint Escobedo MD BLOOD BANK LAB ORDE REYNALDO Performing Organization Address [facility]/ZIP Co de Phone Number SANDRA JONES * (ABNORMAL) CBC (with Diff) (04/26/2013 8:14 AM EDT) White Blood Cell 9.2 4.0 - 10.0 x10(3)/mc L CERNER MILLENNNANCY Red Blood Cell 3.91(L) 3.93 - 5.22 [...] Lab Clint Escobedo MD HEMATOLOGY ORDERABL ES SANDRA JONES documented in this encounter Visit Diagnoses Not on filedocumented in this encounter Active and Recently Administered Medications Times are shown in EDT. Scheduled Medication Order 04/27/2013 04/28/2013 04/29/2013 diphenhydrAMINE (BENADRYL) capsule 25 mg (COMPLETED) 25 mg, Oral, ONCE, 1 dose, On 04/29/13 at 0915, Routine 1040 (Given - Provider: Holli Bishop RN) docusate sodium (COLACE) capsule 100 mg 100 mg, Oral, 2 TIMES DAILY, First dose on 04/26/13 at 2100, Until Discontinued, Routine 1035 (Given - Provider: Kusum Galvez RN)2015 (Given - Provider: Kellen Liu RN) 0934 (Given - Provider: Venessa Omalley, KRUNAL)2124 (Given - Provider: Wen Mcguire, KRUNAL) 0900 (Given - Provider: Holli Bishop, KRUNAL) enoxaparin (LOVENOX) injection 40 mg (CANCELED) 40 mg, Subcutaneous, EVERY 24 HOURS SCHEDULED (Daily), First dose on Wed04/27/13 at 0900, Until Discontinued, Routine 1040 (Given - Provider: Kusum Galvez RN) 0934 (Given - Provider: Venessa Omalley, KRUNAL) 0900 (Given - Provider: Holli Bishop, KRUNAL) polyethylene glycol (MIRALAX) packet 17 g (CANCELED) 17 g, Oral, DAILY, First dose on Wed04/28/13 at 0900, Until Discontinued, Routine 0933 (Given - Provider: Venessa Omalley, KRUNAL) 0900 (Given - Provider: Holli Bishop, KRUNAL) venlafaxine (EFFEXOR-XR) XR Capsule 37.5 mg (CANCELED) [...] Discontinued, Routine 0933 (Given - Provider: Venessa Omalley, KRUNAL) 0900 (Given - Provider: Holli Bishop, KRUNAL) PRN Medication Order 04/27/2013 04/28/2013 04/29/2013 acetaminophen (TYLENOL) tablet 650 mg (CANCELED)(Linked Group 1) 650 mg, Oral, EVERY 4 HOURS PRN, Starting on Wed04/26/13 at 1535, Until 04/29/13 at 1647, Pain, mild pain, Maximum dose of acetaminophen is 4000 mg from all sources in 24 hours., Routine 0518 (Given - Provider: Miya March, KRUNAL)1030 (Given - Provider: Venessa Omalley, KRUNAL)1438 (Given - Provider: Kusum Galvez, KRUNAL)2016 (Given - Provider: Kellen Liu, RN) 0049 (Given - Provider: Odalis Capps, KRUNAL)0514 (Given - Provider: Tim Clark, RN)0934 (Given - Provider: Venessa Omalley, KRUNAL)1353 (Given - Provider: Venessa Omalley, KRUNAL)1816 (Given - Provider: Venessa Omalley, KRUNAL) 0020 (Given - Provider: Wen Mcguire, KRUNAL)0430 (Given - Provider: Wen Mcguire, KRUNAL)1320 (Given - Provider: Holli Bishop, KRUNAL) bisacodyl (DULCOLAX) suppository 10 mg (CANCELED) 10 mg, Rectal, DAILY PRN, Starting on Wed04/26/13 at 1535, Until 04/29/13 at 1647, Constipation, - If no bowel movement by morning of post day #2., Routine 171 (Given - Provider: Venessa Omalley, KRUNAL) calcium carbonate (TUMS) chewable tablet 1,000 mg (CANCELED) 1,000 mg, Oral, EVERY 6 HOURS PRN, Starting on Wed04/28/13 at 1708, Until 04/29/13 at 1647, Heartburn, Routine 171 (Given - Provider: Venessa Omalley RN)212 (Given - Provider: Wen Mcguire, KRUNAL) magnesium hydroxide (MILK OF MAGNESIA) oral suspension 10 mL (CANCELED) 10 mL, Oral, NIGHTLY PRN, Starting on Wed04/26/13 at 1535, Until 04/29/13 at 1647, Constipation, - If no bowel movement by morning of post day #1., Routine 0934 (Given - Provider: Venessa Omalley, KRUNAL) OXYcodone (ROXICODONE) immediate release tablet 5-10 mg 5-10 mg, Oral, EVERY 4 HOURS PRN, Starting on Wed04/26/13 at 1803, Until 04/29/13 at 1647, Pain, Routine 0515 (Given - Provider: Miya March, KRUNAL)1030 (Given - Provider: Venessa Omalley, KRUNAL)1438 (Given - Provider: Kusum Galvez, RN)2016 (Given - Provider: Kellen Liu, RN) 0049 (Given - Provider: Odalis Capps, RN)0514 (Given - Provider: Tim Clark, KRUNAL)0934 (Given - Provider: Venessa Omalley, RN)1353 (Given - Provider: Venessa Omalley, RN)1816 (Given - Provider: Venessa Omalley, RN)2125 (Given - Provider: Wen Mcguire, KRUNAL) 0020 (Given - Provider: Wen Mcguire RN)0431 (Given - Provider: Wen Mcguire, KRUNAL)0900 (Given [...] Routine documented in this encounter Care Teams Trap Operator Relationship Specialty Start Date End Date Bismark Bui, MITUL PCP - General 12/26/12 10/01/14 documented as of this encounter
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
--- OUTSIDE RECORDS SUMMARY | 2024-08-10 15:59 | XMS_ITS | Encounter Summary ---
Author Organization [facility] Address [facility] [place] [address] Care Team Providers Care Care Assistant Name Role Phone Bismark Bui Diana BAUMAN Primary Care Provider [phone] Reason for Visit * Reason Comments Routine Visit Encounter Details Date Type Department Care Team (Latest Contact Info) Description 04/20/2013 2:15 PM EDT Routine Obstetrics [place] [address] Wen Villalobos MD [facility] DR OBSTETRICS [place] [address] Lucila Blake MD [facility] DR OBSTETRICS [place] [address] GA: [id number] Discharge Disposition: Home Social History Tobacco Use [...] Sign Reading Time Taken Comments Blood Pressure 120/74 04/20/2013 1:59 PM EDT Pulse - - Temperature - - Respiratory Rate - - Oxygen Saturation - - Inhaled Oxygen Concentration - - Weight 106.6 kg (235 lb 1.6 oz) 04/20/2013 1:59 PM EDT Height - - Body Mass Index 43 04/20/2013 12:46 PM EDT documented in this encounter Progress Notes * Lucila Blake MD - 04/20/2013 3:04 PM EDT Asked to see pt as Dr. Villalobos is unavailable. Pt reports no issues. Has C/S scheduled next week. Will get vwf labs drawn the day prior as per Dr. Jameson's recs. Good FM, no ctxns, LOF, VB. Baby feels transverse, head to maternal left. Gave her C/S instructions sheet. documented in this encounter Plan of Treatment Upcoming Encounters Date Type Department Care Team (Late st Contact Info) Description 10/20/2024 9:00 AM EST Office Visit Hematology [place] [address] Lacy Jameson MD [facility] DR HEMATOLOGY [place] [address] Layla Jo RN documented as of this encounter Visit Diagnoses Diagnosis H/O: section- Primary Other postprocedural status documented in this encounter Care Teams Care Assistant Relationship Specialty Start Date End Date Bismark Bui APRN PCP - General 12/26/12 10/01/14 documented as of this encounter
--- OUTSIDE RECORDS SUMMARY | 2024-08-10 15:59 | XMS_ITS | Encounter Summary ---
[place] [address] Care Team Providers Care Operating Theatre Technician Name Role Phone Bismark Bui APRN Primary Care Provider Encounter Details Date Type Department Care Team (Late Contact Info) Description 01/24/2013 Telephone [place] [id number] Layla Jo RN Social History Tobacco Use [...] Telephone Encounter - Layla Bui RN - 01/24/2013 11:59 AM EST 42 yo vWD IIA, ADELITA 04/19/13. T/c to patient to review factor 8 and vWF lab results obtained at visit with Dr. Jameson on 01/23. Message left to return call when convenient. documented in this encounter Plan of Treatment Upcoming Encounters Date Type Department Care Team (Late Contact Info) Description 10/20/2024 9:00 AM EST Office Visit Hematology [place] [address] Lacy Jameson MD [facility] DR HEMATOLOGY [place] [address] Layla Jo RN documented as of this encounter Visit Diagnoses Not on filedocumented in this encounter Care Teams Operating Theatre Technician Relationship Specialty Start Date End Date Bismark Bui, MANAGER RN CASE PCP - General 12/26/12 10/01/14 documented as of this encounter
--- OUTSIDE RECORDS SUMMARY | 2024-08-10 15:59 | XMS_ITS | Encounter Summary ---
Author Organization [facility] Address [facility] [place] [address] Care Team Providers Care Technical Editor Name Role Phone Hao Ctodin Diana BAUMAN Primary Care Provider [phone] Reason for Visit * Reason Comments Care Encounter Details Date Type Department Care Team (Latest Contact Info) Description 05/17/2013 1:45 PM EDT Visit Obstetrics [place] [address] Damion Nolen MD [facility] DR OBSTETRICS & [place] [address] Generalized anxiety disorder (Primary Dx); Tubal ligation status; , supervision of, high-risk; Obesity (BMI 35.0-39.9 without comorbidity) Discharge Disposition: Home Social History Tobacco Use [...] Sign Reading Time Taken Comments Blood Pressure 110/72 05/17/2013 2:01 PM EDT Pulse - - Temperature - - Respiratory Rate - - Oxygen Saturation - - Inhaled Oxygen Concentration - - Weight 97.2 kg (214 lb 4.8 oz) 05/17/2013 2:01 P M EDT Height - - Body Mass Index 38.94 04/26/2013 8:17 AM EDT documented in this encounter Patient Instructions * Patient Instructions* Damion Nolen MD - 05/17/2013 2:34 PM EDT Fadia Sexton [phone] is in your area and comes with great recommendations. Or Zainab Goldstein (also in the same practice). documented in this encounter Progress Notes * Damion Nolen MD - 05/17/2013 2:28 PM EDT Doing overall well, feeling tired. Got Humate P prior to c/s. Kids are home from school. Her elevenyear old is having some problems adjusting to her new role. She says she has ups and downs and thatit is effected by how much her baby sleeps. She has not had much fmaily visiting. They are coming soon and they will be helpful. She does not have a therapist here in the [facility]. I gave her names previously, and she has not contacted them. I have put these names into her AVS again. No thoughts of hurting herself or others, but she is crying every other day. Her urination has improved since her c/s. Assessment & Plan, Depression score is 10, she has an appointment with Dr. Bazan in 1 month, we will see about moving it up. Incision: Healing well. Ok to get incision wet in a pool, wait 2 more week for a pond... No real swimming with abdominal muscle use until 6 weeks. Follow up for visit at 6 weeks documented in this encounter Miscellaneous Notes * Miscellaneous - Provider, Scanning - 05/22/2013 2:59 AM EDT documented in this encounter Plan of Treatment Upcoming Encounters Date Type Department Care Team (Late st Contact Info) Description 10/20/2024 9:00 AM EST Office Visit [place]ology [place] [address] Lacy Jameson MD [facility] [address] [place] [address] Layla Jo, RN documented as of this encounter Visit Diagnoses Diagnosis Generalized anxiety disorder- Primary Tubal ligation status , supervision of, high-risk Unspecified high-risk Obesity (BMI 35.0-39.9 without comorbidity) Obesity, unspecified documented in this encounter Care Teams Technical Editor Relationship Specialty Start Date End Date Bismark Bui APRN PCP - General 12/26/12 10/01/14 documented as of this encounter
--- OUTSIDE RECORDS SUMMARY | 2024-08-10 15:59 | XMS_ITS | Encounter Summary ---
Author Organization [facility] Address [facility] [place] [address] Care Team Providers Care Rug Repairer Name Role Phone Malini Daugherty MITUL Primary Care Provider [phone]- [phone] Encounter Details Date Type Department Care Team (Latest Contact Info) Description 03/11/2015 9:27 AM EDT - 03/11/2015 12:10 PM EDT Hospital Encounter [place] [address] Ken Quinn MD [facility] [address] [place] [address] Tyrone Mahmood MD [facility] [place] [address] Von Willebrand disease Discharge Disposition: Home Social [...] you need to be checked. Wednesday-[facility] Clinic [phone] 8a-5p Same Day Endo [phone] 7a-8p Otherwise contact [phone] and ask to speak to the testing consultant denial resolution specialist Follow up care is a richard part [...] TOM : 1970 Age: 44 y.o. Address: [address] [place] [phone] (home) Mobile: No relevant phone numbers on file. Referring Provider: Malini Daugherty Referral Procedure: Colonoscopy - screening ?? Patient has Van Willebrand disease and will need to receive Humate P approximately 1 hour prior to colonoscopy procedure. The patient should bring the medication in from home. Contact Yvette Duval ( Hematology ) ext. [phone], pgr. [phone] with any questions. Sedation Plan: Moderate sedation [...] DELIVERY performed by Clint Orlando MD at [facility] ??? Ligate fallopian tube, 04/26/2013 @FALLOPIAN TUBE(S), TRANSECTION OR LIGATION, ABD APPROACH, POST- performed by Clint Orlando MD at [facility] Medications: Prior to Admission [...] EST Office Visit Hematology [place] [address] Lacy Jameson MD [facility] [address] HEMATOLOGY [place] [address] Dez Jo, RN documented as of this [...] DAY PER [place], [place] [phone] WILL HELP WITH RX COLONOSCOPY, POLYPECTOMY, REMOVAL LESION BY SNARE (WRVU 4.57) 03/11/2015 10:44 AM EDT screening pt with YAZMIN SAHU. pt needs HUMATE-P IN SAME DAY PER COLO, [place] [phone] WILL HELP WITH RX PREPARE COAGULATION FACTORS (HEMOPHILIA) Routine 03/11/2015 10:20 AM EDT COLONOSCOPY Routine 03/11/2015 10:18 AM EDT documented in this encounter Results * Surgical Pathology Report (03/11/2015 11:23 AM EDT) Final Diagnosis ? [facility] ? Provider: ?? TYRONE MAHMOOD ?Pt. Name: ?? ELODIA TOM ? Acc #: ?[id number] ?Pt. ? Col Date: ?? 03/11/2015 ? [...] Diagnosis: ? Same 03/12/2015 3:37 PM EDT [facility] GI Biopsy 03/11/2015 11:2 3 AM EDT 03/11/2015 11:23 AM EDT GI Biopsy 03/11/2015 11:2 3 AM EDT 03/11/2015 11:23 AM EDT Tyrone Mahmood MD PATHOLOGY/CYTOLOGY O DUNIA Performing Organization Address [facility]/ZIP Co de Phone Number SANDRA JONES [facility] [place] [address] * Specimen to Pathology (surgical or derm) (03/11/2015 11:23 AM EDT) AP Specimen 03/11/2015 11:2 3 AM EDT 03/11/2015 11:23 AM EDT Narrative SANDRA SHIKHAEMILYIUM - 03/11/2015 11:23 AM EDT Specimen requisition ordered. ??Separate Pathology report to follow Tyrone Mahmood MD PATHOLOGY/CYTOLOGY O DUNIA Performing Organization Address [facility] Co de Phone Number SANDRA SHIKHAEMILYNANCY * Specimen to Pathology (surgical or derm) (03/11/2015 11:23 AM EDT) AP Specimen 03/11/2015 11:2 3 AM EDT 03/11/2015 11:23 AM EDT Narrative SANDRA SHIKHAEMILYIUM - 03/11/2015 11:23 AM EDT Specimen requisition ordered. ??Separate Pathology report to follow Tyrone Mahmood MD PATHOLOGY/CYTOLOGY O DUNIA SANDRA SHIKHANERIS * Prepare Coagulation Factors (Hemophilia) (03/11/2015 10:20 AM EDT) Dispensed? No SANDRA JONES Blood specimen (specimen) 03/11/2015 10:20 AM EDT 03/11/2015 10:16 AM EDT Narrative Resulting Agency Comment Spec In Lab Tyrone Mahmood MD BLOOD BANK PRODUCT O RDERABLES SANDRA JONES * COLONOSCOPY (03/11/2015 10:18 AM EDT) COLONOSCOPY [facility] Endoscopy Patient Name: Elodia Tom ? Procedure Date: 03/11/2015 10:18 AM ? N: [id number] ? Date of : 1970 ? Age: 44 ? Order #: [id number] ? Procedure: ? Colonoscopy Indications: ? Colon cancer screening in patient at ? increased risk: Family history of ? colon polyps Providers: ? Tyrone Mahmood MD, Joanna Rico ? Albina, KRUNAL, Bina Regan MD: ?Malini Daugherty, PLASTER MACHINE TENDER Medicines: ? Fentanyl 200 micrograms IV, Midazolam [...] 03/11/2015 10:1 8 AM EDT Malini Daugherty SHIPPING AND RECEIVING MATERIAL HANDLER GENERAL SURGICAL O RDERABLES [employer]OVATION documented in this encounter Visit Diagnoses Diagnosis Von Willebrand disease Von Willebrand's disease documented in this encounter Administered Medications Inactive Administered Medications - up to 3 most recent administrations Medication Order MAR Action Action Date Dose Rate Site antihemophilic factor VIII (HUMATE P) IV Kit 1,936 Units 1,936 Units, Intravenous, ONCE, 1 dose, On Wed03/11/15 at 1045, Patient to bring a vial of Humate P,1936 units, from home supply, to be infused IVP (over 2 minutes), via peripheral IV access in 4T with RN assistance, approximately one hour prior to colonoscopy at 11AM. See Jo note 03/07/15., Day of Surgery (Day of Procedure) Given 03/11/2015 10:00 AM EDT 1,936 Units lactated ringers infusion 100 mL/hr, Intravenous, CONTINUOUS, Starting on Wed03/11/15 at 1015, Until Wed03/11/15 at 1242, Endoscopy (Day of Procedure) New Bag 03/11/2015 10:13 AM EDT 100 mL/hr 100 mL/hr documented in this encounter Active and Recently Administered Medications Times are shown in EDT. Scheduled Medication Order 03/09/2015 03/10/2015 03/11/2015 antihemophilic factor VIII (HUMATE P) IV Kit 1,936 Units (COMPLETED) 1,936 Units, Intravenous, ONCE, 1 dose, On Wed03/11/15 at 1045, Patient to bring a vial [...] RN) documented in this encounter Care Teams Rug Repairer Relationship Specialty Start Date End Date Malini Daugherty, MITUL [facility] [address] [place] [address] PCP - General 10/02/14 06/06/15 documented as of this encounter
--- OUTSIDE RECORDS SUMMARY | 2024-08-10 15:59 | XMS_ITS | Encounter Summary ---
Author Organization [facility] Address [facility] [place] [address] Care Team Providers Care Interchange Agent Name Role Phone Hao, Bismark Ortiz APRN Primary Care Provider Encounter Details Date Type Department Care Team (Latest Contact Info) Description 04/25/2013 11:41 AM EDT - 04/25/2013 11:59 PM EDT Hospital Encounter Hematology [place] [address] Lacy Jameson MD [facility] [place] [address] Von Willebrand disease, type IIa Discharge Disposition: Home Social History Tobacco Use [...] capsule PRN 03/29/2013 05/15/2013 vitamin 27 & [id number] 60 mg iron-1 mg tablet Take 1 tablet by mouth daily. 01/01/2014 documented as of this encounter Plan of Treatment Upcoming Encounters Date Type Department Care Team (Late st Contact Info) Description 10/20/2024 9:00 AM EST Office Visit Hematology [place] [address] Lacy Jameson MD [facility] [place] [address] Layla Jo RN documented as of this encounter Procedures Procedure Name Priority Date/Time Associated Diagnosis Comments DIFFERENTIAL, AUTOMATED Routine 04/25/2013 11:49 AM EDT VON WILLEBRAND FACTOR ANTIGEN Routine 04/25/2013 11:49 AM EDT Von Willebrand disease, type IIa VON WILLEBRAND FACTOR ACTIVITY Routine 04/25/2013 11:49 AM EDT Von Willebrand disease, type IIa FACTOR 8 ASSAY Routine 04/25/2013 11:49 AM EDT Von Willebrand disease, type IIa CBC (WITH DIFF) Routine 04/25/2013 11:49 AM EDT Von Willebrand disease, type IIa documented in this encounter Results * (ABNORMAL) Differential, Automated (04/25/2013 11:49 AM EDT) Neutrophil % 83.2(H) 34.0 - 71.0 % CERNER MILLENNIUM Neutrophil Absolute 7.55(H) 1.50 - 6.30 x10(3)/mc L CERNER MILLENNIUM Lymph % 11.1(L) 19.0 - 53.0 % CERNER MILLENNIUM Lymphocytes Abs 1.0 1.0 - 3.6 x10(3)/mc L CERNER MILLENNIUM Monocyte % 4.8 4.0 - 13.0 % CERNER MILLENNIUM Monocyte Abs 0.4 0.2 - 1.0 x10(3)/mc L CERNER MILLENNIUM Eos % 0.4 0.0 - 7.0 % CERNER MILLENNIUM Eosinophils Abs 0.0 0.0 - 0.5 x10(3)/mc L CERNER MILLENNIUM [...] x10(3)/mc L CERNER MILLENNIUM Blood specimen (specimen) 04/25/2013 11:49 AM EDT 04/25/2013 12:00 PM EDT Lacy Jameson MD HEMATOLOGY ORDERAB LES CERNER SHIKHAENNIUM * CBC (with Diff) (04/25/2013 11:49 AM [...] Standard Deviation 45.5 35.0 - 46.0 fL CERNER MILLENNIUM RDW coefficient of variation 13.6 10.9 - 14.4 % CERNER MILLENNIUM Mean Platelet Volume 11.2 9.0 - 12.0 fL CERNER MILLENNIUM Blood specimen (specimen) 04/25/2013 11:49 AM EDT 04/25/2013 12:00 PM EDT Narrative Resulting Agency Comment Spec In Lab Lacy Jameson MD HEMATOLOGY ORDERAB LES Performing Organization Address City/[facility]/ZIP Co de Phone Number [facility] * Von Willebrand Factor Activity (04/25/2013 11:49 AM EDT) Von Willebrand Factor Assay 54 50 - 150 % activity [facility] Blood specimen (specimen) 04/25/2013 11:49 AM EDT 04/25/2013 12:00 PM EDT Narrative Resulting Agency Comment Spec In Lab Lacy Jameson MD HEMATOLOGY ORDERAB LES Performing Organization Address [facility] Co de Phone Number [facility] * Von Willebrand Factor Antigen (04/25/2013 11:49 AM EDT) von Willebrand Factor Antigen 110 % [facility] vWF Anti Interp ABO blood group has a significant influence on vWF:Ag levels in normal individuals*. ??Type A individuals have a mean level of 106% (range: 48-234% 2SD). ??* Ruby ESCALONA, et. al. ??The Effect of ABO Blood Group on the Diagnosis of von Willebrand Disease. ??Blood, 1987; 69(6) : 2936-8372 [facility] SH[facility] Blood specimen (specimen) 04/25/2013 11:49 AM EDT 04/25/2013 12:00 PM EDT Narrative Resulting Agency Comment Spec In Lab Lacy Jameson MD HEMATOLOGY ORDERAB LES Performing Organization Address City/[facility]/ZIP Co de Phone Number [facility] * Factor 8 assay (04/25/2013 11:49 AM EDT) Factor VIII Assay 142 50 - 150 % SANDRA JONES Blood specimen (specimen) 04/25/2013 11:49 AM EDT 04/25/2013 12:00 PM EDT Narrative Resulting Agency Comment Spec In Lab Lacy Jameson MD HEMATOLOGY ORDERAB LES SANDRA JONES documented in this encounter Visit Diagnoses Diagnosis Von Willebrand disease, type IIa Von Willebrand's disease documented in this encounter Care Teams Interchange Agent Relationship Specialty Start Date End Date Bismark Bui, MITUL PCP - General 12/26/12 10/01/14 documented as of this encounter
--- OUTSIDE RECORDS SUMMARY | 2024-08-10 15:59 | XMS_ITS | Encounter Summary ---
Author Organization [facility] [place] [address] Care Team Providers Care Neuropsychiatric Aide Name Role Phone Bismark Bui Diana BAUMAN Primary Care Provider Encounter Details Date Type Department Care Team (Late st Contact Info) Description 04/26/2013 12:59 PM EDT Anest[place] [address] João Ramirez MD [facility] [place] [address] Luan Nicholas MD [facility] [place] [address] Anesthesia Record Procedure Summary Procedure Name Responsible Anesthesiologist Anesthesia Start Time Anesthesia Stop Time @ DELIVERY (WRVU 16.13) (Bilateral: Abdomen) João Ramirez MD 04/26/13 1259 04/26/13 1532 Events Date Time Event Comment 04/26/2013 1259 Start 1302 AN Verify 1302 An Start Data 1307 Spinal 1319 Anesthesia Ready 1323 Skin Incision 1349 Uterine Incision 1350 Baby Delivered 1515 Procedure Stop 1519 an stop data 1532 Stop 04/27/20131999 Meds Name Total ondansetron 4 mg ceFAZolin 2 g PHENYLephrine INF 2,920 mcg Promethazine 6 mg lactated ringers 1,600 mL lactated ringers 1,000 mL * Agents Name O2 N2O * Blood No blood administrations on file. Lines, Drains, and Airways Type Details Placement Removal (RETIRED By STACIE) Incision 04/26/13; 1350 04/26/13 1350 by Kusum Galvez RN (RETIRED) Peripheral IV Line - Single Lumen 04/26/13; 0800; 04/26/13; 1631 04/26/13 0800 by Ron Mathew RN 04/26/13 1631 by Ron Mathew RN (RETIRED) Peripheral IV Line - Single Lumen 04/26/13; 1259; 04/29/13; 1121 04/26/13 1259 by Luan Nicholas MD 04/29/13 1121 by Holli Bishop RN Urethral Catheter 04/26/13; 1310; indwelling double lumen catheter; 100% silicone; 16; inserted; 1; leg bag to dependent drainage; 04/27/13; 1030 04/26/13 1310 by Kusum Galvez RN 04/27/13 1030 by Kusum Galvez RN Incision 04/26/13; 1330; abdomen; 07/27/22 (LDA cleanup utility RA#[id number]); 1715 (LDA cleanup utility RA#[id number]) 04/26/13 1330 by Venessa Omalley RN 07/27/22 1715 by Xiang Hamilton documented in this encounter Social History Tobacco [...] OR Notes * Anesthesia Postprocedure Evaluation - Luan Nicholas MD - 04/27/2013 6:22 PM EDT Patient: Elodia Lin Procedure(s) Performed: Procedure(s): @ DELIVERY @FALLOPIAN TUBE(S), TRANSECTION OR LIGATION, ABD APPROACH, POST- Actual Anesthetic: Spinal Patient location: Labor and Delivery Post-op pain: Adequate analgesia Post-op nausea: no nausea or vomiting Last Vitals: Filed Vitals: 04/27/13 0917 BP: 113/67 Pulse: 79 Temp: 36.4 ??C (97.5 ??F) Resp: 18 Post-op cardiovascular and respiratory status: is at baseline Level of consciousness: awake, alert and oriented Complications: no apparent complications and tolerated the procedure well Fluid Status: normal No residual numbness or weakness, ambulating. Doing well. * Anesthesia Preprocedure Evaluation - Luan Nicholas MD - 04/25/2013 3:30 PM EDT Pre-Anesthesia Evaluation for: Elodia Lin a 42 y.o. female. Procedure(s): @ DELIVERY @FALLOPIAN TUBE(S), TRANSECTION OR LIGATION, ABD APPROACH, POST- Patient Active Problem List Diagnoses ??? Generalized anxiety disorder ??? Dysthymic [...] signed on 01/23. ??? Uterine septum ??? , supervision of, high-risk Team MFM Delivery plan April 26 ERCS with BTL, Humpate P based on prior day labs GBS date & Result Cystic fibrosis choice Aneuploidy choice Others screening tests Infant nutrition Childbirth education preferences Repeat c/s Contraception plan TL Ped/circ plans [facility] Immunizations: Influenza vaccine Accepted Declined Contraindicated x Other vaccines Indicated Not indicated Given during Tdap Pneumovax MMR Varicella x Other ??? Obesity (BMI 35.0-39.9 without comorbidity) ??? [...] blood top tubes. (info scanned into system) Past Medical History Diagnosis Date ??? Abnormal Pap smear and cervical HPV (human papillomavirus) 2007 normal since ??? Trauma ??? Anemia end of 2nd ??? depression after of 1s child, was on medication ??? Varicella ??? Von Willebrand disease type 2A ??? Uterine anomaly septum Past Surgical History Procedure Date ??? Dilation and curettage of uterus 2000 after SAB ??? Orthopedic surgery 1993, 1996 scar tissue on wrists and ankle ??? section 2001,2004 x2 History Substance Use Topics ??? Smoking status: Never Smoker ??? Smokeless tobacco: Never Used ??? Alcohol Use: No Allergies Allergen Reactions ??? Codeine Percocet is ok Medications: MAR and/or home medications have been reviewed. Physical Exam: There were no vitals filed for this visit. There is no height or weight on file to calculate BMI. Airway Assessment: Mallampati: III TM distance: >3 FB Neck ROM: full Mal I with phonation Cardiovascular Assessment: cardiovascular exam normal Pulmonary Assessment: pulmonary exam normal Dental Assessment: Misc Assessment: Anesthesia Plan: ASA 3 regional, 42 yo F with hx or two prior cesareans and Von Willebrand's Disease Type 2a, she is followed by Hematology [facility] w/ Dr. Jameson. She has been managed previously for withinfusion of Humate P with good response and similar management has been recommended for her upcoming (Humate P dose of 4,000 units given 1 hour preoperatively). Hematology is aware of the pat ient's admission and plans are in place to draw the appropriate labs pre-Humate P administration, post infusion, and post-operatively. There does not appear to be a clear contraindication to neuraxial anesthesia and our hematology colleagues believe it is reasonable to proceed with regional anesthesia if indicated. The patient otherwise is healthy without HTN or asthma. Anesthetic options discussed in detail including inherent risks. Questions elicited and answered. Patient voiced understanding. Anesthetic consent signed. [place] - [place] [facility] [place]: documented in this encounter Plan of Treatment Upcoming Encounters Date Type Department Care Team (Late st Contact Info) Description 10/20/2024 9:00 AM EST Office Visit Hematology [place] [address] Lacy Jameson MD [facility] [address] [place] [address] Layla Jo RN documented as of this encounter Visit Diagnoses Not on filedocumented in this encounter Administered Medications Inactive Administered Medications - up to 3 most recent administrations Medication Order MAR Action Action Date Dose Rate Site ceFAZolin (ANCEF) injection PRN, Starting on Wed04/26/13 at 1318, Until Wed04/26/13 at 1532, Anesthesia Intra-op, Routine Given 04/26/2013 1:18 PM EDT 2 g lactated ringers infusion CONTINUOUS PRN, Starting on Wed04/26/13 at 1259, Until Wed04/26/13 at 1532, Anesthesia Intra-op New Bag 04/26/2013 12:59 PM EDT mL lactated ringers infusion CONTINUOUS PRN, Starting on Wed04/26/13 at 1259, Until Wed04/26/13 at 1532, Anesthesia Intra-op New Bag 04/26/2013 12:59 PM EDT mL ondansetron (ZOFRAN) injection PRN, Starting on Wed04/26/13 at 1430, Until Wed04/26/13 at 1532, Nausea, Anesthesia Intra-op, Routine Given 04/26/2013 2:30 PM EDT 4 mg PHENYLephrine (JESSICA-SYNEPHRINE) 20 mg in sodium chloride 250 mL infusion CONTINUOUS PRN, Starting on Wed04/26/13 at 1307, Until Wed04/26/13 at 1532, Anesthesia Intra-op, Routine Rate/Dose Change 04/26/2013 2:25 PM EDT 10 mcg/min 7.5 mL/hr Rate/Dose Change 04/26/2013 2:01 PM EDT 20 mcg/min 15 mL/h r Rate/Dose Change 04/26/2013 1:44 PM EDT 30 mcg/min 22.5 mL /hr promethazine (PHENERGAN) injection PRN, Nausea, Starting on Wed04/26/13 at 1432, Until Wed04/26/13 at 1532, Avoid extravasation, Anesthesia Intra-op Given 04/26/2013 2:32 PM EDT 6 mg documented in this encounter Care Teams Neuropsychiatric Aide Relationship Specialty Start Date End Date Bismark Bui, NAILHEAD SETTER PCP - General 12/26/12 10/01/14 documented as of this encounter
--- OUTSIDE RECORDS SUMMARY | 2024-08-10 15:59 | XMS_ITS | Encounter Summary ---
Author Organization [facility] Address [place] [address] Care Team Providers Care Firer Glost Kiln Name Role Phone Bismark Bui Diana BAUMAN Primary Care Provider Reason for Visit * Reason Comments Routine Visit Encounter Details Date Type Department Care Team (Latest Contact Info) Description 02/22/2013 11:45 AM EDT Routine Obstetrics [place] [address] Bayron Vinson MD [facility] DR OBSTETRICS [place] [address] GA: [id number] Discharge Disposition: Home Social History Tobacco Use [...] Reading Time Taken Comments Blood Pressure 118/68 02/22/2013 11:48 AM EDT Pulse - - Temperature - - Respiratory Rate - - Oxygen Saturation - - Inhaled Oxygen Concentration - - Weight 105.3 kg (232 lb 1.6 oz) 013 11:48 AM EDT Height - - Body Mass Index 42.45 01/23/2013 12:13 PM EST documented in this encounter Progress Notes * Bayron Vinson MD - 02/22/2013 12:06 PM EDT Good movement. No contractions/ leaking fluid / bleeding / pain. No headache, vision changes, RUQ pain. Normal 1 hr GTT. RTC 2 weeks. documented in this encounter Plan of Treatment Upcoming Encounters Date Type Department Care Team (Late st Contact Info) Description 10/20/2024 9:00 AM EST Office Visit Hematology [place] [address] Lacy Jameson MD [facility] DR [place] [address] Layla Jo RN documented as of this encounter Visit Diagnoses Diagnosis Tubal ligation status- Primary , supervision of, high-risk Unspecified high-risk documented in this encounter Care Teams Firer Glost Kiln Relationship Specialty Start Date End Date Bismark Bui APRN PCP - General 12/26/12 10/01/14 documented as of this encounter
--- OUTSIDE RECORDS SUMMARY | 2024-08-10 15:59 | XMS_ITS | Encounter Summary ---
Author Organization [facility] Address [facility] [place] [address] Care Team Providers Care Custody Assistant Name Role Phone Hao Bismark Ortiz APRN Primary Care Provider Encounter Details Date Type Department Care Team (Latest Contact Info) Description 01/23/2013 11:03 AM EST - 01/23/2013 11:59 PM [facility] Hospital [place] [address] CLINIC, DR NITHIN Jameson, Lacy Forbes MD [facility] [place] [address] Von Willebrand disease, type IIa Discharge Disposition: [...] 37.5 mg by mouth every other day. 03/29/2013 vitamin 27 & gqsyjni-[id number]-HT 60 mg iron-1 mg tablet Take 1 tablet by mouth daily. 01/01/2014 documented as of this encounter Plan of Treatment Upcoming Encounters Date Type Department Care Team (Late st Contact Info) Description 10/20/2024 9:00 AM EST Office Visit [place]ology [place] [address] Lacy Jameson MD [facility] [address] [place] [address] Layla Jo RN documented as of this encounter Procedures Procedure Name Priority Date/Time Associated Diagnosis Comments VON WILLEBRAND FACTOR ANTIGEN Routine 01/23/2013 11:12 AM EST Von Willebrand disease, type IIa VON WILLEBRAND FACTOR ACTIVITY Routine 01/23/2013 11:12 AM EST Von Willebrand disease, type IIa FACTOR 8 ASSAY Routine 01/23/2013 11:12 AM EST Von Willebrand disease, type IIa documented in this encounter Results * Von Willebrand Factor Antigen (01/23/2013 11:12 AM EST) von Willebrand Factor Antigen 103 % [facility] vWF Anti Interp ABO blood group has a significant influence on vWF:Ag levels in normal individuals*. ??Type A individuals have a mean level of 106% (range: 48-234% 2SD). ??* Ruby ESCALONA, et. al. ??The Effect of ABO Blood Group on the Diagnosis of von Willebrand Disease. ??Blood, 1987; 69(6) : 1537-1950 [facility] Blood specimen (specimen) 01/23/2013 11:12 AM EST 01/23/2013 11:20 AM EST Narrative Resulting Agency Comment Spec In Lab Lacy Jameson MD HEMATOLOGY ORDERAB LES [facility] * (ABNORMAL) Von Willebrand Factor Activity (01/23/2013 11:12 AM EST) Von Willebrand Factor Assay 43(L) 50 - 150 % activity [facility] Blood specimen (specimen) 01/23/2013 11:12 AM EST 01/23/2013 11:20 AM EST Narrative Resulting Agency Comment Spec In Lab Lacy Jameson MD HEMATOLOGY ORDERAB LES Performing Organization Address City/[facility] Co de Phone Number [facility] * (ABNORMAL) Factor 8 assay (01/23/2013 11:12 AM EST) Factor VIII Assay 167(H) 50 - 150 % [facility] Blood specimen (specimen) 01/23/2013 11:12 AM EST 01/23/2013 11:20 AM EST Narrative Resulting Agency Comment Spec In Lab Lacy Jameson MD HEMATOLOGY ORDERAB LES Performing Organization Address City/[facility] Co de Phone Number [facility] documented in this encounter Visit Diagnoses Diagnosis Von Willebrand disease, type IIa Von Willebrand's disease documented in this encounter Care Teams Custody Assistant Relationship Specialty Start Date End Date Bismark Bui, MITUL PCP - General 12/26/12 10/01/14 documented as of this encounter
--- OUTSIDE RECORDS SUMMARY | 2024-08-10 15:59 | XMS_ITS | Encounter Summary ---
[place] [address] Care Team Providers Care Front Facer Name Role Phone JohnlissetteMalini MITUL Primary Care Provider [phone]- [phone] Encounter Details Date Type Department Care Team (Late st Contact Info) Description 11/02/2014 Telephone Hematology [place] [phone] Layla Jo RN Social History Tobacco Use [...] Telephone Encounter - Layla Jo RN - 11/03/2014 7:41 PM EST T/c with Danyel Stout RN, regarding pending colonoscopy for patient on 12/03/[address] Jameson's hematology treatment plan reviewed ( see below) as well as timeline for prophylactic IVP Humate P infusion . Dr. Jameson will review treatment plan upon return to clinic next Wednesday. Procedure to be performed at 4T suite. Per Nikhil Stout RN, An IV will be placed in 4T procedure room. Dr. Jameson will review and place Humate P orders as needed prophylactically to be infused approximately one hour prior to procedure. Hemophilia nurse available to assist with infusion as needed. Will follow up with Danyel Stout and patient next week with Dr. Jameson's recommendations. Addendum: 11/30/14 - T/c to patient to review plan. Patient stated she rescheduled procedure for 03/11/15 at 11AM ( she was having transportation problems today) Will maintain same hematology plan per Dr. Jameson. Patient will Bring a vial of Humate P. 1936 units, from home and will be infused at the 4T suite as previously planned..Hemophilia nurses available to assist with Humate P infusion at approximately 10AM. Patient verbalized agreement with plan. Layla Jo, GERMÁN, RN 11/30/14 ===View-only below this line=== ----- Message ----- From: Danyel Stout, RN Sent: 11/01/2014 10:26 AM To: KRUNAL Saleh, This patient needs to be scheduled for a colonoscopy and has type 2 von Willebrand Disease. Past notes say that she should be covered with Humate-P for the procedure. How does the process work for this? Thanks, Camron Stout Emergency Hematology Protocol 07/10/14 [facility] Department of Medicine [place] [address] [facility] Emergency Treatment Plan von Willebrand Disease (vWD), Type 2A Elodia Lin, 1970 ?? Elodia Lin has von Willebrand disease (VWD), Type 2A. She has a relatively minor bleeding phenotype, however, inasmuch as she has significant bleeding only with hemostatic challenges such as injury or surgery. ?? The treatment for Elodia's VWD is a plasma derived factor concentrate containing both von Willebrand factor and factor 8, e.g., Humate P or Alphanate. This should be administered IV Push in the event of injury or as prophylaxis prior to invasive procedures. ?? has an emergency supply of Humate P at home. Treatment Recommendations Minor and moderate injuries (e.g., soft tissue trauma, early minor muscle bleed, persistent epistaxis ) Conservative measures should be used, including compression, ice, elevation, rest . In addition, consider IV administration of a dose of Humate P or Alphanate, 25 units per kg of body weight. Medicalevaluation is recommended in the event of significant trauma ( e.g., head injury ). Major injuries or surgery: RECOVERY SPECIALIST, GI, retroperitoneal, retropharyngea l Bleeding or significant trauma, fracture. Major injuries will require aggressive replacement with Humate P or Alphanate in order to sustain VWF levels near 100%. 50 to 60 international units (IU) of Humate P or Alphanate per kg of body weight is required to raise the vWF levels to 100%. It may be necessary to maintain hemostatic levels for several days to weeks by giving additional doses of Humate P or Alphanate. vWF levels may need to be monitored frequently to assure adequate hemostasis. Admission to a facility that specializes in hemophilia care is strongly recommended. The [facility] provides 24 hour coverage for any emergent hemophilia issuesthat arise. Call [phone], Mon. to Fri. 8:00-5:00. On weekends, nights & holidays call [phone] ask for the nurse ceramic maker demonstrator for hemophilia. ( Layla DUNLAP, RN. Or GERMÁN Leyva, RN )Hematologists are also ceramic maker demonstrator and available for back-up. MD Layla Brian, MSN, RN Certified Shorthand Reporter, [facility] Center Clinical Nurse Specialist Hemophilia and Thrombosis Layla Jo, GERMÁN, RN documented in this encounter Plan of Treatment Upcoming Encounters Date Type Department Care Team (Late st Contact Info) Description 10/20/2024 9:00 AM EST Office Visit Hematology [place] [address] [facility] HEMATOLOGY [place] [address] Layla Jo, RN documented as of this encounter Visit Diagnoses Not on filedocumented in this encounter Care Teams Front Facer Relationship Specialty Start Date End Date Malini Daugherty, MITUL [facility] [address] [place] [address] PCP - General 10/02/14 06/06/15 documented as of this encounter
--- OUTSIDE RECORDS SUMMARY | 2024-08-10 15:59 | XMS_ITS | Encounter Summary ---
[place] [address] Care Team Providers Care Delivery Supervisor Name Role Phone JohnMalini mclaughlin MITUL Primary Care Provider +1- [phone] Encounter Details Date Type Department Care Team (Late st Contact Info) Description 03/07/2015 Telephone Hematology [place] [phone] Layla Jo RN Social History Tobacco Use [...] Telephone Encounter - Layla Jo RN - 03/07/2015 12:00 PM EDT VWD, 2A Wt. 95 Kgs. (01/2014) T/c with Danyel Stout RN, (4T) regarding pending colonoscopy for patient now rescheduled on 03/11/[address] Jameson's hematology treatment plan reviewed as well as timeline for prophylactic IVP Humate P infusion . Procedure to be performed in 4T suite. Patient to arrive an hour prior to procedure. Per Nikhil Stout RN, an IV will be placed in 4T procedure room. Dr. Jameson will review and place Humate P orders prior to procedure. Hemophilia nurse available to assist with infusion as needed. Patient in possession of 2 vials of Humate P, 1936 units per vial and instructed to bring one vial Humate P from home supply for IVP infusion. Voice mail message left on patient phone number to bringHumate P with her and to call hemophilia office to confirm she received message. Explained to Mr. Stout, I will not be available on Wednesday and provided, Jacinta Cortes, GERMÁN, RN, name and pager for any questions or assistance needed with Humate P, IVP infusion on Wednesday morning. Will attempt to reach patient by phone directly over next 24 hours. GERMÁN Alcaraz, RN 4:15 PM Adddendum: A follow up t/c to patient's mobile phone and voice message left with brief review of plan for Sunday 03/11, including request to bring Humate P to 4T and contact information to call the hemophilia office to confirm patient received calls. GERMÁN Alcaraz, RN Emergency Hematology Protocol 07/10/14 [facility] Department of Medicine [place] [address] Hem[facility] Thrombosis Center Emergency Treatment Plan von Willebrand Disease (vWD), Type 2A Elodia Lin, 1970 ?? Elodia Lin has von Willebrand disease (VWD), Type 2A. She has a relatively minor bleeding phenotype, however, inasmuch as she has significant bleeding only with hemostatic challenges such as injury or surgery. ?? The treatment for Hectors VWD is a plasma derived factor concentrate [...] head injury ). 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 The [facility] provides 24 hour coverage for any emergent hemophilia issuesthat arise. Call [phone], Mon. to Fri. 8:00-5:00. On weekends, nights & holidays call [phone] ask for the nurse long haul truck driver for hemophilia. ( Layla Jo MSN, RN. Or Jacinta Duval MSN, RN )Hematologists are also long haul truck driver and available for back-up. MD Layla Brian, MSN, RN [employer], [facility]ophilia [facility] Thrombosis Center Clinical Nurse Specialist Hemophilia and Thrombosis documented in this encounter Plan of Treatment Upcoming Encounters Date Type Department Care Team (Late st Contact Info) Description 10/20/2024 9:00 AM EST Office Visit Hematology [place] [address] Lacy Jameson MD [facility] DR HEMATOLOGY [place] [address] Layla Jo, RN documented as of this encounter Visit Diagnoses Not on filedocumented in this encounter Care Teams Delivery Supervisor Relationship Specialty Start Date End Date Malini Daugherty APRN [facility] [address] [place] [address] PCP - General 10/02/14 06/06/15 documented as of this encounter
--- OUTSIDE RECORDS SUMMARY | 2024-08-10 15:59 | XMS_ITS | Encounter Summary ---
Author Organization [facility] Address [facility] [place] [address] Care Team Providers Care Steam And Gas Turbines Assembler Name Role Phone Bismark Bui Diana BAUMAN Primary Care Provider Reason for Visit * Reason Comments Routine Visit Encounter Details Date Type Department Care Team (Latest Contact Info) Description 03/29/2013 2:30 PM EDT Routine Obstetrics [place] [address] Deepali Fan MD [facility] DR OBSTETRICS & [place] [address] GA: [id number] Discharge Disposition: Home Social History [...] as of this encounter Progress Notes * Deepali Fan MD - 03/29/2013 2:30 PM EDT No problems, just tired and some swoellen feet. Kids at home are excited, bu tnervous. documented in this encounter Miscellaneous Notes * Miscellaneous - Provider, Scanning - 03/30/2013 9:29 AM EDT documented in this encounter Plan of Treatment Upcoming Encounters Date Type Department Care Team (Late st Contact Info) Description 10/20/2024 9:00 AM EST Office Visit Hematology [place] [address] Lacy Jameson MD [facility] DR HEMATOLOGY [place] [address] Layla Jo RN documented as of this encounter Procedures Procedure Name Priority Date/Time Associated Diagnosis Comments GROUP B STREPTOCOCCUS SCREEN Routine 03/29/2013 5:28 PM EDT GROUP B STREP CULTURE SCREEN Routine 03/29/2013 5:28 PM EDT Supervision of high-risk documented in this encounter Results * Group B Streptococcus Screen (03/29/2013 5:28 PM EDT) GBS Screen Neg [facility] Pooled specimen from vaginal introitus and rectal swab (specimen) 03/29/2013 5:28 PM EDT 03/29/2013 5:28 PM EDT Comment:PENICILLIN ALLERGY?- >NO Narrative Resulting Agency Comment Spec In Lab Deepali Fan MD MICROBIOLOGY - GENER AL ORDERABLES [facility] * Group B Strep Culture Screen (03/29/2013 5:28 PM EDT) Group B Streptococcus Culture ? Patient Name: ELODIA LIN ?Ordered By: DEEPALI FAN ? MR#: [id number] ?LOC: ??5L ? /Sex: ??1970 (42 years), ? Female ? PROCEDURE: Group B Streptococcus Culture ?SOURCE: Vag/Rectal ? COLLECTED: 03/29/2013 17:28 ?FREE TEXT SOURCE: Penicillin Allergy?->No ? STARTED: 03/29/2013 17:29 ? FINAL REPORT ? Final Report ? Verified: 013 08:28 ? No Group B Streptococci isolated ? PRELIMINARY REPORT ? Preliminary Report ? Verified: 013 11:08 ? Culture in progress ? [facility] Pooled specimen from vaginal introitus and rectal swab (specimen) 03/29/2013 5:28 PM EDT 03/29/2013 5:28 PM EDT Comment:PENICILLIN ALLERGY?- >NO Narrative Resulting Agency Comment Spec In Lab Deepali Fan MD MICROBIOLOGY - GENER AL ORDERABLES [facility] documented in this encounter Visit Diagnoses Diagnosis Supervision of high-risk - Primary Unspecified high-risk documented in this encounter Care Teams Steam And Gas Turbines Assembler Relationship Specialty Start Date End Date Bismark Bui APRN PCP - General 12/26/12 10/01/14 documented as of this encounter
--- OUTSIDE RECORDS SUMMARY | 2024-08-10 15:59 | XMS_ITS | Encounter Summary ---
Author Organization [facility] Address [facility] [place] [address] Care Team Providers Care Analysis Reporting Developer Name Role Phone Hao Bismark Ortiz APRN Primary Care Provider Encounter Details Date Type Department Care Team (Latest Contact Info) Description 01/23/2013 11:02 AM EST - 01/23/2013 11:59 PM [facility] [place] [address] Bayron Vinson MD [facility] OBSTETRICS [place] [address] , supervision of, high-risk; Obesity (BMI 35.0-39.9 [...] every other day. 03/29/2013 vitamin 27 & nbgggxr-ggaz-IX 60 mg iron-1 mg tablet Take 1 tablet by mouth daily. 01/01/2014 documented as of this encounter Plan of Treatment Upcoming Encounters Date Type Department Care Team (Late st Contact Info) Description 10/20/2024 9:00 AM EST Office Visit Hematology and Oncology at [facility] [place] [address] Lacy Jameson MD [facility] DR [place]AT[place] [address] Layla Jo RN documented as of this encounter Procedures Procedure Name Priority Date/Time Associated Diagnosis Comments DIFFERENTIAL, AUTOMATED Routine 01/23/2013 11:12 AM EST GLUCOSE 1 HOUR POST PRANDIAL Routine 01/23/2013 11:12 AM EST , supervision of, high-risk Obesity (BMI 35.0-39.9 without comorbidity) CBC (WITH DIFF) Routine 01/23/2013 11:12 AM EST , supervision of, high-risk Obesity (BMI 35.0-39.9 without comorbidity) documented in this encounter Results * (ABNORMAL) Differential, Automated (01/23/2013 11:12 AM EST) Neutrophil % 83.0(H) 34.0 - 71.0 % [facility] Neutrophil Absolute 7.85(H) 1.50 - 6.30 x10(3)/mc L [facility] Lymph % 10.8(L) 19.0 - 53.0 % [facility] Lymphocytes Abs 1.0 1.0 - 3.6 x10(3)/mc L [facility] Monocyte % 5.0 4.0 - 13.0 % [facility] MILLENNIUM Monocyte Abs 0.5 0.2 - 1.0 x10(3)/mc L [facility]ILL[facility] Eos % 0.8 0.0 - 7.0 % [facility] MILLENNIUM Eosinophils Abs 0.1 0.0 - 0.5 x10(3)/mc L [facility] MILLENNI[facility] Basophil % 0.1 0.0 - 2.0 % [facility] MILLENNI[facility] Baso Absolute 0.0 0.0 - 0.2 x10(3)/mc L [facility] MILLENNI[facility] Immature Gran % 0.30 0.00 - 0.66 % [facility] MILLENNI[facility] Comment: Immature granulocytes(IG's)percentage and absolute count will include metamyelocytes, myelocytes, and promyelocytes. Blood smears from CBCs yielding IG's will be scanned manually for concordance. If this scan disagrees with the automated IG or if promyelocytes are noted, a manual differential will be performed. Immature Gran Absolute 0.03 0.00 - 0.05 x10(3)/mc L [facility] Blood specimen (specimen) 01/23/2013 11:12 AM EST 01/23/2013 11:20 AM EST E Michell Vinson MD HEMATOLOGY ORDERA BLES [facility] * Glucose 1 Hour Post Prandial (01/23/2013 11:12 AM EST) Glucose Post Prandial, 1 Hour 116 mg/dL [facility] Blood specimen (specimen) 01/23/2013 11:12 AM EST 01/23/2013 11:20 AM EST Narrative Resulting Agency Comment Spec In Lab E Michell Vinson MD CHEMISTRY ORDERAB LES [facility] * (ABNORMAL) CBC (with Diff) (01/23/2013 11:12 AM EST) White Blood Cell 9.5 4.0 - 10.0 x10(3)/mc L [facility] MILLENNIUM Red Blood Cell 3.86(L) 3.93 - 5.22 x10(6)/mc L [facility] MILLENNIUM Hemoglobin 12.1 11.2 - 15.7 gm/dL [facility] MILLENNIUM Hematocrit 36.2 34.0 - 45.0 % CERNER MILLENNIUM Mean Cell Volume 93.8 79.0 - 94.0 fL CERN[facility] MILLENNIUM Mean Cell Hemoglobin 31.3 26.6 - 32.2 pg [facility] MILLENNIUM Mean Cell Hemoglobin Concentration 33.4 32.0 - 36.5 gm/dL [facility]ERN[facility] MILLENNIUM Platelet 235 145 - 370 x10(3)/mc L [facility]ERNER MILLENNIUM RDW Standard Deviation 46.5(H) 35.0 - 46.0 fL [facility] MILLENNIUM RDW coefficient of variation 13.7 10.9 - 14.4 % [facility] MILLENNIUM Mean Platelet Volume 10.7 9.0 - 12.0 fL [facility] MILLEN[facility] Blood specimen (specimen) 01/23/2013 11:12 AM EST 01/23/2013 11:20 AM EST Narrative Resulting Agency Comment Spec In Lab E Michell Vinson MD HEMATOLOGY ORDERA BLES [facility] documented in this encounter Visit Diagnoses Diagnosis , supervision of, high-risk Unspecified high-risk Obesity (BMI 35.0-39.9 without comorbidity) Obesity, unspecified documented in this encounter Care Teams Analysis Reporting Developer Relationship Specialty Start Date End Date Bismark Bui APRN PCP - General 12/26/12 10/01/14 documented as of this encounter
--- OUTSIDE RECORDS SUMMARY | 2024-08-10 16:00 | XMS_ITS | Encounter Summary ---
Author Organization [place] [address] Care Team Providers Care Undergraduate Advisor Name Role Phone Hao Bismark Ortiz APRN Primary Care Provider Reason for Visit * Reason Onset Date Comments Vaginal Bleeding 09/09/2012 first trimester Encounter Details Date Type Department Care Team (Late st Contact Info) Description 09/09/2012 Telephone Obstetrics [place] [address] Petrona Ruffin RN Vaginal Bleeding (first trimester) Social History Tobacco Use Types Packs/Day Years [...] encounter Miscellaneous Notes * Telephone Encounter - Petrona Ruffin RN - 09/09/2012 9:50 AM EDT Elodia spoke with Dr. Valencia last night after noting vaginal bleeding, panty liner amount. She denies ever having abdominal pain or cramping. She had a TVU yesterday showing viable IUP. She also had a papdone. Elodia has had no further bleeding since talking with Dr. Valencia. Assessment: Pt is A positive on record. No further bleeding noted. Reassurance given that this may have been from the cervix due to the pap and TVU and that she had an ultrasound yesterday that did not indicate or suggest a problem. Plan: Encouraged to monitor further. S/S of first trimester SAB reviewed. Pt instructed to call forheavy bleeding, cramping or pain. She agrees to this plan. Also encouraged to schedule her next appt. documented in this encounter Plan of Treatment Upcoming Encounters Date Type Department Care Team (Late st Contact Info) Description 10/20/2024 9:00 AM EST Office Visit Hematology [place] [address] Lacy Jameson MD [facility] [address] [place] [address] Layla Jo RN documented as of this encounter Visit Diagnoses Not on filedocumented in this encounter Care Teams Undergraduate Advisor Relationship Specialty Start Date End Date Bismark uBi, YARDAGE CALLER PCP - General 07/11/12 12/08/12 documented as of this encounter
--- OUTSIDE RECORDS SUMMARY | 2024-08-10 16:00 | XMS_ITS | Encounter Summary ---
Author Organization [facility] Address [facility] [place] [address] Care Team Providers Care Recapper Name Role Phone Bismark Bui APRN Primary Care Provider Encounter Details Date Type Department Care Team (Late st Contact Info) Description 07/22/2012 External Results Hematology [place] [address] Lacy Jameson MD [facility] DR HEMATOLOGY [place] [address] Social History Tobacco Use Types Packs/Day Years Used Date Smoking Tobacco: Never Sex and Gender Information Value Date Recorded Sex Assigned at Not on file Gender Identity Not on file Sexual Orientation Not on file documented as of this encounter Plan of Treatment Upcoming Encounters Date Type Department Care Team (Late st Contact Info) Description 10/20/2024 9:00 AM EST Office Visit Hematology [place] [address] Lacy Jameson MD [facility] DR HEMATOLOGY [place] [address] Layla Jo RN documented as of this encounter Visit Diagnoses Not on filedocumented in this encounter Care Teams Recapper Relationship Specialty Start Date End Date Bismark Bui APRN PCP - General 07/11/12 12/08/12 documented as of this encounter
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
--- OUTSIDE RECORDS SUMMARY | 2024-08-10 16:00 | XMS_ITS | Encounter Summary ---
[place] [address] Care Team Providers Care Professor Of Surgery Name Role Phone Bismark Bui APRN Primary Care Provider Reason for Visit * Reason Onset Date Comments Follow-up 07/12/2012 regarding date f or upcoming colonoscopy and factor order Encounter Details Date Type Department Care Team (Late st Contact Info) Description 07/12/2012 Telephone [place] [address] Layla Jo RN Follow-up (regarding date for upcoming colonoscopy and factor order) Social History Tobacco Use Types Packs/Day Years Used Date Smoking Tobacco: Never Sex and Gender Information Value Date Recorded Sex Assigned at Not on file Gender Identity Not on file Sexual Orientation Not on file documented as of this encounter Miscellaneous Notes * Telephone Encounter - Layla Bui RN - 07/12/2012 1:23 PM EDT T/c placed to patient residence [phone] to review date for colonoscopy and advise that a supply of Humate P would be delivered this week. Phone disconnected at this time. Will not send factor until hear confirmation that patient is at current address and available for delivery. documented in this encounter Plan of Treatment Upcoming Encounters Date Type Department Care Team (Late st Contact Info) Description 10/20/2024 9:00 AM EST Office Visit Hematology [place] [address] Lacy Jameson MD [facility] [place] [address] Layla Jo RN documented as of this encounter Visit Diagnoses Not on filedocumented in this encounter Care Teams Professor Of Surgery Relationship Specialty Start Date End Date Bismark Bui, LOSS PREVENTION LEADER PCP - General 07/11/12 12/08/12 documented as of this encounter
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
--- OUTSIDE RECORDS SUMMARY | 2024-08-10 16:00 | XMS_ITS | Encounter Summary ---
Author Organization [facility] [place] [address] Care Team Providers Care Director Manufacturing Engineering Name Role Phone Bismark Bui Diana BAUMAN Primary Care Provider Reason for Visit * Reason Onset Date Comments Other 09/05/2012 Encounter Details Date Type Department Care Team (Late st Contact Info) Description 09/05/2012 Telephone Obstetrics [place] [address] Bayron Hutchins MD [facility] DR OBSTETRICS [place] [address] Other Social History Tobacco Use Types Packs/Day Years Used Date Smoking Tobacco: Never Sex and Gender Information Value Date Recorded Sex Assigned at Not on file Gender Identity Not on file Sexual Orientation Not on file documented as of this encounter Miscellaneous Notes * Telephone Encounter - Zehra Dela Cruz - 09/06/2012 11:43 AM EDT Can you sign this for me I need to get her in tomorrow AM if possible * Telephone Encounter - Zehra Dela Cruz - 09/05/2012 1:31 PM EDT Please sign documented in this encounter Plan of Treatment Upcoming Encounters Date Type Department Care Team (Late st Contact Info) Description 10/20/2024 9:00 AM EST Office Visit [place]ology [place] [address] Lacy Jameson MD [facility] [address] [place] [address] Layla Jo RN documented as of this encounter Results * US OB transvaginal (09/08/2012 11:59 AM EDT) Anatomical Region Laterality Modality Pelvis, Abdomen Ultrasound 09/08/2012 11:5 9 AM EDT Narrative 09/08/2012 12:02 PM EDT ?OBSTETRICS REPORT ? (Signed Final 09/08/2012 12:01 pm) Patient Info ID: ? [id number] ? : ??[birth year] (42 yrs) Name: ? ELODIA LIN ?Visit Date: 09/08/2012 11:45 am Performed By Performed By: ?Marnie Arevalo RDMS Attending: ? Belkys BERRY, Marek Bustos Referred By: ? E MARYSE HUTCHINS MD Service(s) Provided UOBTV - Viability - Cervical Length - Transvaginal - ??[id number] Indications Viability, transvaginal Evaluation Num Of Fetuses: ?1 Gest. Sac: ? Visualized Yolk Sac: ?Not clearly identified Heart Rate: ??114 ?bpm Presentation: ?Variable Placenta: ?Too early to evaluate Amniotic Fluid MAURA FV: ?Too early to evaluate -------- Biometry -------- CRL: ? 6.9 ??mm ?G. Age: ?? 6w 4d ? ADELITA: ?? 04/30/13 Gestational Age LMP: ? 8w 1d ? Date: ??07/13/12 ? ADELITA: ?? 04/19/13 Best: ?6w 4d ?Det. By: ??U/S C R L ?ADELITA: ?? 04/30/13 ? (09/08/12) Cervix Uterus Adnexa Left Ovary: ?Visualized Right Ovary: ?? Visualized Impression 1st Trimester Summary Single living intrauterine with a gestational age of 6w 4d based on CRL The adenexa are normal. I ??viewed the images and agree with the above interpretation. Thank you for allowing us to participate in the care of ELODIA LIN. Please do not hesitate to call if you have any questions. ? Marek Rizvi MD Electronically Signed Final Report ?? 09/08/2012 12:01 pm Procedure Note Marek Rizvi MD - 09/08/2012 OBSTETRICS REPORT (Signed Final 09/08/2012 12:01 pm) Patient Info ID: [id number] : [birth year] (42 yrs) Name: ELODIA LIN Visit Date: 09/08/2012 11:45 am Performed By Performed By: Marnie Arevalo [facility] Attending: Marek Rizvi MD Referred By: Bayron HUTCHINS MD Service(s) Provided UOBTV - Viability - Cervical Length - Transvaginal - [id number] Indications Viability, transvaginal Evaluation Num Of Fetuses: 1 Gest. Sac: Visualized Yolk Sac: Not clearly identified Heart Rate: 114 bpm Presentation: Variable Placenta: Too early to evaluate Amniotic Fluid MAURA FV: Too early to evaluate -------- Biometry -------- CRL: 6.9 mm G. Age: 6w 4d ADELITA: 04/30/13 Gestational Age LMP: 8w 1d Date: 07/13/12 ADELITA: 04/19/13 Best: 6w 4d Det. By: U/Jeronimo Forbes ADELITA: 04/30/13 (09/08/12) Cervix Uterus Adnexa Left Ovary: Visualized Right Ovary: Visualized Impression 1st Trimester Summary Single living intrauterine with a gestational age of 6w 4d based on CRL The adenexa are normal. I viewed the images and agree with the above interpretation. Thank you for allowing us to participate in the care of ELODIA LIN. Please do not hesitate to call if you have any questions. Marek Rizvi MD Electronically Signed Final Report 09/08/2012 12:01 pm E Maryse Hutchins MD IMG US OB ORDERAB LES documented in this encounter Visit Diagnoses Diagnosis Spotting in first trimester- Primary Spotting complicating , antepartum condition or complication Spotting in first trimester Spotting complicating , antepartum condition or complication documented in this encounter Care Teams Director Manufacturing Engineering Relationship Specialty Start Date End Date Bismark Bui, SHEET METAL FABRICATOR PCP - General 07/11/12 12/08/12 documented as of this encounter
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
--- OUTSIDE RECORDS SUMMARY | 2024-08-10 16:00 | XMS_ITS | Encounter Summary ---
[place] [address] Care Team Providers Care Timing Adjuster Name Role Phone Bismark Bui APRN Primary Care Provider Reason for Visit * Reason Onset Date Comments Questions 09/23/2012 Encounter Details Date Type Department Care Team (Late st Contact Info) Description 09/23/2012 Telephone Obstetrics [place] [address] Petrona Ruffin RN Questions Social History Tobacco Use Types Packs/Day [...] Miscellaneous Notes * Telephone Encounter - Petrona Ruffin, RN - 09/23/2012 10:49 AM EDT PCP office, Renata is the office contact calling re: this co managed patient. She was prescribed Monurol for a presumed UTI, no culture confirmation (pending). Office resource is Up To Date on line resource. Noted to be category B. Pt reluctant to take this medication as she has always taken Macrobid. Office informed that Monurol is not used here for UTI's. Plan: pt has already been changed to Amoxicillin - culture is still not back. documented in this encounter Plan of Treatment Upcoming Encounters Date Type Department Care Team (Late st Contact Info) Description 10/20/2024 9:00 AM EST Office Visit H[place]ology [place] [address] Lacy Jameson MD [facility] DR HEMATOLOGY [place] [address] Layla Jo RN documented as of this encounter Visit Diagnoses Not on filedocumented in this encounter Care Teams Timing Adjuster Relationship Specialty Start Date End Date Bismark Bui, MITUL PCP - General 07/11/12 12/08/12 documented as of this encounter
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
--- OUTSIDE RECORDS SUMMARY | 2024-08-10 16:00 | XMS_ITS | Encounter Summary ---
Author Organization [facility] Address [facility] [place] [address] Care Team Providers Care Fish Stringer Assembler Name Role Phone Bismark Bui Diana BAUMAN Primary Care Provider Reason for Visit * Reason Comments Routine Visit Encounter Details Date Type Department Care Team (Latest Contact Info) Description 11/28/2012 2:15 PM EST Routine Obstetrics [place] [address] CLINIC, Bayron Clement MD [facility] OBSTETRICS [place] [address] GA: [id number] Discharge Disposition: Home Social History Tobacco Use [...] Sign Reading Time Taken Comments Blood Pressure 110/62 11/28/2012 2:20 PM EST Pulse - - Temperature - - Respiratory Rate - - Oxygen Saturation - - Inhaled Oxygen Concentration - - Weight 100 kg (220 lb 6.4 oz) 11/28/2012 2:20 PM EST Height - - Body Mass Index 40.31 09/08/2012 12:56 PM EDT documented in this encounter Progress Notes * Bayron Vinson MD - 11/28/2012 2:40 PM EST Good movement. No contractions/ leaking fluid / bleeding / pain. No headache, vision changes, RUQ pain. Patient here with , son and daughter. Morphology ultrasound normal today; female fetus. Reviewed weight gain goals (no more than 5 more pounds this ). RTC in one month. documented in this encounter Plan of Treatment Upcoming Encounters Date Type Department Care Team (Late st Contact Info) Description 10/20/2024 9:00 AM EST Office Visit Hematology [place] [address] Lacy Jameson MD [facility] DR HEMATOLOGY [place] [address] Layla Jo RN documented as of this encounter Visit Diagnoses Diagnosis Von Willebrand disease Von Willebrand's disease , supervision of, high-risk Unspecified high-risk Obesity (BMI 35.0-39.9 without comorbidity) Obesity, unspecified documented in this encounter Care Teams Fish Stringer Assembler Relationship Specialty Start Date End Date Bismark Bui APRN PCP - General 07/11/12 12/08/12 documented as of this encounter
--- OUTSIDE RECORDS SUMMARY | 2024-08-10 16:00 | XMS_ITS | Encounter Summary ---
Author Organization [facility] Address [facility] [place] [address] Care Team Providers Care Farm Crew Member Name Role Phone None Primary Care Provider Unavailabl e Reason for Visit * Reason Comments Follow-up Encounter Details Date Type Department Care Team (Late st Contact Info) Description 12/09/2012 9:30 AM EST Follow-Up [place]ematology [place] [address] Lacy Jameson MD [facility] [address] [place] [address] Von Willebrand disease, type IIa (Primary Dx) [...] Sign Reading Time Taken Comments Blood Pressure 110/70 12/09/2012 9:48 AM EST Pulse 83 12/09/2012 9:48 AM EST Temperature - - Respiratory Rate 16 12/09/2012 9:48 AM EST Oxygen Saturation 99% 12/09/2012 9:48 AM EST Inhaled Oxygen Concentration - - Weight 99 kg (218 lb 4.1 oz) 12/09/2012 9:48 AM EST @ 20weeks Height 158 cm (5' 2.21) 12/09/2012 9:48 AM EST Body Mass Index 39.66 12/09/2012 9:48 AM EST documented in this encounter Progress Notes * Geno Tse - 12/09/2012 10:11 AM EST [facility] Department of Medicine [place] [address] [facility] HEMOSTASIS CONSULTATION DATE OF VISIT 12/09/12 Patient Elodia Lin 1970 42 year old female with a h/o Von Willebrand Disease, type 2A presents for discussion about , peripartum and management of her Von Willebrand disease for this , ADELITA . She's and has had 2 caesarian sections in the past (children ages 7 and 10) in [facility], both of which were managed with Humate-P. She had one miscarriage in 1999 for which she received DDAVP. She reports no complications with this and tells me that she hasnot had trouble with bleeding. She is feeling well today with no symptoms to report. ROS (+)as above (-)fever, chills, headache, dizziness, sore throat, mouth sores, recent cold/flu sx, cough, chest pain, shortness of breath, abdominal pain, nausea, vomiting, diarrhea, constipation, dysuria, hematuria, gait disturbance, focal weakness, rash Pertinent Historical Labs: 08/2001: vW Risto 23% [...] intermediate weight multimers F VIII activity 55% 07/07/12 Results for ELODIA LIN ( ) as of 12/09/2012 09:51 Ref. Range 07/07/2012 10:35 Factor 8 Assay Latest Range: 50-150 % 73 vWF Antigen No range found 47 vWF Anti Interp No range found ABO blood group h... vWF Activity Latest Range: 50-150 % activity 28 (L) Col/Epi Latest Range: 90-160 sec >264 Col/ADP Latest Range: 50-120 sec >231 (H) PAST MEDICAL HISTORY 1) Type 2 von Willebrand Disease (previous testing consistent with type 2A), diagnosed at age 10 after she experienced bleeding with an adenoidectomy 2) Anxiety - on Effexor 3) Iron deficiency anemia with pregnancies Current Outpatient Prescriptions on File Prior to Visit Medication Sig Dispense Refill ??? venlafaxine (EFFEXOR-XR) 37.5 mg 24 hr capsule Take 37.5 mg by mouth every other day. ? ? vitamin 27 & zlugzxy-ncic-AA 60 mg iron-1 mg tablet Take 1 tablet by mouth daily. ??? pseudoephedrine (SUDAFED) 30 mg tablet Take 30 mg by mouth every 4 hours as needed. BP 110/70 Pulse 83 Resp 16 Ht 158 cm (5' 2.21) Wt 99 kg (218 lb 4.1 oz) BMI 39.66 kg/m2 SpO2 99% LMP 07/13/2012 General: alert, conversant, NAD HEENT: PERRLA, EOMI, mmm, no oropharyngeal lesions, erythema or exudates, symmetric palate raise Neck: no palpable lymphadenopathy CVS: regular S1S2 without MRG Chest: CTAB, no crackles or wheezes Abdomen: gravid, NT, ND, BS+ Extremities: no edema, normal bulk and tone Neuro: ambulatory, CN 2-12 grossly intact, moves all 4 extremities Skin: no visible rashes or lesions Recent Results (from the past 24 hour(s)) APTT Component Value Range PTT 29 25 - 35 (sec) PROTHROMBIN TIME Component Value Range PT 12.4 11.9 - 14.7 (sec) INR 0.9 0.9 - 1.1 A/P: 42 year old female with a h/o Von Willebrand Disease, type 2A presents for discussion about , peripartum and management of her Von Willebrand disease for this , ADELITA . She's and has had 2 caesarian sections in the past (children ages 7 and 10) in [facility], both of which were managed with Humate-P. She had one miscarriage in 1999 for which she received DDAVP. We do not have these records, but it wouldn't change our recommendations, listed below. She is planning on having a for this delivery as well. As progresses, levels of VonWillebrand factor and factor 8 increase, peaking a term. It is conceivable that herlevels at term will be high enough that she will not need any factor replacement, but she will needto be very carefully monitored in the sheela- time period. If either her factor 8 level or her VW activity level is <50%, we would administer humateP. We would not recommend DDAVP, as this will just release VW monomers into the circulation from storage sites - the problem with type2A VWD is f ormation of functional multimers, and therefore would likely not be the best choice anyway. Care will need to be taken to not over-treat her for her VWD and create a situation in which she develops aclot. -obtain Von Willebrand factor antigen and activity levels, as well as factor 8 levels now, then every 2 months (with follow up appointments) up until the time of delivery, then daily for 5 days post-operatively -humateP for levels <50% (levels of either VW activity or factor 8) -no DDAVP Geno Tse MD Fellow, Hematology/Oncology +*+*+*+*+*+*+*+*+*+*+*+*+*+*+*+*+*+*+*+*+*+*+*+*+*+*+*+*+*+*+*+*+*+*+*+*+*+* Hemostasis Attending Physician I have independently interviewed and examined this patient in the outpatient clinic and have personally reviewed the relevant clinical, laboratory and radiological data with Dr. Geno Tse, Hematology/Oncology Fellow. Please refer to the comprehensive consultation note above, with which I concur, for complete details of our encounter with this patient. I have reviewed and endorse the recommendations as outlined and have made any additions/corrections below. In brief, Elodia has type 2A von Willebrand disease with a mild bleeding phenotype, experiencing significant bleeding only with hemostatic challenges. She is currently with an expected date ofdelivery in April. She will have a scheduled in view her multiple previous C-sections. Given the subtype of von Willebrand disease, we generally recommend the use of an intermediate purity (virally inactivated) factor 8 concentrate to support hemostasis by providing von Willebrand factor. She appears to respond to DDAVP, but the absence of high and intermediate molecular weight multimersmakes the protein stimulated by DDAVP suspect in terms of its hemostatic potency. Accordingly, we recommend the use of Humate P prior to support the delivery. We have previously reviewed the product and vendor choice with Elodia and she has elected to use Humate P as her coagulation factor concentrate and [facility] as the supplier. We will plan to follow Elodia's VWF levels throughout the and recommend the delivery be performed at . VWF levels generally rise during the course of the and we anticipate no needfor the routine use of Humate P in the antepartum period. We will anticipate administering a dose of Humate P (~40 units per kg; ~4000 units) once prior to administration of regional anesthesia for the and in the post- period as needed based on VWF and factor 8 levels. Should an unexpected early or precipitous delivery at term occur then immediate administration of 4000 units of Humate P will be in order. Elodia has two doses of ~2000 units each in her possession at this time and she can have these infused locally should a pre-term, unplanned delivery be imminent. We will provide a formal protocol for management of the closer to the time of delivery. Asabove, we prefer not to use DDAVP in this subtype of VWD given the variable efficacy. We will check her VWF and factor 8 levels today and arrange Hematology follow up about every 2 months, coordinated with her OB appointments. Next appt expected last week of Dec. Lacy Jameson MD [facility], [facility] documented in this encounter Plan of Treatment Upcoming Encounters Date Type Department Care Team (Late st Contact Info) Description 10/20/2024 9:00 AM EST Office Visit Hematology [place] [phone] Lacy Jameson MD [facility] [address] [place] [address] Layla Jo RN documented as of this encounter Procedures Procedure Name Priority Date/Time Associated Diagnosis Comments VON WILLEBRAND FACTOR ANTIGEN Routine 12/09/2012 10:27 AM EST Von Willebrand disease, type IIa VON WILLEBRAND FACTOR ACTIVITY Routine 12/09/2012 10:27 AM EST Von Willebrand disease, type IIa APTT Routine 12/09/2012 10:27 AM EST Von Willebrand disease, type IIa PROTHROMBIN TIME Routine 12/09/2012 10:2 7 AM EST Von Willebrand disease, type IIa FACTOR 8 ASSAY Routine 12/09/2012 10:27 AM EST Von Willebrand disease, type IIa documented in this encounter Results * Von Willebrand Factor Antigen (01/23/2013 11:12 AM EST) von Willebrand Factor Antigen 103 % [facility] vWF Anti Interp ABO blood group has a significant influence on vWF:Ag levels in normal individuals*. ??Type A individuals have a mean level of 106% (range: 48-234% 2SD). ??* Ruby ESCALONA, et. al. ??The Effect of ABO Blood Group on the Diagnosis of von Willebrand Disease. ??Blood, 1987; 69(6) : 4014-9484 [facility] Blood specimen (specimen) 01/23/2013 11:12 AM EST 01/23/2013 11:20 AM EST Narrative Resulting Agency Comment Spec In Lab Lacy Jameson MD HEMATOLOGY ORDERAB LES [facility] * (ABNORMAL) Von Willebrand Factor Activity (01/23/2013 11:12 AM EST) Von Willebrand Factor Assay 43(L) 50 - 150 % activity [facility] Blood specimen (specimen) 01/23/2013 11:12 AM EST 01/23/2013 11:20 AM EST Narrative Resulting Agency Comment Spec In Lab Lacy Jameson MD HEMATOLOGY ORDERAB LES Performing Organization Address City/[facility] Co de Phone Number [facility] * (ABNORMAL) Factor 8 assay (01/23/2013 11:12 AM EST) Factor VIII Assay 167(H) 50 - 150 % [facility] SHIKHAENNIUM Blood specimen (specimen) 01/23/2013 11:12 AM EST 01/23/2013 11:20 AM EST Narrative Resulting Agency Comment Spec In Lab Lacy Jameson MD HEMATOLOGY ORDERAB LES Performing Organization Address [facility] Co de Phone Number [facility] * Prothrombin Time (12/09/2012 10:27 AM EST) Prothrombin Time 12.4 11.9 - 14.7 sec [facility] Comment: [facility] Transfusion Committee Guidelines: INR less than 2.0, PTT less than OR equal to 43.5 seconds, or Fibrinogen greater than or equal to 100 mg/dl indicate adequate procoagulant activity for hemostasis in patients without underlying bleeding disorders. International Normalization Ratio 0.9 0.9 - 1.1 [facility] SHIKHAENNIUM Blood specimen (specimen) 12/09/2012 10:27 AM EST 12/09/2012 10:31 AM EST Narrative Resulting Agency Comment Spec In Lab Lacy Jameson MD HEMATOLOGY ORDERAB LES Performing Organization Address City/[facility]/ZIP Co de Phone Number [facility] * APTT (12/09/2012 10:27 AM EST) Partial Thromboplastin Time 29 25 - 35 sec [facility] MILLENNIUM Comment: Recommended therapeutic PTT range for full dose unfractionated heparin is 80-114 seconds. Blood specimen (specimen) 12/09/2012 10:27 AM EST 12/09/2012 10:31 AM EST Narrative Resulting Agency Comment Spec In Lab Lacy Jameson MD HEMATOLOGY ORDERAB LES Performing Organization Address [facility] Co de Phone Number [facility] * Von Willebrand Factor Antigen (12/09/2012 10:27 AM EST) von Willebrand Factor Antigen 65 % CERNER MILLENNIUM vWF Anti Interp ABO blood group has a significant influence on vWF:Ag levels in normal individuals*. ??Type A individuals have a mean level of 106% (range: 48-234% 2SD). ??* Ruby ESCALONA, et. al. ??The Effect of ABO Blood Group on the Diagnosis of von Willebrand Disease. ??Blood, 1987; 69(6) : 1691-1637 CERNER MILLENNIUM Blood specimen (specimen) 12/09/2012 10:27 AM EST 12/09/2012 10:31 AM EST Narrative Resulting Agency Comment Spec In Lab Lacy Jameson MD HEMATOLOGY ORDERAB LES Performing Organization Address [facility] de Phone Number [facility] * (ABNORMAL) Von Willebrand Factor Activity (12/09/2012 10:27 AM EST) Von Willebrand Factor Assay 41(L) 50 - 150 % activity CERNER MILLENNIUM Blood specimen (specimen) 12/09/2012 10:27 AM EST 12/09/2012 10:31 AM EST Narrative Resulting Agency Comment Spec In Lab Lacy Jameson MD HEMATOLOGY ORDERAB LES Performing Organization Address [facility] de Phone Number [facility] * Factor 8 assay (12/09/2012 10:27 AM EST) Factor VIII Assay 81 50 - 150 % CERNER MILLENNIUM Blood specimen (specimen) 12/09/2012 10:27 AM EST 12/09/2012 10:31 AM EST Narrative Resulting Agency Comment Spec In Lab Lacy Jameson MD HEMATOLOGY ORDERAB LES Performing Organization Address City/[facility] Co de Phone Number [facility] documented in this encounter Visit Diagnoses Diagnosis Von Willebrand disease, type IIa- Primary Von Willebrand's disease documented in this encounter Care Teams Farm Crew Member Relationship Specialty Start Date End Date None None PCP - General 12/09/12 12/25/12 documented as of this encounter
--- OUTSIDE RECORDS SUMMARY | 2024-08-10 16:00 | XMS_ITS | Encounter Summary ---
Author Organization [facility] Address [facility] [place] [address] Care Team Providers Care Cash Applications Representative Name Role Phone Bismark Bui MITUL Primary Care Provider Encounter Details Date Type Department Care Team (Latest Contact Info) Description 07/18/2012 3:01 PM EDT - 07/18/2012 11:59 PM EDT Hospital [place] [address] Lacy Jameson MD [facility] [address] HEMATOLOGY [place] [address] Discharge Disposition: Home Social History Tobacco Use Types Packs/Day Years Used Date Smoking Tobacco: Never Sex and Gender Information Value Date Recorded Sex Assigned at Not on file Gender Identity Not on file Sexual Orientation Not on file documented as of this encounter Medications at Time of Discharge Medication Sig Dispensed Refills Start Date End Date venlafaxine (EFFEXOR) 37.5 mg tablet Take 37.5 mg by mouth daily. 09/08/2012 ALPRAZOLAM (XANAX ORAL) Take by mouth. documented as of this encounter Plan of Treatment Upcoming Encounters Date Type Department Care Team (Late st Contact Info) Description 10/20/2024 9:00 AM EST Office Visit Hematology [place] [phone] Lacy Jameson MD [facility] HEMATOLOGY [place] [address] Layla Jo RN documented as of this encounter Visit Diagnoses Not on filedocumented in this encounter Care Teams Cash Applications Representative Relationship Specialty Start Date End Date Bismark Bui, MITUL PCP - General 07/11/12 12/08/12 documented as of this encounter
--- OUTSIDE RECORDS SUMMARY | 2024-08-10 16:00 | XMS_ITS | Encounter Summary ---
Author Organization Formerly [facility] [address] Care Team Providers Care Tool Honing Machine Set Up Operator Name Role Phone Hao Bismark Ortiz APRN Primary Care Provider Encounter Details Date Type Department Care Team (Latest Contact Info) Description 09/08/2012 11:14 AM EDT - 09/08/2012 11:59 PM EDT Hospital [place] [address] CLINIC, DR NITHIN Meredith in first trimester Social History Tobacco Use Types Packs/Day Years [...] Dispensed Refills Start Date End Date venlafaxine (EFFEXOR-XR) 37.5 mg 24 hr capsule Take 37.5 mg by mouth every other day. 03/29/2013 vitamin 27 & [id number] 60 mg iron-1 mg tablet Take 1 tablet by mouth daily. 01/01/2014 documented as of this encounter Plan of Treatment Upcoming Encounters Date Type Department Care Team (Late st Contact Info) Description 10/20/2024 9:00 AM EST Office Visit [place]ematology [place] [address] Lacy Jameson MD [facility] DR [place] [address] Layla Jo, RN documented as of this encounter Procedures Procedure Name Priority Date/Time Associated Diagnosis Comments US OB TRANSVAGINAL Routine 09/08/2012 11 :59 AM EDT Spotting in first trimester documented in this encounter Results * US OB transvaginal (09/08/2012 11:59 AM EDT) Anatomical Region Laterality Modality Pelvis, Abdomen Ultrasound 09/08/2012 11:5 9 AM EDT Narrative 09/08/2012 12:02 PM EDT ?OBSTETRICS REPORT ? (Signed Final 09/08/2012 12:01 pm) Patient Info ID: ? [id number] ? : [birth year] (42 yrs) Name: ? ELODIA TOM ?Visit Date: 09/08/2012 11:45 am Performed By Performed By: ?Marnie Arevalo RDMS Attending: ? Belkys BERRY, Marek Bustos Referred By: ? E MARYSE HUTCHINS MD Service(s) Provided UOBTV - Viability - Cervical Length - Transvaginal - ??[id number] Indications Viability, transvaginal Evaluation Num Of Fetuses: [...] to participate in the care of ELODIA TOM. Please do not hesitate to call if you have any questions. ? Marek Rizvi MD Electronically Signed Final Report ?? 09/08/2012 12:01 pm Procedure Note Marek Rizvi MD - 09/08/2012 OBSTETRICS REPORT (Signed Final 09/08/2012 12:01 pm) Patient Info ID: [id number] : [birth year] (42 yrs) Name: ELODIA TOM Visit Date: 09/08/2012 11:45 am Performed By Performed By: Marnie Arevalo RDOH Attending: Marek Rizvi MD. Referred By: Neda HUTCHINS MD Service(s) Provided UOBTV - Viability - Cervical Length - Transvaginal - [id number] Indications Viability, transvaginal Evaluation Num Of Fetuses: 1 Gest. Sac: Visualized Yolk Sac: Not clearly identified Heart Rate: 114 bpm Presentation: Variable Placenta: Too early to evaluate Amniotic Fluid MAURA FV: Too early to evaluate -------- Biometry -------- CRL: 6.9 mm G. Age: 6w 4d ADELITA: 04/30/13 Gestational Age LMP: 8w 1d Date: 07/13/12 ADELITA: 04/19/13 Best: 6w 4d Det. By: U/S Link Forbes ADELITA: 04/30/13 (09/08/12) Cervix Uterus Adnexa Left Ovary: Visualized Right Ovary: Visualized Impression 1st Trimester Summary Single living intrauterine with a gestational age of 6w 4d based on CRL The adenexa are normal. I viewed the images and agree with the above interpretation. Thank you for allowing us to participate in the care of ELODIA TOM. Please do not hesitate to call if you have any questions. Marek Rizvi MD Electronically Signed Final Report 09/08/2012 12:01 pm E Maryse Hutchins MD IMG US OB ORDERAB LES documented in this encounter Visit Diagnoses Diagnosis Spotting in first trimester Spotting complicating , antepartum condition or complication documented in this encounter Care Teams Tool Honing Machine Set Up Operator Relationship Specialty Start Date End Date Bismark Bui, DYNAMITER PCP - General 07/11/12 12/08/12 documented as of this encounter
--- OUTSIDE RECORDS SUMMARY | 2024-08-10 16:00 | XMS_ITS | Encounter Summary ---
Author Organization [facility] Address [facility] [place] [address] Care Team Providers Care Trimmer Hand Name Role Phone Hao, Bismark Ortiz APRN Primary Care Provider [phone] Reason for Visit * Reason Comments Follow-up Encounter Details Date Type Department Care Team (Late st Contact Info) Description 01/23/2013 12:15 PM EST Follow-Up [place]ematology [place] [address] Lacy Jameson MD [facility] [address] [place] [address] Von Willebrand disease, type IIa (Primary Dx); complicated by coagulation defect Discharge Disposition: Home Social History Tobacco Use [...] Reading Time Taken Comments Blood Pressure 120/70 01/23/2013 12:13 PM EST Pulse 61 01/23/2013 12:13 PM EST Temperature - - Respiratory Rate 16 01/23/2013 12:13 PM EST Oxygen Saturation 98% 01/23/2013 12:13 PM EST Inhaled Oxygen Concentration - - Weight 102 kg (224 lb 13.9 oz) 01/23/2013 12:13 PM EST Height 157.5 cm (5' 2) 01/23/2013 12:13 PM EST Body Mass Index 41.13 01/23/2013 12:13 PM EST documented in this encounter Progress Notes * Lacy Jameson MD - 01/23/2013 4:43 PM EST [facility] Department of Medicine [place] [address] [facility] HEMOSTASIS FOLLOW UP DATE OF VISIT 01/23/2013 Patient Elodia Lin 1970 42 year old female with a h/o Von Willebrand Disease, type 2A, with a mild bleeding phenotype presents for follow up of Von Willebrand disease. She is currently at about 26 weeks along in the now with an expected delivery date of April 30, 2013, but she is having a scheduled that she believes may be at the end of March.. She's and has had 2 caesarian sections in the past (children ages 7 and 10) in [facility], both of which were managed with Humate-P. She had one miscarriage in 1999 for which she received DDAVP. She continues to report no complications with this and has had no problems with bleeding or bruising. . She is feeling well today with no symptoms to report. She will be having a post- tubal ligation. ROS (+)as above (-)fever, chills, headache, dizziness, [...] other day. ? ? vitamin 27 & [id number] 60 mg iron-1 mg tablet Take 1 tablet by mouth daily. BP 120/70 Pulse 61 Resp 16 Ht 157.5 cm (5' 2) Wt 102 kg (224 lb 13.9 oz) BMI 41.13 kg/m2 SpO2 98% LMP 07/13/2012 PHYSICAL EXAMINATION GENERAL: Well-appearing, articulate [...] noted. PSYCHIATRIC: Appropriate affect, no apparent distress. Recent Results (from the past 24 hour(s)) FACTOR 8 ASSAY Component Value Range Factor 8 Assay 167 (*) 50 - 150 % VON WILLEBRAND FACTOR ACTIVITY Component Value Range vWF Activity 43 (*) 50 - 150 % activity VON WILLEBRAND FACTOR ANTIGEN Component Value Range vWF Antigen 103 vWF Anti Interp Value: ABO blood group has a significant influence on vWF:Ag levels in normal individuals*. Type A individuals have a mean level of 106% (range: 48-234% 2SD). * Ruby ESCALONA, et. al. The Effect of ABO Blood Group on the Diagnosis of von Willebrand Disease. Blood, 1987; 69(6) : 6648-5629 CBC (WITH DIFF) Component Value Range WBC 9.5 4.0 - 10.0 x10(3)/mcL RBC 3.86 (*) 3.93 - 5.22 x10(6)/mcL Hemoglobin 12.1 11.2 - 15.7 gm/dL Hematocrit 36.2 34.0 - 45.0 % MCV 93.8 79.0 - 94.0 fL MCH 31.3 26.6 - 32.2 pg MCHC 33.4 32.0 - 36.5 gm/dL Platelets 235 145 - 370 x10(3)/mcL RDWSD 46.5 (*) 35.0 - 46.0 fL RDWCV 13.7 10.9 - 14.4 % MPV 10.7 9.0 - 12.0 fL GLUCOSE 1 HOUR POST PRANDIAL Component Value Range Glucose, 1Hr PP 116 DIFFERENTIAL, AUTOMATED Component Value Range Neutrophils % 83.0 (*) 34.0 - 71.0 % Neutr Abs (ANC) 7.85 (*) 1.50 - 6.30 x10(3)/mcL Lymphocytes % 10.8 (*) 19.0 - 53.0 % Lymphocytes Abs 1.0 1.0 - 3.6 x10(3)/mcL Monocytes % 5.0 4.0 - 13.0 % Monocyte Abs 0.5 0.2 - 1.0 x10(3)/mcL Eosinophils % 0.8 0.0 - 7.0 % Eosinophils Abs 0.1 0.0 - 0.5 x10(3)/mcL Basophils % 0.1 0.0 - 2.0 % Basophils Abs 0.0 0.0 - 0.2 x10(3)/mcL Immature Gran % 0.30 0.00 - 0.66 % Lulu Gran Abs 0.03 0.00 - 0.05 x10(3)/mcL A/P: 42 year old female with a h/o Von Willebrand Disease, type 2A presents for follow up of Von Willebrand disease. As her has progressed, her VWF:Ag has increased but, as expected with type 2A VWD, the VWF:Activity has not kept pace and is at 43% today. As the progresses,levels of VonWillebrand factor and factor 8 increase, peaking at term. While it is conceivable thather levels at term will be high enough that she will not require any factor replacement, in all likelihood she will require Humate P pre- operatively to ensure adequate hemostasis for surgery and the immediate post- operative period when we expect VWF consumption to be highest. We would anticipate the use of a ~40 unit/kg dose of Humate P (~4000 units based on her pre- weight) pre-operatively based on the rise in VWF:Act during the thus far. This will be expected to raise the VWF:Activity level to ~100% for surgery (1 U/kg --> ~1.5% rise in VWF:Act) . We would not recommendthe use of DDAVP for this patient. Care will need to be taken to not over-treat her for her VWD andcreate a situation in which she develops venous thromboembolism in the highly prothrombotic state of .. We have previously reviewed the product and vendor choice with Elodia and she has elected to use Humate P as her coagulation factor concentrate and [facility] as the supplier. She has a dose [...] should a pre-term, unplanned delivery be imminent.We will provide a formal protocol for hemostasis management of the closer to the time of delivery. As above, we prefer not to use DDAVP in this subtype of VWD given the variable efficacy. We will continue Hematology follow up and evaluation of VWF levels about every 2 months, coordinated with her OB appointments. Next appt expected last week of February/first week of March as she nears mid-third trimester. Lacy Jameson MD [facility], [facility] documented in this encounter Plan of Treatment Upcoming Encounters Date Type Department Care Team (Late st Contact Info) Description 10/20/2024 9:00 AM EST Office Visit Hematology [place] [address] Lacy Jameson MD [facility] [address] [place] [address] Layla Jo RN documented as of this encounter Results * (ABNORMAL) Von Willebrand Factor Activity (03/29/2013 1:03 PM EDT) Von Willebrand Factor Assay 45(L) 50 - 150 % activity CERNER MILLENNIUM Blood specimen (specimen) 03/29/2013 1:03 PM EDT 03/29/2013 1:09 PM EDT Narrative Resulting Agency Comment Spec In Lab Lacy Jameson MD [facility]EMATOLOGY ORDERAB LES [facility] * Von Willebrand Factor Antigen (03/29/2013 1:03 PM EDT) von Willebrand Factor Antigen 97 % CERNER anydooRENNIUM vWF Anti Interp ABO blood group has a significant influence on vWF:Ag levels in normal individuals*. ??Type A individuals have a mean level of 106% (range: 48-234% 2SD). ??* Ruby ESCALONA, et. al. ??The Effect of ABO Blood Group on the Diagnosis of von Willebrand Disease. ??Blood, 1987; 69(6) : 4629-8367 CERNER MILLENNIUM Blood specimen (specimen) 03/29/2013 1:03 PM EDT 03/29/2013 1:09 PM EDT Narrative Resulting Agency Comment Spec In Lab Lacy Jameson MD [facility]EMATOLOGY [facility]ES [facility] * Factor 8 assay (03/29/2013 1:03 PM EDT) Factor VIII Assay 127 50 - 150 % CERNER MILLENNIUM Blood specimen (specimen) 03/29/2013 1:03 PM EDT 03/29/2013 1:09 PM EDT Narrative Resulting Agency Comment Spec In Lab Lacy Jameson MD HEMATOLOGY ORDERAB LES [facility] documented in this encounter Visit Diagnoses Diagnosis Von Willebrand disease, type IIa- Primary Von Willebrand's disease complicated by coagulation defect Coagulation defects complicating , childbirth, or the puerperium, antepartum condition or complication documented in this encounter Care Teams Trimmer Hand Relationship Specialty Start Date End Date Bismark Bui, SOFTWARE QUALITY ASSURANCE SPECIALIST PCP - General 12/26/12 10/01/14 documented as of this encounter
--- OUTSIDE RECORDS SUMMARY | 2024-08-10 16:00 | XMS_ITS | Encounter Summary ---
[place] [address] Care Team Providers Care Automobile Body Repair Chief Name Role Phone Bismark Bui APRN Primary Care Provider [phone] Encounter Details Date Type Department Care Team (Late st Contact Info) Description 07/18/2012 Notes Only Hematology [place] [address] Layla Jo, KRUNAL Social History Tobacco Use Types Packs/Day Years Used Date Smoking Tobacco: Never Sex and Gender Information Value Date Recorded Sex Assigned at Not on file Gender Identity Not on file Sexual Orientation Not on file documented as of this encounter Progress Notes * Layla Bui RN - 07/18/2012 4:51 PM EDT [facility] Department of Medicine [place], [place] [address] Hemophilia and Thrombosis Center Emergency Treatment Plan [...] or as prophylaxis prior to invasive procedures. has an emergency supply of Humate P [...] head injury ). Major injuries or surgery: WIRELESS STORE MANAGER, GI, retroperitoneal, retropharyngea l Bleeding or significant [...] in hemophilia care is strongly recommended. The [facility] provides 24 hour coverage for any emergent hemophilia issuesthat arise. Call [phone], Mon. to Fri. 8:00-5:00. On weekends, nights & holidays call [phone] ask for the nurse employee communications intern for hemophilia. (Jacinta Duval, MSN, RN or Layla Bui MSN, RN.) H ematologists are also employee communications intern and available for back-up. MD Layla Brian, MSN, RN Addresser, [facility]ophilia [facility] Thrombosis Center Clinical Nurse Specialist Hemophilia and Thrombosis documented in this encounter Plan of Treatment Upcoming Encounters Date Type Department Care Team (Late st Contact Info) Description 10/20/2024 9:00 AM EST Office Visit Hematology [place] [address] Lacy Jameson MD [facility] [address] [place] [address] Layla Jo RN documented as of this encounter Visit Diagnoses Not on filedocumented in this encounter Care Teams Automobile Body Repair Chief Relationship Specialty Start Date End Date Bismark Bui, MITUL PCP - General 07/11/12 12/08/12 documented as of this encounter
--- OUTSIDE RECORDS SUMMARY | 2024-08-10 16:00 | XMS_ITS | Encounter Summary ---
Author Organization [facility] Address [facility] [place] [address] Care Team Providers Care Hobbing Machine Operator Name Role Phone Hao Bismark Ortiz APRN Primary Care Provider [phone] Encounter Details Date Type Department Care Team (Late st Contact Info) Description 09/08/2012 Telephone Obstetrics [place] [address] Yudy Valencia MD [facility] DR OBSTETRICS & [place] [address] Social History Tobacco Use Types Packs/Day Years [...] encounter Miscellaneous Notes * Telephone Encounter - Yudy Valencia MD - 09/08/2012 9:25 PM EDT Telephone Note Caller: patient Time of Call: 2120 Reason for Call: bleeding S: Elodia Lin is a 42 y.o. female at 6w4d who reports heavy vaginal bleeding she noticed for the past 30 mins. Has bled through a light pantyliner. No cramping. No dizziness. A/P: at 6w4d with threatened versus active miscarriage. Blood type is A pos. Patient will put on a regular pad and perform pad counts. Will call if symptoms change or if staurtating >1 pad/hr for > 1 hour. YUDY VALENCIA MD OBGyn PGY3 documented in this encounter Plan of Treatment Upcoming Encounters Date Type Department Care Team (Late st Contact Info) Description 10/20/2024 9:00 AM EST Office Visit Hematology [place] [address] Lacy Jameson MD [facility] [address] [place] [address] Layla Jo RN documented as of this encounter Visit Diagnoses Not on filedocumented in this encounter Care Teams Hobbing Machine Operator Relationship Specialty Start Date End Date Bismark Bui, MITUL PCP - General 07/11/12 12/08/12 documented as of this encounter
--- OUTSIDE RECORDS SUMMARY | 2024-08-10 16:00 | XMS_ITS | Encounter Summary ---
Author Organization [facility] Address [facility] [place] [address] Care Team Providers Care Tower Supervisor Name Role Phone Bismark Bui Diana BAUMAN Primary Care Provider [phone] Encounter Details Date Type Department Care Team (Late st Contact Info) Description 09/05/2012 Telephone Obstetrics [place] [phone] Neda Vinson MD [facility] DR OBSTETRICS [place] [address] Social History Tobacco Use Types Packs/Day Years Used Date Smoking Tobacco: Never Sex and Gender Information Value Date Recorded Sex Assigned at Not on file Gender Identity Not on file Sexual Orientation Not on file documented as of this encounter Miscellaneous Notes * Telephone Encounter - Zehra Dela Cruz - 09/05/2012 11:41 AM EDT cancel documented in this encounter Plan of Treatment Upcoming Encounters Date Type Department Care Team (Late st Contact Info) Description 10/20/2024 9:00 AM EST Office Visit Hematology [place] [address] Lacy Jameson MD [facility] DR HEMATOLOGY [place] [address] Layla Jo, RN documented as of this encounter Visit Diagnoses Not on filedocumented in this encounter Care Teams Tower Supervisor Relationship Specialty Start Date End Date Bismark Bui, BORING MACHINE OPERATOR DOUBLE END PCP - General 07/11/12 12/08/12 documented as of this encounter
[2024-08-10 19:29] LABS: Abs Immature Grans 0.02 10^3/uL (0.0-0.06); Absolute Basophil Count 0.04 10^3/uL (0.0-0.2); Absolute Eosinophil Count 0.08 10^3/uL (0.0-0.7); Absolute Lymphocyte Count 1.62 10^3/uL (1.2-3.4); Absolute Monocyte Count 0.48 10^3/uL (0.1-0.8); Absolute Neutrophil Count 6.26 10^3/uL (1.2-6.7); Basophils % 0.5 %; Eosinophils % 0.9 %; HCT 41.9 % (36.0-46.0); HGB 13.7 g/dL (11.2-15.7); Immature Grans % 0.2 %; Lymphocytes % 19.1 %; MCH 30.5 pg (27.0-33.0); MCHC 32.7 % (32.0-36.0); MCV 93 fL (80-95); MPV 10.6 fL (8.0-11.0); Monocytes % 5.6 %; Neutrophils % 73.7 %; Platelet Count 276 10^3/uL (130-400); RBC 4.49 10^6/uL (3.93-5.22); RDW 12.9 % (11.7-14.6); RDW-SD 44.6 fL
[2024-08-10 19:39] LABS: Iron 47 ug/dL (50-170); Total Iron Binding Capacity 321 ug/dL (250-450); Transferrin Sat 15 % (15-50)
[2024-08-10 19:48] LABS: INR 0.9 (0.9-1.1); Prothrombin Time 9.3 sec (9.1-11.1)
[2024-08-10 19:54] LABS: ALT 52 U/L (14-59); AST 24 U/L (15-37); Albumin 3.6 g/dL (3.4-5.0); Alkaline Phosphatase 71 U/L (46-116); Anion Gap 8.1 mmol/L (3-11); BUN 17 mg/dL (7-18); Bilirubin, Total 0.27 mg/dL (0.2-1.0); CO2 26.9 mmol/L (21.0-32.0); CREATININE 0.9 mg/dL (0.55-1.02); Calcium 8.6 mg/dL (8.5-10.1); Calculated LDL 115 mg/dL (<100); Chloride 103 mmol/L (98-107); Cholesterol 177 mg/dL (<200); Estimated GFR 75.97 (mL/min/1.73m2); Ferritin 88 ng/mL (8-252); Glucose 123 mg/dL (74-106); HDL Cholesterol 35 mg/dL (40-60); Potassium 3.8 mmol/L (3.5-5.1); Sodium 138 mmol/L (136-145); TSH 1.07 uIU/Ml (0.36-3.74); Total Protein 6.8 g/dL (6.4-8.2); Triglyceride 139 mg/dL (<150)
[2024-08-10 20:24] LABS: FREE T4 0.97 ng/dL (0.76-1.46)
== END 2024-08-10 15:45 | disposition home or self-care (01) ==
LOC: NCHCN 15:44
PROVIDERS: Visit Provider Nurse Practitioner Family
DX: N92.1 Excessive and frequent menstruation with irregular cycle (principal); Z68.41 Body mass index [BMI] 40.0-44.9, adult; I10 Essential (primary) hypertension; Z13.220 Encounter for screening for lipoid disorders; D68.020 Von Willebrand disease, type 2A
CPT/HCPCS: 80053; 80061; 82728; 83540; 83550; 84439; 84443; 85025; 85610

== ENCOUNTER 2025-09-25 00:56 | Outpatient (CLI) | payer BC, SELFPAY ==
--- NOTE | 2025-09-25 | DI.MAMMO_ITS ---
Exam(s) MAMMO SCREENING EXAM: MAMMO SCREENING CLINICAL HISTORY: SCREENING,Z12.31. TECHNIQUE: Bilateral full field digital CC and MLO mammographic images were obtained with 3D tomosynthesis and utilizing computer aided detection (CAD). COMPARISON: Prior mammograms were reviewed. FINDINGS: No new right breast findings. Small nodule posteriorly in the right breast is unchanged at least 2014. In the left breast there is an oval noncalcified nodular density measuring 11 x 8 mm located 8.5 cm in from the nipple on the CC view. This appears to be associated with a possible dilated duct. Spot compression CC and MLO views are recommended. There are no malignant-appearing microcalcification groups in this region or elsewhere in either breast. There is also another nodular density seen more anteriorly in the left breast on the MLO view approximately 2 cm in from the nipple. There is no significant architectural distortion nor skin thickening-retraction. IMPRESSION: 1. No radiographic evidence of malignancy in the right breast. 2. Asymmetric nodular densities in the left breast as described above. Spot compression CC and MLO views of both findings as well as complete left breast ultrasound recommended. BI-RADS Category 0 - Incomplete: Need additional imaging evaluation Breast Density - Category B - There are scattered areas of fibroglandular density. Breast density Category C or D implies that the patient has dense breast tissue. Dense breast tissue can make it harder to find cancer on a mammogram. Dense breast tissue is also associated with an increased risk of breast cancer. This information about the result of the mammogram report was provided to the patient to raise their awareness. Use this report when you speak with the patient about their risks for breast cancer, which includes their family history. At that time, you may recommend additional screening tests (Ultrasound or MRI) as these tests may add significant information. A negative radiographic report should not delay biopsy if a dominant or clinically suspicious mass is present. Up to ten percent of cancers are not identified on mammography. A negative report may reinforce clinical impression. Adenosis and dense breasts may obscure an underlying neoplasm. False positive reports average 6 to 10%. Patient will receive a letter notifying them of these results.
== END 2025-09-25 01:16 ==
PROVIDERS: Visit Provider Nurse Practitioner Family
DX: Z12.31 Encounter for screening mammogram for malignant neoplasm of breast (principal); N63.11 Unspecified lump in the right breast, upper outer quadrant
CPT/HCPCS: 77063; 77067

== ENCOUNTER → 2025-10-04 02:01 | Outpatient (CLI) | payer BC, SELFPAY ==
--- NOTE | 2025-10-04 | DI.US_ITS ---
Exam(s) MG MAMMO SCREEN CALL BACK UNI US BREAST LT COMPLETE EXAM: MG MAMMO SCREEN CALL BACK UNI and U/S breast LT complete CLINICAL HISTORY: ASYMMETRIC NODULAR DENSITIES LEFT BREAST R92.8 ABNL MAMMO. TECHNIQUE: Craniocaudal and mediolateral oblique Full Field Digital Mammography views of the left breast with Computer Aided Diagnosis followed by Tomosynthesis and complete left breast ultrasound. All 4 quadrants of the left breast were evaluated sonographically in addition to the left axilla and retroareolar regions. COMPARISON: Comparison is made with prior examinations. FINDINGS: Mammography/Tomosynthesis: Masses/Architectural Distortion: There are no suspicious masses or areas of architectural distortion present. The area of concern appears to represent a focally dilated duct. There are several ducts seen in the retroareolar region and central left breast. There are no areas of architectural distortion. Microcalcifictions: No suspicious pleomorphic-type are seen. Skin Thickening/Nipple Retraction: None. Complete left breast US: Echotexture: Normal appearance of the glandular tissue. Shadowing: No suspicious foci. Cyst: None. Solid lesions: None seen. Ductal dilation: Ducts are visualized in the retroareolar region of the breast. There also duct seen at the 5 o'clock position of the left breast 7 cm from the nipple. This would be consistent with the findings on the mammogram. IMPRESSION: 1. No evidence of malignancy is noted. 2. Unless there is more urgent need, follow-up screening mammography is recommended, as per [employer] guidelines. 3. The findings were discussed with the patient on the date of the examination. BI-RADS Category 1 - Negative Breast Density - Category B - There are scattered areas of fibroglandular density. Breast density Category C or D implies that the patient has dense breast tissue. Dense breast tissue can make it harder to find cancer on a mammogram. Dense breast tissue is also associated with an increased risk of breast cancer. This information about the result of the mammogram report was provided to the patient to raise their awareness. Use this report when you speak with the patient about their risks for breast cancer, which includes their family history. At that time, you may recommend additional screening tests (Ultrasound or MRI) as these tests may add significant information. A negative radiographic report should not delay biopsy if a dominant or clinically suspicious mass is present. Up to ten percent of cancers are not identified on mammography. A negative report may reinforce clinical impression. Adenosis and dense breasts may obscure an underlying neoplasm. False positive reports average 6 to 10%. Patient will receive a letter notifying them of these results.
== END ==
PROVIDERS: PCP Nurse Practitioner Family; Visit Provider Nurse Practitioner Family
DX: Z12.31 Encounter for screening mammogram for malignant neoplasm of breast (principal); R92.8 Other abnormal and inconclusive findings on diagnostic imaging of breast
CPT/HCPCS: 76642; 77063; 77067